=== PATIENT | male | born 1970 | race Caucasian/White ===

== ENCOUNTER 2019-06-11 11:04 | Emergency (ER) | payer OTHER, SELFPAY ==
[2019-06-11 11:17] VITALS: BP 161/96; PULSE 59; RESP 16; TEMP 36.2; O2SAT 97; BMI 41.8
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
[2019-06-11] MEDS: BACITRACIN OINT 0.9 GM PCKT 2 APPLIC TOP (11:50)
--- NOTE | 2019-06-11 12:14 | PC.NURSE ---
area cleaned with gentle soap and water. Bacetracin and gauze applied covered with coban.
== END 2019-06-11 12:15 | disposition home or self-care (01) ==
PROVIDERS: Emergency Provider Nurse Practitioner Family; PCP Student in an Organized Health Care Education/Training Program
DX: T22.011A Burn of unspecified degree of right forearm, initial encounter (principal)
CPT/HCPCS: 99282

== ENCOUNTER 2019-06-14 18:26 | Observation (INO) | payer OTHER, SELFPAY ==
[2019-06-14] VITALS (16 sets, daily range): BP systolic 95–133; BP diastolic 58–77; PULSE 53–75; RESP 14–20; TEMP 36.4–36.5; O2SAT 96–100; BMI 41.8
--- NOTE | 2019-06-14 18:42 | DI.RAD.S_ITS ---
PROCEDURE: XR CHEST 1V INDICATIONS: chest pain TECHNIQUE: One view of the chest was acquired. COMPARISON: None. FINDINGS: Surgical changes and devices: None. Lungs and pleura: Lungs are clear. No pleural effusions or pneumothorax. Mediastinum: Mediastinal contours appear normal. Heart size is normal. Bones and chest wall: No suspicious bony lesions. Overlying soft tissues appear unremarkable. IMPRESSION: No acute cardiopulmonary pathology. Dictated by: Miguel Shaver M.D. on 06/14/2019 at 18:54 Approved by: Miguel Shaver M.D. on 06/14/2019 at 19:01
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
[2019-06-14 18:51] LABS: Add Manual Diff / Slide Review NO; Basophils Absolute Auto 0 /uL (0-100); Basophils Percent Auto 0.5 % (0-2); Eosinophils Absolute Auto 100 /uL (0-450); Eosinophils Percent Auto 1.1 % (2-4); Hematocrit 43.8 % (41-53); Lymphocytes Absolute Auto 1500 /uL (1100-4500); Lymphocytes Percent Auto 20.1 % (25-40); Mean Corpuscular HGB Conc 34.3 % (30-36); Mean Corpuscular Hemoglobin 30.8 PG (26-34); Mean Corpuscular Volume 89.8 fL (80-100); Monocytes Absolute Auto 400 /uL (0-900); Monocytes Percent Auto 4.9 % (3-14); Neutrophils Absolute Auto 5500 /uL (1500-7000); Neutrophils Percent Auto 73.4 % (50-75); Platelet Count 175 X10^3/uL (150-400); Red Blood Cell Count 4.87 X10^6/uL (4.5-5.9); White Blood Cell Count 7.5 X10^3/uL (4.5-11.0)
--- NOTE | 2019-06-14 18:51 | PC.NURSE ---
Patient reports he had a stress test in [place] about 3 years ago and it showed microvessel occlusions in LAD, but because they were microvessels they couldn't do anything about it. patient was given Nitro at that time for angina however I always forget to take it. Patient took 162mg of Aspirin this morning and no nitro today. He reports pain is 5/10 pressure in chest and he reports he has not had chest pain or pressure in months.
[2019-06-14 18:56] LABS: Prothrombin Time 11.6 SECONDS (10.1-12.7)
[2019-06-14 18:58] LABS: PTT Partial Thromboplastin Tim 34 SECONDS (26.4-36.2)
[2019-06-14] MEDS: ASPIRIN 81 MG CHEW TAB 324 MG PO (19:00)
[2019-06-14] MEDS: NITROGLYCERIN 0.4 MG SL TAB SL ×2 (19:02→19:34)
[2019-06-14 19:05] LABS: Alanine Aminotransferase 42 IU/L (<50); Albumin 4.4 g/dL (3.5-5.0); Albumin Globulin Ratio 1.4 (1.0-2.8); Alkaline Phosphatase 78 U/L (38-126); Aspartate Aminotransferase 30 IU/L (17-59); BUN Creatinine Ratio 11.8 (6-22); Bilirubin Total 0.8 mg/dL (0.2-1.3); Blood Urea Nitrogen 13 mg/dL (9-20); Calcium 9.5 mg/dL (8.4-10.2); Carbon Dioxide 26 mmol/L (22-32); Chloride 108 mmol/L (98-107); Creatine Kinase 83 U/L (55-170); Estimated Glomerular Filt Rate > 60.0 mL/min (>60); Globulin 3.1 g/dL (1.7-4.1); Glucose 84 mg/dL (70-100); HEMOLYSIS < 15 (0-50); Lipase 85 U/L (23-300); Potassium 3.8 mmol/L (3.4-5.1); Sodium 142 mmol/L (137-145); Total Protein 7.5 g/dL (6.3-8.2)
[2019-06-14 19:16] LABS: Troponin I < 0.012 ng/mL (0.01-0.034)
[2019-06-14] MEDS: MORPHINE 4 MG/ML INJ IV (20:51)
[2019-06-14] MEDS: MAG HYDROX/ALUMINUM/SIMETH SUS 20 ML, LIDOCAINE VISCOUS 2% 15 ML PO (20:55)
[2019-06-14 21:21] LABS: Creatine Kinase 64 U/L (55-170)
[2019-06-14 21:34] LABS: Troponin I < 0.012 ng/mL (0.01-0.034)
--- NOTE | 2019-06-15 | P.HP_ITS ---
History of Present Illness History of Present Illness Date Patient Seen: 06/14/19 Time Patient Seen: 23:30 Chief complaint: CHEST PAIN Narrative: Johnathan Mendiola is a pleasant and morbidly obese 48 y.o. male with a history of hypertension, hyperlipidemia and a prior negative diagnostic angio cath who presented with a 6-hour history of chest pain that developed while he was at work. He completed his shift and presented to the ED. He states it still hurts described as constant pressure worsening at times on his left chest, shoulder blades and left arm. He endorses having tingling of his left fingers, being diaphoretic, having an episode of heart fluttering, nausea and vomiting and having orthopnea the day before that occurred when he arose from a sitting position. He had a single episode of a headache and shortness of breath which has now resolved. Denies fever or chills, changes in his vision, dysuria, diarrhea or constipation. 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 He has been working out and wishes to loose 100 lbs. Patient has a history of having undergone a diagnostic angiocath approximately 10 years ago in [place]. His mother had 2 MIs the first one occurring when she was 40 and his father underwent quintuple bypass and in his 70s. Patient History Medical History (Updated 06/15/19 @ 00:09 by CHARLIE Lewis) Chest pain (Acute) Coronary artery disease (Acute) Dyslipidemia (Acute) Essential hypertension (Acute) Family history of myocardial infarction at age less than 60 (Acute) Hx of angiography (Acute) Hypertension (Acute) Surgical History (Updated 06/15/19 @ 00:12 by CHARLIE Lewis) H/O left heart catheterization by cutdown (Acute) History of arthroscopy of both knees (Acute) Family & Social History Family History (Updated 06/15/19 @ 00:13 by CHARLIE Lewis) Mother Myocardial infarct Father CAD, multiple vessel Safety & Behavioral: Feels Safe in Current Yes Environment Tobacco & Substance use: Smoking Status Never smoker, exposed to second hand smoke alcohol intake current Substance Use Type rare oral THC use Meds Home Medications and Allergies Home Medications Medication Instructions Recorded Confirmed Type amlodipine 2.5 mg PO DAILY 06/11/19 06/14/19 History dextroamphetamine-amphetamine 20 mg PO BID 06/11/19 06/14/19 History metoprolol succinate 100 mg PO DAILY 06/11/19 06/14/19 History omeprazole 20 mg PO DAILY 06/11/19 06/14/19 History aspirin 81 mg PO DAILY 06/14/19 06/14/19 History Allergies Allergy/AdvReac Type Severity Reaction Status Date / Time ciprofloxacin [From Cipro] Allergy Severe ITCHING Verified 06/11/19 11:21 diphenhydramine Allergy Severe Anxiety Verified 06/11/19 11:21 [From Benadryl] ketorolac [From Toradol] Allergy Severe ITCHING Verified 06/11/19 11:21 Review of Systems Review of Systems ROS Unobtainable: All systems reviewed & are unremarkable except as noted in HPI and below Exam Vital Signs (past 8 hours): - 06/14/19 18:30 06/14/19 19:02 06/14/19 19:06 Temperature 97.6 F Pulse Rate 67 66 75 Respiratory Rate 18 17 Blood Pressure 133/71 115/75 Blood Pressure [Right Arm] 115/75 Pulse Oximetry 96 96 06/14/19 19:15 06/14/19 19:30 06/14/19 19:34 Temperature Pulse Rate 66 66 67 Respiratory Rate 16 16 Blood Pressure 116/75 Blood Pressure [Right Arm] 107/63 110/66 Pulse Oximetry 97 98 06/14/19 19:45 06/14/19 20:08 06/14/19 20:35 Temperature Pulse Rate 65 60 59 L Respiratory Rate 15 16 14 Blood Pressure Blood Pressure [Right Arm] 95/58 L 105/62 108/64 Pulse Oximetry 97 98 99 06/14/19 21:00 06/14/19 21:40 06/14/19 22:06 Temperature Pulse Rate 56 L 55 L 57 L Respiratory Rate 15 16 16 Blood Pressure Blood Pressure [Right Arm] 103/68 109/69 104/67 Pulse Oximetry 96 96 98 06/14/19 22:30 06/14/19 23:11 Temperature Pulse Rate 59 L 57 L Respiratory Rate 16 15 Blood Pressure Blood Pressure [Right Arm] 105/62 112/77 Pulse Oximetry 97 100 Oxygen Delivery Method Room Air Narrative Exam Narrative: Gen: Alert, oriented, morbidly obese 48 y.o. male HEENT: normocephalic, atraumatic, conjunctiva clear, sclera non-icteric, oral mucosa pink and moist Neck: supple, full ROM Resp: Lungs CTA, non-labored breathing CV: Distant, RRR, no murmur or rubs Abd: obese, soft, non-tender, normoactive BTs Skin: multiple acne lesions on torso, dry and intact Neuro: Alert and oriented X 4 w/no focal deficits Extremities: moves all 4 extremities, is ambulatory, negative Ernesto?s sign Psyche: pleasant, normal mood and affect. Objective Labs Result Diagrams: 06/14/19 18:45 06/14/19 18:45 Labs: Laboratory Results - last 24 hr 06/14/19 06/14/19 06/14/19 18:45 18:45 18:45 WBC 7.5 RBC 4.87 Hgb 15.0 Hct 43.8 MCV 89.8 MCH 30.8 MCHC 34.3 RDW 13.0 Plt Count 175 Neut % (Auto) 73.4 Lymph % (Auto) 20.1 L Potter % (Auto) 4.9 Eos % (Auto) 1.1 L Baso % (Auto) 0.5 Neut # (Auto) 5500 Lymph # (Auto) 1500 Potter # (Auto) 400 Eos # (Auto) 100 Baso # (Auto) 0 PT 11.6 INR 1.0 APTT 34 Sodium 142 Potassium 3.8 Chloride 108 H Carbon Dioxide 26 BUN 13 Creatinine 1.10 Estimated GFR > 60.0 BUN/Creatinine Ratio 11.8 Glucose 84 Calcium 9.5 Total Bilirubin 0.8 AST 30 ALT 42 Alkaline Phosphatase 78 Total Creatine Kinase 83 CK-MB (CK-2) TNP CK-MB (CK-2) Rel Index TNP Troponin I < 0.012 Total Protein 7.5 Albumin 4.4 Globulin 3.1 Albumin/Globulin Ratio 1.4 Lipase 85 06/14/19 21:06 WBC RBC Hgb Hct MCV MCH MCHC RDW Plt Count Neut % (Auto) Lymph % (Auto) Potter % (Auto) Eos % (Auto) Baso % (Auto) Neut # (Auto) Lymph # (Auto) Potter # (Auto) Eos # (Auto) Baso # (Auto) PT INR APTT Sodium Potassium Chloride Carbon Dioxide BUN Creatinine Estimated GFR BUN/Creatinine Ratio Glucose Calcium Total Bilirubin AST ALT Alkaline Phosphatase Total Creatine Kinase 64 CK-MB (CK-2) TNP CK-MB (CK-2) Rel Index TNP Troponin I < 0.012 Total Protein Albumin Globulin Albumin/Globulin Ratio Lipase Assessment & Plan Assessment & Plan narrative: Johnathan Mendiola will be placed into observation overnight and is scheduled for a nuclear stress test. 1. Chest pain, acute, POA * Serial troponins q 6 hours, first 2 were negative * Nuclear stress test in the am, if positive, will need to be referred or transferred * IV Morphine and SL nitro for chest pain 2. Essential hypertension, stable, POA * Metoprolol will be held until he undergoes stress testing * Continue amlodipine 2.5 mg po daily 3. Hyperlipidemia, history of * Fasting lipid panel in the am. * Consider fibrate derivative or bile acid if unable to tolerate statins 4. Morbid obesity, stable, POA * Encourage close follow-up w/PCP for exercise and diet recommendations. Patient is admitted to observation as his stay is not anticipated to exceed 2 midnights. FEN: saline lock, heart healthy diet, chemistries in the am. VTE Prophylaxis: bilateral scds Disposition: unknown at this time Code status: Full code Admission time: 65 minutes Meds reconciled: Yes Time Spent With Patient Time with patient: 15-24 minutes
[2019-06-15 03:15] LABS: Add Manual Diff / Slide Review NO; Basophils Absolute Auto 0 /uL (0-100); Basophils Percent Auto 0.5 % (0-2); Eosinophils Absolute Auto 100 /uL (0-450); Eosinophils Percent Auto 1.6 % (2-4); Hematocrit 39.3 % (41-53); Hemoglobin 13.5 g/dL (13.5-17.5); Lymphocytes Absolute Auto 2300 /uL (1100-4500); Lymphocytes Percent Auto 35.8 % (25-40); Mean Corpuscular HGB Conc 34.3 % (30-36); Mean Corpuscular Hemoglobin 30.6 PG (26-34); Mean Corpuscular Volume 89.4 fL (80-100); Monocytes Absolute Auto 600 /uL (0-900); Monocytes Percent Auto 9.1 % (3-14); Neutrophils Absolute Auto 3300 /uL (1500-7000); Platelet Count 148 X10^3/uL (150-400); Red Cell Distribution Width 12.8 % (11.6-14.8); White Blood Cell Count 6.3 X10^3/uL (4.5-11.0)
[2019-06-15 03:19] LABS: Alanine Aminotransferase 36 IU/L (<50); Albumin 3.7 g/dL (3.5-5.0); Albumin Globulin Ratio 1.3 (1.0-2.8); Alkaline Phosphatase 56 U/L (38-126); Aspartate Aminotransferase 25 IU/L (17-59); BUN Creatinine Ratio 12.5 (6-22); Bilirubin Total 0.6 mg/dL (0.2-1.3); Blood Urea Nitrogen 15 mg/dL (9-20); Calcium 8.8 mg/dL (8.4-10.2); Carbon Dioxide 27 mmol/L (22-32); Chloride 107 mmol/L (98-107); Cholesterol 207 mg/dL (140-199); Estimated Glomerular Filt Rate > 60.0 mL/min (>60); Globulin 2.8 g/dL (1.7-4.1); Glucose 86 mg/dL (70-100); HDL Cholesterol 26 mg/dL (40-60); HEMOLYSIS < 15 (0-50); LDL Cholesterol Calculated 155 mg/dL (<100); Potassium 3.9 mmol/L (3.4-5.1); Sodium 139 mmol/L (137-145); Total Protein 6.5 g/dL (6.3-8.2); Triglycerides 132 mg/dL (35-150)
[2019-06-15 03:30] LABS: Troponin I < 0.012 ng/mL (0.01-0.034)
[2019-06-15 03:31] LABS: B Type Natriuretic Peptide < 100 (<100)
[2019-06-15 07:40] VITALS: BP 88/53; PULSE 52; RESP 18; TEMP 36.6; O2SAT 97
[2019-06-15 08:35] VITALS: O2SAT 98
--- NOTE | 2019-06-15 09:00 | DI.NM.S_ITS ---
PROCEDURE: NM KIAH PERF SPECT SINGLE STUDY Exercise myocardial perfusion SPECT with gated imaging and ejection fraction RADIOPHARMACEUTICAL: 24.2 mCi Tc-99m sestamibi IV at peak exercise. INDICATIONS: chest pain TECHNIQUE: Radiopharmaceutical was injected at peak stress test. SPECT images were obtained, with perfusion images in short axis, horizontal long axis, and vertical long axis views. Gated images were reviewed using Lockbox software. COMPARISON: None. CARDIAC STRESS: A standard Aleksander treadmill exercise tolerance test was performed by the patient under the supervision of an attending staff. The patient exercised for 8 minutes and 36 seconds reaching 7.0 METs. Since only 77% of maximum predicted heart rate was achieved, the study was switched to lexiscan. Hemodynamic data: There is normal blood pressure and heart response to exercise. Patient achieved 77% of maximum predicted heart rate. Symptoms: Patient had mild chest pain during the study. EKG: No diagnostic changes of ischemia; no ectopy. FINDINGS: Raw data: There is good labeling of myocardium by radiotracer. No significant motion artifacts. Left ventricular function: Gated images demonstrate normal left ventricle wall thickening. No segmental wall motion abnormalities. Left ventricle end diastolic volume is 108 mL. Left ventricle stress ejection fraction is 71%; normal values are above 45%. Myocardial perfusion: There is a moderately intense defect of the anterior wall and apex on supine stress images that resolve with prone imaging suggesting artifact than true ischemia or infarction. IMPRESSION: Low risk, probably normal stress only nuclear stress test 1) Probably normal perfusion images. There is a moderately intense defect of the anterior wall and apex on supine stress images that resolve with prone imaging suggesting artifact than true ischemia or infarction. 2) Normal left ventricular size, wall motion, and systolic function (EF post stress 71%). 3) No ECG evidence of ischemia. 4) Non-diagnostic chest pain during the study. 5) Reduced exercise tolerance (7 METs). Since only 77% of maximum predicted heart rate was achieved, the study was switched to lexiscan. 6) No prior nuclear stress test available for comparison. Dictated by: Felipa Ng MD on 06/15/2019 at 12:55 Approved by: Felipa Ng MD on 06/15/2019 at 12:59
[2019-06-15 09:38] VITALS: BP 107/77; PULSE 62
[2019-06-15] MEDS: AMLODIPINE 2.5 MG TABLET PO (09:39)
[2019-06-15] MEDS: ASPIRIN EC 81 MG TABLET PO (09:39)
[2019-06-15 09:42] VITALS: O2SAT 98
--- NOTE | 2019-06-15 11:22 | PC.NURSE ---
Patient left room via wheel chair to stress test at 1115. LUCAS Anderson
--- NOTE | 2019-06-15 11:44 | PM.TREADMILL ---
Cardiac Stress Test Report Referral & Results Date Patient Seen: 06/15/19 Time Patient Seen: 11:45 Requesting provider: Marcela Giraldo Indication: Chest discomfort Rest ECG: unremarkable Procedure Note: After both written and verbal informed consent patient was hooked up to the treadmill monitoring system by the diagnostic imaging RN. This was initially performed as a exercise Cardiolite but patient's heart rate failed to increase appropriately and patient was becoming fatigued in clearly was not going to hit anything close to his heart rate target. Therefore this was converted to a Lexiscan Cardiolite test. The treadmill was reduced to 1.2 mph with no elevation and the Lexiscan material was injected (through a previously started IV) by the medical doctor nuclear medicine immediately followed by the Cardiolite material. Patient was continued on treadmill for another 3 minutes Patient did experience mild chest discomfort while he was exercising without evidence of ECG changes Blunted heart rate response to the limited exercise that was performed. Impression: Please see perfusion imaging report for details regarding possible ischemia Please note: Actual ECG tracings can be found in the PACS system.
--- NOTE | 2019-06-15 12:52 | P.DS_ITS ---
History of Present Illness History of Present Illness Date Patient Seen: 06/15/19 Time Patient Seen: 12:55 Chief complaint: CHEST PAIN Narrative: As per CHARLIE Lewis: Johnathan Mendiola is a pleasant and morbidly obese 48 y.o. male with a history of hypertension, hyperlipidemia and a prior negative diagnostic angio cath who presented with a 6-hour history of chest pain that developed while he was at work. He completed his shift and presented to the ED. He states it still hurts described as constant pressure worsening at times on his left chest, shoulder blades and left arm. He endorses having tingling of his left fingers, being d iaphoretic, having an episode of heart fluttering, nausea and vomiting and having orthopnea the day before that occurred when he arose from a sitting position. He had a single episode of a headache and shortness of breath which has now resolved. Denies fever or chills, changes in his vision, dysuria, diarrhea or constipation. 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 He has been working out and wishes to loose 100 lbs. Patient has a history of having undergone a diagnostic angiocath approximately 10 years ago in [place]. His mother had 2 MIs the first one occurring when she was 40 and his father underwent quintuple bypass and in his 70s. Discharge Providers Provider Date of admission: 06/14/19 22:00 Discharge Date: 06/15/19 Primary care physician: Hunter Briggs MD Discharge provider: Asher Serrano DO Summary Hospital Course Hospital Course: Johnathan Menidola is a pleasant and morbidly obese 48 y.o. male with a history of hypertension, hyperlipidemia and a prior negative diagnostic angiocath who presented with a 6-hour history of chest pain that developed while he was at work. He had multiple negative troponins and negative nuclear stress test. Patient was discharged home and will follow up with his primary care provider. 1. Chest pain, acute, POA, improved. Serial troponins negative. Nuclear stress test was unremarkable. Further evaluation as outpatient with primary care provider. 2. Essential hypertension, stable, POA Continue home amlodipine 2.5 mg and metoprolol 3. Hyperlipidemia, history of Fasting lipid panel in the am showed an LDL 155. Consider fibrate derivative or bile acid if unable to tolerate statins, patient can follow up with primary care provider. 4. Morbid obesity, stable, POA Encourage close follow-up w/PCP for exercise and diet recommendations. Exam Vital Signs (past 8 hours): - 06/15/19 07:40 06/15/19 08:35 06/15/19 09:38 Temperature 98 F Pulse Rate 52 L 62 Respiratory Rate 18 Blood Pressure 88/53 L 107/77 Pulse Oximetry 97 98 06/15/19 09:42 Temperature Pulse Rate Respiratory Rate Blood Pressure Pulse Oximetry 98 Oxygen Delivery Method Room Air Oxygen Flow Rate 0 Narrative Exam Narrative: GENERAL APPEARANCE: Obese male in no acute distress. SKIN: Inspection of the skin reveals no rashes, ulcerations or petechiae. HEENT: The sclerae were anicteric and conjunctivae were pink and moist. Extraocular movements were intact and pupils were equal, round with normal accommodation. External inspection of the ears and nose showed no scars, lesions, or masses. Lips, teeth, and gums showed normal mucosa. The oral mucosa, hard and soft palate, tongue and posterior pharynx were unremarkable. NECK: Supple and symmetric. There was no thyroid enlargement, and no tenderness, or masses were felt. CHEST: Normal AP diameter and normal contour without any kyphoscoliosis. LUNGS: Auscultation of the lungs revealed no wheezes, rhonchi, or rales. CARDIOVASCULAR: There was a regular rate and rhythm without any murmurs, gallops, rubs. Peripheral pulses were 2+ and symmetric. ABDOMEN: Soft and nontender with normal bowel sounds. No ascites was noted. MUSCULOSKELETAL: There was no tenderness or effusions noted. Muscle strength and tone were normal. EXTREMITIES: No cyanosis, clubbing or edema. NEUROLOGIC: Alert and oriented x 3. Normal affect. Gait was normal. Strength is +5/5 in the Upper Extremities and Lower Extremities Bilaterally. Sensation to touch was normal. Objective Imaging Stress test: Radiologist's impression: Low risk, probably normal stress only nuclear stress test 1) Probably normal perfusion images. There is a moderately intense defect of the anterior wall and apex on supine stress images that resolve with prone imaging suggesting artifact than true ischemia or infarction. 2) Normal left ventricular size, wall motion, and systolic function (EF post stress 71%). 3) No ECG evidence of ischemia. 4) Non-diagnostic chest pain during the study. 5) Reduced exercise tolerance (7 METs). Since only 77% of maximum predicted heart rate was achieved, the study was switched to lexiscan. 6) No prior nuclear stress test available for comparison. Labs Result Diagrams: 06/15/19 03:00 06/15/19 03:00 Labs: Laboratory Results - last 24 hr 06/14/19 06/14/19 06/14/19 18:45 18:45 18:45 WBC 7.5 RBC 4.87 Hgb 15.0 Hct 43.8 MCV 89.8 MCH 30.8 MCHC 34.3 RDW 13.0 Plt Count 175 Neut % (Auto) 73.4 Lymph % (Auto) 20.1 L Alpine % (Auto) 4.9 Eos % (Auto) 1.1 L Baso % (Auto) 0.5 Neut # (Auto) 5500 Lymph # (Auto) 1500 Alpine # (Auto) 400 Eos # (Auto) 100 Baso # (Auto) 0 PT 11.6 INR 1.0 APTT 34 Sodium 142 Potassium 3.8 Chloride 108 H Carbon Dioxide 26 BUN 13 Creatinine 1.10 Estimated GFR > 60.0 BUN/Creatinine Ratio 11.8 Glucose 84 Calcium 9.5 Total Bilirubin 0.8 AST 30 ALT 42 Alkaline Phosphatase 78 Total Creatine Kinase 83 CK-MB (CK-2) TNP CK-MB (CK-2) Rel Index TNP Troponin I < 0.012 B-Natriuretic Peptide Total Protein 7.5 Albumin 4.4 Globulin 3.1 Albumin/Globulin Ratio 1.4 Triglycerides Cholesterol LDL Cholesterol, Calc HDL Cholesterol Lipase 85 06/14/19 06/15/19 06/15/19 21:06 03:00 03:00 WBC 6.3 RBC 4.40 L Hgb 13.5 Hct 39.3 L MCV 89.4 MCH 30.6 MCHC 34.3 RDW 12.8 Plt Count 148 L Neut % (Auto) 53.0 D Lymph % (Auto) 35.8 Alpine % (Auto) 9.1 Eos % (Auto) 1.6 L Baso % (Auto) 0.5 Neut # (Auto) 3300 Lymph # (Auto) 2300 Alpine # (Auto) 600 Eos # (Auto) 100 Baso # (Auto) 0 PT INR APTT Sodium Potassium Chloride Carbon Dioxide BUN Creatinine Estimated GFR BUN/Creatinine Ratio Glucose Calcium Total Bilirubin AST ALT Alkaline Phosphatase Total Creatine Kinase 64 CK-MB (CK-2) TNP CK-MB (CK-2) Rel Index TNP Troponin I < 0.012 < 0.012 B-Natriuretic Peptide < 100 Total Protein Albumin Globulin Albumin/Globulin Ratio Triglycerides Cholesterol LDL Cholesterol, Calc HDL Cholesterol Lipase 06/15/19 03:00 WBC RBC Hgb Hct MCV MCH MCHC RDW Plt Count Neut % (Auto) Lymph % (Auto) Alpine % (Auto) Eos % (Auto) Baso % (Auto) Neut # (Auto) Lymph # (Auto) Alpine # (Auto) Eos # (Auto) Baso # (Auto) PT INR APTT Sodium 139 Potassium 3.9 Chloride 107 Carbon Dioxide 27 BUN 15 Creatinine 1.20 Estimated GFR > 60.0 BUN/Creatinine Ratio 12.5 Glucose 86 Calcium 8.8 Total Bilirubin 0.6 AST 25 ALT 36 Alkaline Phosphatase 56 Total Creatine Kinase CK-MB (CK-2) CK-MB (CK-2) Rel Index Troponin I B-Natriuretic Peptide Total Protein 6.5 Albumin 3.7 Globulin 2.8 Albumin/Globulin Ratio 1.3 Triglycerides 132 Cholesterol 207 H LDL Cholesterol, Calc 155 H HDL Cholesterol 26 L Lipase Discharge Plan Discharge Plan Patient Disposition: Home Discharge comment: You were admitted to the hospital with pain in your chest. During your stay you had a stress test which did not show any evidence of blockages in your heart. You can continue your home medications and please follow up with your primary care provider within the next 1-2 weeks for further evaluation. Discharge orders & Medications Prescriptions: Continued aspirin 81 mg Tablet,Chewable 81 mg PO DAILY RF: 0 metoprolol succinate 100 mg Tablet Extended Release 24 Hr 100 mg PO DAILY RF: 0 amlodipine 2.5 mg Tablet 2.5 mg PO DAILY RF: 0 dextroamphetamine-amphetamine 20 mg Tablet 20 mg PO BID RF: 0 omeprazole 20 mg Capsule,Delayed Release(Dr/Ec) 20 mg PO DAILY RF: 0 Follow up/Referrals: Hunter Briggs MD [Primary Care Provider] - Dina Mckenna MD [Physician] - (Patient looking to establish primary care in [place] from [place], admitted inpatient for chest pain with negative stress testing.) Diet/Activity/Treatments Diet: Diet as Tolerated Activity: As tolerated Visit Report/Discharge Packet Instructions: DI for Chest Pain Discharge Data Primary Care Provider: Hunter Briggs Attending Provider: Marcela Giraldo Admit Date/Time: 06/14/19 22:00 Discharges patient from system. Discharge Date/Time: 06/15/19 14:33 Quality VTE Deep Vein Thrombosis/Pulmonary Embolism Present on Admission: No
[2019-06-15 13:07] LABS: Troponin I < 0.012 ng/mL (0.01-0.034)
--- NOTE | 2019-06-15 14:27 | CM.DANOTE ---
DCP Assessment: EMR reviewed: Patient is a 48 yr old male who was admitted to [facility] for chest pain and a nuclear stress test. PCP is Dr. Briggs. CM/RN met with patient at the bedside and explained CM/RN role. Patient was alert and oriented x3 during CM visit. Patient is I with all ADL's at baseline and drives himself. patient currently lives in [place] [facility] alone. Patient had Stress test today 06/15/2019 and plans to D/C home. I: 1st: [place] 2nd: Self pay Plan: D/C home when medically stable. No identified D/C planning needs noted at this time. CM department will follow to see if any D/C needs arise prior to d/c. Dina Omer RN Discharge Planning/Care Management Discharge Assessment Start: 06/15/19 14:26 Freq: Status: Active Protocol: Document 06/15/19 14:26 HS (Rec: 06/15/19 14:27 HS [id number]) Discharge Planning Assessment Assigned Computer Applications Developer Dina Omer Rn DPOA/Assigned Designee Name Nhi Michael Contact Information [phone] Advance Directives? No History Provided By Patient Has Patient been admitted in last 30 No days? Prior Living Arrangements House Household Members none Type of transporation used prior to Drives own vehicle admit Independent with ADL's Yes Is patient alert and oriented? Yes Caregiver for Another No Discharge Plan Home Referrals Initiated None needed Whiteboard Updated in Patient Room with Yes name and ext. # of Computer Applications Developer Review Status In Process Next Review Type Continued Stay Review
--- NOTE | 2019-06-15 14:29 | PC.NURSE ---
Pt is dressed and ready for discharge home. He is not any narcotics and plans to drive himself. IV has been removed as well as tele. Went over d/c instructions with Pt-discussed continuing home meds as previous, reviewed stroke education, follow up - establishing care with Dr. Dina Mckenna, and completing the second part of his stress test tomorrow outpatient as scheduled. Pt denies further questions and was taken out via w/c by Student RN to POV with all belongings.
== END 2019-06-15 14:33 | disposition home or self-care (01) ==
LOC: ED 21:59 → AC 22:01
PROVIDERS: Admitting Provider Nurse Practitioner Family; Emergency Provider Emergency Medicine; PCP Student in an Organized Health Care Education/Training Program; Visit Provider Nurse Practitioner Family
DX: I44.0 Atrioventricular block, first degree (principal); R07.9 Chest pain, unspecified; I25.10 Atherosclerotic heart disease of native coronary artery without angina pectoris; E78.5 Hyperlipidemia, unspecified; I10 Essential (primary) hypertension; E66.01 Morbid (severe) obesity due to excess calories
CPT/HCPCS: 36415; 71045; 78451; 80053; 80061; 82550; 83690; 83880; 84484; 85025; 85610; 85730; 93005; 93016; 93017; 93018; 96374; 99284; 99285; G0378; A9502; J2270; J2785

== ENCOUNTER 2019-07-15 19:09 | Emergency (ER) | payer OTHER, MEDICAID, SELFPAY ==
[2019-06-14 23:45] VITALS: BMI 41.8
[2019-07-15 19:12] VITALS: BP 149/104; PULSE 88; RESP 20; TEMP 36.1; O2SAT 96
--- NOTE | 2019-07-15 19:53 | ED_ITS ---
HPI - Dental/Oral General Chief complaint: Dental/Oral Stated complaint: pain in his mouth, dizzy spells, and SOB Time Seen by Provider: 07/15/19 19:43 Source: patient Mode of arrival: Ambulatory Limitations: no limitations History of Present Illness HPI Narrative: 48M nonsmoker with cardiac history and extensive dental history presents with worsening widespread dentition over the past few days. He denies fever or chills nor facial swelling. He's had no injury and denies any significant or memorable event. He is otherwise well and free of complaint MD Complaint: tooth pain Onset (ago): day(s) Duration: constant Severity: moderate Relieving factors: nothing Exacerbating factors: chewing, cold and heat Context: history of dental caries Treatment prior to arrival: oral analgesic Related Data Home Medications Medication Instructions Recorded Confirmed amlodipine 2.5 mg PO DAILY 06/11/19 06/14/19 dextroamphetamine-amphetamine 20 mg PO BID 06/11/19 06/14/19 metoprolol succinate 100 mg PO DAILY 06/11/19 06/14/19 omeprazole 20 mg PO DAILY 06/11/19 06/14/19 aspirin 81 mg PO DAILY 06/14/19 06/14/19 Previous Rx's Medication Instructions Recorded amoxicillin-pot clavulanate 1 tab PO BID #20 tab 07/15/19 [Augmentin] Allergies Allergy/AdvReac Type Severity Reaction Status Date / Time ciprofloxacin [From Cipro] Allergy Severe ITCHING Verified 06/11/19 11:21 diphenhydramine Allergy Severe Anxiety Verified 06/11/19 11:21 [From Benadryl] ketorolac [From Toradol] Allergy Severe ITCHING Verified 06/11/19 11:21 Review of Systems Constitutional Constitutional: Denies chills, Denies fatigue, Denies fever(s), Denies frequent falls, Denies lethargy and Denies weakness Eyes Eyes: Denies change in vision, Denies eye discharge, Denies irritation and Denies loss of vision ENT Ears, Nose, Mouth, and Throat: Denies change in voice, Reports dental pain, Denies dizziness, Denies neck pain, Denies sore throat and Denies throat swelling Cardiovascular Cardiovascular: Denies chest pain, Denies irregular heart rhythm, Denies lightheadedness, Denies palpitations, Denies dyspnea, Denies dyspnea on exertion and Denies orthopnea Respiratory Respiratory: Denies cough, Denies dyspnea, Denies dyspnea on exertion and Denies wheezing Gastrointestinal Gastrointestinal: Denies abdominal pain, Denies change in bowel habits, Denies diarrhea, Denies nausea and Denies vomiting Genitourinary Genitourinary: Denies hematuria, Denies flank pain, Denies urinary incontinence and Denies urinary urgency Musculoskeletal Musculoskeletal: Denies back pain, Denies muscle weakness, Denies neck pain, Denies numbness and Denies tingling Integumentary/Breasts Skin/Breast: Denies pruritus, Denies erythema, Denies rash and Denies wounds Neurologic Neurologic: Denies behavioral changes, Denies confusion, Denies dizziness, Denies frequent falls, Denies loss of vision, Denies numbness, Denies tingling and Denies weakness Psychiatric Psychiatric: Denies anxiety, Denies behavioral changes, Denies confusion, Denies depression, Denies homicidal ideation and Denies suicidal ideation Endocrine Endocrine: Denies fatigue, Denies flushing and Denies palpitations Hematologic/Lymphatic Hematologic/Lymphatic: Denies easy bruising Allergic/Immunologic Allergic/Immunologic: Denies urticaria, Denies throat swelling and Denies wheezing Patient History Medical History Chest pain (Acute) Coronary artery disease (Acute) Dyslipidemia (Acute) Essential hypertension (Acute) Family history of myocardial infarction at age less than 60 (Acute) Hx of angiography (Acute) Hypertension (Acute) Surgical History H/O left heart catheterization by cutdown (Acute) History of arthroscopy of both knees (Acute) Family History Mother Myocardial infarct Father CAD, multiple vessel Social History household members: none Smoking Status: Never smoker alcohol intake: current Smoking Status: Never smoker alcohol intake frequency: a few times a month Substance Use Type: does not use Exam Narrative Exam Narrative: GEN: AOx3 and in mild distress EYES: Pupils are equal, round, and reactive to light and accommodation. Extraoccular muscles are intact bilaterally. There is no subconjunctival hemorrhage or exudate. ORAL: No facial swelling or evidence of dental abscess. No drainage or bleeding. Widespread or dentition with DKA. CHEST: Lungs are clear to auscultation bilaterally and free of wheezes, rales, or rhonchi. Heart rate is regular rhythm, there are no murmurs, clicks, rubs, or gallops. There is no chest wall tenderness. ABD: Abdomen is soft and nontender. There is no guarding or rebound. Bowel sounds are normal in all 4 quadrants. There is no mass or organomegaly. EXT: Full painless ROM of all extremities with no loss of sensation or strength. SKIN: Warm, pink, and dry. No erythema or rash Initial Vital Signs Initial Vital Signs: Vital Signs Temperature 97 F L 07/15/19 19:12 Pulse Rate 88 07/15/19 19:12 Respiratory Rate 20 07/15/19 19:12 Blood Pressure 149/104 H 07/15/19 19:12 Pulse Oximetry 96 07/15/19 19:12 Course Orders Ordered: Discontinued Medications Hydrocodone Bitart/Acetaminophen (Vicodin 5/325 Prepack) 1 bottle MISC SEEINSTR ONE Stop: 07/15/19 20:15 Last Admin: 07/15/19 20:29 Dose: 1 bottle Documented by: BAY Amoxicillin/Clavulanate Potassium (Augmentin 875-125 Mg) 1 tab PO NOW ONE Stop: 07/15/19 20:16 Last Admin: 07/15/19 20:29 Dose: 1 tab Documented by: BAY Vital Signs Vital signs: Vital Signs - 8 hr 07/15/19 19:12 Temperature 97 F L Pulse Rate 88 Respiratory Rate 20 Blood Pressure 149/104 H Pulse Oximetry 96 Discharge Plan Departure Patient Disposition: Home Clinical Impression: Pain, dental Discharge Date/Time: 07/15/19 20:35 Instructions: Tooth Decay, DI for Dental Pain Activity Restrictions/Additional Instructions: *You have been diagnosed with [acute on chronic dental pain with widespread decay] *What to do: *Take medications as directed *Follow up with your primary care provider in 2-3 days, call for an appointment. Let them know you were seen in the Emergency Department and that we ask that you be seen in follow up *Return to ER if you should have any new, worsening or concerning symptoms, such as [fever >101F, facial swelling or other bothersome symptoms ] Prescriptions: New amoxicillin-pot clavulanate [Augmentin] 875-125 mg tablet 1 tab PO BID Qty: 20 RF: 0 No Action aspirin 81 mg Tablet,Chewable 81 mg PO DAILY RF: 0 metoprolol succinate 100 mg Tablet Extended Release 24 Hr 100 mg PO DAILY RF: 0 amlodipine 2.5 mg Tablet 2.5 mg PO DAILY RF: 0 dextroamphetamine-amphetamine 20 mg Tablet 20 mg PO BID RF: 0 omeprazole 20 mg Capsule,Delayed Release(Dr/Ec) 20 mg PO DAILY RF: 0 Referrals: [facility] [Outside] Walter Gannon DMD [Physician] - Hunter Briggs MD [Primary Care Provider] -
[2019-07-15] MEDS: HYDROCODONE/ACET 5/325 PREPACK 1 BOTTLE MISC (20:29)
[2019-07-15] MEDS: AMOXICILLIN/CLAV 875/125 MG 1 TAB PO (20:29)
== END 2019-07-15 20:35 | disposition home or self-care (01) ==
PROVIDERS: Emergency Provider Emergency Medicine; PCP Student in an Organized Health Care Education/Training Program
DX: K02.9 Dental caries, unspecified (principal)
CPT/HCPCS: 99281; 99283

== ENCOUNTER 2019-07-19 15:20 | Emergency (ER) | payer OTHER, MEDICAID, SELFPAY ==
[2019-06-14 23:45] VITALS: BMI 41.8
[2019-07-19 15:25] VITALS: BP 123/80; PULSE 67; RESP 18; TEMP 36.4; O2SAT 100
[2019-07-19 16:43] LABS: Bacteria Urine None Seen; WBC Urine None Seen (0-5/HPF)
[2019-07-19 16:51] LABS: Culture Indicated Urine Cult Not Indicated; RBC Urine 1-5/HPF (0-5/HPF)
[2019-07-19 17:39] LABS: Add Manual Diff / Slide Review NO; Basophils Absolute Auto 0 /uL (0-100); Basophils Percent Auto 0.7 % (0-2); Eosinophils Absolute Auto 100 /uL (0-450); Eosinophils Percent Auto 1.6 % (2-4); Hematocrit 42.3 % (41-53); Hemoglobin 14.7 g/dL (13.5-17.5); Lymphocytes Absolute Auto 1800 /uL (1100-4500); Lymphocytes Percent Auto 24.8 % (25-40); Mean Corpuscular HGB Conc 34.8 % (30-36); Mean Corpuscular Hemoglobin 30.9 PG (26-34); Mean Corpuscular Volume 88.7 fL (80-100); Monocytes Absolute Auto 500 /uL (0-900); Monocytes Percent Auto 6.2 % (3-14); Neutrophils Absolute Auto 4800 /uL (1500-7000); Neutrophils Percent Auto 66.7 % (50-75); Platelet Count 182 X10^3/uL (150-400); Red Blood Cell Count 4.77 X10^6/uL (4.5-5.9); Red Cell Distribution Width 12.9 % (11.6-14.8); White Blood Cell Count 7.2 X10^3/uL (4.5-11.0)
[2019-07-19 17:47] LABS: PTT Partial Thromboplastin Tim 32 SECONDS (26.4-36.2)
[2019-07-19 17:49] LABS: Alanine Aminotransferase 29 IU/L (<50); Albumin 3.9 g/dL (3.5-5.0); Albumin Globulin Ratio 1.3 (1.0-2.8); Alkaline Phosphatase 64 U/L (38-126); Aspartate Aminotransferase 27 IU/L (17-59); BUN Creatinine Ratio 8.2 (6-22); Bilirubin Total 0.5 mg/dL (0.2-1.3); Blood Urea Nitrogen 9 mg/dL (9-20); Calcium 8.6 mg/dL (8.4-10.2); Carbon Dioxide 27 mmol/L (22-32); Chloride 105 mmol/L (98-107); Estimated Glomerular Filt Rate > 60.0 mL/min (>60); Glucose 138 mg/dL (70-100); HEMOLYSIS 43 (0-50); Lipase 84 U/L (23-300); Potassium 4.4 mmol/L (3.4-5.1); Sodium 140 mmol/L (137-145); Total Protein 6.9 g/dL (6.3-8.2)
--- NOTE | 2019-07-19 18:23 | ED.ABDPAIN ---
HPI - Abdominal Pain General Chief Complaint: Abdominal Pain Stated Complaint: states kidney pain Time Seen by Provider: 07/19/19 18:08 Source: patient Mode of arrival: Ambulatory Limitations: no limitations History of Present Illness HPI narrative: 48M nonsmoker with history of kidney stones presents with the chief complaint of LLQ pain which is sharp and stabbing and without provocation or palliation. Additionally he has some R flank pain which may or may not be related. He denies fever chills and is nauseated but denies vomiting. He denies any dysuria, frequency or urgency. He denies any injury nor numbness, tingling or weakness in his lower extremities. He denies any groin numbness. He denies testicular pain Related Data Home Medications Medication Instructions Recorded Confirmed amlodipine 2.5 mg PO DAILY 06/11/19 07/19/19 dextroamphetamine-amphetamine 20 mg PO BID 06/11/19 07/19/19 metoprolol succinate 100 mg PO DAILY 06/11/19 07/19/19 omeprazole 20 mg PO DAILY 06/11/19 07/19/19 aspirin 81 mg PO DAILY 06/14/19 06/14/19 pravastatin 5 mg PO DAILY 07/19/19 07/19/19 Previous Rx's Medication Instructions Recorded amoxicillin-pot clavulanate 1 tab PO BID #20 tab 07/15/19 [Augmentin] hydrocodone-acetaminophen 1 tab PO Q4-6H PRN #10 tab 07/19/19 ketorolac 10 mg PO Q6H PRN #14 tab 07/19/19 ondansetron 4 mg PO TID-QID PRN #10 tab 07/19/19 tamsulosin [Flomax] 0.4 mg PO DAILY #10 cap 07/19/19 Allergies Allergy/AdvReac Type Severity Reaction Status Date / Time ciprofloxacin [From Cipro] Allergy Severe ITCHING Verified 06/11/19 11:21 diphenhydramine Allergy Severe Anxiety Verified 06/11/19 11:21 [From Benadryl] ketorolac [From Toradol] Allergy Severe ITCHING Verified 06/11/19 11:21 Review of Systems Constitutional Constitutional: Denies chills, Denies fatigue, Denies fever(s), Denies frequent falls, Denies lethargy and Denies weakness Eyes Eyes: Denies change in vision, Denies eye discharge, Denies irritation and Denies loss of vision ENT Ears, Nose, Mouth, and Throat: Denies change in voice, Denies dizziness, Denies neck pain, Denies sore throat and Denies throat swelling Cardiovascular Cardiovascular: Denies chest pain, Denies irregular heart rhythm, Denies lightheadedness, Denies palpitations, Denies dyspnea, Denies dyspnea on exertion and Denies orthopnea Respiratory Respiratory: Denies cough, Denies dyspnea, Denies dyspnea on exertion and Denies wheezing Gastrointestinal Gastrointestinal: Reports abdominal pain, Denies change in bowel habits, Denies diarrhea, Reports nausea and Denies vomiting Genitourinary Genitourinary: Denies hematuria, Denies flank pain, Denies urinary incontinence and Denies urinary urgency Musculoskeletal Musculoskeletal: Denies back pain, Denies muscle weakness, Denies neck pain, Denies numbness and Denies tingling Integumentary/Breasts Skin/Breast: Denies pruritus, Denies erythema, Denies rash and Denies wounds Neurologic Neurologic: Denies behavioral changes, Denies confusion, Denies dizziness, Denies frequent falls, Denies loss of vision, Denies numbness, Denies tingling and Denies weakness Psychiatric Psychiatric: Denies anxiety, Denies behavioral changes, Denies confusion, Denies depression, Denies homicidal ideation and Denies suicidal ideation Endocrine Endocrine: Denies fatigue, Denies flushing and Denies palpitations Hematologic/Lymphatic Hematologic/Lymphatic: Denies easy bruising Allergic/Immunologic Allergic/Immunologic: Denies urticaria, Denies throat swelling and Denies wheezing Patient History Medical History Chest pain (Acute) Coronary artery disease (Acute) Dyslipidemia (Acute) Essential hypertension (Acute) Family history of myocardial infarction at age less than 60 (Acute) Hx of angiography (Acute) Hypertension (Acute) Surgical History H/O left heart catheterization by cutdown (Acute) History of arthroscopy of both knees (Acute) Family History Mother Myocardial infarct Father CAD, multiple vessel Social History household members: none Smoking Status: Never smoker alcohol intake: current Smoking Status: Never smoker alcohol intake frequency: a few times a month Substance Use Type: does not use Exam Narrative Exam Narrative: GENERAL: [48] year old patient appears stated age. Well-nourished, well-developed patient, in mild distress. HEAD: Atraumatic. Normocephalic. EYES: Pupils equal round and reactive. Extraocular motions intact. No scleral icterus. No injection or drainage. ENT: Nose without bleeding, purulent drainage. Throat without erythema, tonsillar hypertrophy or exudate. Airway patent. NECK: Trachea midline. Non tender CARDIOVASCULAR: Regular rate and rhythm without murmurs, gallops, or rubs. RESPIRATORY: Clear to auscultation. Breath sounds equal bilaterally. No wheezes, rales, or rhonchi. GASTROINTESTINAL: Abdomen soft, non-tender, nondistended. : Examined while standing. No evidence of inguinal hernia, or testicular torsion EXTREMITIES: No edema or joint tenderness. BACK: Nontender without deformity or crepitance. No flank tenderness. NEURO: AOx3. SKIN: No rash or erythema of visible areas Initial Vital Signs Initial Vital Signs: Vital Signs Temperature 97.5 F L 07/19/19 15:25 Pulse Rate 67 07/19/19 15:25 Respiratory Rate 18 07/19/19 15:25 Blood Pressure 123/80 07/19/19 15:25 Pulse Oximetry 100 07/19/19 15:25 Course Orders Ordered: ED Orders 07/19/19 18:48 CT kidney ureter bladder (KUB) Stat Discontinued Medications Sodium Chloride (Normal Saline 0.9%) 1,000 mls @ 1,000 mls/hr IV BOLUS ONE Stop: 07/19/19 19:47 Last Infusion: 07/19/19 20:08 Dose: 0 mls/hr Documented by: Admin: 07/19/19 18:56 Dose: 1,000 mls/hr Documented by: PETER Ketorolac Tromethamine (Toradol) 15 mg IV NOW ONE Stop: 07/19/19 18:49 Last Admin: 07/19/19 18:55 Dose: 15 mg Documented by: PETER Vital Signs Vital signs: Vital Signs - 8 hr 07/19/19 19:08 Temperature 98.8 F Pulse Rate 64 Respiratory Rate 16 Blood Pressure [Right Arm] 128/88 Pulse Oximetry 100 MDM - Abdominal Pain Lab Data Result diagrams: 07/19/19 17:30 07/19/19 17:30 Labs: Lab Results 07/19/19 07/19/19 07/19/19 Range/Units 16:00 17:30 17:30 WBC 7.2 (4.5-11.0) X10^3/uL RBC 4.77 (4.5-5.9) X10^6/uL Hgb 14.7 (13.5-17.5) g/dL Hct 42.3 (41-53) % MCV 88.7 (80-100) fL MCH 30.9 (26-34) PG MCHC 34.8 (30-36) % RDW 12.9 (11.6-14.8) % Plt Count 182 (150-400) X10^3/uL Neut % (Auto) 66.7 (50-75) % Lymph % (Auto) 24.8 L (25-40) % [place] % (Auto) 6.2 (3-14) % Eos % (Auto) 1.6 L (2-4) % Baso % (Auto) 0.7 (0-2) % Neut # (Auto) 4800 (5078-4139) /uL Lymph # (Auto) 1800 (9741-5748) /uL [place] # (Auto) 500 (0-900) /uL Eos # (Auto) 100 (0-450) /uL Baso # (Auto) 0 (0-100) /uL PT 11.0 (10.1-12.7) SECONDS INR 1.0 (0.9-1.3) APTT 32 D (26.4-36.2) SECONDS Sodium (137-145) mmol/L Potassium (3.4-5.1) mmol/L Chloride (98-107) mmol/L Carbon Dioxide (22-32) mmol/L BUN (9-20) mg/dL Creatinine (0.66-1.25) mg/dL Estimated GFR (>60) mL/min BUN/Creatinine Ratio (6-22) Glucose (70-100) mg/dL Calcium (8.4-10.2) mg/dL Total Bilirubin (0.2-1.3) mg/dL AST (17-59) IU/L ALT (<50) IU/L Alkaline Phosphatase (38-126) U/L Total Protein (6.3-8.2) g/dL Albumin (3.5-5.0) g/dL Globulin (1.7-4.1) g/dL Albumin/Globulin Ratio (1.0-2.8) Lipase (23-300) U/L Urine RBC 1-5/hpf (0-5/HPF) Urine WBC None seen (0-5/HPF) Urine Bacteria None seen (None) Ur Culture Indicated? Cult not indicated 07/19/19 Range/Units 17:30 WBC (4.5-11.0) X10^3/uL RBC (4.5-5.9) X10^6/uL Hgb (13.5-17.5) g/dL Hct (41-53) % MCV (80-100) fL MCH (26-34) PG MCHC (30-36) % RDW (11.6-14.8) % Plt Count (150-400) X10^3/uL Neut % (Auto) (50-75) % Lymph % (Auto) (25-40) % [place] % (Auto) (3-14) % Eos % (Auto) (2-4) % Baso % (Auto) (0-2) % Neut # (Auto) (5676-6248) /uL Lymph # (Auto) (1963-2979) /uL [place] # (Auto) (0-900) /uL Eos # (Auto) (0-450) /uL Baso # (Auto) (0-100) /uL PT (10.1-12.7) SECONDS INR (0.9-1.3) APTT (26.4-36.2) SECONDS Sodium 140 (137-145) mmol/L Potassium 4.4 (3.4-5.1) mmol/L Chloride 105 (98-107) mmol/L Carbon Dioxide 27 (22-32) mmol/L BUN 9 (9-20) mg/dL Creatinine 1.10 (0.66-1.25) mg/dL Estimated GFR > 60.0 (>60) mL/min BUN/Creatinine Ratio 8.2 (6-22) Glucose 138 H (70-100) mg/dL Calcium 8.6 (8.4-10.2) mg/dL Total Bilirubin 0.5 (0.2-1.3) mg/dL AST 27 (17-59) IU/L ALT 29 (<50) IU/L Alkaline Phosphatase 64 (38-126) U/L Total Protein 6.9 (6.3-8.2) g/dL Albumin 3.9 (3.5-5.0) g/dL Globulin 3.0 (1.7-4.1) g/dL Albumin/Globulin Ratio 1.3 (1.0-2.8) Lipase 84 (23-300) U/L Urine RBC (0-5/HPF) Urine WBC (0-5/HPF) Urine Bacteria (None) Ur Culture Indicated? Point of care testing: Urine Dip Bedside Urine Glucose Negative Bedside Urine Bilirubin - Negative Bedside Urine Ketone - Negative Urine Specific Cylinder 1.015 Bedside Urine Occult Blood + Bedside Urine pH 6.5 Bedside Urine Protein - Negative Bedside Urine Urobilinogen 2+ 4mg Bedside Urine Nitrite - Negative Bedside Urine Leukocytes - Negative Esterase Imaging Data CT scan - abdomen/pelvis: Radiologist's Impression: [address] [address] [address] Scan Report Signed Patient: Johnathan Mendiola RMR#: [id number] : 1970Acct:[id number] Age/Sex: 48 / MDate of Service: 07/19/19 Loc: ED Accession Number: [id number] Procedure: CT kidney ureter bladder (KUB) Ordering Provider: Jam Arias D.O. PROCEDURE: CT KIDNEY URETER BLADDER (KUB) INDICATIONS: flank pain, stone? TECHNIQUE: Noncontrast 5 mm thick sections acquired from the diaphragms to the symphysis. 5 mm thick coronal and sagittal reformats were then performed. For radiation dose reduction, the following was used: automated exposure control, adjustment of mA and/or kV according to patient size. COMPARISON: None. FINDINGS: Image quality: Excellent. Lung bases: Lung bases are clear. Heart size is normal. Urinary system: Both kidneys are normal in size. Punctate nonobstructing kidney stone in the mid left kidney, (2/38). No hydronephrosis or perinephric fat stranding. Both ureters appear non-dilated throughout their expected courses. Bladder wall thickness is normal; no calcified bladder stones. Other solid organs: Liver is normal in size. Hepatic steatosis. Gallbladder is nondistended. Cholelithiasis. Pancreas is normal in contours. Spleen is normal in size. No adrenal nodules. Peritoneum and bowel: Unenhanced bowel loops demonstrate normal wall thickness and caliber. No free fluid or air. Appendix is normal. Nodes and vessels: No retroperitoneal or mesenteric adenopathy by size criteria. Aorta and inferior vena cava are normal in caliber. Abdominal wall: No ventral hernias. Pelvis: No free pelvic fluid. No inguinal hernias or adenopathy. Bones: No suspicious bony lesions. No vertebral body compression fractures. IMPRESSION: 1. No obstructed kidney stone demonstrated. No hydronephrosis. 2. Punctate nonobstructing kidney stone in the mid left kidney. 3. Normal appendix. 4. Hepatic steatosis. 5. Cholelithiasis. Dictated by: Herb Jerez M.D. on 07/19/2019 at 19:08 Approved by: Herb Jerez M.D. on 07/19/2019 at 19:12 [facility] Narrative Medical decision making narrative: Multiple etiologies for patient's symptoms considered including: [kidney stone vs. pyelonephritis vs. diverticulitis vs. other] Patient's symptoms improved or duration of stay with above-stated therapies. Findings and discharge diagnosis discussed with patient/family followed by verbalization of understanding Return precautions discussed with patient/family whom verbalize understanding. Discharge Plan Departure Patient Disposition: Home Clinical Impression: Left groin pain Discharge Date/Time: 07/19/19 20:14 Instructions: DI for Kidney Stones Activity Restrictions/Additional Instructions: *You have been diagnosed with [groin pain, possibly from a missed or passed kidney stone] *What to do: *Take medications as directed: Prescriptions have been electronically transmitted to [facility] [employer] at your request *Follow up with your primary care provider in 2-3 days, call for an appointment. Let them know you were seen in the Emergency Department and that we ask that you be seen in follow up *Return to ER if you should have any new, worsening or concerning symptoms Prescriptions: New hydrocodone-acetaminophen 5-325 mg tablet 1 tab PO Q4-6H PRN (Reason: pain) Qty: 10 RF: 0 ketorolac 10 mg tablet 10 mg PO Q6H PRN (Reason: pain) Qty: 14 RF: 0 tamsulosin [Flomax] 0.4 mg capsule 0.4 mg PO DAILY Qty: 10 RF: 0 ondansetron 4 mg tablet,disintegrating 4 mg PO TID-QID PRN (Reason: nausea and vomiting) Qty: 10 RF: 0 No Action aspirin 81 mg Tablet,Chewable 81 mg PO DAILY RF: 0 amoxicillin-pot clavulanate [Augmentin] 875-125 mg tablet 1 tab PO BID Qty: 20 RF: 0 metoprolol succinate 100 mg Tablet Extended Release 24 Hr 100 mg PO DAILY RF: 0 amlodipine 2.5 mg Tablet 2.5 mg PO DAILY RF: 0 dextroamphetamine-amphetamine 20 mg Tablet 20 mg PO BID RF: 0 omeprazole 20 mg Capsule,Delayed Release(Dr/Ec) 20 mg PO DAILY RF: 0 pravastatin 10 mg Tablet 5 mg PO DAILY RF: 0 Referrals: Hunter Briggs MD [Primary Care Provider] -
--- NOTE | 2019-07-19 18:48 | DI.CT.S_ITS ---
PROCEDURE: CT KIDNEY URETER BLADDER (KUB) INDICATIONS: flank pain, stone? TECHNIQUE: Noncontrast 5 mm thick sections acquired from the diaphragms to the symphysis. 5 mm thick coronal and sagittal reformats were then performed. For radiation dose reduction, the following was used: automated exposure control, adjustment of mA and/or kV according to patient size. COMPARISON: None. FINDINGS: Image quality: Excellent. Lung bases: Lung bases are clear. Heart size is normal. Urinary system: Both kidneys are normal in size. Punctate nonobstructing kidney stone in the mid left kidney, (2/38). No hydronephrosis or perinephric fat stranding. Both ureters appear non-dilated throughout their expected courses. Bladder wall thickness is normal; no calcified bladder stones. Other solid organs: Liver is normal in size. Hepatic steatosis. Gallbladder is nondistended. Cholelithiasis. Pancreas is normal in contours. Spleen is normal in size. No adrenal nodules. Peritoneum and bowel: Unenhanced bowel loops demonstrate normal wall thickness and caliber. No free fluid or air. Appendix is normal. Nodes and vessels: No retroperitoneal or mesenteric adenopathy by size criteria. Aorta and inferior vena cava are normal in caliber. Abdominal wall: No ventral hernias. Pelvis: No free pelvic fluid. No inguinal hernias or adenopathy. Bones: No suspicious bony lesions. No vertebral body compression fractures. IMPRESSION: 1. No obstructed kidney stone demonstrated. No hydronephrosis. 2. Punctate nonobstructing kidney stone in the mid left kidney. 3. Normal appendix. 4. Hepatic steatosis. 5. Cholelithiasis. Dictated by: Herb Jerez M.D. on 07/19/2019 at 19:08 Approved by: Herb Jerez M.D. on 07/19/2019 at 19:12
[2019-07-19] MEDS: KETOROLAC 60 MG/2 ML VIAL 15 MG IV (18:55)
[2019-07-19] MEDS: SODIUM CHLORIDE 0.9% 1,000 ML 1000 ML IV (18:56)
[2019-07-19 19:08] VITALS: BP 128/88; PULSE 64; RESP 16; TEMP 37.1; O2SAT 100
== END 2019-07-19 20:14 | disposition home or self-care (01) ==
PROVIDERS: Emergency Medicine; Emergency Provider Emergency Medicine; PCP Student in an Organized Health Care Education/Training Program
DX: R10.32 Left lower quadrant pain (principal); R11.0 Nausea
CPT/HCPCS: 36415; 74176; 80053; 81003; 81015; 83690; 85025; 85610; 85730; 93005; 96361; 96374; 99284; J1885

== ENCOUNTER 2019-07-24 17:27 | Emergency (ER) | payer MEDICARE, MEDICAID, SELFPAY ==
[2019-06-14 23:45] VITALS: BMI 41.8
[2019-07-24 17:30] VITALS: BP 112/78; PULSE 68; RESP 12; TEMP 36.6; O2SAT 100; BMI 40.6
--- NOTE | 2019-07-24 17:52 | ED.PSYCH ---
HPI - Psych <Jam Arias DO - Last Filed: 07/25/19 07:11> General Chief Complaint: Psychiatric Symptoms Stated Complaint: wants to hurt him self, wants help Time Seen by Provider: 07/24/19 17:52 Source: patient Mode of arrival: Ambulatory Limitations: no limitations History of Present Illness HPI Narrative: 48-year-old male nonsmoker with a history depression, hypertension and hyperlipidemia presents a chief complaint of suicidal ideation and severe depression. He had the plan earlier to drive his car off of the [place]. He denies any prior attempts. He denies any access to a firearm. Contributing factors to his depression include financial stress, lack of a support structure, he recently moved here, his family is in [place]. He was at the [employer] today and lost a significant amount of money which triggered today's episode. He has no access to mental health care. He is voluntary and wishes to pursue inpatient care MD complaint: suicidal ideation Onset (ago): hour(s) Duration: constant History of same: No Context: significant life stressor Associated psychiatric symptoms: depression and suicidal ideation Associated symptoms: denies other symptoms Treatments prior to arrival: none If self harm: admits thoughts of self harm and has plan Details of plan: driving [place] [address] Related Data Home Medications Medication Instructions Recorded Confirmed amlodipine 2.5 mg PO DAILY 06/11/19 07/24/19 dextroamphetamine-amphetamine 20 mg PO BID 06/11/19 07/24/19 metoprolol succinate 100 mg PO DAILY 06/11/19 07/24/19 omeprazole 20 mg PO DAILY 06/11/19 07/24/19 aspirin 81 mg PO DAILY 06/14/19 07/24/19 Previous Rx's Medication Instructions Recorded hydrocodone-acetaminophen 1 tab PO Q4-6H PRN #10 tab 07/19/19 ketorolac 10 mg PO Q6H PRN #14 tab 07/19/19 Allergies Allergy/AdvReac Type Severity Reaction Status Date / Time ciprofloxacin [From Cipro] Allergy Severe ITCHING Verified 07/24/19 17:37 diphenhydramine Allergy Severe Anxiety Verified 07/24/19 17:37 [From Benadryl] ketorolac [From Toradol] Allergy Severe ITCHING Verified 07/24/19 17:37 Review of Systems <Jam Arias DO - Last Filed: 07/25/19 07:11> Constitutional Constitutional: Denies chills, Denies fatigue, Denies fever(s), Denies frequent falls, Denies lethargy and Denies weakness Eyes Eyes: Denies change in vision, Denies eye discharge, Denies irritation and Denies loss of vision ENT Ears, Nose, Mouth, and Throat: Denies change in voice, Denies dizziness, Denies neck pain, Denies sore throat and Denies throat swelling Cardiovascular Cardiovascular: Denies chest pain, Denies irregular heart rhythm, Denies lightheadedness, Denies palpitations, Denies dyspnea, Denies dyspnea on exertion and Denies orthopnea Respiratory Respiratory: Denies cough, Denies dyspnea, Denies dyspnea on exertion and Denies wheezing Gastrointestinal Gastrointestinal: Denies abdominal pain, Denies change in bowel habits, Denies diarrhea, Denies nausea and Denies vomiting Genitourinary Genitourinary: Denies hematuria, Denies flank pain, Denies urinary incontinence and Denies urinary urgency Musculoskeletal Musculoskeletal: Denies back pain, Denies muscle weakness, Denies neck pain, Denies numbness and Denies tingling Integumentary/Breasts Skin/Breast: Denies pruritus, Denies erythema, Denies rash and Denies wounds Neurologic Neurologic: Denies behavioral changes, Denies confusion, Denies dizziness, Denies frequent falls, Denies loss of vision, Denies numbness, Denies tingling and Denies weakness Psychiatric Psychiatric: Denies anxiety, Denies behavioral changes, Denies confusion, Reports depression, Denies homicidal ideation and Reports suicidal ideation Endocrine Endocrine: Denies fatigue, Denies flushing and Denies palpitations Hematologic/Lymphatic Hematologic/Lymphatic: Denies easy bruising Allergic/Immunologic Allergic/Immunologic: Denies urticaria, Denies throat swelling and Denies wheezing Patient History <Jam Arias DO - Last Filed: 07/25/19 07:11> Medical History Chest pain (Acute) Coronary artery disease (Acute) Dyslipidemia (Acute) Essential hypertension (Acute) Family history of myocardial infarction at age less than 60 (Acute) Hx of angiography (Acute) Hypertension (Acute) Surgical History H/O left heart catheterization by cutdown (Acute) History of arthroscopy of both knees (Acute) Family History Mother Myocardial infarct Father CAD, multiple vessel Social History household members: none Smoking Status: Never smoker alcohol intake: current Smoking Status: Never smoker alcohol intake frequency: a few times a month Substance Use Type: does not use Exam <Jam Arias DO - Last Filed: 07/25/19 07:11> Narrative Exam Narrative: GENERAL: [40] year old patient appears stated age. Well-nourished, well-developed patient, in mild distress. Tearful, obviously depressed, flat affect and poor eye contact HEAD: Atraumatic. Normocephalic. EYES: Pupils equal round and reactive. Extraocular motions intact. No scleral icterus. No injection or drainage. ENT: Nose without bleeding, purulent drainage. Throat without erythema, tonsillar hypertrophy or exudate. Airway patent. NECK: Trachea midline. Non tender CARDIOVASCULAR: Regular rate and rhythm without murmurs, gallops, or rubs. RESPIRATORY: Clear to auscultation. Breath sounds equal bilaterally. No wheezes, rales, or rhonchi. GASTROINTESTINAL: Abdomen soft, non-tender, nondistended. EXTREMITIES: No edema or joint tenderness. BACK: Nontender without deformity or crepitance. No flank tenderness. NEURO: AOx3. SKIN: No rash or erythema of visible areas Initial Vital Signs Initial Vital Signs: Vital Signs Temperature 97.9 F 07/24/19 17:30 Pulse Rate 68 07/24/19 17:30 Respiratory Rate 12 07/24/19 17:30 Blood Pressure 112/78 07/24/19 17:30 Pulse Oximetry 100 07/24/19 17:30 <Liseth Chatman DO - Last Filed: 07/25/19 18:25> Initial Vital Signs Initial Vital Signs: Vital Signs Temperature 97.9 F 07/24/19 17:30 Pulse Rate 68 07/24/19 17:30 Respiratory Rate 12 07/24/19 17:30 Blood Pressure 112/78 07/24/19 17:30 Pulse Oximetry 100 07/24/19 17:30 Procedures <Jam Arias DO - Last Filed: 07/25/19 07:11> Nerve Block Nerve Block 1: Time out performed: Yes Local Anesthetic: bupivacaine 0.5% and with epi Amount of anesthesia used (mL): 3 Side: right Intraoral Nerve Block: superior alveolar Procedure Successful: Yes Patient Tolerated Procedure: Well Complications: none Course <Jam Arias DO - Last Filed: 07/25/19 07:11> Course Course Narrative: Patient complaining of some dental pain and on exam has poor dentition of the right upper teeth in the absence of any abscess. Dental block performed with significant improvement symptoms Patient has been resting throughout the night. He still feels suicidal and is very cooperative and voluntary. Plan is to have social work help place patient. Sign out to Dr. Chatman to complete care Orders Ordered: Amoxicillin (Trimox) 500 mg PO BID MARY Discontinued Medications Acetaminophen (Tylenol) 975 mg PO NOW ONE Stop: 07/25/19 08:55 Last Admin: 07/25/19 09:14 Dose: 975 mg Documented by: GRACIELA Amoxicillin (Trimox) 500 mg PO NOW ONE Stop: 07/25/19 08:55 Last Admin: 07/25/19 09:14 Dose: 500 mg Documented by: GRACIELA Bupivacaine HCl/Epinephrine Bitart (Sensorcaine 0.5% W/ Epi (Pf)) 5 ml SUBCUT NOW ONE Stop: 07/25/19 04:31 Last Admin: 07/25/19 05:14 Dose: 5 ml Documented by: PEPITO Ibuprofen (Advil) 800 mg PO NOW ONE Stop: 07/25/19 08:55 Last Admin: 07/25/19 09:15 Dose: 800 mg Documented by: GRACIELA Vital Signs Vital signs: Vital Signs - 8 hr 07/25/19 14:01 07/25/19 17:48 Temperature 98.1 F 97.7 F Pulse Rate 73 77 Respiratory Rate 16 19 Blood Pressure [Right Arm] 118/61 127/81 Pulse Oximetry 95 98 <Liseth Chatman DO - Last Filed: 07/25/19 18:25> Orders Ordered: Amoxicillin (Trimox) 500 mg PO BID MARY Discontinued Medications Acetaminophen (Tylenol) 975 mg PO NOW ONE Stop: 07/25/19 08:55 Last Admin: 07/25/19 09:14 Dose: 975 mg Documented by: GRACIELA Amoxicillin (Trimox) 500 mg PO NOW ONE Stop: 07/25/19 08:55 Last Admin: 07/25/19 09:14 Dose: 500 mg Documented by: GRACIELA Bupivacaine HCl/Epinephrine Bitart (Sensorcaine 0.5% W/ Epi (Pf)) 5 ml SUBCUT NOW ONE Stop: 07/25/19 04:31 Last Admin: 07/25/19 05:14 Dose: 5 ml Documented by: PEPITO Ibuprofen (Advil) 800 mg PO NOW ONE Stop: 07/25/19 08:55 Last Admin: 07/25/19 09:15 Dose: 800 mg Documented by: GRACIELA Vital Signs Vital signs: Vital Signs - 8 hr 07/25/19 14:01 07/25/19 17:48 Temperature 98.1 F 97.7 F Pulse Rate 73 77 Respiratory Rate 16 19 Blood Pressure [Right Arm] 118/61 127/81 Pulse Oximetry 95 98 MDM - Psych <Jam Arias DO - Last Filed: 07/25/19 07:11> Lab Data Result diagrams: 07/24/19 17:55 07/24/19 17:55 Labs: Lab Results 07/24/19 07/24/19 07/24/19 Range/Units 17:55 17:55 17:55 WBC 7.0 (4.5-11.0) X10^3/uL RBC 4.88 (4.5-5.9) X10^6/uL Hgb 14.9 (13.5-17.5) g/dL Hct 43.3 (41-53) % MCV 88.7 (80-100) fL MCH 30.6 (26-34) PG MCHC 34.5 (30-36) % RDW 13.1 (11.6-14.8) % Plt Count 188 (150-400) X10^3/uL Neut % (Auto) 69.3 (50-75) % Lymph % (Auto) 21.4 L (25-40) % [place] % (Auto) 7.1 (3-14) % Eos % (Auto) 1.6 L (2-4) % Baso % (Auto) 0.6 (0-2) % Neut # (Auto) 4900 (5026-1604) /uL Lymph # (Auto) 1500 (0434-4092) /uL [place] # (Auto) 500 (0-900) /uL Eos # (Auto) 100 (0-450) /uL Baso # (Auto) 0 (0-100) /uL Sodium 141 (137-145) mmol/L Potassium 4.0 (3.4-5.1) mmol/L Chloride 105 (98-107) mmol/L Carbon Dioxide 27 (22-32) mmol/L BUN 15 (9-20) mg/dL Creatinine 1.00 (0.66-1.25) mg/dL Estimated GFR > 60.0 (>60) mL/min BUN/Creatinine Ratio 15.0 (6-22) Glucose 94 (70-100) mg/dL Calcium 9.0 (8.4-10.2) mg/dL Total Bilirubin 0.7 (0.2-1.3) mg/dL AST 34 (17-59) IU/L ALT 39 (<50) IU/L Alkaline Phosphatase 69 (38-126) U/L Total Protein 7.2 (6.3-8.2) g/dL Albumin 4.3 (3.5-5.0) g/dL Globulin 2.9 (1.7-4.1) g/dL Albumin/Globulin Ratio 1.5 (1.0-2.8) TSH 1.95 (0.47-4.68) uIU/mL Free T4 1.00 (0.78-2.19) ng/dL Urine RBC (0-5/HPF) Urine WBC (0-5/HPF) Urine Bacteria (None) Urine Mucus (Negative) Ur Culture Indicated? Salicylates < 1.0 (<20) mg/dL U Opiates 300ng/mL cut (Negative) Ur Oxycodone Screen (Negative) Urine Methadone Screen (Negative) Acetaminophen < 10 L (10-30) ug/mL Ur Barbiturates Screen (Negative) U Tricyclic Antidepress (Negative) Ur Phencyclidine Scrn (Negative) Ur Amphetamines Screen (Negative) U Methamphetamines Scrn (Negative) Ur MDMA Scrn (Ecstasy) (Negative) U Benzodiazepines Scrn (Negative) Urine Cocaine Screen (Negative) U Marijuana (THC) Screen (Negative) Ethyl Alcohol < 10 ( - 10) mg/dL 07/24/19 07/24/19 Range/Units 17:59 17:59 WBC (4.5-11.0) X10^3/uL RBC (4.5-5.9) X10^6/uL Hgb (13.5-17.5) g/dL Hct (41-53) % MCV (80-100) fL MCH (26-34) PG MCHC (30-36) % RDW (11.6-14.8) % Plt Count (150-400) X10^3/uL Neut % (Auto) (50-75) % Lymph % (Auto) (25-40) % [place] % (Auto) (3-14) % Eos % (Auto) (2-4) % Baso % (Auto) (0-2) % Neut # (Auto) (9010-7824) /uL Lymph # (Auto) (9476-1054) /uL [place] # (Auto) (0-900) /uL Eos # (Auto) (0-450) /uL Baso # (Auto) (0-100) /uL Sodium (137-145) mmol/L Potassium (3.4-5.1) mmol/L Chloride (98-107) mmol/L Carbon Dioxide (22-32) mmol/L BUN (9-20) mg/dL Creatinine (0.66-1.25) mg/dL Estimated GFR (>60) mL/min BUN/Creatinine Ratio (6-22) Glucose (70-100) mg/dL Calcium (8.4-10.2) mg/dL Total Bilirubin (0.2-1.3) mg/dL AST (17-59) IU/L ALT (<50) IU/L Alkaline Phosphatase (38-126) U/L Total Protein (6.3-8.2) g/dL Albumin (3.5-5.0) g/dL Globulin (1.7-4.1) g/dL Albumin/Globulin Ratio (1.0-2.8) TSH (0.47-4.68) uIU/mL Free T4 (0.78-2.19) ng/dL Urine RBC None seen (0-5/HPF) Urine WBC None seen (0-5/HPF) Urine Bacteria None seen (None) Urine Mucus 1+ H (Negative) Ur Culture Indicated? Cult not indicated Salicylates (<20) mg/dL U Opiates 300ng/mL cut Negative (Negative) Ur Oxycodone Screen Negative (Negative) Urine Methadone Screen Negative (Negative) Acetaminophen (10-30) ug/mL Ur Barbiturates Screen Negative (Negative) U Tricyclic Antidepress Negative (Negative) Ur Phencyclidine Scrn Negative (Negative) Ur Amphetamines Screen Positive H (Negative) U Methamphetamines Scrn Negative (Negative) Ur MDMA Scrn (Ecstasy) Negative (Negative) U Benzodiazepines Scrn Negative (Negative) Urine Cocaine Screen Negative (Negative) U Marijuana (THC) Screen Negative (Negative) Ethyl Alcohol ( - 10) mg/dL Urine Dip Bedside Urine Glucose Negative Bedside Urine Bilirubin + 1 Bedside Urine Ketone +/- 5 Urine Specific [place] 1.025 Bedside Urine Occult Blood - Negative Bedside Urine pH 5.5 Bedside Urine Protein +/- 15 Bedside Urine Urobilinogen +/- 1mg Bedside Urine Nitrite - Negative Bedside Urine Leukocytes - Negative Esterase <Liseth Chatman, DO - Last Filed: 07/25/19 18:25> Lab Data Labs: Lab Results 07/24/19 07/24/19 07/24/19 Range/Units 17:55 17:55 17:55 WBC 7.0 (4.5-11.0) X10^3/uL RBC 4.88 (4.5-5.9) X10^6/uL Hgb 14.9 (13.5-17.5) g/dL Hct 43.3 (41-53) % MCV 88.7 (80-100) fL MCH 30.6 (26-34) PG MCHC 34.5 (30-36) % RDW 13.1 (11.6-14.8) % Plt Count 188 (150-400) X10^3/uL Neut % (Auto) 69.3 (50-75) % Lymph % (Auto) 21.4 L (25-40) % [place] % (Auto) 7.1 (3-14) % Eos % (Auto) 1.6 L (2-4) % Baso % (Auto) 0.6 (0-2) % Neut # (Auto) 4900 (8847-4672) /uL Lymph # (Auto) 1500 (4775-2450) /uL [place] # (Auto) 500 (0-900) /uL Eos # (Auto) 100 (0-450) /uL Baso # (Auto) 0 (0-100) /uL Sodium 141 (137-145) mmol/L Potassium 4.0 (3.4-5.1) mmol/L Chloride 105 (98-107) mmol/L Carbon Dioxide 27 (22-32) mmol/L BUN 15 (9-20) mg/dL Creatinine 1.00 (0.66-1.25) mg/dL Estimated GFR > 60.0 (>60) mL/min BUN/Creatinine Ratio 15.0 (6-22) Glucose 94 (70-100) mg/dL Calcium 9.0 (8.4-10.2) mg/dL Total Bilirubin 0.7 (0.2-1.3) mg/dL AST 34 (17-59) IU/L ALT 39 (<50) IU/L Alkaline Phosphatase 69 (38-126) U/L Total Protein 7.2 (6.3-8.2) g/dL Albumin 4.3 (3.5-5.0) g/dL Globulin 2.9 (1.7-4.1) g/dL Albumin/Globulin Ratio 1.5 (1.0-2.8) TSH 1.95 (0.47-4.68) uIU/mL Free T4 1.00 (0.78-2.19) ng/dL Urine RBC (0-5/HPF) Urine WBC (0-5/HPF) Urine Bacteria (None) Urine Mucus (Negative) Ur Culture Indicated? Salicylates < 1.0 (<20) mg/dL U Opiates 300ng/mL cut (Negative) Ur Oxycodone Screen (Negative) Urine Methadone Screen (Negative) Acetaminophen < 10 L (10-30) ug/mL Ur Barbiturates Screen (Negative) U Tricyclic Antidepress (Negative) Ur Phencyclidine Scrn (Negative) Ur Amphetamines Screen (Negative) U Methamphetamines Scrn (Negative) Ur MDMA Scrn (Ecstasy) (Negative) U Benzodiazepines Scrn (Negative) Urine Cocaine Screen (Negative) U Marijuana (THC) Screen (Negative) Ethyl Alcohol < 10 ( - 10) mg/dL 07/24/19 07/24/19 Range/Units 17:59 17:59 WBC (4.5-11.0) X10^3/uL RBC (4.5-5.9) X10^6/uL Hgb (13.5-17.5) g/dL Hct (41-53) % MCV (80-100) fL MCH (26-34) PG MCHC (30-36) % RDW (11.6-14.8) % Plt Count (150-400) X10^3/uL Neut % (Auto) (50-75) % Lymph % (Auto) (25-40) % [place] % (Auto) (3-14) % Eos % (Auto) (2-4) % Baso % (Auto) (0-2) % Neut # (Auto) (6729-0825) /uL Lymph # (Auto) (1070-1479) /uL [place] # (Auto) (0-900) /uL Eos # (Auto) (0-450) /uL Baso # (Auto) (0-100) /uL Sodium (137-145) mmol/L Potassium (3.4-5.1) mmol/L Chloride (98-107) mmol/L Carbon Dioxide (22-32) mmol/L BUN (9-20) mg/dL Creatinine (0.66-1.25) mg/dL Estimated GFR (>60) mL/min BUN/Creatinine Ratio (6-22) Glucose (70-100) mg/dL Calcium (8.4-10.2) mg/dL Total Bilirubin (0.2-1.3) mg/dL AST (17-59) IU/L ALT (<50) IU/L Alkaline Phosphatase (38-126) U/L Total Protein (6.3-8.2) g/dL Albumin (3.5-5.0) g/dL Globulin (1.7-4.1) g/dL Albumin/Globulin Ratio (1.0-2.8) TSH (0.47-4.68) uIU/mL Free T4 (0.78-2.19) ng/dL Urine RBC None seen (0-5/HPF) Urine WBC None seen (0-5/HPF) Urine Bacteria None seen (None) Urine Mucus 1+ H (Negative) Ur Culture Indicated? Cult not indicated Salicylates (<20) mg/dL U Opiates 300ng/mL cut Negative (Negative) Ur Oxycodone Screen Negative (Negative) Urine Methadone Screen Negative (Negative) Acetaminophen (10-30) ug/mL Ur Barbiturates Screen Negative (Negative) U Tricyclic Antidepress Negative (Negative) Ur Phencyclidine Scrn Negative (Negative) Ur Amphetamines Screen Positive H (Negative) U Methamphetamines Scrn Negative (Negative) Ur MDMA Scrn (Ecstasy) Negative (Negative) U Benzodiazepines Scrn Negative (Negative) Urine Cocaine Screen Negative (Negative) U Marijuana (THC) Screen Negative (Negative) Ethyl Alcohol ( - 10) mg/dL Urine Dip Bedside Urine Glucose Negative Bedside Urine Bilirubin + 1 Bedside Urine Ketone +/- 5 Urine Specific [place] 1.025 Bedside Urine Occult Blood - Negative Bedside Urine pH 5.5 Bedside Urine Protein +/- 15 Bedside Urine Urobilinogen +/- 1mg Bedside Urine Nitrite - Negative Bedside Urine Leukocytes - Negative Esterase MDM Narrative Medical decision making narrative: Patient signed out to me by Dr. Arias, seen evaluated by myself. Patient continues to complain of a right upper dental pain. He received 2 dental blocks last night. He was given antibiotics on 07/15/2019 which he did not get filled. He says that he has been taking Tylenol ibuprofen it hasn't worked. At this time I will offer him Tylenol and ibuprofen along with amoxicillin. Social Work has been working a patient's case all day. Unfortunately he is a registered sex offender and has been denied from all facilities. Patient signed out to Dr. Arias, possible eval by psych tomorrow. Discharge Plan Departure Patient Disposition: Home Clinical Impression: Depression with suicidal ideation, Pain, dental Instructions: DI for Dental Pain, DI for Suicidal Ideation-Adult Activity Restrictions/Additional Instructions: *You have been diagnosed with depression with suicidal ideation and dental pain *What to do: If you are feeling suicidal or having suicidal thoughts: Call: Suicide Hotline: Visit: www.[employer].org Text: 594582 *Continue to take medications as directed Amoxicillin 500 mg twice a day for 7 days *Follow up with your primary care provider in 2-3 days *Return to ER if you should have thoughts of suicide, worsening facial swelling dental pain or any new, worsening or concerning symptoms Prescriptions: No Action aspirin 81 mg Tablet,Chewable 81 mg PO DAILY RF: 0 metoprolol succinate 100 mg Tablet Extended Release 24 Hr 100 mg PO DAILY RF: 0 amlodipine 2.5 mg Tablet 2.5 mg PO DAILY RF: 0 dextroamphetamine-amphetamine 20 mg Tablet 20 mg PO BID RF: 0 omeprazole 20 mg Capsule,Delayed Release(Dr/Ec) 20 mg PO DAILY RF: 0 hydrocodone-acetaminophen 5-325 mg tablet 1 tab PO Q4-6H PRN (Reason: pain) Qty: 10 RF: 0 ketorolac 10 mg tablet 10 mg PO Q6H PRN (Reason: pain) Qty: 14 RF: 0 Referrals: Hunter Briggs MD [Primary Care Provider] -
[2019-07-24 18:06] LABS: Bacteria Urine None Seen; RBC Urine None Seen (0-5/HPF); WBC Urine None Seen (0-5/HPF)
[2019-07-24 18:12] LABS: Add Manual Diff / Slide Review NO; Basophils Absolute Auto 0 /uL (0-100); Basophils Percent Auto 0.6 % (0-2); Eosinophils Absolute Auto 100 /uL (0-450); Eosinophils Percent Auto 1.6 % (2-4); Hematocrit 43.3 % (41-53); Hemoglobin 14.9 g/dL (13.5-17.5); Lymphocytes Absolute Auto 1500 /uL (1100-4500); Lymphocytes Percent Auto 21.4 % (25-40); Mean Corpuscular HGB Conc 34.5 % (30-36); Mean Corpuscular Hemoglobin 30.6 PG (26-34); Mean Corpuscular Volume 88.7 fL (80-100); Monocytes Absolute Auto 500 /uL (0-900); Monocytes Percent Auto 7.1 % (3-14); Neutrophils Absolute Auto 4900 /uL (1500-7000); Neutrophils Percent Auto 69.3 % (50-75); Platelet Count 188 X10^3/uL (150-400); Red Blood Cell Count 4.88 X10^6/uL (4.5-5.9); Red Cell Distribution Width 13.1 % (11.6-14.8)
[2019-07-24 18:18] LABS: Ur Creatinine 100 (Normal); Urine pH 5 (Normal)
[2019-07-24 18:19] LABS: UR Morphine/Opiate cutoff 300 Negative (Negative); Urine Amphetamines Positive (Negative); Urine Barbiturates Negative (Negative); Urine Benzodiazepines Negative (Negative); Urine Cocaine Negative (Negative); Urine MDMA Negative (Negative); Urine Methadone Negative (Negative); Urine Methamphetamines Negative (Negative); Urine Oxycodone Negative (Negative); Urine Phencyclidine Negative (Negative); Urine Tetrahydrocannabinol Negative (Negative); Urine Tricyclic Antidepressant Negative (Negative)
[2019-07-24 18:21] LABS: Culture Indicated Urine Cult Not Indicated; Mucus Urine 1+ (Negative)
[2019-07-24 18:26] LABS: Acetaminophen < 10 ug/mL (10-30); Alanine Aminotransferase 39 IU/L (<50); Albumin 4.3 g/dL (3.5-5.0); Albumin Globulin Ratio 1.5 (1.0-2.8); Alkaline Phosphatase 69 U/L (38-126); Aspartate Aminotransferase 34 IU/L (17-59); Bilirubin Total 0.7 mg/dL (0.2-1.3); Blood Urea Nitrogen 15 mg/dL (9-20); Carbon Dioxide 27 mmol/L (22-32); Chloride 105 mmol/L (98-107); Estimated Glomerular Filt Rate > 60.0 mL/min (>60); Ethanol (ETOH) < 10 mg/dL; Globulin 2.9 g/dL (1.7-4.1); Glucose 94 mg/dL (70-100); HEMOLYSIS 22 (0-50); Salicylate < 1.0 mg/dL (<20); Sodium 141 mmol/L (137-145); Total Protein 7.2 g/dL (6.3-8.2)
--- NOTE | 2019-07-24 18:26 | PC.NURSE ---
RN in room with patient.
[2019-07-24 19:02] LABS: Thyroid Stimulating Hormone 1.95 uIU/mL (0.47-4.68)
[2019-07-25 00:34] VITALS: BP 112/75; PULSE 74; RESP 18; TEMP 36.3; O2SAT 95
--- NOTE | 2019-07-25 04:00 | PC.NURSE ---
patient complaining of a toothache and that his pain is an 8/10. provider notified.
[2019-07-25] MEDS: BUPIVACAINE 0.5% W/ EPI (PF) 30 ML VIAL 5 ML SUBCUT (05:14)
[2019-07-25 07:18] VITALS: BP 123/67; PULSE 76; RESP 12; O2SAT 96
[2019-07-25] MEDS: ACETAMINOPHEN 325 MG TABLET 975 MG PO (09:14)
[2019-07-25] MEDS: AMOXICILLIN 250 MG CAPSULE 500 MG PO ×2 (09:14→23:40)
[2019-07-25] MEDS: IBUPROFEN 400 MG TABLET 800 MG PO (09:15)
--- NOTE | 2019-07-25 09:16 | PC.NURSE ---
Woke patient to medicate for tooth pain and antibiotic. Took Pills well. Provided additional water.
--- NOTE | 2019-07-25 10:12 | PC.NURSE ---
Screen Printer at bedside
--- NOTE | 2019-07-25 11:03 | CM.SWNOTE ---
Addendum entered by Dina Omer R.N. 07/25/19 16:22: [facility] called back and they are not able to accept patient due to his dental issues and cardiac hx. CM called [facility] and they are still reviewing. they are looking patient up on the department of justice website to determine if they can accept patient in their facility safely. CM/Rn contacted [facility] crisis line at [phone] to get next day appointment set up for patient. as of 1632 still waiting on [facility] to call back so called crisis line and gave the ED phone number for them to call and set up next day appointment for the patient. Contacted Dr. Chatman in the ED and updated her on placement issues and Dr. Chatman will set up safety plan with patient and get next day appointment with [facility]. CM also gave patient the Crisis prevention and intervention teams information to have in case he needs help tonight before his appointment tomorrow or in the future. Dina Omer RN Addendum entered by Dina Omer R.N. 07/25/19 15:21: SARAH/RN contacted [facility], clinicals sent and they are reviewing. [facility] contacted they do not take voluntary out [facility] patients due to travel liability. [facility] in [place] called back and wanted medication reconciliation for patient so they can see what medications he is currently taking, they needed an F-code placed in the system for patient to receive mental health treatment, a medical note about patients dental pain while in ED, some more information about Sex offender status and also wanted to know when patients had left sided heart catheterization by cutdown. CM/RN spoke with Dr. Chatman in the ED who updated patients note to reflect F-code, as well placed note about dental pain. CM/Rn spoke with patient about history of heart catheterization which patient stated was done in 2007. CM/RN sent updated clinicals and med reconciliation to [facility] to review for possible admission. As well as called their intake and spoke with them about patients sex offenders status. according to patient he is not currently on parole, sex offender convictions was 12 years ago in [place], CM/Rn does not know level of sex offense. Patient is a registered sex offender. CM/RN explained to patient that we were having a hard time finding inpatient treatment due to sex offender status and that a least restrictive plan might need to be discussed if no placement can be found. Maybe a next day appointment with [facility] and crise line number with a safety plan in place. CM/RN will follow up with [facility] at 1620 to see about placement. Dina Omer RN. Addendum entered by Dina Omer R.N. 07/25/19 13:55: [facility], [facility] both declined due to the fact the patient is a registered sex offender. [facility] called and declined patient as well stating they take more acute psychiatric need patients. CM/Rn contacted [facility] [place] [phone]. Clinicals faxed and they are reviewing. Dina Omer RN. Addendum entered by Dina Omer R.N. 07/25/19 11:40: [facility] in [place] has no beds available. [facility] is reviewing patient, clinicals faxed. [phone]. CM/Rn will call in about an hour [phone] to see if either [facility] or [facility] will accept patient. Cm/Rn contactes [facility] is reviewing for placement. clinicals faxed. Dina Omer RN Addendum entered by Dina Omer R.N. 07/25/19 11:33: [facility] contacted, Reviewed and declined to accept patient. [facility] reviewing for possible placement. an so is [facility]. Dina Omer RN. Original Note: SARHA/client services coordinator note: EMR Reviewed: patient is a 48 yr old male who presented to the ED with S.I and a plan to [place]. Cm/Rn Met with patient at the bedside and explained role. Patient was alert and oriented x3 at time of CM/RN visit. patient is currently homeless and works at [employer] in [place]. Patient stated he started to think of hurting himself last night when he was at the [employer]. patient stated I gambled away my whole paycheck again trying to get money to get a place. Patient Affect was Sad, and slowed. When asked if he was currently feeling Suicidal patient stated if I leave the hospital now I am going to crash my car or drive [place] since their is no point in living. Patient is requesting voluntary inpatient psychiatric treatment for S.I. I: medicare and medicaid. Plan: Attempt to find voluntary inpatient psychiatric treatment for S.I... CM will contact [facility] and [facility] to see if they have any beds available. Dina Omer RN RN - Sales Secretary crm architect- Sales Secretary Assessment Start: 07/25/19 10:48 Freq: Status: Active Protocol: Document 07/25/19 10:48 HS (Rec: 07/25/19 11:03 HS [id number]) PRODUCT MGMT DEV MANAGER/Sales Secretary Assessment Time Spent with Patient Start date 07/25/19 Visit Start Time 10:10 End date 07/25/19 Visit End Time 10:45 Total time Care Management spent on 120 minutes patient visit-in minutes Mental Health Screening Include Onset, Duration, Intensity Presenting Problem Patient arrived at the ED complaining of S.I. with a plan of [place]. Precipitating Event(s) Patient stated the thoughts of suicide started last night after being at the [employer] and gambling away my whole paycheck again. Marissa states he is homeless and works at [employer] in [place] but doesn't make enough money to get an appartment so he goes to the [employer] hoping to win money to get a place. Current Behavioral Health Provider(s) Patient PCP is Dr. Briggs Include Facility, Provider, Ph. # in [facility] but is working on getting PCP in [place]. Marissa does not have a counselor or psychiatrist. Psych. Hx Mental Health and Chemical Patient has a Hx of Bipolar 2 Dependency disorder Dx 4 years ago in [place]. patient does not have a hx of chemical dependency. Psychiatric Hospitalizations (date(s)/ patient states he has had no location) Psychiatric hospitalizations previously Support System(s) marissa has one friend in [place] but states he is having marital problems and has been unavailable School/Work Marisas works at [employer] in [facility] Legal Concerns Legal Matters - Outstanding Issues Patient has Hx of sex offense in [place] 12 years ago. Mental Status Orientation (Person/Place/Time) Marissa alert and oriented x3 at time of CM/Rn visit Affect patient was lying down during CM/RN visit latasha affect is flat and sad. His mood is depressed. Thought Content - Specify/Describe patient having thoughts of Obsessions, Delusions, Hallucinations Suicide by [place]. Patient stated the world would be better without him in it. Speech (Igxnbq-Adfh-Labxgsn-Rapid-Soft- patients speech was slowed and Loud-Pressured) soft. Motor (Mskztz-Pkppsadxd-Klgx-Other) Slow Insight (Present-Partially Present- Intact- present Impaired) Judgement (Intact-Impaired) intact- was able to seek treatment for S.I Impulse Control (Adequate-Impaired) Adequate Memory (Wcoxlebac-Idbswv-Vddylp, Intact Impaired-Intact) Concentration (Intact-Impaired) intact Attention (Intact-Impaired) intact Behavior (Appropriate-Inappropriate) Appropriate- patient has been laying down, sad, and calm during his stay in the ED at [facility] Risk Assessment Suicidal Ideation (Plan) Yes: Drive [place] Homicidal Ideation (Plan) No Intervention Intervention Looking for Voluntary inpatient treatment for S.I.
--- NOTE | 2019-07-25 13:14 | PC.NURSE ---
Pt sleeping, remains calm and cooperative
[2019-07-25 14:01] VITALS: BP 118/61; PULSE 73; RESP 16; TEMP 36.7; O2SAT 95
[2019-07-25 17:48] VITALS: BP 127/81; PULSE 77; RESP 19; TEMP 36.5; O2SAT 98
[2019-07-25 23:44] VITALS: BP 122/74; PULSE 78; RESP 14; TEMP 36.7; O2SAT 96
[2019-07-26 07:00] VITALS: BP 125/86; PULSE 71; TEMP 36.6; O2SAT 94
--- NOTE | 2019-07-26 07:39 | PC.NURSE ---
Addendum entered by Shanna Khan R.N. 07/26/19 11:38: EMT transport given report, patient is cooperative and receptive to transport. Denies further needs at this time. Addendum entered by Shanna Khan R.N. 07/26/19 10:44: Correction to previous note: social media project manager in to see patient. Addendum entered by Shanna Khan R.N. 07/26/19 10:41: Case management in to see patient. Patient is resting in bed, alert and oriented. Breathing is unlabored, patient exhibits a flat behavior, confirms feelings of helplessness. Will continue to monitor. Addendum entered by Shanna Khan R.N. 07/26/19 08:44: 0844, patient is resting on his left side, breathing unlabored, eyes closed. Bedside rails up x2, will continue to monitor. Original Note: Patient is resting in bed, denies needs at this time. Vital signs obtained, patient stands at bedside to use the urinal independently. Breakfast tray ordered, patient is still experiencing suicidal ideation, with flat affect, he states I think I'll park on some railroad tracks. Will continue to monitor closely.
[2019-07-26] MEDS: AMOXICILLIN 250 MG CAPSULE 500 MG PO (08:21)
--- NOTE | 2019-07-26 09:48 | CM.SWNOTE ---
Addendum entered by JOSE Baird 07/26/19 11:17: ADD: Return call from [facility] Triage and their only available bed was given priority to another pt in their county that was received prior to the faxed referral for the pt. BF Addendum entered by Siobhan PiñamanJOSE 07/26/19 11:00: ADD: GEAR KEEPER received a call back from [facility] senior business intelligence analyst with questions regarding pt's medications and medical information and SW connected [facility] with pt's RN Karyna. Per TERESE Troncoso, pt has been accepted at [facility] and she will get pt ready for d/c and help set up BLS transport to their facility. GEAR KEEPER met bedside with pt and explained role and pt confirms that he feels more stable than yesterday but confirms he still has depression and remote suicidal ideation today. Pt appears to have flat affect but displays signs of stress and being overwhelmed by his current homeless status, confirms he has only lived in [place] for 8 months and was on [facility] for a majority of that and has lived in [place] for a couple months and does not have supportive family nearby. Pt states his only family is his sister in [place] and states she has enough of her own problems, I don't want to stress her out. SW inquired if we could get sister on the phone for him to talk to and he declines. Pt states his current friends live in housing that have strict rules about letting others stay and therefore he has not been able to couch surf with them any longer. Pt denies any knowledge of what his sex offender level is for [facility]. SW inquired about the community resources he is aware of and pt states he has really only been to [facility] and that none of the Shelters will accept me. SW inquired if he was aware of [employer] [facility] for housing/food/etc. resources and pt not aware. Pt agreeable to SW making a referral to [facility] to determine if he meets criteria for a catalytic case operator to meet with him to coordinate all his services. SW called and made referral and they will follow up with pt if he meets criteria. SW discussed Triage Crisis Center and pt appears to be [facility] but confirms that he is agreeable to [facility] for further stabilization. SW updated RN and MD. Plan: Patient to d/c to [facility] for ongoing mental health stabilization prior to return back to the community with resources for mental health counseling and housing. JOSE Baird Original Note: Ongoing MH stabilization Planning: Per previous DCP/RN note from yesterday 07/25/19, extensive work done on trying to get pt into Inpt [facility] tx Voluntary due to suicidal ideation with plan and due to pt's remote medical cardiac cath in 2007 and sex offender status from 12 years ago in [place] pt has been declined at multiple Inpt MH facilities, see below: [facility]: no, not out of county [facility]: no [facility]: no [facility]: no [facility]: no [facility]: no [facility] no [facility]: no [facility]: full GEAR KEEPER spoke to TERESE Troncoso this morning 07/26/19 who states pt remains calm and cooperative and voluntarily requesting MH stabilization before returning to the community and pt seems somewhat unsafe to d/c to the community without further stabilization. GEAR KEEPER called [facility] ([phone]) and spoke to Kristofer who states they have an opening for male MH beds for Crisis Stabilization and GEAR KEEPER completed phone screen and discussed pt's sex offender hx and faxed requested clinicals to fax#[phone]) to review. GEAR KEEPER called [facility] ([phone]) and spoke to Glory who states she anticipates a male bed for MH stabilization today and GEAR KEEPER completed phone screen and discussed pt's sex offender hx and she inquired level of sex offender status and GEAR KEEPER unclear but they do not accept Level 3. GEAR KEEPER faxed requested clinicals to fax#[phone]) to review. GEAR KEEPER and [facility]riage will attempt to look up pt's Sex Offender level online to determine if his status can be confirmed. Plan: GEAR KEEPER updated RN and will wait for review from both Triage Centers. JOSE Baird
--- NOTE | 2019-07-26 10:57 | PC.NURSE ---
Spoke with [facility] Prisca GUDINO discussed medications and worked out plan for transfer
[2019-07-26 11:00] VITALS: BP 127/92; PULSE 92; RESP 16; TEMP 37.1; O2SAT 96
[2019-07-26] MEDS: IBUPROFEN 400 MG TABLET 800 MG PO (11:25)
[2019-07-26] MEDS: ACETAMINOPHEN 325 MG TABLET 975 MG PO (11:25)
[2019-07-26 11:40] VITALS: BP 127/92; PULSE 92; RESP 16; TEMP 37.1; O2SAT 96
== END 2019-07-26 11:15 | disposition short-term general hospital (02) ==
PROVIDERS: Emergency Medicine; Emergency Provider Emergency Medicine; PCP Student in an Organized Health Care Education/Training Program
DX: F32.9 Major depressive disorder, single episode, unspecified (principal); R45.851 Suicidal ideations; K08.89 Other specified disorders of teeth and supporting structures
CPT/HCPCS: 36415; 64450; 80053; 80305; 80320; 80329; 81003; 81015; 84439; 84443; 85025; 99284; G0480

== ENCOUNTER 2019-08-17 09:01 | Emergency (ER) | payer MEDICARE, MEDICAID, SELFPAY ==
[2019-06-14 23:45] VITALS: BMI 41.8
[2019-08-17 09:05] VITALS: BP 133/89; PULSE 80; RESP 15; TEMP 36.7; O2SAT 99; BMI 40.6
--- NOTE | 2019-08-17 09:07 | DI.RAD.S_ITS ---
PROCEDURE: XR CHEST 1V INDICATIONS: chest pain TECHNIQUE: One view of the chest was acquired. COMPARISON: [facility], CR, XR CHEST 1V, 06/14/2019, 18:45. FINDINGS: Surgical changes and devices: None. Lungs and pleura: Lungs are clear. No pleural effusions or pneumothorax. Mediastinum: Mediastinal contours appear normal. Heart size is normal. Bones and chest wall: No suspicious bony lesions. Overlying soft tissues appear unremarkable. IMPRESSION: No acute disease Dictated by: Arash Giraldo M.D. on 08/17/2019 at 9:34 Approved by: Arash Giraldo M.D. on 08/17/2019 at 9:35
[2019-08-17 09:59] LABS: Add Manual Diff / Slide Review NO; Basophils Absolute Auto 100 /uL (0-100); Basophils Percent Auto 0.9 % (0-2); Eosinophils Absolute Auto 100 /uL (0-450); Eosinophils Percent Auto 1.9 % (2-4); Hematocrit 45.5 % (41-53); Hemoglobin 15.7 g/dL (13.5-17.5); Lymphocytes Absolute Auto 1200 /uL (1100-4500); Lymphocytes Percent Auto 19.9 % (25-40); Mean Corpuscular HGB Conc 34.6 % (30-36); Mean Corpuscular Volume 89.5 fL (80-100); Monocytes Absolute Auto 300 /uL (0-900); Monocytes Percent Auto 5.6 % (3-14); Neutrophils Absolute Auto 4300 /uL (1500-7000); Neutrophils Percent Auto 71.7 % (50-75); Platelet Count 166 X10^3/uL (150-400); Red Blood Cell Count 5.09 X10^6/uL (4.5-5.9); Red Cell Distribution Width 13.3 % (11.6-14.8)
--- NOTE | 2019-08-17 09:59 | ED.CHESTPAIN ---
HPI - Chest Pain General Chief Complaint: Chest Pain Stated Complaint: sent by doctor funmilayo for cardiac reasons Time Seen by Provider: 08/17/19 09:45 Source: patient Mode of arrival: Ambulatory Limitations: no limitations History of Present Illness HPI narrative: CC: Chest Pain HPI: The patient is a 48-year-old male who was sent to the emergency department by his psychiatrist, Dr. Putnam. In his office the patient's blood pressure is 153/101. The patient states that he mentioned that over the weekend he had a migraine and developed chest pain that lasted longer than 15 minutes and radiated into his neck jaw or shoulder in arm. The patient states that normally when he takes his blood pressure medicine is blood pressure is 117/77. However the patient states that he has not taken his medications for at least the last 3 days. On Friday he had chest pain associated with nausea that radiated into his left arm in his left shoulder. He had mild shortness of breath associated with sweats. He did not have any palpitations. He was not dizzy or lightheaded did not pass out. He states that he had a stress test 1 month ago and was told that it was normal. Today he states that he had no chest pain he had mild shortness of breath walking from the doctor's office to the emergency department. He denied any neck or jaw pain today. But did have some on Friday. At this time he has no complaints. He admits to a history of asthma in the past he denies a history of myocardial infarction or stenting he has had no congestive heart failure stroke diabetes mellitus or pancreatitis. He admits to history of hypertension. He works at [employer]. He does not smoke cigarettes vapor chew tobacco occasionally drinks alcohol but does not use any drugs. He denies any nausea vomiting diarrhea abdominal pain. He has had no urinary symptoms. He denies any backache or neck pain. Related Data Home Medications Medication Instructions Recorded Confirmed amlodipine 2.5 mg PO DAILY 06/11/19 08/17/19 dextroamphetamine-amphetamine 20 mg PO BID 06/11/19 08/17/19 metoprolol succinate 100 mg PO DAILY 06/11/19 08/17/19 omeprazole 20 mg PO DAILY 06/11/19 08/17/19 aspirin 81 mg PO DAILY 08/17/19 08/17/19 Allergies Allergy/AdvReac Type Severity Reaction Status Date / Time ciprofloxacin [From Cipro] Allergy Severe ITCHING Verified 08/17/19 09:04 ketorolac [From Toradol] Allergy Severe ITCHING Verified 08/17/19 09:04 diphenhydramine AdvReac Severe Anxiety Verified 08/17/19 09:04 [From Benadryl] Review of Systems Review of Systems ROS Unobtainable: All systems reviewed & are unremarkable except as noted in HPI and below Patient History Medical History Chest pain (Acute) Coronary artery disease (Acute) Dyslipidemia (Acute) Essential hypertension (Acute) Family history of myocardial infarction at age less than 60 (Acute) Hx of angiography (Acute) Hypertension (Acute) Surgical History H/O left heart catheterization by cutdown (Acute) History of arthroscopy of both knees (Acute) Family History Mother Myocardial infarct Father CAD, multiple vessel Social History household members: none Smoking Status: Never smoker alcohol intake: current Smoking Status: Never smoker alcohol intake frequency: holidays/special occasions only Substance Use Type: does not use Exam Narrative Exam Narrative: PHYSICAL EXAM: CONSTITUTIONAL: Awake, Alert, Oriented, Coherent, Cooperative in NAD. Does not appear toxic or ill. No pain at the present time. Became short of breath walking from Psychiatry to the emergency department. HEAD: AT/NC EENT: PERRL, FROM of eyes, no discharge, no nystagmus No epistaxis or nasal drainage Oral mucosa is moist and pink, posterior pharynx is without erythema or exudate. NECK: Supple, no obvious JVD, Trachea is midline without stridor, no palpable LN or masses. SPINE: No gross deformity, no palpable tenderness of the cervical, thoracic, lumbar or sacral spine. No CVA tenderness. THORAX: No deformity, retractions, chest wall tenderness, subcutaneous air or crepitice. LUNGS: The patient has decreased to symmetrical breath sounds that are clear without wheezes or rhonchi. No acute respiratory distress. HEART: Normal heart tones, regular rhythm and rate without murmur. ABDOMEN: Soft, non-tender, normal bowel sounds without guarding, rebound, rigidity or palpable mass . EXTREMITIES: No edema, cyanosis, deformity or tenderness. SKIN: No rash, bruising, petechiae or purpura. NEURO: Awake, alert, oriented, conversive, cranial nerves II-XII are symmetrical and normal, moves all 4 extremities and is ambulatory Initial Vital Signs Initial Vital Signs: Vital Signs Temperature 98.1 F 08/17/19 09:05 Pulse Rate 80 08/17/19 09:05 Respiratory Rate 15 08/17/19 09:05 Blood Pressure 133/89 08/17/19 09:05 Pulse Oximetry 99 08/17/19 09:05 Course Course Course Narrative: 1120 the patient's chest x-ray is negative for any acute pathology.. His EKG does not show any acute diagnostic ST segment changes or signs of ischemia. His chemistries are within normal limits with a normal troponin. The patient was informed of these results. The patient is not having any chest pain today but had chest pain over the weekend on Friday. Patient has had no significant pain or discomfort today and no shortness of breath other than walking from psych. He understands the instructions. He states that he does not need any medications he will take his aspirin per day and he has nitroglycerin at home. He was advised that if he has pain that lasts longer than 20 minutes and is unrelieved by 3 nitro he needs to proceed to the nearest emergency department to be evaluated. Orders Ordered: ED Orders 08/17/19 09:07 XR chest 1V Stat EKG-12 Lead Stat 08/17/19 09:55 Complete Blood Count AUTO DIFF Stat Comprehensive Metabolic Panel Stat Lipase Stat Partial Thromboplastin Time Stat Prothrombin Time INR Stat Troponin & CK Cardiac Panel Stat Vital Signs Vital signs: Vital Signs - 8 hr 08/17/19 09:05 08/17/19 10:00 08/17/19 11:00 Temperature 98.1 F Pulse Rate 80 74 71 Respiratory Rate 15 18 18 Blood Pressure 133/89 Blood Pressure [Left Arm] 119/78 122/80 Pulse Oximetry 99 100 100 MDM - Chest Pain Lab Data Result diagrams: 08/17/19 09:55 08/17/19 09:55 Labs: Lab Results 08/17/19 08/17/19 08/17/19 Range/Units 09:55 09:55 09:55 WBC 6.0 (4.5-11.0) X10^3/uL RBC 5.09 (4.5-5.9) X10^6/uL Hgb 15.7 (13.5-17.5) g/dL Hct 45.5 (41-53) % MCV 89.5 (80-100) fL MCH 31.0 (26-34) PG MCHC 34.6 (30-36) % RDW 13.3 (11.6-14.8) % Plt Count 166 (150-400) X10^3/uL Neut % (Auto) 71.7 (50-75) % Lymph % (Auto) 19.9 L (25-40) % [place] % (Auto) 5.6 (3-14) % Eos % (Auto) 1.9 L (2-4) % Baso % (Auto) 0.9 (0-2) % Neut # (Auto) 4300 (5759-6043) /uL Lymph # (Auto) 1200 (9145-3531) /uL [place] # (Auto) 300 (0-900) /uL Eos # (Auto) 100 (0-450) /uL Baso # (Auto) 100 (0-100) /uL PT 10.7 (10.1-12.7) SECONDS INR 0.9 (0.9-1.3) APTT 32 (26.4-36.2) SECONDS Sodium 138 (137-145) mmol/L Potassium 4.3 (3.4-5.1) mmol/L Chloride 103 (98-107) mmol/L Carbon Dioxide 25 (22-32) mmol/L BUN 14 (9-20) mg/dL Creatinine 0.90 (0.66-1.25) mg/dL Estimated GFR > 60.0 (>60) mL/min BUN/Creatinine Ratio 15.6 (6-22) Glucose 135 H (70-100) mg/dL Calcium 8.9 (8.4-10.2) mg/dL Total Bilirubin 0.7 (0.2-1.3) mg/dL AST 26 (17-59) IU/L ALT 35 (<50) IU/L Alkaline Phosphatase 69 (38-126) U/L Total Creatine Kinase 55 (55-170) U/L CK-MB (CK-2) TNP CK-MB (CK-2) Rel Index TNP Troponin I < 0.012 (0.01-0.034) ng/mL Total Protein 7.6 (6.3-8.2) g/dL Albumin 4.3 (3.5-5.0) g/dL Globulin 3.3 (1.7-4.1) g/dL Albumin/Globulin Ratio 1.3 (1.0-2.8) Lipase 74 (23-300) U/L ECG Data Attestation: I personally reviewed and interpreted this ECG as follows: Interpretation: The patient's EKG obtained on August 17 at 9:12 a.m.: 22 revealed a normal sinus rhythm with a ventricular rate of 68. The patient has a borderline 1st degree AV block with a p.r. interval of 203 milliseconds. QRS duration is normal but 90 milliseconds in duration. QTC is 386 milliseconds. Left axis deviation. The patient has a small nubbin R wave in lead III. There is a QS wave in lead V1. T-wave is inverted in lead V1. There are nonspecific ST segment changes throughout the rest of his EKGs with no diagnostic ST segment changes. Comparison to afford a copy of an old EKG reveals no significant change. Discharge Plan Departure Patient Disposition: Home Clinical Impression: Atypical chest pain Coronary artery disease Qualifiers: Coronary Disease-Associated Artery/Lesion type: unspecified vessel or lesion type [place] vs. transplanted heart: [place] heart Associated angina: with stable angina Qualified Code(s): I25.118 - Atherosclerotic heart disease of [place] coronary artery with other forms of angina pectoris Discharge Date/Time: 08/17/19 11:53 Instructions: DI for Acute Coronary Syndrome, DI for Angina, DI for Atypical Chest Pain Activity Restrictions/Additional Instructions: If you developed chest pain that is continuous and last longer than 15-20 minutes unrelieved by nitroglycerin or antacids you need to proceed to the nearest emergency department for evaluation. You need to continue taking your current medications including aspirin and nitroglycerin as directed. You need to follow-up with your family physician and/or baseball player to be re-evaualted and arrange a follow up visist. Prescriptions: No Action aspirin 81 mg Tablet,Delayed Release (Dr/Ec) 81 mg PO DAILY RF: 0 metoprolol succinate 100 mg Tablet Extended Release 24 Hr 100 mg PO DAILY RF: 0 amlodipine 2.5 mg Tablet 2.5 mg PO DAILY RF: 0 dextroamphetamine-amphetamine 20 mg Tablet 20 mg PO BID RF: 0 omeprazole 20 mg Capsule,Delayed Release(Dr/Ec) 20 mg PO DAILY RF: 0
[2019-08-17 10:00] VITALS: BP 119/78; PULSE 74; RESP 18; O2SAT 100
[2019-08-17 10:07] LABS: INR 0.9 (0.9-1.3); Prothrombin Time 10.7 SECONDS (10.1-12.7)
[2019-08-17 10:10] LABS: PTT Partial Thromboplastin Tim 32 SECONDS (26.4-36.2)
[2019-08-17 10:12] LABS: Alanine Aminotransferase 35 IU/L (<50); Albumin 4.3 g/dL (3.5-5.0); Albumin Globulin Ratio 1.3 (1.0-2.8); Alkaline Phosphatase 69 U/L (38-126); Aspartate Aminotransferase 26 IU/L (17-59); BUN Creatinine Ratio 15.6 (6-22); Bilirubin Total 0.7 mg/dL (0.2-1.3); Blood Urea Nitrogen 14 mg/dL (9-20); Calcium 8.9 mg/dL (8.4-10.2); Carbon Dioxide 25 mmol/L (22-32); Chloride 103 mmol/L (98-107); Creatine Kinase 55 U/L (55-170); Estimated Glomerular Filt Rate > 60.0 mL/min (>60); Globulin 3.3 g/dL (1.7-4.1); Glucose 135 mg/dL (70-100); HEMOLYSIS 33 (0-50); Lipase 74 U/L (23-300); Potassium 4.3 mmol/L (3.4-5.1); Sodium 138 mmol/L (137-145); Total Protein 7.6 g/dL (6.3-8.2)
[2019-08-17 10:23] LABS: Troponin I < 0.012 ng/mL (0.01-0.034)
[2019-08-17 11:00] VITALS: BP 122/80; PULSE 71; RESP 18; O2SAT 100
== END 2019-08-17 11:53 | disposition home or self-care (01) ==
PROVIDERS: Emergency Provider Emergency Medicine
DX: R07.89 Other chest pain (principal); I25.118 Atherosclerotic heart disease of native coronary artery with other forms of angina pectoris; I10 Essential (primary) hypertension
CPT/HCPCS: 36415; 71045; 80053; 82550; 83690; 84484; 85025; 85610; 85730; 93005; 99213; 99284; 99285

== ENCOUNTER → 2019-08-23 11:38 | Outpatient (CLI) | payer MEDICARE, MEDICAID, SELFPAY ==
[2019-08-17 09:24] VITALS: BMI 41.8
[2019-08-23 12:11] LABS: Hemoglobin A1C% w Est Avg Glu 5.3 % (4.0-6.0)
== END ==
PROVIDERS: PCP Family Medicine; Referring Provider Family Medicine; Visit Provider Family Medicine
DX: R73.9 Hyperglycemia, unspecified (principal); Z83.3 Family history of diabetes mellitus
CPT/HCPCS: 36415; 83036

== ENCOUNTER 2019-10-10 16:49 | Emergency (ER) | payer MEDICARE, MEDICAID, SELFPAY ==
[2019-08-23 11:53] VITALS: BMI 41.8
--- NOTE | 2019-10-10 16:54 | ED_ITS ---
HPI - SOB/Dyspnea General Chief Complaint: Upper Respiratory Symptoms Stated Complaint: SOB/Cough/Fatigued Time Seen by Provider: 10/10/19 16:53 Source: patient Mode of arrival: Ambulatory Limitations: no limitations History of Present Illness HPI Narrative: 49M nonsmoker with history of HTN and GERD is homeless. He presents with a chief complaint of many days of cough, shortness of breath and now is developing some anterior chest pain. He has had subjective fever and headache but denies any sore throat or runny nose. 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 He denies any recent travel or exposure to persons known to be under suspicion for COVID-19. His chest pain is sharp and stabbing and worse with deep breath and palpation. He denies radiation. He denies any history of blood clot. MD Complaint: shortness of breath, cough, pain with inspiration and chest pain Onset (ago): day(s) Severity: moderate Consistency/Duration: intermittent Relieving factors: nothing Exacerbating factors: coughing and inspiration Treatment prior to arrival: none Related Data Home oxygen amount: none Home Medications Medication Instructions Recorded Confirmed omeprazole 20 mg PO DAILY 06/11/19 09/14/19 aspirin 81 mg PO DAILY 08/17/19 09/14/19 Previous Rx's Medication Instructions Recorded amlodipine 5 mg tablet 5 mg PO DAILY #30 tab 08/23/19 metoprolol succinate 100 mg 100 mg PO DAILY #90 tab 09/06/19 tablet,extended release 24 hr divalproex 250 mg tablet,extended 250 mg PO DAILY #30 tab 09/14/19 release 24 hr dextroamphetamine-amphetamine 20 20 mg PO BID #60 tab 10/07/19 mg tablet doxycycline hyclate 100 mg PO BID #20 tab 10/10/19 Allergies Allergy/AdvReac Type Severity Reaction Status Date / Time ciprofloxacin [From Cipro] Allergy Severe ITCHING Verified 10/10/19 17:09 diphenhydramine AdvReac Severe Anxiety Verified 10/10/19 17:09 [From Benadryl] Review of Systems Constitutional Constitutional: Reports chills, Denies fatigue, Reports fever(s), Denies frequent falls, Denies lethargy and Denies weakness Eyes Eyes: Denies change in vision, Denies eye discharge, Denies irritation and Arnol es loss of vision ENT Ears, Nose, Mouth, and Throat: Denies change in voice, Denies dizziness, Denies neck pain, Denies sore throat and Denies throat swelling Cardiovascular Cardiovascular: Reports chest pain, Denies irregular heart rhythm, Denies lightheadedness, Denies palpitations, Reports dyspnea, Denies dyspnea on exert ion and Denies orthopnea Respiratory Respiratory: Reports cough, Reports dyspnea, Denies dyspnea on exertion and Denies wheezing Gastrointestinal Gastrointestinal: Denies abdominal pain, Denies change in bowel habits, Denies diarrhea, Denies nausea and Denies vomiting Genitourinary Genitourinary: Denies hematuria, Denies flank pain, Denies urinary incontinence and Denies urinary urgency Musculoskeletal Musculoskeletal: Denies back pain, Denies muscle weakness, Denies neck pain, D enies numbness and Denies tingling Integumentary/Breasts Skin/Breast: Denies pruritus, Denies erythema, Denies rash and Denies wounds Neurologic Neurologic: Denies behavioral changes, Denies confusion, Denies dizziness, Denies frequent falls, Denies loss of vision, Denies numbness, Denies tingling and Denies weakness Psychiatric Psychiatric: Denies anxiety, Denies behavioral changes, Denies confusion, Denies depression, Denies homicidal ideation and Denies suicidal ideation Endocrine Endocrine: Denies fatigue, Denies flushing and Denies palpitations Hematologic/Lymphatic Hematologic/Lymphatic: Denies easy bruising Allergic/Immunologic Allergic/Immunologic: Denies urticaria, Denies throat swelling and Denies wheezing Patient History Medical History Acne (Chronic) ADHD (Chronic ~1999) Alcohol use disorder, moderate, in sustained remission (Acute) Allergies (Chronic ~1978) Anxiety (Chronic ~1999) Bipolar II disorder (Acute) Body posture problem (Acute) Carpal tunnel syndrome (Chronic ~2014) Cervical somatic dysfunction (Acute) Chest pain (Acute) Chicken pox (Resolved ~1975) Chronic thoracic back pain (Chronic ~1999) Coronary artery disease (Acute ~2002) Depression (Chronic ~1999) Dyslipidemia (Acute) Elevated blood sugar level (Acute) Essential hypertension (Acute) Exertional shortness of breath (Acute) Family history of myocardial infarction at age less than 60 (Acute) GERD (gastroesophageal reflux disease) (Chronic ~1999) Headache (Chronic ~2004) History of bipolar disorder (Chronic ~2014) Hx of angiography (Acute) Hypertension (Acute ~2002) Kidney stones (Inactive ~2016) Migraines (Chronic ~2009) Psoriasis (Chronic) Restless leg syndrome (Chronic ~2016) Segmental and somatic dysfunction of thoracic region (Acute) Tinnitus (Chronic ~2015) Upper extremity somatic dysfunction (Acute) Wears glasses (Chronic) Surgical History Anesthesia (Resolved) H/O left heart catheterization by cutdown (Acute) History of arthroscopy of both knees (Acute ~1988) Lump in the testicle (Resolved ~2004) Family History Mother Myocardial infarct History of heart disease Hypertension Mental health problem Father CAD, multiple vessel Diabetes mellitus History of heart disease Hypertension Hyperlipidemia Grandmother Diabetes mellitus History of heart disease Hypertension Stroke Grandmother Alzheimer's disease Social History household members: none Smoking Status: Never smoker alcohol intake: current Smoking Status: Never smoker alcohol intake frequency: holidays/special occasions only Substance Use Type: does not use Exam Narrative Exam Narrative: GENERAL: [49] year old patient appears stated age. Well- nourished, well-developed patient, in mild distress. HEAD: Atraumatic. Normocephalic. EYES: Pupils equal round and reactive. Extraocular motions intact. No scleral icterus. No injection or drainage. ENT: Nose without bleeding, purulent drainage. Throat without erythema, tonsillar hypertrophy or exudate. Airway patent. NECK: Trachea midline. Non tender CARDIOVASCULAR: Regular rate and rhythm without murmurs, gallops, or rubs. RESPIRATORY: Clear to auscultation. Breath sounds equal bilaterally. No wheezes, rales, or rhonchi. GASTROINTESTINAL: Abdomen soft, non-tender, nondistended. EXTREMITIES: No edema or joint tenderness. BACK: Nontender without deformity or crepitance. No flank tenderness. NEURO: AOx3. SKIN: No rash or erythema of visible areas Initial Vital Signs Initial Vital Signs: Vital Signs Temperature 97.9 F 10/10/19 16:55 Pulse Rate 85 10/10/19 16:55 Respiratory Rate 16 10/10/19 16:55 Blood Pressure 141/85 H 10/10/19 16:55 Pulse Oximetry 100 10/10/19 16:55 Course Orders Ordered: ED Orders 10/10/19 17:00 XR chest 2V Stat 10/10/19 17:01 Influenza A & B (PCR) Stat 10/10/19 17:10 EKG-12 Lead Routine 10/10/19 17:35 Basic Metabolic Panel Stat C-Reactive Protein Quant Stat Complete Blood Count AUTO DIFF Stat Ferritin Stat Troponin & CK Cardiac Panel Stat 10/10/19 18:08 CT chest wo con Stat Vital Signs Vital signs: Vital Signs - 8 hr 10/10/19 16:55 10/10/19 17:43 Temperature 97.9 F Pulse Rate 85 80 Respiratory Rate 16 18 Blood Pressure 141/85 H Blood Pressure [Right Arm] 143/86 H Pulse Oximetry 100 99 MDM - SOB/Dyspnea Lab Data Result diagrams: 10/10/19 17:35 10/10/19 17:35 Labs: Lab Results 10/10/19 10/10/19 10/10/19 Range/Units 17:01 17:35 17:35 WBC 7.9 (4.5-11.0) X10^3/uL RBC 4.68 (4.5-5.9) X10^6/uL Hgb 14.5 (13.5-17.5) g/dL Hct 41.6 (41-53) % MCV 88.9 (80-100) fL MCH 31.0 (26-34) PG MCHC 34.8 (30-36) % RDW 13.2 (11.6-14.8) % Plt Count 183 (150-400) X10^3/uL Neut % (Auto) 76.3 H (50-75) % Lymph % (Auto) 16.3 L (25-40) % [place] % (Auto) 5.9 (3-14) % Eos % (Auto) 1.1 L (2-4) % Baso % (Auto) 0.4 (0-2) % Neut # (Auto) 6000 (4835-6500) /uL Lymph # (Auto) 1300 (8534-1573) /uL [place] # (Auto) 500 (0-900) /uL Eos # (Auto) 100 (0-450) /uL Baso # (Auto) 0 (0-100) /uL Sodium 142 (137-145) mmol/L Potassium 4.1 (3.4-5.1) mmol/L Chloride 108 H (98-107) mmol/L Carbon Dioxide 26 (22-32) mmol/L BUN 11 (9-20) mg/dL Creatinine 1.15 (0.66-1.25) mg/dL Estimated GFR > 60.0 (>60) mL/min BUN/Creatinine Ratio 9.6 (6-22) Glucose 104 H (70-100) mg/dL Calcium 9.6 (8.4-10.2) mg/dL Ferritin (18-464) ng/mL Total Creatine Kinase 112 (55-170) U/L CK-MB (CK-2) 0.90 (<2.37) ng/mL CK-MB (CK-2) Rel Index 0.8 L (1.5-5.0) % Troponin I < 0.012 (0.01-0.034) ng/mL C-Reactive Protein 1.6 H (<1.0) mg/dL Influenza A (RT-PCR) Flu a negative (NEGATIVE) Influenza B (RT-PCR) Flu b negative (NEGATIVE) 10/10/19 Range/Units 17:35 WBC (4.5-11.0) X10^3/uL RBC (4.5-5.9) X10^6/uL Hgb (13.5-17.5) g/dL Hct (41-53) % MCV (80-100) fL MCH (26-34) PG MCHC (30-36) % RDW (11.6-14.8) % Plt Count (150-400) X10^3/uL Neut % (Auto) (50-75) % Lymph % (Auto) (25-40) % [place] % (Auto) (3-14) % Eos % (Auto) (2-4) % Baso % (Auto) (0-2) % Neut # (Auto) (5085-3325) /uL Lymph # (Auto) (0633-6244) /uL [place] # (Auto) (0-900) /uL Eos # (Auto) (0-450) /uL Baso # (Auto) (0-100) /uL Sodium (137-145) mmol/L Potassium (3.4-5.1) mmol/L Chloride (98-107) mmol/L Carbon Dioxide (22-32) mmol/L BUN (9-20) mg/dL Creatinine (0.66-1.25) mg/dL Estimated GFR (>60) mL/min BUN/Creatinine Ratio (6-22) Glucose (70-100) mg/dL Calcium (8.4-10.2) mg/dL Ferritin 65 (18-464) ng/mL Total Creatine Kinase (55-170) U/L CK-MB (CK-2) (<2.37) ng/mL CK-MB (CK-2) Rel Index (1.5-5.0) % Troponin I (0.01-0.034) ng/mL C-Reactive Protein (<1.0) mg/dL Influenza A (RT-PCR) (NEGATIVE) Influenza B (RT-PCR) (NEGATIVE) Discharge Plan Departure Patient Disposition: Home Clinical Impression: Atypical chest pain, Atypical pneumonia Discharge Date/Time: 10/10/19 19:14 Instructions: Atypical Pneumonia, DI for Atypical Chest Pain Activity Restrictions/Additional Instructions: *You have been diagnosed with [atypical chest pain, atypical pneumonia] *What to do: *Take medications as directed: [facility] *Follow up with your primary care provider in 2-3 days, call for an appointment. Let them know you were seen in the Emergency Department and that we ask that you be seen in follow up *Return to ER if you should have any new, worsening or concerning symptoms Prescriptions: New doxycycline hyclate 100 mg tablet 100 mg PO BID Qty: 20 RF: 0 No Action divalproex [Depakote ER] 250 mg tablet extended release 24 hr 250 mg PO DAILY Qty: 30 RF: 3 dextroamphetamine-amphetamine 20 mg tablet 20 mg PO BID Qty: 60 RF: 0 amlodipine 5 mg tablet 5 mg PO DAILY Qty: 30 RF: 5 metoprolol succinate 100 mg tablet extended release 24 hr 100 mg PO DAILY Qty: 90 RF: 1 aspirin 81 mg Tablet,Delayed Release (Dr/Ec) 81 mg PO DAILY RF: 0 omeprazole 20 mg Capsule,Delayed Release(Dr/Ec) 20 mg PO DAILY RF: 0 Referrals: Clement Mccray DO [Primary Care Provider] -
[2019-10-10 16:55] VITALS: BP 141/85; PULSE 85; RESP 16; TEMP 36.6; O2SAT 100; BMI 39.0
--- NOTE | 2019-10-10 17:00 | DI.RAD.S_ITS ---
PROCEDURE: XR CHEST 2V INDICATIONS: chest pain, SOB, cough, fever TECHNIQUE: 2 views of the chest were acquired. COMPARISON: [facility], CR, XR CHEST 1V, 08/17/2019, 9:20. FINDINGS: Surgical changes and devices: None. Lungs and pleura: Lungs are clear. No pleural effusions or pneumothorax. Mediastinum: Mediastinal contours are normal. Heart size is normal. Bones and chest wall: No suspicious bony abnormalities. Soft tissues appear unremarkable. IMPRESSION: No acute cardiopulmonary process is evident. Dictated by: Adalberto Love M.D. on 10/10/2019 at 16:21 Approved by: Adalberto Love M.D. on 10/10/2019 at 16:23
[2019-10-10 17:42] LABS: Influenza A - CEPHEID Flu A NEGATIVE (NEGATIVE); Influenza B - CEPHEID Flu B NEGATIVE (NEGATIVE)
[2019-10-10 17:43] VITALS: BP 143/86; PULSE 80; RESP 18; O2SAT 99
[2019-10-10 17:49] LABS: Add Manual Diff / Slide Review NO; Basophils Absolute Auto 0 /uL (0-100); Basophils Percent Auto 0.4 % (0-2); Eosinophils Absolute Auto 100 /uL (0-450); Eosinophils Percent Auto 1.1 % (2-4); Hematocrit 41.6 % (41-53); Hemoglobin 14.5 g/dL (13.5-17.5); Lymphocytes Absolute Auto 1300 /uL (1100-4500); Lymphocytes Percent Auto 16.3 % (25-40); Mean Corpuscular HGB Conc 34.8 % (30-36); Mean Corpuscular Volume 88.9 fL (80-100); Monocytes Absolute Auto 500 /uL (0-900); Monocytes Percent Auto 5.9 % (3-14); Neutrophils Absolute Auto 6000 /uL (1500-7000); Neutrophils Percent Auto 76.3 % (50-75); Platelet Count 183 X10^3/uL (150-400); Red Blood Cell Count 4.68 X10^6/uL (4.5-5.9); Red Cell Distribution Width 13.2 % (11.6-14.8); White Blood Cell Count 7.9 X10^3/uL (4.5-11.0)
[2019-10-10 18:01] LABS: BUN Creatinine Ratio 9.6 (6-22); Blood Urea Nitrogen 11 mg/dL (9-20); C-Reactive Protein Quant 1.6 mg/dL (<1.0); Calcium 9.6 mg/dL (8.4-10.2); Carbon Dioxide 26 mmol/L (22-32); Chloride 108 mmol/L (98-107); Creatine Kinase 112 U/L (55-170); Estimated Glomerular Filt Rate > 60.0 mL/min (>60); Glucose 104 mg/dL (70-100); HEMOLYSIS < 15 (0-50); Potassium 4.1 mmol/L (3.4-5.1); Sodium 142 mmol/L (137-145)
--- NOTE | 2019-10-10 18:08 | DI.CT.S_ITS ---
PROCEDURE: CT CHEST WO CON INDICATIONS: cough, fever, chills, homeless, increased exposure TECHNIQUE: Noncontrast 5 mm thick sections acquired from the pulmonary apices to the posterior costophrenic angles. 1 mm lung window, 5 mm thick coronal and sagittal and 7 mm axial MIP reformats were then acquired. For radiation dose reduction, the following was used: automated exposure control, adjustment of mA and/or kV according to patient size. COMPARISON: [facility], CR, XR CHEST 2V, 10/10/2019, 17:09. FINDINGS: Image quality: Excellent. Lungs and pleura: No acute air space opacities. No pleural effusions or pneumothorax. Central and peripheral airways are patent and normal in caliber. Mediastinum: Heart size is normal. No pericardial effusion. Scattered atherosclerotic calcifications of the coronary arteries are noted. No mediastinal adenopathy by size criteria. Thoracic aorta and central pulmonary arteries are normal in size. Esophagus is normal in caliber. No hiatal hernia. Bones and chest wall: No suspicious bony lesions. No vertebral body compression fractures. No axillary or supraclavicular adenopathy by size criteria. Thyroid gland is unremarkable. Abdomen: Multiple hypodensities noted in the dependent portions of the gallbladder likely representing multiple layering small gallstones. Remainder of the visualized upper abdominal solid organs and bowel loops appear unremarkable. IMPRESSION: 1. CT chest without acute cardiopulmonary abnormalities or focal airspace disease. 2. Cholelithiasis without CT evidence of acute cholecystitis. Dictated by: Jayson Altamirano M.D. on 10/10/2019 at 18:40 Approved by: Jayson Altamiraon M.D. on 10/10/2019 at 18:43
[2019-10-10 18:10] LABS: Troponin I < 0.012 ng/mL (0.01-0.034)
[2019-10-10 18:13] LABS: CKMB % Relative Index 0.8 % (1.5-5.0)
[2019-10-10 18:34] LABS: Ferritin 65 ng/mL (18-464)
[2019-10-10 19:08] VITALS: BP 137/78; PULSE 84; RESP 18; O2SAT 98
== END 2019-10-10 19:14 | disposition home or self-care (01) ==
PROVIDERS: Emergency Provider Emergency Medicine; PCP Family Medicine
DX: R07.89 Other chest pain (principal); J18.9 Pneumonia, unspecified organism
CPT/HCPCS: 36415; 71046; 71250; 80048; 82550; 82553; 82728; 84484; 85025; 86140; 87502; 93005; 99284

== ENCOUNTER 2019-10-17 08:14 | Emergency (ER) | payer MEDICARE, MEDICAID, SELFPAY ==
[2019-08-23 11:53] VITALS: BMI 41.8
[2019-10-17 08:20] VITALS: BP 143/73; PULSE 73; RESP 19; TEMP 36.9; O2SAT 100
[2019-10-17 08:58] LABS: Add Manual Diff / Slide Review NO; Basophils Absolute Auto 0 /uL (0-100); Basophils Percent Auto 0.3 % (0-2); Eosinophils Absolute Auto 100 /uL (0-450); Eosinophils Percent Auto 1.6 % (2-4); Hematocrit 45.6 % (41-53); Hemoglobin 15.7 g/dL (13.5-17.5); Lymphocytes Absolute Auto 1200 /uL (1100-4500); Lymphocytes Percent Auto 14.6 % (25-40); Mean Corpuscular HGB Conc 34.3 % (30-36); Mean Corpuscular Hemoglobin 30.9 PG (26-34); Monocytes Absolute Auto 400 /uL (0-900); Monocytes Percent Auto 5.1 % (3-14); Neutrophils Absolute Auto 6300 /uL (1500-7000); Neutrophils Percent Auto 78.4 % (50-75); Platelet Count 187 X10^3/uL (150-400); Red Blood Cell Count 5.06 X10^6/uL (4.5-5.9); Red Cell Distribution Width 13.2 % (11.6-14.8); White Blood Cell Count 8.1 X10^3/uL (4.5-11.0)
[2019-10-17 09:00] VITALS: BP 122/80; PULSE 79; RESP 16; O2SAT 98
[2019-10-17 09:04] LABS: INR 1.1 (0.9-1.3); Prothrombin Time 12.4 SECONDS (10.1-12.7)
[2019-10-17 09:07] LABS: PTT Partial Thromboplastin Tim 31 SECONDS (26.4-36.2)
[2019-10-17 09:08] LABS: Alanine Aminotransferase 32 IU/L (<50); Albumin 4.5 g/dL (3.5-5.0); Albumin Globulin Ratio 1.3 (1.0-2.8); Alkaline Phosphatase 88 U/L (38-126); Aspartate Aminotransferase 26 IU/L (17-59); BUN Creatinine Ratio 9.9 (6-22); Bilirubin Total 0.7 mg/dL (0.2-1.3); Blood Urea Nitrogen 10 mg/dL (9-20); Calcium 9.9 mg/dL (8.4-10.2); Carbon Dioxide 24 mmol/L (22-32); Chloride 105 mmol/L (98-107); Estimated Glomerular Filt Rate > 60.0 mL/min (>60); Globulin 3.6 g/dL (1.7-4.1); Glucose 140 mg/dL (70-100); HEMOLYSIS < 15 (0-50); Lipase 53 U/L (23-300); Potassium 4.7 mmol/L (3.4-5.1); Sodium 139 mmol/L (137-145); Total Protein 8.1 g/dL (6.3-8.2)
[2019-10-17] MEDS: ONDANSETRON 4 MG/2 ML INJ IV (09:13)
[2019-10-17] MEDS: SODIUM CHLORIDE 0.9% 1,000 ML 1000 ML IV (09:13)
--- NOTE | 2019-10-17 09:15 | DI.CT.S_ITS ---
PROCEDURE: CT ABDOMEN PELVIS W CON INDICATIONS: tender LLQ, Flank and CVA with Nausea vomiting diarrhea TECHNIQUE: After the administration of intravenous contrast, 5 mm thick sections acquired from the diaphragm to the symphysis. 5 mm coronal and sagittal reformats were acquired. For radiation dose reduction, the following was used: automated exposure control, adjustment of mA and/or kV according to patient size. COMPARISON: [facility], CT, CT KIDNEY URETER BLADDER (KUB), 07/19/2019, 18:49. [facility], CT, CT CHEST WO CON, 10/10/2019, 18:06. FINDINGS: Image quality: Excellent. ABDOMEN: Lung bases: Lung bases are clear. Heart size is normal. A small hiatal hernia is incidentally noted. Coronary artery calcifications are seen. Solid organs: Liver is normal in size and enhancement. Diffuse fatty liver infiltration is noted. Gallbladder demonstrates extensive gallstones within its lumen. Biliary system is non dilated. Pancreas enhances normally. Spleen is normal in size and enhancement. No adrenal nodules. Kidneys demonstrate normal size and enhancement, without hydronephrosis. Peritoneum and bowel: In this patient with this given history, scrutiny is given to sigmoid colon. Mild wall thickening and hyper enhancement can be seen within the sigmoid colon. No diverticulosis or diverticulitis can be seen. Bowel loops demonstrate normal wall thickness and caliber. No free fluid or air. Incidental note is made of a normal-appearing appendix. Nodes and vessels: No retroperitoneal or mesenteric adenopathy by size criteria. Aorta and inferior vena cava are normal in size. Miscellaneous: A mild periumbilical hernia is seen, containing fat. PELVIS: Genitourinary: Bladder wall thickness is normal. Miscellaneous: No inguinal hernias or adenopathy. Bones: No suspicious bony lesions. No vertebral body compression fractures. Dextroconvex scoliotic curvature is seen. Age-appropriate bony degenerative changes are seen. IMPRESSION: Focal wall thickening and hyperenhancement can be seen involving sigmoid colon. No significant surrounding inflammatory changes are seen. Differential diagnosis includes nondistention as well as mild focal colitis. No significant diverticula formation can be seen. Negative for diverticulitis. Incidental note is made of: Coronary calcification Small hiatal hernia Fatty liver infiltration Gallstones Fat-containing periumbilical hernia Normal appendix Dictated by: David Mcgrath M.D. on 10/17/2019 at 8:42 Approved by: David Mcgrath M.D. on 10/17/2019 at 8:47
--- NOTE | 2019-10-17 09:18 | ED_ITS ---
HPI - Nausea/Vomiting/Diarrhea General Chief complaint: Nausea/Vomiting/Diarrhea Stated complaint: diarrhea/vomiting/left lower back flank pain Time Seen by Provider: 10/17/19 09:01 Source: patient Mode of arrival: Ambulatory History of Present Illness HPI Narrative: HPI: The patient is a 49-year-old male who came into the emergency department stating that yesterday at 5:00 p.m. developed nonstop nausea vomiting and diarrhea. He was up all night with nausea and vomiting. Approximately 1-1/2 hours ago his symptoms started to slow down after taking Pepto-Bismol Gatorade water and and a banana. The patient states that he was at work and did not make it to the bathroom and had an accident and his boss informed him that he could not come back to work until he was evaluated by a physician and given a work excuse. The patient has had too many liquid bowel movements to count. He has had at least 10. There has been no pasty consistency or solid. Stool has been brown without blood or melena. He denies a history of Crohn's disease ulcerative colitis diverticulitis or irritable bowel syndrome. His abdominal pain is arm crampy in located primarily in the left lower quadrant. He also has a history of kidney stones and has had some left posterior costovertebral angle tenderness and pain that has been spastically sharp. At worse his pain is been 7/10 in intensity and at the present time it is primarily crampy and 4/10 in intensity. He admits to history of hypertension asthma but denies diabetes mellitus. He drinks alcohol does not smoke marijuana or cigarettes. He denies any fever chills but has had 2 episodes of profuse sweating. He denies any headache sinus congestion sore throat cough chest pain shortness of breath. He has had intermittent racing of his heart and 1 episode of feeling faint and dizzy. He denies any other urinary symptoms. Related Data Home Medications Medication Instructions Recorded Confirmed omeprazole 20 mg PO DAILY 06/11/19 09/14/19 aspirin 81 mg PO DAILY 08/17/19 09/14/19 Previous Rx's Medication Instructions Recorded amlodipine 5 mg tablet 5 mg PO DAILY #30 tab 08/23/19 metoprolol succinate 100 mg 100 mg PO DAILY #90 tab 09/06/19 tablet,extended release 24 hr divalproex 250 mg tablet,extended 250 mg PO DAILY #30 tab 09/14/19 release 24 hr dextroamphetamine-amphetamine 20 20 mg PO BID #60 tab 10/07/19 mg tablet doxycycline hyclate 100 mg PO BID #20 tab 10/10/19 dicyclomine 20 mg PO TID PRN #15 tab 10/17/19 loperamide 2 mg PO Q2-4H PRN #14 tab 10/17/19 metronidazole [Flagyl] 500 mg PO BID #14 tab 10/17/19 ondansetron HCl [Zofran] 4 mg PO Q6H PRN #12 tab 10/17/19 sulfamethoxazole-trimethoprim 1 tab PO BID #14 tab 10/17/19 [Bactrim DS] Allergies Allergy/AdvReac Type Severity Reaction Status Date / Time ciprofloxacin [From Cipro] Allergy Severe ITCHING Verified 10/10/19 17:09 diphenhydramine AdvReac Severe Anxiety Verified 10/10/19 17:09 [From Benadryl] Review of Systems Review of Systems Narrative: His review systems were all negative except for those mentioned in the history of present illness. Patient History Medical History Acne (Chronic) ADHD (Chronic ~1999) Alcohol use disorder, moderate, in sustained remission (Acute) Allergies (Chronic ~1978) Anxiety (Chronic ~1999) Bipolar II disorder (Acute) Body posture problem (Acute) Carpal tunnel syndrome (Chronic ~2014) Cervical somatic dysfunction (Acute) Chest pain (Acute) Chicken pox (Resolved ~1975) Chronic thoracic back pain (Chronic ~1999) Coronary artery disease (Acute ~2002) Depression (Chronic ~1999) Dyslipidemia (Acute) Elevated blood sugar level (Acute) Essential hypertension (Acute) Exertional shortness of breath (Acute) Family history of myocardial infarction at age less than 60 (Acute) GERD (gastroesophageal reflux disease) (Chronic ~1999) Headache (Chronic ~2004) History of bipolar disorder (Chronic ~2014) Hx of angiography (Acute) Hypertension (Acute ~2002) Kidney stones (Inactive ~2016) Migraines (Chronic ~2009) Psoriasis (Chronic) Restless leg syndrome (Chronic ~2016) Segmental and somatic dysfunction of thoracic region (Acute) Tinnitus (Chronic ~2015) Upper extremity somatic dysfunction (Acute) Wears glasses (Chronic) Surgical History Anesthesia (Resolved) H/O left heart catheterization by cutdown (Acute) History of arthroscopy of both knees (Acute ~1988) Lump in the testicle (Resolved ~2004) Family History Mother Myocardial infarct History of heart disease Hypertension Mental health problem Father CAD, multiple vessel Diabetes mellitus History of heart disease Hypertension Hyperlipidemia Grandmother Diabetes mellitus History of heart disease Hypertension Stroke Grandmother Alzheimer's disease Social History household members: none Smoking Status: Never smoker alcohol intake: current Smoking Status: Never smoker tobacco type: cigars alcohol intake frequency: holidays/special occasions only Alcohol type: beer and hard liquor Substance Use Type: does not use Exam Narrative Exam Narrative: PHYSICAL EXAM: CONSTITUTIONAL: Awake, Alert, Oriented, Coherent, Cooperative in NAD. Does not appear toxic or ill. HEAD: AT/NC EENT: PERRL, FROM of eyes, no discharge, No epistaxis or nasal drainage Oral mucosa is moist and pink, posterior pharynx is without erythema or exudate. Brown tongue. NECK: Supple, no obvious JVD, Trachea is midline without stridor, no palpable LN or masses. SPINE: No gross deformity, no palpable tenderness of the cervical, thoracic, lumbar or sacral spine. No CVA tenderness. THORAX: No deformity, retractions, chest wall tenderness, subcutaneous air or crepitice. LUNGS: Clear with symmetrical breath sounds without respiratory distress HEART: Normal heart tones, regular rhythm and rate without murmur. ABDOMEN: The patient's abdomen is tender in the left lower quadrant and left flank without guarding rebound or rigidity. His left costovertebral angle is not EXTREMITIES: No edema, cyanosis, deformity or tenderness. SKIN: No rash, bruising, petechiae or purpura. NEURO: Awake, alert, oriented, conversive, cranial nerves II-XII are symmetrical , moves all 4 extremities and is ambulatory Initial Vital Signs Initial Vital Signs: Vital Signs Temperature 98.4 F 10/17/19 08:20 Pulse Rate 73 10/17/19 08:20 Respiratory Rate 19 10/17/19 08:20 Blood Pressure 143/73 H 10/17/19 08:20 Pulse Oximetry 100 10/17/19 08:20 Course Course Course Narrative: 1103: Patient's white blood count is not elevated. His liver function tests and electrolytes are normal. His urinalysis is negative for any significant abnormality. His CT scan of the abdomen reveals focal wall thickening and hyperenhancement can be seen involving sigmoid colon. There is no significant surrounding inflammatory changes visualized. Differential diagnosis includes non distension as well as mild focal colitis. The patient will be treated symptomatic Viviane and discharged home. He will be placed on Cipro and Flagyl for 7 days. He will be given Zofran for nausea and vomiting and Bentyl for abdominal cramps and loperamide for diarrhea. He will be given a work excuse for 48 hours. Orders Ordered: Discontinued Medications Sodium Chloride (Normal Saline 0.9%) 1,000 mls @ 1,000 mls/hr IV BOLUS ONE Stop: 10/17/19 09:59 Last Infusion: 10/17/19 11:16 Dose: 0 mls/hr Documented by: Admin: 10/17/19 09:13 Dose: 1,000 mls/hr Documented by: CLINT Ketorolac Tromethamine (Toradol) 30 mg IV NOW ONE Stop: 10/17/19 09:16 Last Admin: 10/17/19 10:30 Dose: 30 mg Documented by: CLINT Ondansetron HCl (Zofran) 4 mg IV NOW ONE Stop: 10/17/19 09:00 Last Admin: 10/17/19 09:13 Dose: 4 mg Documented by: CLINT Vital Signs Vital signs: Vital Signs - 8 hr 10/17/19 11:31 Respiratory Rate 16 MDM - Nausea/Vomiting/Diarrhea Lab Data Result diagrams: 10/17/19 08:51 10/17/19 08:51 Labs: Lab Results 10/17/19 10/17/19 10/17/19 Range/Units 08:51 08:51 08:51 WBC 8.1 (4.5-11.0) X10^3/uL RBC 5.06 (4.5-5.9) X10^6/uL Hgb 15.7 (13.5-17.5) g/dL Hct 45.6 (41-53) % MCV 90.0 (80-100) fL MCH 30.9 (26-34) PG MCHC 34.3 (30-36) % RDW 13.2 (11.6-14.8) % Plt Count 187 (150-400) X10^3/uL Neut % (Auto) 78.4 H (50-75) % Lymph % (Auto) 14.6 L (25-40) % [place] % (Auto) 5.1 (3-14) % Eos % (Auto) 1.6 L (2-4) % Baso % (Auto) 0.3 (0-2) % Neut # (Auto) 6300 (7135-9614) /uL Lymph # (Auto) 1200 (7879-4709) /uL [place] # (Auto) 400 (0-900) /uL Eos # (Auto) 100 (0-450) /uL Baso # (Auto) 0 (0-100) /uL PT 12.4 (10.1-12.7) SECONDS INR 1.1 (0.9-1.3) APTT 31 (26.4-36.2) SECONDS Sodium 139 (137-145) mmol/L Potassium 4.7 (3.4-5.1) mmol/L Chloride 105 (98-107) mmol/L Carbon Dioxide 24 (22-32) mmol/L BUN 10 (9-20) mg/dL Creatinine 1.01 (0.66-1.25) mg/dL Estimated GFR > 60.0 (>60) mL/min BUN/Creatinine Ratio 9.9 (6-22) Glucose 140 H (70-100) mg/dL Calcium 9.9 (8.4-10.2) mg/dL Total Bilirubin 0.7 (0.2-1.3) mg/dL AST 26 (17-59) IU/L ALT 32 (<50) IU/L Alkaline Phosphatase 88 (38-126) U/L Total Protein 8.1 (6.3-8.2) g/dL Albumin 4.5 (3.5-5.0) g/dL Globulin 3.6 (1.7-4.1) g/dL Albumin/Globulin Ratio 1.3 (1.0-2.8) Lipase 53 (23-300) U/L Urine Color Urine Appearance Urine pH (4.5-8.0) Ur Specific [place] (1.000-1.035) Urine Protein (Negative) Urine Glucose (UA) (Negative) g/dL Urine Ketones (NEGATIVE) Urine Occult Blood (Negative) Urine Nitrate (Negative) Urine Bilirubin (NEGATIVE) Urine Urobilinogen (0.2) E.U./dL Ur Leukocyte Esterase (NEGATIVE) Urine RBC (0-5/HPF) Urine WBC (0-5/HPF) Urine Bacteria (None) Urine Mucus (Negative) Ur Culture Indicated? 10/17/19 Range/Units 10:10 WBC (4.5-11.0) X10^3/uL RBC (4.5-5.9) X10^6/uL Hgb (13.5-17.5) g/dL Hct (41-53) % MCV (80-100) fL MCH (26-34) PG MCHC (30-36) % RDW (11.6-14.8) % Plt Count (150-400) X10^3/uL Neut % (Auto) (50-75) % Lymph % (Auto) (25-40) % [place] % (Auto) (3-14) % Eos % (Auto) (2-4) % Baso % (Auto) (0-2) % Neut # (Auto) (3129-4065) /uL Lymph # (Auto) (9097-2825) /uL [place] # (Auto) (0-900) /uL Eos # (Auto) (0-450) /uL Baso # (Auto) (0-100) /uL PT (10.1-12.7) SECONDS INR (0.9-1.3) APTT (26.4-36.2) SECONDS Sodium (137-145) mmol/L Potassium (3.4-5.1) mmol/L Chloride (98-107) mmol/L Carbon Dioxide (22-32) mmol/L BUN (9-20) mg/dL Creatinine (0.66-1.25) mg/dL Estimated GFR (>60) mL/min BUN/Creatinine Ratio (6-22) Glucose (70-100) mg/dL Calcium (8.4-10.2) mg/dL Total Bilirubin (0.2-1.3) mg/dL AST (17-59) IU/L ALT (<50) IU/L Alkaline Phosphatase (38-126) U/L Total Protein (6.3-8.2) g/dL Albumin (3.5-5.0) g/dL Globulin (1.7-4.1) g/dL Albumin/Globulin Ratio (1.0-2.8) Lipase (23-300) U/L Urine Color Yellow Urine Appearance Clear Urine pH 5.5 (4.5-8.0) Ur Specific [place] 1.020 (1.000-1.035) Urine Protein Trace H (Negative) Urine Glucose (UA) Negative (Negative) g/dL Urine Ketones Negative (NEGATIVE) Urine Occult Blood Negative (Negative) Urine Nitrate Negative (Negative) Urine Bilirubin Negative (NEGATIVE) Urine Urobilinogen 0.2 (0.2) E.U./dL Ur Leukocyte Esterase Negative (NEGATIVE) Urine RBC None seen (0-5/HPF) Urine WBC None seen (0-5/HPF) Urine Bacteria None seen (None) Urine Mucus 2+ H (Negative) Ur Culture Indicated? Cult not indicated Urine Dip Bedside Urine Glucose Negative Bedside Urine Bilirubin + 1 Bedside Urine Ketone +/- 5 Urine Specific [place] 1.020 Bedside Urine Occult Blood - Negative Bedside Urine pH 5.5 Bedside Urine Protein +/- 15 Bedside Urine Urobilinogen - Negative Bedside Urine Nitrite - Negative Bedside Urine Leukocytes - Negative Esterase Discharge Plan Departure Patient Disposition: Home Clinical Impression: Abdominal pain, LLQ, Colitis Nausea and vomiting Qualifiers: Vomiting type: unspecified Vomiting Intractability: non-intractable Qualified Code(s): R11.2 - Nausea with vomiting, unspecified Diarrhea Qualifiers: Diarrhea type: unspecified type Qualified Code(s): R19.7 - Diarrhea, unspecified Discharge Date/Time: 10/17/19 11:32 Instructions: DI for Dehydration -- Adult, DI for Nausea -- Adult, DI for Vomiting -- Adult, DI for Colitis Activity Restrictions/Additional Instructions: 1. You will be given night 48 hour work excuse. Return to work in 48 hours. 2. You need to call and make a follow-up appointment with your primary care physician to be re-evaluated in 48-72 hours if not improved. 3. Continue to drink fluids Gatorade, Powerade, juices, water, 2-3 L per day to rehydrate herself. 4. Return to the emergency department if you develop high fever progressively worsening severe abdominal pain, persistent vomiting unable to keep anything down despite medications passing out 5. Take the loperamide as prescribed for your diarrhea. 6. For your abdominal pain and cramps take the dicyclomine 10 mg 3 times a day. 7. For nausea and vomiting take the Zofran 4 mg every 6 hours. 8. For the colitis and diarrhea take Cipro 500 mg twice a day and Flagyl 500 mg twice a day. While on the antibiotic she cannot drink any type of alcohol. Prescriptions: New metronidazole [Flagyl] 500 mg tablet 500 mg PO BID Qty: 14 RF: 0 sulfamethoxazole-trimethoprim [Bactrim DS] 800-160 mg tablet 1 tab PO BID Qty: 14 RF: 0 ondansetron HCl [Zofran] 4 mg tablet 4 mg PO Q6H PRN (Reason: nausea and vomiting) Qty: 12 RF: 0 loperamide 2 mg tablet 2 mg PO Q2-4H PRN (Reason: loose stool) Qty: 14 RF: 0 dicyclomine 20 mg tablet 20 mg PO TID PRN (Reason: abdominal cramps and pain) Qty: 15 RF: 0 No Action divalproex [Depakote ER] 250 mg tablet extended release 24 hr 250 mg PO DAILY Qty: 30 RF: 3 dextroamphetamine-amphetamine 20 mg tablet 20 mg PO BID Qty: 60 RF: 0 amlodipine 5 mg tablet 5 mg PO DAILY Qty: 30 RF: 5 metoprolol succinate 100 mg tablet extended release 24 hr 100 mg PO DAILY Qty: 90 RF: 1 aspirin 81 mg Tablet,Delayed Release (Dr/Ec) 81 mg PO DAILY RF: 0 omeprazole 20 mg Capsule,Delayed Release(Dr/Ec) 20 mg PO DAILY RF: 0 doxycycline hyclate 100 mg tablet 100 mg PO BID Qty: 20 RF: 0 Referrals: Clement Mccray DO [Primary Care Provider] - Stand Alone Forms: Work Release Note
[2019-10-17 10:27] LABS: Bacteria Urine None Seen; RBC Urine None Seen (0-5/HPF); WBC Urine None Seen (0-5/HPF)
[2019-10-17 10:29] LABS: Appearance Urine UA CLEAR; Bilirubin Urine UA NEGATIVE (NEGATIVE); Color Urine UA YELLOW; Glucose Urine UA NEGATIVE (Negative); Ketones Urine UA NEGATIVE (NEGATIVE); Leukocyte Esterase Urine UA NEGATIVE (NEGATIVE); Nitrite Urine UA NEGATIVE (Negative); Occult Blood Urine UA NEGATIVE (Negative); Protein Urine UA TRACE (Negative); Urobilinogen Urine UA 0.2 E.U./dL (0.2); pH Urine UA 5.5 (4.5-8.0)
[2019-10-17] MEDS: KETOROLAC 60 MG/2 ML VIAL 30 MG IV (10:30)
[2019-10-17 10:31] LABS: Culture Indicated Urine Cult Not Indicated; Mucus Urine 2+ (Negative)
[2019-10-17 11:00] VITALS: BP 120/73; PULSE 69; O2SAT 99
[2019-10-17 11:31] VITALS: RESP 16
== END 2019-10-17 11:32 | disposition home or self-care (01) ==
PROVIDERS: Emergency Provider Emergency Medicine; PCP Family Medicine
DX: R10.32 Left lower quadrant pain (principal); K52.9 Noninfective gastroenteritis and colitis, unspecified; R11.2 Nausea with vomiting, unspecified; I10 Essential (primary) hypertension; J45.909 Unspecified asthma, uncomplicated
CPT/HCPCS: 36415; 74177; 80053; 81001; 81003; 83690; 85025; 85610; 85730; 96361; 96374; 96375; 99284; J1885; J2405; Q9967

== ENCOUNTER 2020-03-10 06:04 | Emergency (ER) | payer MEDICARE, MEDICAID, SELFPAY ==
[2019-08-23 11:53] VITALS: BMI 41.8
[2020-03-10] VITALS (11 sets, daily range): BP systolic 85–120; BP diastolic 52–76; PULSE 65–75; RESP 10–22; TEMP 36.9; O2SAT 94–100; BMI 40.8
--- NOTE | 2020-03-10 06:07 | DI.RAD.S_ITS ---
PROCEDURE: XR CHEST 1V INDICATIONS: chest pains and shortness of breath TECHNIQUE: One view of the chest was acquired. COMPARISON: [facility], CR, XR CHEST 2V, 10/10/2019, 17:09. [facility], CR, XR CHEST 1V, 08/17/2019, 9:20. FINDINGS: Surgical changes and devices: None. Lungs and pleura: Lungs are clear. No pleural effusions or pneumothorax. Mediastinum: Mediastinal contours appear normal. Heart size is normal. Bones and chest wall: No suspicious bony lesions. Overlying soft tissues appear unremarkable. IMPRESSION: Normal for age, source of current chest pain and shortness of breath symptoms is not seen. Dictated by: Nas Dickerson M.D. on 03/10/2020 at 8:55 Approved by: Nas Dickerson M.D. on 03/10/2020 at 8:57
--- NOTE | 2020-03-10 06:19 | ED_ITS ---
HPI - General Adult <Marco Kauffman DO - Last Filed: 03/16/20 18:03> General Chief complaint: Chest Pain Stated complaint: SHORTNESS OF BREATH, CHEST PAIN Time Seen by Provider: 03/10/20 06:05 Source: patient Mode of arrival: Ambulatory Limitations: no limitations History of Present Illness HPI narrative: Patient is a 49-year-old male with known coronary artery disease. Patient states that he also has a diagnosis of angina. He has nitroglycerin at home. Patient states he has seen a philosophy and religion instructor in the past however was in another state and that was more than 1 year ago prior to him moving to the local area. He states that he has had a cardiac catheterization in the past. He was told by Cardiology that he does have some coronary artery disease however does not have any stents placed. Has had issues with angina in the past which is why he has been prescribed nitroglycerin. 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 Approximately 24 hours ago while he was at work he started to notice that he was having some dyspnea on exertion and chest disco mfort when he was walking around that seemed to improve when he stopped. He thought that it was his normal angina. He went home. Slept all day. When he returned to work at the start of his last shift he stated that the symptoms seem to be getting worse. He states that he is walking shorter distances without getting short of breath. Is also getting somewhat lightheaded and also having some chest discomfort. Again these symptoms resolve when he sits. He took a nitroglycerin last evening which he states helped his symptoms somewhat. No fevers. Related Data Home Medications Medication Instructions Recorded Confirmed aspirin 81 mg PO DAILY 08/17/19 03/16/20 clopidogrel 75 mg tablet 75 mg PO DAILY 03/16/20 03/16/20 divalproex 250 mg tablet,extended 500 mg PO DAILY tab 03/16/20 release 24 hr isosorbide mononitrate 30 mg 15 mg PO DAILY tab 03/16/20 03/16/20 tablet,extended release 24 hr pantoprazole 20 mg tablet,delayed 20 mg PO DAILY 03/16/20 03/16/20 release Previous Rx's Medication Instructions Recorded doxycycline hyclate 100 mg PO BID #20 tab 10/10/19 dicyclomine 20 mg PO TID PRN #15 tab 10/17/19 ondansetron HCl [Zofran] 4 mg PO Q6H PRN #12 tab 10/17/19 dextroamphetamine-amphetamine 20 20 mg PO BID #60 tab 02/15/20 mg tablet metoprolol succinate 100 mg 100 mg PO DAILY #90 tab 03/16/20 tablet,extended release 24 hr Allergies Allergy/AdvReac Type Severity Reaction Status Date / Time ciprofloxacin [From Cipro] Allergy Severe ITCHING Verified 03/16/20 09:34 diphenhydramine AdvReac Severe Anxiety Verified 03/16/20 09:34 [From Benadryl] Review of Systems <Marco Kauffman DO - Last Filed: 03/16/20 18:03> Constitutional Constitutional: Reports fatigue, Denies fever(s) and Denies headache(s) ENT Ears, Nose, Mouth, and Throat: Denies headache(s) Cardiovascular Cardiovascular: Reports chest pain, Reports lightheadedness, Denies radiating jaw, neck or arm pain and Reports dyspnea on exertion Respiratory Respiratory: Reports cough and Reports dyspnea on exertion Gastrointestinal Gastrointestinal: Denies abdominal pain, Denies nausea and Denies vomiting Genitourinary Genitourinary: Denies dysuria Genitourinary: Denies dysuria Musculoskeletal Musculoskeletal: Denies arthralgias and Denies myalgias Integumentary/Breasts Skin/Breast: Denies rash Neurologic Neurologic: Denies behavioral changes and Denies headache(s) Psychiatric Psychiatric: Denies behavioral changes Endocrine Endocrine: Reports fatigue Hematologic/Lymphatic Hematologic/Lymphatic: Denies easy bleeding and Denies easy bruising Allergic/Immunologic Allergic/Immunologic: Denies urticaria Patient History <Marco Kauffman DO - Last Filed: 03/16/20 18:03> Medical History (Updated 03/16/20 @ 10:01 by Clement Mccray DO) Acne (Chronic) ADHD (Chronic ~1999) Alcohol use disorder, moderate, in sustained remission (Acute) Allergies (Chronic ~1978) Angina at rest (Acute) Anxiety (Chronic ~1999) Bipolar II disorder (Acute) Body posture problem (Acute) Carpal tunnel syndrome (Chronic ~2014) Cervical somatic dysfunction (Acute) Chest pain (Acute) Chicken pox (Resolved ~1975) Chronic thoracic back pain (Chronic ~1999) Coronary artery disease (Acute ~2002) Depression (Chronic ~1999) Dyslipidemia (Acute) Elevated blood sugar level (Acute) Essential hypertension (Acute) Exertional shortness of breath (Acute) Family history of myocardial infarction at age less than 60 (Acute) GERD (gastroesophageal reflux disease) (Chronic ~1999) Headache (Chronic ~2004) History of bipolar disorder (Chronic ~2014) Hx of angiography (Acute) Hypertension (Acute ~2002) Kidney stones (Inactive ~2016) Migraines (Chronic ~2009) Psoriasis (Chronic) Restless leg syndrome (Chronic ~2016) Segmental and somatic dysfunction of thoracic region (Acute) Tinnitus (Chronic ~2015) Upper extremity somatic dysfunction (Acute) Wears glasses (Chronic) Surgical History Anesthesia (Resolved) H/O left heart catheterization by cutdown (Acute) History of arthroscopy of both knees (Acute ~1988) Lump in the testicle (Resolved ~2004) Family History Mother Myocardial infarct History of heart disease Hypertension Mental health problem Father CAD, multiple vessel Diabetes mellitus History of heart disease Hypertension Hyperlipidemia Grandmother Diabetes mellitus History of heart disease Hypertension Stroke Grandmother Alzheimer's disease Social History household members: none Smoking Status: Never smoker alcohol intake: current Smoking Status: Never smoker tobacco type: cigars alcohol intake frequency: holidays/special occasions only Alcohol type: beer and hard liquor Substance Use Type: does not use Exam <Marco Kauffman DO - Last Filed: 03/16/20 18:03> Initial Vital Signs Initial Vital Signs: Vital Signs Temperature 98.5 F 03/10/20 06:17 Pulse Rate 65 03/10/20 06:17 Respiratory Rate 20 03/10/20 06:17 Blood Pressure 85/52 L 03/10/20 06:17 Pulse Oximetry 100 03/10/20 06:17 Const General: cooperative and comfortable Limitations: mental status not altered HENMS Head: normal to inspection and normocephalic Resp Effort & Inspection: normal respiratory effort Auscultation: clear to auscultation bilaterally Cardio Rate: regular rate Rhythm: regular rhythm GI Inspection: non-distended Palpation: soft Skin Lesions: no lesions Rashes: no rashes Neuro General: patient alert, patient awake and patient oriented x3 Cognition: normal cognition Speech: speech normal Motor: muscle tone normal throughout Sensory Exam: no sensory deficits noted Extrem General: normal to inspection and capillary refill normal Psych Appearance: grossly normal and well kempt <Liseth Chatman DO - Last Filed: 03/10/20 13:29> Initial Vital Signs Initial Vital Signs: Vital Signs Temperature 98.5 F 03/10/20 06:17 Pulse Rate 65 03/10/20 06:17 Respiratory Rate 20 03/10/20 06:17 Blood Pressure 85/52 L 03/10/20 06:17 Pulse Oximetry 100 03/10/20 06:17 Scores <Marco Kauffman DO - Last Filed: 03/16/20 18:03> GCS [place] coma scale eye opening: Spontaneous [place] coma scale verbal response: Orientated [place] coma scale motor response: Obey commands [place] coma scale total score: 15 Course <Marco Kauffman DO - Last Filed: 03/16/20 18:03> Orders Ordered: Discontinued Medications Aspirin (Aspirin Chew) 324 mg PO NOW ONE Stop: 03/10/20 06:27 Last Admin: 03/10/20 06:30 Dose: 324 mg Documented by: VIKTORIYA Heparin Sodium (Porcine) (Heparin) 5,000 unit IV NOW ONE Stop: 03/10/20 07:58 Last Admin: 03/10/20 08:34 Dose: 5,000 unit Documented by: SORIN Heparin Sodium/Dextrose (Heparin Drip) 25,000 unit in 500 mls @ 20 mls/hr IV CONT MARY; Protocol Last Admin: 03/10/20 08:36 Dose: 1,000 units/hr, 20 mls/hr Documented by: SORIN Morphine Sulfate (Morphine) 2 mg IV NOW ONE Stop: 03/10/20 07:58 Last Admin: 03/10/20 08:35 Dose: 2 mg Documented by: SORIN Nitroglycerin (Nitro-Bid) 1 inch TOP NOW ONE Stop: 03/10/20 06:27 Last Admin: 03/10/20 06:30 Dose: 1 inch Documented by: VIKTORIYA Nitroglycerin (Nitrostat) 0.4 mg SL NOW ONE Stop: 03/10/20 07:42 Last Admin: 03/10/20 07:46 Dose: 0.4 mg Documented by: SUMMER Ondansetron HCl (Zofran) 4 mg IV NOW ONE Stop: 03/10/20 07:58 Last Admin: 03/10/20 08:29 Dose: 4 mg Documented by: SORIN Vital Signs Vital signs: Vital Signs - 8 hr 03/10/20 06:17 03/10/20 07:05 03/10/20 07:30 Temperature 98.5 F Pulse Rate 65 75 68 Respiratory Rate 20 21 11 L Blood Pressure 85/52 L 120/76 Pulse Oximetry 100 96 94 03/10/20 07:46 03/10/20 08:00 03/10/20 08:30 Temperature Pulse Rate 72 69 72 Respiratory Rate 22 19 Blood Pressure 120/76 106/56 L 103/68 Pulse Oximetry 96 98 03/10/20 09:00 03/10/20 09:30 03/10/20 10:00 Temperature Pulse Rate 68 67 65 Respiratory Rate 16 14 17 Blood Pressure 103/65 105/72 98/54 L Pulse Oximetry 97 98 96 03/10/20 10:30 03/10/20 11:00 Temperature Pulse Rate 65 67 Respiratory Rate 18 10 L Blood Pressure 99/61 98/58 L Pulse Oximetry 97 <Liseth Chatman DO - Last Filed: 03/10/20 13:29> Orders Ordered: Discontinued Medications Aspirin (Aspirin Chew) 324 mg PO NOW ONE Stop: 03/10/20 06:27 Last Admin: 03/10/20 06:30 Dose: 324 mg Documented by: VIKTORIYA Heparin Sodium (Porcine) (Heparin) 5,000 unit IV NOW ONE Stop: 03/10/20 07:58 Last Admin: 03/10/20 08:34 Dose: 5,000 unit Documented by: SORIN Heparin Sodium/Dextrose (Heparin Drip) 25,000 unit in 500 mls @ 20 mls/hr IV CONT MARY; Protocol Last Admin: 03/10/20 08:36 Dose: 1,000 units/hr, 20 mls/hr Documented by: SORIN Morphine Sulfate (Morphine) 2 mg IV NOW ONE Stop: 03/10/20 07:58 Last Admin: 03/10/20 08:35 Dose: 2 mg Documented by: SORIN Nitroglycerin (Nitro-Bid) 1 inch TOP NOW ONE Stop: 03/10/20 06:27 Last Admin: 03/10/20 06:30 Dose: 1 inch Documented by: RMARTIN Nitroglycerin (Nitrostat) 0.4 mg SL NOW ONE Stop: 03/10/20 07:42 Last Admin: 03/10/20 07:46 Dose: 0.4 mg Documented by: SUMMER Ondansetron HCl (Zofran) 4 mg IV NOW ONE Stop: 03/10/20 07:58 Last Admin: 03/10/20 08:29 Dose: 4 mg Documented by: SORIN Consultations Consultation #1: at [facility] updated patient's symptoms test results agrees and accepts for transfer Time: 08:29 Vital Signs Vital signs: Vital Signs - 8 hr 03/10/20 06:17 03/10/20 07:05 03/10/20 07:30 Temperature 98.5 F Pulse Rate 65 75 68 Respiratory Rate 20 21 11 L Blood Pressure 85/52 L 120/76 Pulse Oximetry 100 96 94 03/10/20 07:46 03/10/20 08:00 03/10/20 08:30 Temperature Pulse Rate 72 69 72 Respiratory Rate 22 19 Blood Pressure 120/76 106/56 L 103/68 Pulse Oximetry 96 98 03/10/20 09:00 03/10/20 09:30 03/10/20 10:00 Temperature Pulse Rate 68 67 65 Respiratory Rate 16 14 17 Blood Pressure 103/65 105/72 98/54 L Pulse Oximetry 97 98 96 03/10/20 10:30 03/10/20 11:00 Temperature Pulse Rate 65 67 Respiratory Rate 18 10 L Blood Pressure 99/61 98/58 L Pulse Oximetry 97 Medical Decision Making <Marco Kauffman DO - Last Filed: 03/16/20 18:03> Lab Data Lab results reviewed: Yes I reviewed the patient's lab results. Result diagrams: 03/10/20 06:20 03/10/20 06:20 Labs: Lab Results 03/10/20 03/10/20 03/10/20 Range/Units 06:20 06:20 08:30 WBC 7.5 (4.5-11.0) X10^3/uL RBC 5.01 (4.5-5.9) X10^6/uL Hgb 15.4 (13.5-17.5) g/dL Hct 44.9 (41-53) % MCV 89.7 (80-100) fL MCH 30.8 (26-34) PG MCHC 34.4 (30-36) % RDW 13.5 (11.6-14.8) % Plt Count 185 (150-400) X10^3/uL Neut % (Auto) 56.0 (50-75) % Lymph % (Auto) 33.2 (25-40) % [place] % (Auto) 7.3 (3-14) % Eos % (Auto) 2.8 (2-4) % Baso % (Auto) 0.7 (0-2) % Neut # (Auto) 4200 (7671-8915) /uL Lymph # (Auto) 2500 (6568-9882) /uL [place] # (Auto) 500 (0-900) /uL Eos # (Auto) 200 (0-450) /uL Baso # (Auto) 100 (0-100) /uL APTT 32 (26.4-36.2) SECONDS Sodium 137 (137-145) mmol/L Potassium 4.1 (3.4-5.1) mmol/L Chloride 103 (98-107) mmol/L Carbon Dioxide 26 (22-32) mmol/L BUN 11 (9-20) mg/dL Creatinine 1.05 (0.66-1.25) mg/dL Estimated GFR > 60.0 (>60) mL/min BUN/Creatinine Ratio 10.5 (6-22) Glucose 101 H (70-100) mg/dL Calcium 9.9 (8.4-10.2) mg/dL Total Bilirubin 0.6 (0.2-1.3) mg/dL AST 27 (17-59) IU/L ALT 33 (<50) IU/L Alkaline Phosphatase 68 (38-126) U/L Total Creatine Kinase 108 (55-170) U/L CK-MB (CK-2) 0.82 (<2.37) ng/mL CK-MB (CK-2) Rel Index 0.8 L (1.5-5.0) % Troponin I < 0.012 (0.01-0.034) ng/mL Total Protein 8.0 (6.3-8.2) g/dL Albumin 4.4 (3.5-5.0) g/dL Globulin 3.6 (1.7-4.1) g/dL Albumin/Globulin Ratio 1.2 (1.0-2.8) COVID-19 PCR (Negative) 03/10/20 03/10/20 Range/Units 09:30 09:32 WBC (4.5-11.0) X10^3/uL RBC (4.5-5.9) X10^6/uL Hgb (13.5-17.5) g/dL Hct (41-53) % MCV (80-100) fL MCH (26-34) PG MCHC (30-36) % RDW (11.6-14.8) % Plt Count (150-400) X10^3/uL Neut % (Auto) (50-75) % Lymph % (Auto) (25-40) % [place] % (Auto) (3-14) % Eos % (Auto) (2-4) % Baso % (Auto) (0-2) % Neut # (Auto) (0938-2795) /uL Lymph # (Auto) (7537-7329) /uL [place] # (Auto) (0-900) /uL Eos # (Auto) (0-450) /uL Baso # (Auto) (0-100) /uL APTT (26.4-36.2) SECONDS Sodium (137-145) mmol/L Potassium (3.4-5.1) mmol/L Chloride (98-107) mmol/L Carbon Dioxide (22-32) mmol/L BUN (9-20) mg/dL Creatinine (0.66-1.25) mg/dL Estimated GFR (>60) mL/min BUN/Creatinine Ratio (6-22) Glucose (70-100) mg/dL Calcium (8.4-10.2) mg/dL Total Bilirubin (0.2-1.3) mg/dL AST (17-59) IU/L ALT (<50) IU/L Alkaline Phosphatase (38-126) U/L Total Creatine Kinase (55-170) U/L CK-MB (CK-2) (<2.37) ng/mL CK-MB (CK-2) Rel Index (1.5-5.0) % Troponin I < 0.012 (0.01-0.034) ng/mL Total Protein (6.3-8.2) g/dL Albumin (3.5-5.0) g/dL Globulin (1.7-4.1) g/dL Albumin/Globulin Ratio (1.0-2.8) COVID-19 PCR Negative (Negative) Imaging Data Chest x-ray: Attestation: I personally reviewed and interpreted this imaging study as follows: My Impression: No pneumothorax, normal size heart, no pneumonia ECG Data Attestation: I personally reviewed and interpreted this ECG as follows: Prior ECG tracings: not available for review Interpretation: Sinus rhythm Ventricular rate is 70 Normal axis Normal QRS Normal QTC No ST T wave changes MDM Narrative Medical decision making narrative: Reported history of coronary artery disease. EKG is unremarkable. Chest x-ray is unremarkable. First troponin unremarkable. Care turned over to Dr. Chatman and changes shift to disposition. <Liseth Chatman, DO - Last Filed: 03/10/20 13:29> Lab Data Lab results reviewed: Yes I reviewed the patient's lab results. Labs: Lab Results 03/10/20 03/10/20 03/10/20 Range/Units 06:20 06:20 08:30 WBC 7.5 (4.5-11.0) X10^3/uL RBC 5.01 (4.5-5.9) X10^6/uL Hgb 15.4 (13.5-17.5) g/dL Hct 44.9 (41-53) % MCV 89.7 (80-100) fL MCH 30.8 (26-34) PG MCHC 34.4 (30-36) % RDW 13.5 (11.6-14.8) % Plt Count 185 (150-400) X10^3/uL Neut % (Auto) 56.0 (50-75) % Lymph % (Auto) 33.2 (25-40) % [place] % (Auto) 7.3 (3-14) % Eos % (Auto) 2.8 (2-4) % Baso % (Auto) 0.7 (0-2) % Neut # (Auto) 4200 (3978-6464) /uL Lymph # (Auto) 2500 (8374-8013) /uL [place] # (Auto) 500 (0-900) /uL Eos # (Auto) 200 (0-450) /uL Baso # (Auto) 100 (0-100) /uL APTT 32 (26.4-36.2) SECONDS Sodium 137 (137-145) mmol/L Potassium 4.1 (3.4-5.1) mmol/L Chloride 103 (98-107) mmol/L Carbon Dioxide 26 (22-32) mmol/L BUN 11 (9-20) mg/dL Creatinine 1.05 (0.66-1.25) mg/dL Estimated GFR > 60.0 (>60) mL/min BUN/Creatinine Ratio 10.5 (6-22) Glucose 101 H (70-100) mg/dL Calcium 9.9 (8.4-10.2) mg/dL Total Bilirubin 0.6 (0.2-1.3) mg/dL AST 27 (17-59) IU/L ALT 33 (<50) IU/L Alkaline Phosphatase 68 (38-126) U/L Total Creatine Kinase 108 (55-170) U/L CK-MB (CK-2) 0.82 (<2.37) ng/mL CK-MB (CK-2) Rel Index 0.8 L (1.5-5.0) % Troponin I < 0.012 (0.01-0.034) ng/mL Total Protein 8.0 (6.3-8.2) g/dL Albumin 4.4 (3.5-5.0) g/dL Globulin 3.6 (1.7-4.1) g/dL Albumin/Globulin Ratio 1.2 (1.0-2.8) COVID-19 PCR (Negative) 03/10/20 03/10/20 Range/Units 09:30 09:32 WBC (4.5-11.0) X10^3/uL RBC (4.5-5.9) X10^6/uL Hgb (13.5-17.5) g/dL Hct (41-53) % MCV (80-100) fL MCH (26-34) PG MCHC (30-36) % RDW (11.6-14.8) % Plt Count (150-400) X10^3/uL Neut % (Auto) (50-75) % Lymph % (Auto) (25-40) % [place] % (Auto) (3-14) % Eos % (Auto) (2-4) % Baso % (Auto) (0-2) % Neut # (Auto) (3575-1170) /uL Lymph # (Auto) (3181-0770) /uL [place] # (Auto) (0-900) /uL Eos # (Auto) (0-450) /uL Baso # (Auto) (0-100) /uL APTT (26.4-36.2) SECONDS Sodium (137-145) mmol/L Potassium (3.4-5.1) mmol/L Chloride (98-107) mmol/L Carbon Dioxide (22-32) mmol/L BUN (9-20) mg/dL Creatinine (0.66-1.25) mg/dL Estimated GFR (>60) mL/min BUN/Creatinine Ratio (6-22) Glucose (70-100) mg/dL Calcium (8.4-10.2) mg/dL Total Bilirubin (0.2-1.3) mg/dL AST (17-59) IU/L ALT (<50) IU/L Alkaline Phosphatase (38-126) U/L Total Creatine Kinase (55-170) U/L CK-MB (CK-2) (<2.37) ng/mL CK-MB (CK-2) Rel Index (1.5-5.0) % Troponin I < 0.012 (0.01-0.034) ng/mL Total Protein (6.3-8.2) g/dL Albumin (3.5-5.0) g/dL Globulin (1.7-4.1) g/dL Albumin/Globulin Ratio (1.0-2.8) COVID-19 PCR Negative (Negative) ECG Data Attestation: I personally reviewed and interpreted this ECG as follows: Prior ECG tracings: available for review Interpretation: Normal sinus rhythm rate 70 p.r. interval 209 QRS [address] changes, Q-wave noted in lead 3 EKG 2. Normal sinus rhythm rate 68 p.r. interval 214 QRS 80 QTC 414 MDM Narrative Medical decision making narrative: Patient signed out to me by Dr. Kauffman seen evaluated patient myself. He appears to be resting comfortably with nitropaste on his chest was still complaining of chest pain 2. Troponin and EKG are nega tive. He actually had a stress test May 2019 which was negative. I discussed case with hospitalist Dr. Becerra who stated that he had a recent negative stress test and likely needs to be evaluated by Cardiology and summer with higher level of care. Currently all surrounding hospitals are closed including [facility], and [place] they should have beds available later this afternoon. Will start heparin drip for ongoing chest pain, he is given another nitro sublingual which he says does bring his chest pain from a 3 to a 2 but it makes him nauseous he is given Zofran morphine and repeat EKG. Will continue to monitor and treat. Patient reassessed he is currently chest pain-free. I spoke with Dr. Mckenna who happily accept patient for transfer Discharge Plan Departure Patient Disposition: [facility] Clinical Impression: ACS (acute coronary syndrome) Discharge Date/Time: 03/10/20 11:24 Prescriptions: No Action dextroamphetamine-amphetamine 20 mg tablet 20 mg PO BID Qty: 60 RF: 0 metoprolol succinate 100 mg tablet extended release 24 hr 100 mg PO DAILY Qty: 90 RF: 1 divalproex [Depakote ER] 250 mg tablet extended release 24 hr 500 mg PO DAILY RF: 0 pantoprazole 20 mg tablet,delayed release (DR/EC) 20 mg PO DAILY RF: 0 clopidogrel 75 mg tablet 75 mg PO DAILY RF: 0 isosorbide mononitrate 30 mg tablet extended release 24 hr 15 mg PO DAILY RF: 0 aspirin 81 mg Tablet,Delayed Release (Dr/Ec) 81 mg PO DAILY RF: 0 doxycycline hyclate 100 mg tablet 100 mg PO BID Qty: 20 RF: 0 ondansetron HCl [Zofran] 4 mg tablet 4 mg PO Q6H PRN (Reason: nausea and vomiting) Qty: 12 RF: 0 dicyclomine 20 mg tablet 20 mg PO TID PRN (Reason: abdominal cramps and pain) Qty: 15 RF: 0 Referrals: Clement Mccray DO [Primary Care Provider] -
[2020-03-10] MEDS: ASPIRIN 81 MG CHEW TAB 324 MG PO (06:30)
[2020-03-10] MEDS: NITROGLYCERIN OINT 1 INCH/GM OINT...G. TOP (06:30)
[2020-03-10 06:31] LABS: Add Manual Diff / Slide Review NO; Basophils Absolute Auto 100 /uL (0-100); Basophils Percent Auto 0.7 % (0-2); Eosinophils Absolute Auto 200 /uL (0-450); Eosinophils Percent Auto 2.8 % (2-4); Hematocrit 44.9 % (41-53); Hemoglobin 15.4 g/dL (13.5-17.5); Lymphocytes Absolute Auto 2500 /uL (1100-4500); Lymphocytes Percent Auto 33.2 % (25-40); Mean Corpuscular HGB Conc 34.4 % (30-36); Mean Corpuscular Hemoglobin 30.8 PG (26-34); Mean Corpuscular Volume 89.7 fL (80-100); Monocytes Absolute Auto 500 /uL (0-900); Monocytes Percent Auto 7.3 % (3-14); Neutrophils Absolute Auto 4200 /uL (1500-7000); Platelet Count 185 X10^3/uL (150-400); Red Blood Cell Count 5.01 X10^6/uL (4.5-5.9); Red Cell Distribution Width 13.5 % (11.6-14.8); White Blood Cell Count 7.5 X10^3/uL (4.5-11.0)
[2020-03-10 06:45] LABS: Alanine Aminotransferase 33 IU/L (<50); Albumin 4.4 g/dL (3.5-5.0); Albumin Globulin Ratio 1.2 (1.0-2.8); Alkaline Phosphatase 68 U/L (38-126); Aspartate Aminotransferase 27 IU/L (17-59); BUN Creatinine Ratio 10.5 (6-22); Bilirubin Total 0.6 mg/dL (0.2-1.3); Blood Urea Nitrogen 11 mg/dL (9-20); Calcium 9.9 mg/dL (8.4-10.2); Carbon Dioxide 26 mmol/L (22-32); Chloride 103 mmol/L (98-107); Creatine Kinase 108 U/L (55-170); Estimated Glomerular Filt Rate > 60.0 mL/min (>60); Globulin 3.6 g/dL (1.7-4.1); Glucose 101 mg/dL (70-100); HEMOLYSIS 18 (0-50); Potassium 4.1 mmol/L (3.4-5.1); Sodium 137 mmol/L (137-145)
[2020-03-10 06:57] LABS: Troponin I < 0.012 ng/mL (0.01-0.034)
[2020-03-10 07:00] LABS: CKMB % Relative Index 0.8 % (1.5-5.0); Creatine Kinase MB 0.82 ng/mL (<2.37)
[2020-03-10] MEDS: NITROGLYCERIN 0.4 MG SL TAB SL (07:46)
[2020-03-10] MEDS: ONDANSETRON 4 MG/2 ML INJ IV (08:29)
[2020-03-10] MEDS: HEPARIN 5,000 UNIT/ML VIAL 5000 UNIT IV (08:34)
[2020-03-10] MEDS: MORPHINE 2 MG/ML INJ IV (08:35)
[2020-03-10] MEDS: HEPARIN DRIP 25,000 UNIT/500 ML IV.SOLN 20 UNIT IV (08:36)
[2020-03-10 09:18] LABS: PTT Partial Thromboplastin Tim 32 SECONDS (26.4-36.2)
[2020-03-10 10:00] LABS: Troponin I < 0.012 ng/mL (0.01-0.034)
[2020-03-10 10:35] LABS: COVID19 -Nasal RAPID Negative (Negative)
--- NOTE | 2020-03-23 17:59 | PC.NURSE ---
late entry. Heparin gtt stop time was 1124 when patient departed the facility. Heparin gtt continued to infuse with NWA crew
== END 2020-03-10 11:24 | disposition short-term general hospital (02) ==
PROVIDERS: Emergency Medicine; Emergency Provider Emergency Medicine; PCP Family Medicine
DX: I24.9 Acute ischemic heart disease, unspecified (principal); R06.02 Shortness of breath; I25.10 Atherosclerotic heart disease of native coronary artery without angina pectoris; Z79.82 Long term (current) use of aspirin; R06.00 Dyspnea, unspecified
CPT/HCPCS: 36415; 71045; 80053; 82550; 82553; 84484; 85025; 85730; 87635; 93005; 93010; 96365; 96366; 96375; 99285; J1644; J2270; J2405

== ENCOUNTER 2020-03-20 05:46 | Emergency (ER) | payer MEDICARE, MEDICAID, SELFPAY ==
[2019-08-23 11:53] VITALS: BMI 41.8
[2020-03-20] VITALS (69 sets, daily range): BP systolic 96–161; BP diastolic 56–102; PULSE 55–143; RESP 4–32; TEMP 36.6; O2SAT 92–100; BMI 41.5
--- NOTE | 2020-03-20 05:47 | DI.RAD.S_ITS ---
PROCEDURE: XR CHEST 1V INDICATIONS: chest pain TECHNIQUE: One view of the chest was acquired. COMPARISON: [facility], CR, XR CHEST 1V, 03/10/2020, 6:08. FINDINGS: Surgical changes and devices: None. Lungs and pleura: Lungs are clear. No pleural effusions or pneumothorax. Mediastinum: Mediastinal contours appear normal. Heart size is normal. Bones and chest wall: No suspicious bony lesions. Overlying soft tissues appear unremarkable. IMPRESSION: Stable radiographic evaluation of the chest without acute cardiopulmonary abnormalities or focal airspace disease. Dictated by: Jayson Altamirano M.D. on 03/20/2020 at 7:21 Approved by: Jayson Altamirano M.D. on 03/20/2020 at 7:21
--- NOTE | 2020-03-20 06:00 | ED_ITS ---
HPI - General Adult <Marco Kauffman DO - Last Filed: 03/20/20 18:04> General Chief complaint: Chest Pain Stated complaint: CHEST PAIN Time Seen by Provider: 03/20/20 05:47 Source: patient Mode of arrival: Ambulatory Limitations: no limitations History of Present Illness HPI narrative: Patient is a 49-year-old male with known coronary artery disease. I evaluated this patient approximately 7-10 days ago for chest discomfort. He was subsequently transferred to another facility with cardiology services. Patient states that he had a catheterization performed was told that he did have a blockage in a vessel but he was unable to be stented secondary to an anatomic issue. He had his blood pressure medications adjusted. Was given nitroglycerin. He states that since that time he has been feeling very well. Has not had any chest pain issues. 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 He states that he did the rounds and a backward direction which included going up a hill. He states that as he was going up the hill he started to have chest discomfort and shortness of breath. He states that it was not as bad as what it was last week. He states that it did not radiate down his left arm or up into his jaw and he was not diaphoretic liquidy was last week. States he did not have his nitro with him. This occurred approximately 1 hour prior to arrival. He reports that his symptoms have improved somewhat since the onset. Related Data Home Medications Medication Instructions Recorded Confirmed aspirin 81 mg PO DAILY 08/17/19 03/20/20 clopidogrel 75 mg tablet 75 mg PO QPM 03/16/20 03/20/20 isosorbide mononitrate 30 mg 15 mg PO QPM tab 03/16/20 03/20/20 tablet,extended release 24 hr pantoprazole 20 mg tablet,delayed 20 mg PO QPM 03/16/20 03/20/20 release metoprolol succinate 100 mg PO QPM 03/20/20 03/20/20 rosuvastatin 20 mg PO QPM 03/20/20 03/20/20 Previous Rx's Medication Instructions Recorded dextroamphetamine-amphetamine 20 20 mg PO BID #60 tab 02/15/20 mg tablet Allergies Allergy/AdvReac Type Severity Reaction Status Date / Time ciprofloxacin [From Cipro] Allergy Severe ITCHING Verified 03/16/20 09:34 diphenhydramine AdvReac Severe Anxiety Verified 03/16/20 09:34 [From Benadryl] Review of Systems <Marco Kauffman DO - Last Filed: 03/20/20 18:04> Constitutional Constitutional: Denies fever(s) and Denies headache(s) ENT Ears, Nose, Mouth, and Throat: Denies headache(s) Cardiovascular Cardiovascular: Reports chest pain, Denies leg edema, Reports dyspnea and Reports dyspnea on exertion Respiratory Respiratory: Reports dyspnea and Reports dyspnea on exertion Gastrointestinal Gastrointestinal: Denies abdominal pain, Denies nausea and Denies vomiting Genitourinary Genitourinary: Denies dysuria Genitourinary: Denies dysuria Musculoskeletal Musculoskeletal: Denies arthralgias and Denies myalgias Integumentary/Breasts Skin/Breast: Denies lesions and Denies rash Neurologic Neurologic: Denies behavioral changes and Denies headache(s) Psychiatric Psychiatric: Denies behavioral changes Hematologic/Lymphatic Hematologic/Lymphatic: Denies easy bleeding and Denies easy bruising Patient History <Marco Kauffman DO - Last Filed: 03/20/20 18:04> Medical History Acne (Chronic) ADHD (Chronic ~1999) Alcohol use disorder, moderate, in sustained remission (Acute) Allergies (Chronic ~1978) Angina at rest (Acute) Anxiety (Chronic ~1999) Bipolar II disorder (Acute) Body posture problem (Acute) Carpal tunnel syndrome (Chronic ~2014) Cervical somatic dysfunction (Acute) Chest pain (Acute) Chicken pox (Resolved ~1975) Chronic thoracic back pain (Chronic ~1999) Coronary artery disease (Acute ~2002) Depression (Chronic ~1999) Dyslipidemia (Acute) Elevated blood sugar level (Acute) Essential hypertension (Acute) Exertional shortness of breath (Acute) Family history of myocardial infarction at age less than 60 (Acute) GERD (gastroesophageal reflux disease) (Chronic ~1999) Headache (Chronic ~2004) History of bipolar disorder (Chronic ~2014) Hx of angiography (Acute) Hypertension (Acute ~2002) Kidney stones (Inactive ~2016) Migraines (Chronic ~2009) Psoriasis (Chronic) Restless leg syndrome (Chronic ~2016) Segmental and somatic dysfunction of thoracic region (Acute) Tinnitus (Chronic ~2015) Upper extremity somatic dysfunction (Acute) Wears glasses (Chronic) Surgical History Anesthesia (Resolved) H/O left heart catheterization by cutdown (Acute) History of arthroscopy of both knees (Acute ~1988) Lump in the testicle (Resolved ~2004) Family History Mother Myocardial infarct History of heart disease Hypertension Mental health problem Father CAD, multiple vessel Diabetes mellitus History of heart disease Hypertension Hyperlipidemia Grandmother Diabetes mellitus History of heart disease Hypertension Stroke Grandmother Alzheimer's disease Social History household members: none Smoking Status: Never smoker alcohol intake: current Smoking Status: Never smoker tobacco type: cigars alcohol intake frequency: holidays/special occasions only Alcohol type: beer and hard liquor Substance Use Type: does not use Exam <Marco Kauffman DO - Last Filed: 03/20/20 18:04> Initial Vital Signs Initial Vital Signs: Vital Signs Temperature 97.9 F 03/20/20 05:48 Pulse Rate 68 03/20/20 05:48 Respiratory Rate 03/20/20 05:48 Blood Pressure 138/83 03/20/20 05:48 Pulse Oximetry 99 03/20/20 05:48 Const General: cooperative and comfortable Limitations: mental status not altered HENMT Head: normal to inspection and normocephalic Resp Effort & Inspection: normal respiratory effort Auscultation: clear to auscultation bilaterally Cardio Rate: regular rate Rhythm: regular rhythm GI Inspection: non-distended Skin Lesions: no lesions Rashes: no rashes Neuro General: patient alert, patient awake and patient oriented x3 Cognition: normal cognition Speech: speech normal Extrem General: normal to inspection and capillary refill normal Psych Appearance: grossly normal and well kempt <Jackie Magallon MD - Last Filed: 03/20/20 18:11> Initial Vital Signs Initial Vital Signs: Vital Signs Temperature 97.9 F 03/20/20 05:48 Pulse Rate 68 03/20/20 05:48 Respiratory Rate 20 03/20/20 05:48 Blood Pressure 138/83 03/20/20 05:48 Pulse Oximetry 99 03/20/20 05:48 Course <Marco Kauffman DO - Last Filed: 03/20/20 18:04> Orders Ordered: Discontinued Medications Acetaminophen (Tylenol) 325 mg PO NOW ONE Stop: 03/20/20 08:32 Last Admin: 03/20/20 08:43 Dose: 325 mg Documented by: TIA Heparin Sodium (Porcine) (Heparin) 7,500 unit IV NOW ONE Stop: 03/20/20 09:10 Last Admin: 03/20/20 09:18 Dose: 7,500 unit Documented by: HOA Heparin Sodium/Dextrose (Heparin Drip) 25,000 unit in 500 mls @ 20 mls/hr IV CONT MARY; Protocol Last Admin: 03/20/20 09:19 Dose: 1,000 units/hr, 20 mls/hr Documented by: HOA Nitroglycerin (Nitroglycerin) 50 mg in 250 mls @ 1.5 mls/hr IV TITRATE MARY; Protocol Last Admin: 03/20/20 10:16 Dose: 5 mcg/min, 1.5 mls/hr Documented by: HOA Ibuprofen (Advil) 400 mg PO NOW ONE Stop: 03/20/20 08:32 Last Admin: 03/20/20 08:43 Dose: 400 mg Documented by: TIA Morphine Sulfate (Morphine Sulfate) 5 mg IV NOW ONE Stop: 03/20/20 09:10 Last Admin: 03/20/20 09:27 Dose: Not Given Documented by: HOA Morphine Sulfate (Morphine Sulfate) 5 mg IV Q15MIN PRN PRN Reason: Pain, Severe (7-10) Morphine Sulfate (Morphine) 5 mg IV Q15MIN PRN PRN Reason: Pain, Severe (7-10) Last Admin: 03/20/20 09:27 Dose: 5 mg Documented by: HOA Nitroglycerin (Nitrostat) 0.4 mg SL [id number] PRN PRN Reason: Chest Pain Last Admin: 03/20/20 06:12 Dose: 0.4 mg Documented by: Admin: 03/20/20 06:06 Dose: 0.4 mg Documented by: KAMRON Nitroglycerin (Nitrostat) 0.4 mg SL NOW ONE Stop: 03/20/20 08:32 Last Admin: 03/20/20 08:37 Dose: 0.4 mg Documented by: TIA Nitroglycerin (Nitro-Bid) 0.5 inch TOP NOW ONE Stop: 03/20/20 09:10 Last Admin: 03/20/20 09:18 Dose: 0.5 inch Documented by: HOA Oxycodone/Acetaminophen (Percocet 5/325) 1 tab PO NOW ONE Stop: 03/20/20 08:46 Last Admin: 03/20/20 08:48 Dose: 1 tab Documented by: TIA Vital Signs Vital signs: Vital Signs - 8 hr 03/20/20 10:16 03/20/20 10:20 03/20/20 10:30 Pulse Rate 60 60 61 Respiratory Rate 18 17 Blood Pressure 141/88 H 144/91 H 145/96 H Pulse Oximetry 100 99 03/20/20 10:40 03/20/20 10:50 03/20/20 11:00 Pulse Rate 57 L 63 60 Respiratory Rate 17 13 14 Blood Pressure 124/74 124/77 133/83 Pulse Oximetry 99 98 98 03/20/20 11:10 03/20/20 11:20 03/20/20 11:30 Pulse Rate 61 64 61 Respiratory Rate 18 14 Blood Pressure 118/72 120/81 118/72 Pulse Oximetry 97 98 96 03/20/20 11:40 03/20/20 11:50 03/20/20 11:51 Pulse Rate 59 L 143 H 70 Respiratory Rate 17 Blood Pressure 108/70 126/76 Pulse Oximetry 94 96 97 03/20/20 12:00 03/20/20 12:10 03/20/20 12:20 Pulse Rate 69 59 L 58 L Respiratory Rate 22 Blood Pressure 116/70 110/67 111/70 Pulse Oximetry 97 96 96 03/20/20 12:30 03/20/20 12:40 03/20/20 12:50 Pulse Rate 56 L 56 L 59 L Respiratory Rate 15 Blood Pressure 108/69 108/67 104/67 Pulse Oximetry 95 95 96 03/20/20 13:00 03/20/20 13:10 03/20/20 13:20 Pulse Rate 58 L 55 L 56 L Respiratory Rate 17 10 L 14 Blood Pressure 98/63 97/63 96/63 Pulse Oximetry 94 97 94 03/20/20 13:30 Pulse Rate 58 L Respiratory Rate 14 Blood Pressure 102/56 L Pulse Oximetry 95 <Jackie Magallon MD - Last Filed: 03/20/20 18:11> Orders Ordered: Discontinued Medications Acetaminophen (Tylenol) 325 mg PO NOW ONE Stop: 03/20/20 08:32 Last Admin: 03/20/20 08:43 Dose: 325 mg Documented by: TIA Heparin Sodium (Porcine) (Heparin) 7,500 unit IV NOW ONE Stop: 03/20/20 09:10 Last Admin: 03/20/20 09:18 Dose: 7,500 unit Documented by: HOA Heparin Sodium/Dextrose (Heparin Drip) 25,000 unit in 500 mls @ 20 mls/hr IV CONT MARY; Protocol Last Admin: 03/20/20 09:19 Dose: 1,000 units/hr, 20 mls/hr Documented by: HOA Nitroglycerin (Nitroglycerin) 50 mg in 250 mls @ 1.5 mls/hr IV TITRATE MARY; Protocol Last Admin: 03/20/20 10:16 Dose: 5 mcg/min, 1.5 mls/hr Documented by: HOA Ibuprofen (Advil) 400 mg PO NOW ONE Stop: 03/20/20 08:32 Last Admin: 03/20/20 08:43 Dose: 400 mg Documented by: TIA Morphine Sulfate (Morphine Sulfate) 5 mg IV NOW ONE Stop: 03/20/20 09:10 Last Admin: 03/20/20 09:27 Dose: Not Given Documented by: HOA Morphine Sulfate (Morphine Sulfate) 5 mg IV Q15MIN PRN PRN Reason: Pain, Severe (7-10) Morphine Sulfate (Morphine) 5 mg IV Q15MIN PRN PRN Reason: Pain, Severe (7-10) Last Admin: 03/20/20 09:27 Dose: 5 mg Documented by: HOA Nitroglycerin (Nitrostat) 0.4 mg SL [id number] PRN PRN Reason: Chest Pain Last Admin: 03/20/20 06:12 Dose: 0.4 mg Documented by: Admin: 03/20/20 06:06 Dose: 0.4 mg Documented by: KAMRON Nitroglycerin (Nitrostat) 0.4 mg SL NOW ONE Stop: 03/20/20 08:32 Last Admin: 03/20/20 08:37 Dose: 0.4 mg Documented by: TIA Nitroglycerin (Nitro-Bid) 0.5 inch TOP NOW ONE Stop: 03/20/20 09:10 Last Admin: 03/20/20 09:18 Dose: 0.5 inch Documented by: HOA Oxycodone/Acetaminophen (Percocet 5/325) 1 tab PO NOW ONE Stop: 03/20/20 08:46 Last Admin: 03/20/20 08:48 Dose: 1 tab Documented by: TIA Vital Signs Vital signs: Vital Signs - 8 hr 03/20/20 10:16 03/20/20 10:20 03/20/20 10:30 Pulse Rate 60 60 61 Respiratory Rate 18 17 Blood Pressure 141/88 H 144/91 H 145/96 H Pulse Oximetry 100 99 03/20/20 10:40 03/20/20 10:50 03/20/20 11:00 Pulse Rate 57 L 63 60 Respiratory Rate 17 13 14 Blood Pressure 124/74 124/77 133/83 Pulse Oximetry 99 98 98 03/20/20 11:10 03/20/20 11:20 03/20/20 11:30 Pulse Rate 61 64 61 Respiratory Rate 18 14 Blood Pressure 118/72 120/81 118/72 Pulse Oximetry 97 98 96 03/20/20 11:40 03/20/20 11:50 03/20/20 11:51 Pulse Rate 59 L 143 H 70 Respiratory Rate 17 Blood Pressure 108/70 126/76 Pulse Oximetry 94 96 97 03/20/20 12:00 03/20/20 12:10 03/20/20 12:20 Pulse Rate 69 59 L 58 L Respiratory Rate 22 Blood Pressure 116/70 110/67 111/70 Pulse Oximetry 97 96 96 03/20/20 12:30 03/20/20 12:40 03/20/20 12:50 Pulse Rate 56 L 56 L 59 L Respiratory Rate 15 Blood Pressure 108/69 108/67 104/67 Pulse Oximetry 95 95 96 03/20/20 13:00 03/20/20 13:10 03/20/20 13:20 Pulse Rate 58 L 55 L 56 L Respiratory Rate 17 10 L 14 Blood Pressure 98/63 97/63 96/63 Pulse Oximetry 94 97 94 03/20/20 13:30 Pulse Rate 58 L Respiratory Rate 14 Blood Pressure 102/56 L Pulse Oximetry 95 Medical Decision Making <Marco Kauffman DO - Last Filed: 03/20/20 18:04> Medical Records Medical records reviewed: Yes I reviewed the patient's medical records. Lab Data Lab results reviewed: Yes I reviewed the patient's lab results. Result diagrams: 03/20/20 05:57 03/20/20 05:57 Labs: Lab Results 03/20/20 03/20/20 03/20/20 Range/Units 05:57 05:57 05:57 WBC 7.8 (4.5-11.0) X10^3/uL RBC 4.69 (4.5-5.9) X10^6/uL Hgb 14.4 (13.5-17.5) g/dL Hct 41.6 (41-53) % MCV 88.8 (80-100) fL MCH 30.6 (26-34) PG MCHC 34.5 (30-36) % RDW 13.4 (11.6-14.8) % Plt Count 175 (150-400) X10^3/uL Neut % (Auto) Not Reportable Lymph % (Auto) Not Reportable Winkler % (Auto) Not Reportable Eos % (Auto) Not Reportable Baso % (Auto) Not Reportable Lymph # (Auto) Not Reportable Winkler # (Auto) Not Reportable Baso # (Auto) Not Reportable Total Counted 100 Seg Neutrophils % 63.0 (38-70) % Lymphocytes % (Manual) 23.0 L (25-45) % Atypical Lymphs % 5.0 H ( - 0) % Monocytes % (Manual) 6.0 (2-11) % Eosinophils % (Manual) 3.0 (2-4) % Neutrophils # (Manual) 4914 (1952-1937) /uL Smudge Cells 1+ H RBC Morphology Normal morphology PT 10.9 (10.1-12.7) SECONDS INR 0.9 (0.9-1.3) APTT 31 (26.4-36.2) SECONDS Sodium (137-145) mmol/L Potassium (3.4-5.1) mmol/L Chloride (98-107) mmol/L Carbon Dioxide (22-32) mmol/L BUN (9-20) mg/dL Creatinine (0.66-1.25) mg/dL Estimated GFR (>60) mL/min BUN/Creatinine Ratio (6-22) Glucose (70-100) mg/dL Calcium (8.4-10.2) mg/dL Total Bilirubin (0.2-1.3) mg/dL AST (17-59) IU/L ALT (<50) IU/L Alkaline Phosphatase (38-126) U/L Troponin I < 0.012 (0.01-0.034) ng/mL Total Protein (6.3-8.2) g/dL Albumin (3.5-5.0) g/dL Globulin (1.7-4.1) g/dL Albumin/Globulin Ratio (1.0-2.8) Lipase (23-300) U/L COVID-19 PCR (Negative) 03/20/20 03/20/20 03/20/20 Range/Units 05:57 08:07 09:20 WBC (4.5-11.0) X10^3/uL RBC (4.5-5.9) X10^6/uL Hgb (13.5-17.5) g/dL Hct (41-53) % MCV (80-100) fL MCH (26-34) PG MCHC (30-36) % RDW (11.6-14.8) % Plt Count (150-400) X10^3/uL Neut % (Auto) Lymph % (Auto) Winkler % (Auto) Eos % (Auto) Baso % (Auto) Lymph # (Auto) Winkler # (Auto) Baso # (Auto) Total Counted Seg Neutrophils % (38-70) % Lymphocytes % (Manual) (25-45) % Atypical Lymphs % ( - 0) % Monocytes % (Manual) (2-11) % Eosinophils % (Manual) (2-4) % Neutrophils # (Manual) (3801-2381) /uL Smudge Cells RBC Morphology PT (10.1-12.7) SECONDS INR (0.9-1.3) APTT (26.4-36.2) SECONDS Sodium 138 (137-145) mmol/L Potassium 3.5 (3.4-5.1) mmol/L Chloride 105 (98-107) mmol/L Carbon Dioxide 26 (22-32) mmol/L BUN 10 (9-20) mg/dL Creatinine 0.99 (0.66-1.25) mg/dL Estimated GFR > 60.0 (>60) mL/min BUN/Creatinine Ratio 10.1 (6-22) Glucose 67 L (70-100) mg/dL Calcium 8.9 (8.4-10.2) mg/dL Total Bilirubin 0.6 (0.2-1.3) mg/dL AST 22 (17-59) IU/L ALT 28 (<50) IU/L Alkaline Phosphatase 71 (38-126) U/L Troponin I < 0.012 (0.01-0.034) ng/mL Total Protein 7.7 (6.3-8.2) g/dL Albumin 4.3 (3.5-5.0) g/dL Globulin 3.4 (1.7-4.1) g/dL Albumin/Globulin Ratio 1.3 (1.0-2.8) Lipase 74 (23-300) U/L COVID-19 PCR Negative (Negative) Imaging Data Chest x-ray: Attestation: I personally reviewed and interpreted this imaging study as follows: My Impression: No pneumonia, no pneumothorax come no acute pathology ECG Data Attestation: I personally reviewed and interpreted this ECG as follows: Interpretation: Sinus rhythm Ventricular 65 First degree AV block p.r. interval 210 milliseconds Normal QRS Normal QTC MDM Narrative Medical decision making narrative: Symptom-free after 2 nitros. Troponin negative. EKG is unremarkable. Attempting to obtain records from previous visit. Suspect this could be stable angina however the feel keeping him for 2nd troponin and the notes is warranted. Care turned over to Dr. Magallon at change of shift to follow up. <Jackie Magallon MD - Last Filed: 03/20/20 18:11> Medical Records Medical records reviewed: Yes I reviewed the patient's medical records. Medical records narrative: VM Admit 03/12 TTE: Normal LVEF, 55-60% Heart catheterization: Diffuse three-vessel ectatic and distal diffuse disease Per notes: Dr Palomo recommendations -a focal culprit stenosis is not obvious, although the opt to some marginal could be amenable to intervention, even though it is on the band. Maximization of medical therapy and then stress testing on medical therapy might be useful to help determine location of ischemia. If symptoms persist or there was ischemia in the lateral distribution, catheter intervention therapy to the obtuse marginal would be considered Lab Data Lab results reviewed: Yes I reviewed the patient's lab results. Labs: Lab Results 03/20/20 03/20/20 03/20/20 Range/Units 05:57 05:57 05:57 WBC 7.8 (4.5-11.0) X10^3/uL RBC 4.69 (4.5-5.9) X10^6/uL Hgb 14.4 (13.5-17.5) g/dL Hct 41.6 (41-53) % MCV 88.8 (80-100) fL MCH 30.6 (26-34) PG MCHC 34.5 (30-36) % RDW 13.4 (11.6-14.8) % Plt Count 175 (150-400) X10^3/uL Neut % (Auto) Not Reportable Lymph % (Auto) Not Reportable Winkler % (Auto) Not Reportable Eos % (Auto) Not Reportable Baso % (Auto) Not Reportable Lymph # (Auto) Not Reportable Winkler # (Auto) Not Reportable Baso # (Auto) Not Reportable Total Counted 100 Seg Neutrophils % 63.0 (38-70) % Lymphocytes % (Manual) 23.0 L (25-45) % Atypical Lymphs % 5.0 H ( - 0) % Monocytes % (Manual) 6.0 (2-11) % Eosinophils % (Manual) 3.0 (2-4) % Neutrophils # (Manual) 4914 (9224-0662) /uL Smudge Cells 1+ H RBC Morphology Normal morphology PT 10.9 (10.1-12.7) SECONDS INR 0.9 (0.9-1.3) APTT 31 (26.4-36.2) SECONDS Sodium (137-145) mmol/L Potassium (3.4-5.1) mmol/L Chloride (98-107) mmol/L Carbon Dioxide (22-32) mmol/L BUN (9-20) mg/dL Creatinine (0.66-1.25) mg/dL Estimated GFR (>60) mL/min BUN/Creatinine Ratio (6-22) Glucose (70-100) mg/dL Calcium (8.4-10.2) mg/dL Total Bilirubin (0.2-1.3) mg/dL AST (17-59) IU/L ALT (<50) IU/L Alkaline Phosphatase (38-126) U/L Troponin I < 0.012 (0.01-0.034) ng/mL Total Protein (6.3-8.2) g/dL Albumin (3.5-5.0) g/dL Globulin (1.7-4.1) g/dL Albumin/Globulin Ratio (1.0-2.8) Lipase (23-300) U/L COVID-19 PCR (Negative) 03/20/20 03/20/20 03/20/20 Range/Units 05:57 08:07 09:20 WBC (4.5-11.0) X10^3/uL RBC (4.5-5.9) X10^6/uL Hgb (13.5-17.5) g/dL Hct (41-53) % MCV (80-100) fL MCH (26-34) PG MCHC (30-36) % RDW (11.6-14.8) % Plt Count (150-400) X10^3/uL Neut % (Auto) Lymph % (Auto) Winkler % (Auto) Eos % (Auto) Baso % (Auto) Lymph # (Auto) Winkler # (Auto) Baso # (Auto) Total Counted Seg Neutrophils % (38-70) % Lymphocytes % (Manual) (25-45) % Atypical Lymphs % ( - 0) % Monocytes % (Manual) (2-11) % Eosinophils % (Manual) (2-4) % Neutrophils # (Manual) (4367-2732) /uL Smudge Cells RBC Morphology PT (10.1-12.7) SECONDS INR (0.9-1.3) APTT (26.4-36.2) SECONDS Sodium 138 (137-145) mmol/L Potassium 3.5 (3.4-5.1) mmol/L Chloride 105 (98-107) mmol/L Carbon Dioxide 26 (22-32) mmol/L BUN 10 (9-20) mg/dL Creatinine 0.99 (0.66-1.25) mg/dL Estimated GFR > 60.0 (>60) mL/min BUN/Creatinine Ratio 10.1 (6-22) Glucose 67 L (70-100) mg/dL Calcium 8.9 (8.4-10.2) mg/dL Total Bilirubin 0.6 (0.2-1.3) mg/dL AST 22 (17-59) IU/L ALT 28 (<50) IU/L Alkaline Phosphatase 71 (38-126) U/L Troponin I < 0.012 (0.01-0.034) ng/mL Total Protein 7.7 (6.3-8.2) g/dL Albumin 4.3 (3.5-5.0) g/dL Globulin 3.4 (1.7-4.1) g/dL Albumin/Globulin Ratio 1.3 (1.0-2.8) Lipase 74 (23-300) U/L COVID-19 PCR Negative (Negative) ECG Data Interpretation: #1 5:52 Sinus rhythm at 65 First-degree block, normal axis No acute ischemic changes or ST changes #2 7:14 Sinus rhythm at 60 1st degree block, normal axis No acute STT wave changes #3 9:04 Sinus rhythm at [address] T wave changes, concern for lateral ischemia Concurrent with increasing pain involving his upper teeth MDM Narrative Medical decision making narrative: Care is assumed from Dr. Kauffman At 7:30 a.m. Johnathan noticed increasing upper dental pain. He also notices he has significant dental pain regularly however this was a change. An EKG was obtained with no acute changes from comparison. The 2nd troponin was drawn at 8:00. Labs are again requested with recent heart issues. 910 increasing jaw pain. Nitro was given which actually increased his pain. Ibuprofen and Tylenol given pain continuing, Percocet added and repeat EKG with concerns for his dental pain being an anginal equivalent. EKG does suggest subtle evolving changes with concern for lateral ischemia. Heparin bolus, heparin drip, nitro paste, morphine for pain control records are just now coming in from [facility]. Will look into transfer. EKG repeat in 20 minutes 9:25 S patient experienced symptoms while walking up a slight incline and is now having subtle EKG changes suggesting possible lateral ischemia in light of recent heart catheterization will see if we can facilitate transfer back to [facility] for consideration of heart catheterization with intervention therapy to the obtuse marginal. repeat 8am trop is negative 10:10 spoke with Dallas Rothman, cardiology PA. Reviewed symptoms. Agreed that transfer was appropriate. Spoke with Dr. Mari Velasquez, hospitalist. Agreed with transfer. Concurrently, patient's pain is increasing now including the right jaw. Will be switched from topical nitrates to a nitro drip. Morphine use for pain control. Awaiting bed number to call for transport. Covered screening will be done by [facility]. Discharge Plan Departure Patient Disposition: [facility] Clinical Impression: Acute coronary syndrome Discharge Date/Time: 03/20/20 14:02 Prescriptions: No Action dextroamphetamine-amphetamine 20 mg tablet 20 mg PO BID Qty: 60 RF: 0 pantoprazole 20 mg tablet,delayed release (DR/EC) 20 mg PO QPM RF: 0 clopidogrel 75 mg tablet 75 mg PO QPM RF: 0 isosorbide mononitrate 30 mg tablet extended release 24 hr 15 mg PO QPM RF: 0 aspirin 81 mg Tablet,Delayed Release (Dr/Ec) 81 mg PO DAILY RF: 0 rosuvastatin 20 mg tablet 20 mg PO QPM RF: 0 metoprolol succinate 100 mg tablet extended release 24 hr 100 mg PO QPM RF: 0 Referrals: Clement Mccray DO [Primary Care Provider] - <Jackie Magallon MD - Last Filed: 03/20/20 18:11> Cosign ED Attending Cosignature Attestation: I was immediately available in the department for consultation throughout this patient's visit. I agree with documentation as above. Jackie Magallon MD
[2020-03-20] MEDS: NITROGLYCERIN 0.4 MG SL TAB SL ×3 (06:06→08:37)
[2020-03-20 06:11] LABS: Hematocrit 41.6 % (41-53); Hemoglobin 14.4 g/dL (13.5-17.5); Mean Corpuscular HGB Conc 34.5 % (30-36); Mean Corpuscular Hemoglobin 30.6 PG (26-34); Mean Corpuscular Volume 88.8 fL (80-100); Platelet Count 175 X10^3/uL (150-400); Red Blood Cell Count 4.69 X10^6/uL (4.5-5.9); Red Cell Distribution Width 13.4 % (11.6-14.8); White Blood Cell Count 7.8 X10^3/uL (4.5-11.0)
[2020-03-20 06:12] LABS: Add Manual Diff / Slide Review YES
[2020-03-20 06:13] LABS: INR 0.9 (0.9-1.3); Prothrombin Time 10.9 SECONDS (10.1-12.7)
[2020-03-20 06:16] LABS: Alanine Aminotransferase 28 IU/L (<50); Albumin 4.3 g/dL (3.5-5.0); Albumin Globulin Ratio 1.3 (1.0-2.8); Alkaline Phosphatase 71 U/L (38-126); Aspartate Aminotransferase 22 IU/L (17-59); BUN Creatinine Ratio 10.1 (6-22); Bilirubin Total 0.6 mg/dL (0.2-1.3); Blood Urea Nitrogen 10 mg/dL (9-20); Calcium 8.9 mg/dL (8.4-10.2); Carbon Dioxide 26 mmol/L (22-32); Chloride 105 mmol/L (98-107); Estimated Glomerular Filt Rate > 60.0 mL/min (>60); Globulin 3.4 g/dL (1.7-4.1); Glucose 67 mg/dL (70-100); HEMOLYSIS < 15 (0-50); Lipase 74 U/L (23-300); Potassium 3.5 mmol/L (3.4-5.1); Sodium 138 mmol/L (137-145); Total Protein 7.7 g/dL (6.3-8.2)
--- NOTE | 2020-03-20 06:16 | PC.NURSE ---
Pt reports pain is now 0/10 after 2 SL NTG
[2020-03-20 06:38] LABS: PTT Partial Thromboplastin Tim 31 SECONDS (26.4-36.2)
[2020-03-20 06:40] LABS: Troponin I < 0.012 ng/mL (0.01-0.034)
--- NOTE | 2020-03-20 07:09 | PC.NURSE ---
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 Rates pain as 9/10 and sharp. Provider notified. Repeat EKG ordered.
--- NOTE | 2020-03-20 07:28 | PC.NURSE ---
patient reports upper front teeth pain that woke him up from an almost sleep. EKG repeated and handed to Dr Magallon. Patient reports previous symptoms have resolved. His only complaint is teeth pain at this time. He states he always has teeth pain due to bad teeth. States this is worse than normal.
--- NOTE | 2020-03-20 07:35 | PC.NURSE ---
reports 8/10 tooth pain in tooth #8,9. teeth # 6,7,10,11 are fractured.
[2020-03-20 07:42] LABS: Neutrophils Absolute Manual 4914 /uL (3000-5900); RBC Morphology Normal Morphology; Smudge Cells 1+; Total Cells Counted 100
[2020-03-20 08:37] LABS: Troponin I < 0.012 ng/mL (0.01-0.034)
[2020-03-20] MEDS: IBUPROFEN 400 MG TABLET PO (08:43)
[2020-03-20] MEDS: ACETAMINOPHEN 325 MG TABLET PO (08:43)
[2020-03-20] MEDS: OXYCODONE/ACETAMINOPHEN 5/325 TABLET 1 TAB PO (08:48)
[2020-03-20] MEDS: HEPARIN 5,000 UNIT/ML VIAL 7500 UNIT IV (09:18)
[2020-03-20] MEDS: NITROGLYCERIN OINT 1 INCH/GM OINT...G. 0.5 INCH TOP (09:18)
[2020-03-20] MEDS: HEPARIN DRIP 25,000 UNIT/500 ML IV.SOLN 20 UNIT IV (09:19)
[2020-03-20] MEDS: MORPHINE 10 MG/ML INJ 5 MG IV (09:27)
--- NOTE | 2020-03-20 09:40 | PC.NURSE ---
0700: rec'd report on pt from TERESE Carrasco. Pt resting in bed in NAD. remains on cardiac monitoring. Denies CP at this time. 0843: Pt stating he is having severe upper teeth pain. MD made aware. repeat EKG obtained. Pt given nitro, tylenol and ibu per SEP. 914: Repeat EKG obtained. Per MD showing evolving cardiac episode. Heparin bolus and gtt ordered. nitro paste applied and morphine given per SEP. additional repeat EKG obtained at 09. Pt states morphine minimally improved pain in teeth.
[2020-03-20 10:16] LABS: COVID19 -Nasal RAPID Negative (Negative)
[2020-03-20] MEDS: NITROGLYCERIN 50 MG/250 ML INFUS..BTL IV (10:16)
--- NOTE | 2020-03-20 10:27 | PC.NURSE ---
1015: pt reports the pain in his teeth has been progressing to his R jaw. MD made aware. nitro gtt ordered and infusing at 5mcg/min at this time. Pt resting in bed. NAD. HR 60, will monitor for bradycardia.
--- NOTE | 2020-03-20 11:12 | PC.NURSE ---
handoff report given to TERESE Sherwood
--- NOTE | 2020-03-20 11:23 | PC.NURSE ---
Patient complains of dental pain. His upper left maxilla has some swelling and tenderness. His gums are red and inflamed around his left canine. He has multiple broken teeth at the gum line and complains of gum and tooth pain periodically at baseline. His cardiac episode today was associated with a sudden onset of teeth pain that was uncontrolled until he was given a nitroglycerin drip. The pain in his teeth was described today as being different than previous dental pain.
--- NOTE | 2020-03-30 08:34 | PC.NURSE ---
Late Entry: Pt transferred out of department with NWA with Heparin gtt and nitro gtt infusing with a stop time of 1402.
== END 2020-03-20 14:02 | disposition short-term general hospital (02) ==
PROVIDERS: Emergency Medicine; Emergency Provider Emergency Medicine; PCP Family Medicine
DX: I24.9 Acute ischemic heart disease, unspecified (principal); R06.00 Dyspnea, unspecified; I25.10 Atherosclerotic heart disease of native coronary artery without angina pectoris
CPT/HCPCS: 36415; 71045; 80053; 83690; 84484; 85025; 85610; 85730; 87635; 93005; 96365; 96366; 96368; 96375; 99284; J1644; J2270

== ENCOUNTER 2020-04-01 02:20 | Emergency (ER) | payer MEDICARE, MEDICAID, SELFPAY ==
[2019-08-23 11:53] VITALS: BMI 41.8
[2020-04-01] VITALS (11 sets, daily range): BP systolic 108–125; BP diastolic 60–78; PULSE 61–77; RESP 18–23; TEMP 37.1; O2SAT 96–100; BMI 41.5
--- NOTE | 2020-04-01 02:42 | DI.RAD.S_ITS ---
PROCEDURE: XR CHEST 1V INDICATIONS: chest pain TECHNIQUE: One view of the chest was acquired. COMPARISON: [facility], CR, XR CHEST 1V, 03/20/2020, 5:51. FINDINGS: Surgical changes and devices: None. Lungs and pleura: Lungs are clear. No pleural effusions or pneumothorax. Mediastinum: Mediastinal contours appear normal. Heart size is normal. Bones and chest wall: No suspicious bony lesions. Overlying soft tissues appear unremarkable. IMPRESSION: No evidence acute pulmonary process. Dictated by: Jimbo Stephen M.D. on 04/01/2020 at 8:17 Approved by: Jimbo Stephen M.D. on 04/01/2020 at 8:17
[2020-04-01] MEDS: ASPIRIN 81 MG CHEW TAB 324 MG PO (02:47)
[2020-04-01 02:54] LABS: Add Manual Diff / Slide Review NO; Basophils Absolute Auto 0 /uL (0-100); Basophils Percent Auto 0.7 % (0-2); Eosinophils Absolute Auto 100 /uL (0-450); Eosinophils Percent Auto 2.3 % (2-4); Hematocrit 40.8 % (41-53); Hemoglobin 13.7 g/dL (13.5-17.5); Lymphocytes Absolute Auto 1700 /uL (1100-4500); Lymphocytes Percent Auto 27.3 % (25-40); Mean Corpuscular HGB Conc 33.7 % (30-36); Mean Corpuscular Hemoglobin 30.2 PG (26-34); Mean Corpuscular Volume 89.7 fL (80-100); Monocytes Absolute Auto 500 /uL (0-900); Monocytes Percent Auto 7.7 % (3-14); Neutrophils Absolute Auto 3900 /uL (1500-7000); Platelet Count 160 X10^3/uL (150-400); Red Blood Cell Count 4.55 X10^6/uL (4.5-5.9); Red Cell Distribution Width 13.5 % (11.6-14.8); White Blood Cell Count 6.3 X10^3/uL (4.5-11.0)
[2020-04-01 03:02] LABS: Alanine Aminotransferase 31 IU/L (<50); Albumin 3.8 g/dL (3.5-5.0); Albumin Globulin Ratio 1.2 (1.0-2.8); Alkaline Phosphatase 71 U/L (38-126); Aspartate Aminotransferase 27 IU/L (17-59); BUN Creatinine Ratio 9.2 (6-22); Bilirubin Total 0.7 mg/dL (0.2-1.3); Blood Urea Nitrogen 10 mg/dL (9-20); Carbon Dioxide 31 mmol/L (22-32); Chloride 104 mmol/L (98-107); Creatine Kinase 81 U/L (55-170); Estimated Glomerular Filt Rate > 60.0 mL/min (>60); Globulin 3.1 g/dL (1.7-4.1); Glucose 115 mg/dL (70-100); HEMOLYSIS < 15 (0-50); Lipase 75 U/L (23-300); Potassium 4.2 mmol/L (3.4-5.1); Sodium 138 mmol/L (137-145); Total Protein 6.9 g/dL (6.3-8.2)
[2020-04-01 03:14] LABS: NT-proBNP (BNP-Adult 18+) 151 pg/mL (<125); Troponin I < 0.012 ng/mL (0.01-0.034)
--- NOTE | 2020-04-01 03:15 | ED.CHESTPAIN ---
HPI - Chest Pain General Chief Complaint: Chest Pain Stated Complaint: dizzy, light headed, chest discomfort Time Seen by Provider: 04/01/20 02:32 Source: patient Mode of arrival: Ambulatory History of Present Illness HPI narrative: 49-year-old gentleman with multiple recent ER views with chest pain, pressure, exertional dyspnea, and 2 heart catheterizations with a single stent placed to the obtuse marginal within the last 3 weeks presents with recurrent symptoms. He noticed today that he was having exertional dyspnea with less effort taking longer to resolve when resting and having new symptoms of acute vertigo so much so that he felt like he would fall down lasting seconds at a time and all symptoms associated with a central chest pain and pressure more to the right side of the sternum been any of his previous pain and at its worst pain was radiating down the left arm and he was significantly diaphoretic. Initial presentation was March 10 and at that time he was sent to [facility] and heart catheterization showed diffuse disease and no acute interventions were done with plan to optimize medical management and a note that obtuse marginal might be amenable to percutaneous stenting. On October 18 he presented with worsening symptoms and did in fact have the obtuse marginal stented. In the intervening 10 days since hospital discharge he has had exertional dyspnea, is unable to walk up any type of incline without severe dyspnea and exertional angina. He has not used any of his nitroglycerin but has been using all prescribed medications including aspirin Plavix him door metoprolol and rosuvastatin. Initial EKGs with prior presentations have been minimally changed. With evolving chest pain on March 20 there were some subtle lateral ST depressions. EKG today is entirely unremarkable. At rest he is symptom-free Related Data Home Medications Medication Instructions Recorded Confirmed aspirin 81 mg PO DAILY 08/17/19 03/23/20 clopidogrel 75 mg tablet 75 mg PO QPM 03/16/20 03/23/20 isosorbide mononitrate 30 mg 15 mg PO QPM tab 03/16/20 03/23/20 tablet,extended release 24 hr pantoprazole 20 mg tablet,delayed 20 mg PO QPM 03/16/20 03/23/20 release metoprolol succinate 100 mg PO QPM 03/20/20 03/23/20 rosuvastatin 20 mg PO QPM 03/20/20 03/23/20 Previous Rx's Medication Instructions Recorded dextroamphetamine-amphetamine 20 20 mg PO BID #60 tab 20 mg tablet Allergies Allergy/AdvReac Type Severity Reaction Status Date / Time ciprofloxacin [From Cipro] Allergy Severe ITCHING Verified 03/23/20 10:41 diphenhydramine AdvReac Severe Anxiety Verified 03/23/20 10:41 [From Benadryl] Review of Systems Review of Systems Narrative: With recent increases in smoke and particular matter in the air he has noticed a slight cough, dry throat and itchy eyes Pertinent positive and negative findings as per HPI Remainder of review of systems is otherwise unremarkable for Constitutional: Fevers, chills, ENT: neck pain, ear pain GI: Nausea, vomiting, diarrhea, change in bowel habits, black or bloody stools : Dysuria, hematuria, flank pain MS: Muscle weakness, numbness, joint swelling or warmth Skin: Rashes, nonhealing lesions Patient History Medical History Acne (Chronic) ADHD (Chronic ~1999) Alcohol use disorder, moderate, in sustained remission (Acute) Allergies (Chronic ~1978) Angina at rest (Acute) Anxiety (Chronic ~1999) Bipolar II disorder (Acute) Body posture problem (Acute) Carpal tunnel syndrome (Chronic ~2014) Cervical somatic dysfunction (Acute) Chest pain (Acute) Chicken pox (Resolved ~1975) Chronic thoracic back pain (Chronic ~1999) Coronary artery disease (Acute ~2002) Depression (Chronic ~1999) Dyslipidemia (Acute) Elevated blood sugar level (Acute) Essential hypertension (Acute) Exertional shortness of breath (Acute) Family history of myocardial infarction at age less than 60 (Acute) GERD (gastroesophageal reflux disease) (Chronic ~1999) Headache (Chronic ~2004) History of bipolar disorder (Chronic ~2014) Hx of angiography (Acute) Hypertension (Acute ~2002) Kidney stones (Inactive ~2016) Migraines (Chronic ~2009) Psoriasis (Chronic) Restless leg syndrome (Chronic ~2016) Segmental and somatic dysfunction of thoracic region (Acute) Tinnitus (Chronic ~2015) Upper extremity somatic dysfunction (Acute) Wears glasses (Chronic) Surgical History Anesthesia (Resolved) H/O left heart catheterization by cutdown (Acute) History of arthroscopy of both knees (Acute ~1988) Lump in the testicle (Resolved ~2004) Stented coronary artery (Acute) Family History Mother Myocardial infarct History of heart disease Hypertension Mental health problem Father CAD, multiple vessel Diabetes mellitus History of heart disease Hypertension Hyperlipidemia Grandmother Diabetes mellitus History of heart disease Hypertension Stroke Grandmother Alzheimer's disease Social History household members: none Smoking Status: Never smoker alcohol intake: current Smoking Status: Never smoker tobacco type: cigars alcohol intake frequency: holidays/special occasions only Alcohol type: beer and hard liquor Substance Use Type: marijuana Exam Narrative Exam Narrative: General: Healthy appearing, in no acute distress. Able to give a complete and coherent history. Well-nourished well-developed HEENT: Moist mucous membranes, normal sclera with reactive pupils, Neck: No JVD, supple Respiratory: Lungs are clear to auscultation, no wheezing no rales no rhonchi. Full and symmetrical air movement Cardiac: Regular rate and rhythm no murmurs no bruits Abdomen: Soft nontender good bowel tones, no flank pain Skin: Warm and dry, no rashes Neurologic: Grossly neurologically intact with no obvious asymmetries or abnormalities Extremities: No trauma, well perfused Psych: Cooperative, appropriate insight and affect Initial Vital Signs Initial Vital Signs: Vital Signs Temperature 98.7 F 04/01/20 02:20 Pulse Rate 77 04/01/20 02:20 Respiratory Rate 18 04/01/20 02:20 Blood Pressure 124/68 04/01/20 02:20 Pulse Oximetry 100 04/01/20 02:20 Course Orders Ordered: ED Orders 04/01/20 02:30 Complete Blood Count AUTO DIFF Stat Comprehensive Metabolic Panel Stat Lipase Stat NT-proBNP (BNP-Adult 18+) Stat Troponin & CK Cardiac Panel Stat 04/01/20 02:42 XR chest 1V Stat 04/01/20 05:09 EKG-12 Lead Stat 04/01/20 05:10 COVID19 -ED/INPAT/OR/L&D Stat 04/01/20 05:20 Troponin I Stat Discontinued Medications Aspirin (Aspirin Chew) 324 mg PO NOW ONE Stop: 04/01/20 02:43 Last Admin: 04/01/20 02:47 Dose: 324 mg Documented by: [facility] Vital Signs Vital signs: Vital Signs - 8 hr 04/01/20 02:20 04/01/20 03:29 04/01/20 03:30 Temperature 98.7 F Pulse Rate 77 70 69 Respiratory Rate 18 21 21 Blood Pressure 124/68 Pulse Oximetry 100 98 97 04/01/20 03:31 04/01/20 04:00 04/01/20 04:01 Temperature Pulse Rate 69 67 69 Respiratory Rate 21 22 20 Blood Pressure 125/74 117/69 Pulse Oximetry 97 97 97 04/01/20 04:30 04/01/20 04:31 04/01/20 05:00 Temperature Pulse Rate 69 68 62 Respiratory Rate 23 19 20 Blood Pressure 119/78 120/73 Pulse Oximetry 99 99 98 04/01/20 05:30 04/01/20 06:00 Temperature Pulse Rate 61 63 Respiratory Rate 23 22 Blood Pressure 109/67 108/60 Pulse Oximetry 96 98 MDM - Chest Pain Medical Records Data Attestation: I reviewed the patient's medical records. Lab Data Attestation: I reviewed the patient's lab results. Result diagrams: 04/01/20 02:30 04/01/20 02:30 Labs: Lab Results 04/01/20 04/01/20 04/01/20 Range/Units 02:30 02:30 05:10 WBC 6.3 (4.5-11.0) X10^3/uL RBC 4.55 (4.5-5.9) X10^6/uL Hgb 13.7 (13.5-17.5) g/dL Hct 40.8 L (41-53) % MCV 89.7 (80-100) fL MCH 30.2 (26-34) PG MCHC 33.7 (30-36) % RDW 13.5 (11.6-14.8) % Plt Count 160 (150-400) X10^3/uL Neut % (Auto) 62.0 (50-75) % Lymph % (Auto) 27.3 (25-40) % Karnes % (Auto) 7.7 (3-14) % Eos % (Auto) 2.3 (2-4) % Baso % (Auto) 0.7 (0-2) % Neut # (Auto) 3900 (7603-7096) /uL Lymph # (Auto) 1700 (4407-6316) /uL Karnes # (Auto) 500 (0-900) /uL Eos # (Auto) 100 (0-450) /uL Baso # (Auto) 0 (0-100) /uL Sodium 138 (137-145) mmol/L Potassium 4.2 (3.4-5.1) mmol/L Chloride 104 (98-107) mmol/L Carbon Dioxide 31 (22-32) mmol/L BUN 10 (9-20) mg/dL Creatinine 1.09 (0.66-1.25) mg/dL Estimated GFR > 60.0 (>60) mL/min BUN/Creatinine Ratio 9.2 (6-22) Glucose 115 H (70-100) mg/dL Calcium 9.0 (8.4-10.2) mg/dL Total Bilirubin 0.7 (0.2-1.3) mg/dL AST 27 (17-59) IU/L ALT 31 (<50) IU/L Alkaline Phosphatase 71 (38-126) U/L Total Creatine Kinase 81 (55-170) U/L CK-MB (CK-2) TNP CK-MB (CK-2) Rel Index TNP Troponin I < 0.012 (0.01-0.034) ng/mL NT-Pro-B Natriuret Pep 151 H (<125) pg/mL Total Protein 6.9 (6.3-8.2) g/dL Albumin 3.8 (3.5-5.0) g/dL Globulin 3.1 (1.7-4.1) g/dL Albumin/Globulin Ratio 1.2 (1.0-2.8) Lipase 75 (23-300) U/L COVID-19 PCR Negative (Negative) 04/01/20 Range/Units 05:20 WBC (4.5-11.0) X10^3/uL RBC (4.5-5.9) X10^6/uL Hgb (13.5-17.5) g/dL Hct (41-53) % MCV (80-100) fL MCH (26-34) PG MCHC (30-36) % RDW (11.6-14.8) % Plt Count (150-400) X10^3/uL Neut % (Auto) (50-75) % Lymph % (Auto) (25-40) % Karnes % (Auto) (3-14) % Eos % (Auto) (2-4) % Baso % (Auto) (0-2) % Neut # (Auto) (2979-9741) /uL Lymph # (Auto) (7616-3987) /uL Karnes # (Auto) (0-900) /uL Eos # (Auto) (0-450) /uL Baso # (Auto) (0-100) /uL Sodium (137-145) mmol/L Potassium (3.4-5.1) mmol/L Chloride (98-107) mmol/L Carbon Dioxide (22-32) mmol/L BUN (9-20) mg/dL Creatinine (0.66-1.25) mg/dL Estimated GFR (>60) mL/min BUN/Creatinine Ratio (6-22) Glucose (70-100) mg/dL Calcium (8.4-10.2) mg/dL Total Bilirubin (0.2-1.3) mg/dL AST (17-59) IU/L ALT (<50) IU/L Alkaline Phosphatase (38-126) U/L Total Creatine Kinase (55-170) U/L CK-MB (CK-2) CK-MB (CK-2) Rel Index Troponin I < 0.012 (0.01-0.034) ng/mL NT-Pro-B Natriuret Pep (<125) pg/mL Total Protein (6.3-8.2) g/dL Albumin (3.5-5.0) g/dL Globulin (1.7-4.1) g/dL Albumin/Globulin Ratio (1.0-2.8) Lipase (23-300) U/L COVID-19 PCR (Negative) ECG Data Attestation: I personally reviewed and interpreted this ECG as follows: Interpretation: Sinus rhythm at a rate of 79 First-degree block otherwise normal intervals and normal axis No ST T wave changes, no acute ischemia #2 5:23 am Sinus rhythm with first-degree block rate of [address] T wave changes Unchanged MDM Narrative Medical decision making narrative: 49-year-old gentleman with recurrent chest pain. Diffuse T disease on heart catheterization with recent stenting to the obtuse marginal and subsequent continued intermittent pain with exertional dyspnea in the week since hospital discharge despite attempts to maximize medical management. Today had worsening symptoms while walking with episode of profuse diaphoresis, acute dizziness to the point he felt like he was going to fall and central chest pain radiating down the left arm and slightly radiating to the right side of the sternum. By the time he arrived in the emergency room all symptoms are resolved and his initial troponin 8 and EKG are unremarkable. Care is reviewed with Dr. Gama, pressurization mechanic on-call at [facility]. His recommendation was cardiac rule out admit to hospitalist service with telemetry and consideration of additional options for maximizing medical management. He did not think that there would be much benefit to additional heart catheterization and if he has diffuse disease then bypassed may not offer any additional benefit either. Will wait to talk to , admitting hospitalist for [facility]. In the meantime, Dr. gama did not suggest beginning heparin as he is currently pain-free with negative labs and EKG. 510 Dr Mendes is admitting hospitalist. Agrees to transfer. Will do rapid covid for screening (asymptomatic currently). Will repeat trop and EKG at this time. Remains free of pain, dypnea, diaphoresis. 6:10 Ambulance here. second trop is negative. pt remains pain/dyspnea free. Covid screen is negative today Discharge Plan Departure Patient Disposition: [facility] Clinical Impression: Chest pain Qualifiers: Chest pain type: chest pain due to myocardial ischemia Ischemic chest pain type: unspecified angina pectoris type Qualified Code(s): I25.9 - Chronic ischemic heart disease, unspecified Prescriptions: No Action dextroamphetamine-amphetamine 20 mg tablet 20 mg PO BID Qty: 60 RF: 0 pantoprazole 20 mg tablet,delayed release (DR/EC) 20 mg PO QPM RF: 0 clopidogrel 75 mg tablet 75 mg PO QPM RF: 0 isosorbide mononitrate 30 mg tablet extended release 24 hr 15 mg PO QPM RF: 0 aspirin 81 mg Tablet,Delayed Release (Dr/Ec) 81 mg PO DAILY RF: 0 rosuvastatin 20 mg tablet 20 mg PO QPM RF: 0 metoprolol succinate 100 mg tablet extended release 24 hr 100 mg PO QPM RF: 0 Referrals: Clement Mccray DO [Primary Care Provider] -
[2020-04-01 05:54] LABS: COVID19 -Nasal RAPID Negative (Negative)
[2020-04-01 05:55] LABS: Troponin I < 0.012 ng/mL (0.01-0.034)
== END 2020-04-01 06:31 | disposition short-term general hospital (02) ==
PROVIDERS: Emergency Provider Emergency Medicine; PCP Family Medicine
DX: I25.9 Chronic ischemic heart disease, unspecified (principal); R06.00 Dyspnea, unspecified; Z95.5 Presence of coronary angioplasty implant and graft
CPT/HCPCS: 36415; 71045; 80053; 82550; 83690; 83880; 84484; 85025; 87635; 93005; 99284

== ENCOUNTER 2020-05-23 11:54 | Emergency (ER) | payer MEDICARE, MEDICAID, SELFPAY ==
[2019-08-23 11:53] VITALS: BMI 41.8
[2020-05-23] VITALS (11 sets, daily range): BP systolic 116–150; BP diastolic 76–88; PULSE 81–98; RESP 14–23; TEMP 37; O2SAT 97–100; BMI 39.6
--- NOTE | 2020-05-23 12:03 | DI.RAD.S_ITS ---
PROCEDURE: XR CHEST 1V INDICATIONS: chest pain TECHNIQUE: One view of the chest was acquired. COMPARISON: [facility], CR, XR CHEST 1V, 04/01/2020, 2:55. FINDINGS: Surgical changes and devices: None. Lungs and pleura: Lungs are clear. No pleural effusions or pneumothorax. Mediastinum: Mediastinal contours appear normal. Heart size is normal. Bones and chest wall: No suspicious bony lesions. Overlying soft tissues appear unremarkable. IMPRESSION: No acute pulmonary process. Dictated by: Anita Rose M.D. on 05/23/2020 at 12:30 Approved by: Anita Rose M.D. on 05/23/2020 at 12:31
[2020-05-23 12:13] LABS: Add Manual Diff / Slide Review NO; Basophils Absolute Auto 0 /uL (0-100); Basophils Percent Auto 0.5 % (0-2); Eosinophils Absolute Auto 100 /uL (0-450); Eosinophils Percent Auto 1.9 % (2-4); Hematocrit 41.5 % (41-53); Hemoglobin 14.4 g/dL (13.5-17.5); Lymphocytes Absolute Auto 1900 /uL (1100-4500); Lymphocytes Percent Auto 26.9 % (25-40); Mean Corpuscular HGB Conc 34.7 % (30-36); Mean Corpuscular Hemoglobin 31.2 PG (26-34); Monocytes Absolute Auto 500 /uL (0-900); Monocytes Percent Auto 7.2 % (3-14); Neutrophils Absolute Auto 4400 /uL (1500-7000); Neutrophils Percent Auto 63.5 % (50-75); Platelet Count 158 X10^3/uL (150-400); Red Blood Cell Count 4.61 X10^6/uL (4.5-5.9); Red Cell Distribution Width 13.4 % (11.6-14.8)
[2020-05-23 12:16] LABS: Prothrombin Time 11.4 SECONDS (10.1-12.7)
[2020-05-23 12:18] LABS: PTT Partial Thromboplastin Tim 30 SECONDS (26.4-36.2)
[2020-05-23 12:21] LABS: Alanine Aminotransferase 28 IU/L (<50); Albumin 4.2 g/dL (3.5-5.0); Albumin Globulin Ratio 1.4 (1.0-2.8); Alkaline Phosphatase 65 U/L (38-126); Aspartate Aminotransferase 23 IU/L (17-59); BUN Creatinine Ratio 8.9 (6-22); Bilirubin Total 0.5 mg/dL (0.2-1.3); Blood Urea Nitrogen 9 mg/dL (9-20); Calcium 8.8 mg/dL (8.4-10.2); Carbon Dioxide 28 mmol/L (22-32); Chloride 105 mmol/L (98-107); Creatine Kinase 61 U/L (55-170); Estimated Glomerular Filt Rate > 60.0 mL/min (>60); Globulin 3.1 g/dL (1.7-4.1); Glucose 113 mg/dL (70-100); HEMOLYSIS 17 (0-50); Lipase 77 U/L (23-300); Potassium 3.8 mmol/L (3.4-5.1); Sodium 139 mmol/L (137-145); Total Protein 7.3 g/dL (6.3-8.2)
[2020-05-23 12:35] LABS: Troponin I < 0.012 ng/mL (0.01-0.034)
--- NOTE | 2020-05-23 12:54 | ED.CHESTPAIN ---
HPI - Chest Pain General Chief Complaint: Chest Pain Stated Complaint: CHEST PAIN Time Seen by Provider: 05/23/20 12:21 Source: patient Mode of arrival: Ambulatory Limitations: no limitations History of Present Illness HPI narrative: 49-year-old gentleman with a history of chronic angina and small multi-vessel disease that is not amenable to any additional intervention or bypass grafting. He has been seen multiple times for recurrent chest pain. 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 He has had 2 heart caths and with the 2nd a stent was placed in the left circumflex with some relief of his recurrent anginal pain. He has been on aspirin Plavix metoprolol isosorbide and most recently ranolazine for anginal control. He notes that he has not been able to fill his Plavix or his rosuvastatin recently because of cost concerns. He states that he did not take his morning medications but the majority of his antianginal medications are at night. Typically his anginal symptoms have been worse with exertion and today he experienced left-sided chest pain while driving that was not not associated with diaphoresis, dyspnea nor any jaw or tooth pain(which had been a component of prior anginal pain). Related Data Home Medications Medication Instructions Recorded Confirmed aspirin 81 mg PO DAILY 08/17/19 05/23/20 clopidogrel 75 mg tablet 75 mg PO QPM 03/16/20 05/23/20 isosorbide mononitrate 30 mg 15 mg PO QPM tab 03/16/20 05/23/20 tablet,extended release 24 hr pantoprazole 20 mg tablet,delayed 20 mg PO QPM 03/16/20 05/23/20 release metoprolol succinate 100 mg PO QPM 03/20/20 05/23/20 rosuvastatin 20 mg PO QPM 03/20/20 05/23/20 ranolazine 500 mg tablet,extended 500 mg PO BID 05/23/20 05/23/20 release,12 hr Previous Rx's Medication Instructions Recorded dextroamphetamine-amphetamine 20 20 mg PO BID #60 tab 05/22/20 mg tablet divalproex 250 mg tablet,extended 500 mg PO DAILY #180 tab 05/22/20 release 24 hr Allergies Allergy/AdvReac Type Severity Reaction Status Date / Time ciprofloxacin [From Cipro] Allergy Severe ITCHING Verified 05/23/20 12:00 diphenhydramine AdvReac Severe Anxiety Verified 05/23/20 12:00 [From Benadryl] Review of Systems Review of Systems Narrative: Pertinent positive and negative findings as per HPI Remainder of review of systems is otherwise unremarkable for Constitutional: Fevers, chills, weakness ENT: No sore throat, neck pain, ear pain CV: Chest pain, palpitations, dyspnea on exertion Respiratory: Cough, wheeze, dyspnea GI: Nausea, vomiting, diarrhea, : Dysuria, hematuria, flank pain MS: Muscle weakness, numbness, joint swelling or warmth Skin: Rashes, nonhealing lesions Neuro: Syncope, dizziness, tingling Patient History Medical History Acne (Chronic) ADHD (Chronic ~1999) Alcohol use disorder, moderate, in sustained remission (Acute) Allergies (Chronic ~1978) Angina at rest (Acute) Anxiety (Chronic ~1999) Bipolar II disorder (Acute) Body posture problem (Acute) Carpal tunnel syndrome (Chronic ~2014) Cervical somatic dysfunction (Acute) Chest pain (Acute) Chicken pox (Resolved ~1975) Chronic thoracic back pain (Chronic ~1999) Coronary artery disease (Acute ~2002) Cramping of feet (Acute) Depression (Chronic ~1999) Dyslipidemia (Acute) Elevated blood sugar level (Acute) Essential hypertension (Acute) Exertional shortness of breath (Acute) Family history of myocardial infarction at age less than 60 (Acute) GERD (gastroesophageal reflux disease) (Chronic ~1999) Headache (Chronic ~2004) History of bipolar disorder (Chronic ~2014) Hx of angiography (Acute) Hypertension (Acute ~2002) Kidney stones (Inactive ~2016) Migraines (Chronic ~2009) Neck pain (Acute) Psoriasis (Chronic) Restless leg syndrome (Chronic ~2016) Segmental and somatic dysfunction of thoracic region (Acute) Tinnitus (Chronic ~2015) Upper extremity somatic dysfunction (Acute) Wears glasses (Chronic) Surgical History Anesthesia (Resolved) H/O left heart catheterization by cutdown (Acute) History of arthroscopy of both knees (Acute ~1988) Lump in the testicle (Resolved ~2004) Stented coronary artery (Acute) Family History Mother Myocardial infarct History of heart disease Hypertension Mental health problem Father CAD, multiple vessel Diabetes mellitus History of heart disease Hypertension Hyperlipidemia Grandmother Diabetes mellitus History of heart disease Hypertension Stroke Grandmother Alzheimer's disease Social History household members: none Smoking Status: Never smoker alcohol intake: current Smoking Status: Never smoker tobacco type: cigars alcohol intake frequency: holidays/special occasions only Alcohol type: beer and hard liquor Substance Use Type: marijuana Exam Narrative Exam Narrative: General: Healthy appearing, in no acute distress. Able to give a complete and coherent history. Well-nourished well-developed HEENT: Moist mucous membranes, normal sclera with reactive pupils, Neck: No JVD, supple Respiratory: Lungs are clear to auscultation, no wheezing no rales no rhonchi. Full and symmetrical air movement Cardiac: Regular rate and rhythm no murmurs no bruits Abdomen: Soft nontender good bowel tones, no flank pain Skin: Warm and dry, no rashes Neurologic: Grossly neurologically intact with no obvious asymmetries or abnormalities Extremities: No trauma, well perfused Psych: Cooperative, appropriate insight and affect Initial Vital Signs Initial Vital Signs: Vital Signs Temperature 98.6 F 05/23/20 11:55 Pulse Rate 94 H 05/23/20 11:55 Blood Pressure 147/81 H 05/23/20 11:55 Pulse Oximetry 99 05/23/20 11:55 Course Orders Ordered: ED Orders 05/23/20 12:00 Complete Blood Count AUTO DIFF Stat Comprehensive Metabolic Panel Stat Lipase Stat Partial Thromboplastin Time Stat Prothrombin Time INR Stat Troponin & CK Cardiac Panel Stat 05/23/20 12:03 XR chest 1V Stat EKG-12 Lead Stat Discontinued Medications Ketorolac Tromethamine (Toradol) 15 mg IV NOW ONE Stop: 05/23/20 13:56 Last Admin: 05/23/20 14:14 Dose: 15 mg Documented by: HOA Metoprolol Tartrate (Lopressor) 50 mg PO NOW ONE Stop: 05/23/20 12:56 Last Admin: 05/23/20 13:22 Dose: 50 mg Documented by: ARNOLDO Ranolazine (Ranexa) 500 mg PO NOW ONE Stop: 05/23/20 12:57 Last Admin: 05/23/20 13:22 Dose: 500 mg Documented by: BTONER Vital Signs Vital signs: Vital Signs - 8 hr 05/23/20 11:55 05/23/20 12:02 05/23/20 12:30 Temperature 98.6 F Pulse Rate 94 H 91 H 96 H Respiratory Rate 23 Blood Pressure 147/81 H Pulse Oximetry 99 100 99 05/23/20 12:37 05/23/20 13:00 05/23/20 13:01 Temperature Pulse Rate 98 H 89 92 H Respiratory Rate 14 18 22 Blood Pressure 116/83 146/80 H Pulse Oximetry 100 99 98 05/23/20 13:30 05/23/20 14:00 05/23/20 14:01 Temperature Pulse Rate 90 85 86 Respiratory Rate 22 Blood Pressure 146/88 H 150/77 H Pulse Oximetry 99 97 99 MDM - Chest Pain Medical Records Data Attestation: I reviewed the patient's medical records. Lab Data Attestation: I reviewed the patient's lab results. Result diagrams: 05/23/20 12:00 05/23/20 12:00 Labs: Lab Results 05/23/20 05/23/20 05/23/20 Range/Units 12:00 12:00 12:00 WBC 7.0 (4.5-11.0) X10^3/uL RBC 4.61 (4.5-5.9) X10^6/uL Hgb 14.4 (13.5-17.5) g/dL Hct 41.5 (41-53) % MCV 90.0 (80-100) fL MCH 31.2 (26-34) PG MCHC 34.7 (30-36) % RDW 13.4 (11.6-14.8) % Plt Count 158 (150-400) X10^3/uL Neut % (Auto) 63.5 (50-75) % Lymph % (Auto) 26.9 (25-40) % [place] % (Auto) 7.2 (3-14) % Eos % (Auto) 1.9 L (2-4) % Baso % (Auto) 0.5 (0-2) % Neut # (Auto) 4400 (9782-4981) /uL Lymph # (Auto) 1900 (1806-4783) /uL [place] # (Auto) 500 (0-900) /uL Eos # (Auto) 100 (0-450) /uL Baso # (Auto) 0 (0-100) /uL PT 11.4 (10.1-12.7) SECONDS INR 1.0 (0.9-1.3) APTT 30 (26.4-36.2) SECONDS Sodium 139 (137-145) mmol/L Potassium 3.8 (3.4-5.1) mmol/L Chloride 105 (98-107) mmol/L Carbon Dioxide 28 (22-32) mmol/L BUN 9 (9-20) mg/dL Creatinine 1.01 (0.66-1.25) mg/dL Estimated GFR > 60.0 (>60) mL/min BUN/Creatinine Ratio 8.9 (6-22) Glucose 113 H (70-100) mg/dL Calcium 8.8 (8.4-10.2) mg/dL Total Bilirubin 0.5 (0.2-1.3) mg/dL AST 23 (17-59) IU/L ALT 28 (<50) IU/L Alkaline Phosphatase 65 (38-126) U/L Total Creatine Kinase 61 (55-170) U/L CK-MB (CK-2) TNP CK-MB (CK-2) Rel Index TNP Troponin I < 0.012 (0.01-0.034) ng/mL Total Protein 7.3 (6.3-8.2) g/dL Albumin 4.2 (3.5-5.0) g/dL Globulin 3.1 (1.7-4.1) g/dL Albumin/Globulin Ratio 1.4 (1.0-2.8) Lipase 77 (23-300) U/L Imaging Data Chest x-ray: Radiologist's Impression: FINDINGS: Surgical changes and devices: None. Lungs and pleura: Lungs are clear. No pleural effusions or pneumothorax. Mediastinum: Mediastinal contours appear normal. Heart size is normal. Bones and chest wall: No suspicious bony lesions. Overlying soft tissues appear unremarkable. IMPRESSION: No acute pulmonary process. Dictated by: Anita Rose M.D. on 05/23/2020 at 12:30 ECG Data Attestation: I personally reviewed and interpreted this ECG as follows: Interpretation: Sinus rhythm at a rate of 92 Normal axis, normal interval No acute ischemic changes MDM Narrative Medical decision making narrative: 49-year-old gentleman presents with chest pain in the setting of known diffuse small-vessel cardiac vascular disease. This time his pain was at rest and has recurred at rest without EKG changes or troponin abnormalities. I suspect that anxiety the musculoskeletal issues are the major components of pain today. This does not appear to be an acute cardiac issue. Will encourage him to continue with all of his usual antianginal medications. There is no evidence of life-threatening diagnosis appreciated on exam today and he is safe for home discharge. Discharge Plan Departure Patient Disposition: Home Clinical Impression: Chest pain, non-cardiac Coronary artery disease Qualifiers: Coronary Disease-Associated Artery/Lesion type: [place] artery [place] vs. transplanted heart: [place] heart Associated angina: with stable angina Qualified Code(s): I25.118 - Atherosclerotic heart disease of [place] coronary artery with other forms of angina pectoris Instructions: DI for Atypical Chest Pain Activity Restrictions/Additional Instructions: Thank you for coming in today With your evaluation and your exam today, I do not think that this is your heart causing your symptoms. I am encouraged that this pain occurred at rest and did not radiate up to your jaw or your teeth like it has in the past. Your lab work, x-ray, EKG are all very reassuring. I believe it is safe for you to go home. Please continue all of your usual medications. I would recommend taking a full aspirin(or 4 baby aspirin) on the days when you are unable to take your Plavix/clopidogrel. 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 I hope your day improves. Prescriptions: No Action dextroamphetamine-amphetamine 20 mg tablet 20 mg PO BID Qty: 60 RF: 0 divalproex 250 mg tablet extended release 24 hr 500 mg PO DAILY Qty: 180 RF: 0 pantoprazole 20 mg tablet,delayed release (DR/EC) 20 mg PO QPM RF: 0 clopidogrel 75 mg tablet 75 mg PO QPM RF: 0 isosorbide mononitrate 30 mg tablet extended release 24 hr 15 mg PO QPM RF: 0 ranolazine 500 mg tablet extended release 12 hr 500 mg PO BID RF: 0 aspirin 81 mg Tablet,Delayed Release (Dr/Ec) 81 mg PO DAILY RF: 0 rosuvastatin 20 mg tablet 20 mg PO QPM RF: 0 metoprolol succinate 100 mg tablet extended release 24 hr 100 mg PO QPM RF: 0 Referrals: Clement Mccray DO [Primary Care Provider] -
[2020-05-23] MEDS: METOPROLOL IR 25 MG TABLET 50 MG PO (13:22)
[2020-05-23] MEDS: RANOLAZINE 500 MG TAB.ER.12H PO (13:22)
--- NOTE | 2020-05-23 13:33 | PC.NURSE ---
pt states he was at his pcp this am and noticed his heart rate was in the 90's. pt states he was driving when he had chest pain start and left arm pain. pt also mentioned he hasn't taken his plavix and statin for 2 days, because he was out.
[2020-05-23] MEDS: KETOROLAC 60 MG/2 ML VIAL 15 MG IV (14:14)
== END 2020-05-23 14:35 | disposition home or self-care (01) ==
PROVIDERS: Emergency Provider Emergency Medicine; PCP Family Medicine
DX: R07.89 Other chest pain (principal); I25.118 Atherosclerotic heart disease of native coronary artery with other forms of angina pectoris; Z95.5 Presence of coronary angioplasty implant and graft
CPT/HCPCS: 36415; 71045; 80053; 82550; 83690; 84484; 85025; 85610; 85730; 93005; 96374; 99284; J1885

== ENCOUNTER 2020-05-30 21:46 | Emergency (ER) | payer MEDICARE, MEDICAID, SELFPAY ==
[2019-08-23 11:53] VITALS: BMI 41.8
[2020-05-30 21:53] VITALS: BP 134/73; PULSE 98; RESP 20; TEMP 37.2; O2SAT 98; BMI 40.7
--- NOTE | 2020-05-30 21:56 | DI.RAD.S_ITS ---
PROCEDURE: XR CHEST 1V INDICATIONS: chest pain TECHNIQUE: One view of the chest was acquired. COMPARISON: [facility], CR, XR CHEST 1V, 05/23/2020, 12:01. FINDINGS: Surgical changes and devices: None. Lungs and pleura: Lungs are clear. No pleural effusions or pneumothorax. Mediastinum: Mediastinal contours appear normal. Heart size is normal. Bones and chest wall: No suspicious bony lesions. Overlying soft tissues appear unremarkable. IMPRESSION: No acute cardiopulmonary disease process. Dictated by: Kathy Sevilla MD, PhD on 05/31/2020 at 8:50 Approved by: Kathy Sevilla MD, PhD on 05/31/2020 at 8:51
--- NOTE | 2020-05-30 22:00 | ED.CHESTPAIN ---
HPI - Chest Pain General Chief Complaint: Chest Pain Stated Complaint: sore throat, cough, diarrhea Time Seen by Provider: 05/30/20 22:00 History of Present Illness HPI narrative: With a history of chronic angina post stenting and medical management of his small vessel disease presents today with complaints of nausea, diarrhea, sore throat, dry cough chest discomfort all starting approximately 5:00 p.m. this evening. He complains of worsening fatigue he does not note any change to taste or smell notes he felt well this morning. He also notes that he did have a flu shot earlier this morning. He has had COVID exposures at work approximately 2 days ago and again this morning. He denies any palpitations, fevers, abdominal pain, lower extremity edema, wheezing or orthopnea. Related Data Home Medications Medication Instructions Recorded Confirmed aspirin 81 mg PO DAILY 08/17/19 05/23/20 clopidogrel 75 mg tablet 75 mg PO QPM 03/16/20 05/23/20 isosorbide mononitrate 30 mg 15 mg PO QPM tab 03/16/20 05/23/20 tablet,extended release 24 hr pantoprazole 20 mg tablet,delayed 20 mg PO QPM 03/16/20 05/23/20 release metoprolol succinate 100 mg PO QPM 03/20/20 05/23/20 rosuvastatin 20 mg PO QPM 03/20/20 05/23/20 ranolazine 500 mg tablet,extended 500 mg PO BID 05/23/20 05/23/20 release,12 hr Previous Rx's Medication Instructions Recorded dextroamphetamine-amphetamine 20 20 mg PO BID #60 tab 05/22/20 mg tablet divalproex 250 mg tablet,extended 500 mg PO DAILY #180 tab 05/22/20 release 24 hr Allergies Allergy/AdvReac Type Severity Reaction Status Date / Time ciprofloxacin [From Cipro] Allergy Severe ITCHING Verified 05/23/20 12:00 diphenhydramine AdvReac Severe Anxiety Verified 05/23/20 12:00 [From Benadryl] Review of Systems Review of Systems Narrative: Remainder of review of systems including constitutional, ENT, cardiovascular, respiratory, GI, , musculoskeletal, skin, neurologic and psychiatric systems reviewed and are unremarkable except as noted in HPI. Patient History Medical History Acne (Chronic) ADHD (Chronic ~1999) Alcohol use disorder, moderate, in sustained remission (Acute) Allergies (Chronic ~1978) Angina at rest (Acute) Anxiety (Chronic ~1999) Bipolar II disorder (Acute) Body posture problem (Acute) Carpal tunnel syndrome (Chronic ~2014) Cervical somatic dysfunction (Acute) Chest pain (Acute) Chicken pox (Resolved ~1975) Chronic thoracic back pain (Chronic ~1999) Coronary artery disease (Acute ~2002) Cramping of feet (Acute) Depression (Chronic ~1999) Dyslipidemia (Acute) Elevated blood sugar level (Acute) Essential hypertension (Acute) Exertional shortness of breath (Acute) Family history of myocardial infarction at age less than 60 (Acute) GERD (gastroesophageal reflux disease) (Chronic ~1999) Headache (Chronic ~2004) History of bipolar disorder (Chronic ~2014) Hx of angiography (Acute) Hypertension (Acute ~2002) Kidney stones (Inactive ~2016) Migraines (Chronic ~2009) Neck pain (Acute) Psoriasis (Chronic) Restless leg syndrome (Chronic ~2016) Segmental and somatic dysfunction of thoracic region (Acute) Tinnitus (Chronic ~2015) Upper extremity somatic dysfunction (Acute) Wears glasses (Chronic) Surgical History Anesthesia (Resolved) H/O left heart catheterization by cutdown (Acute) History of arthroscopy of both knees (Acute ~1988) Lump in the testicle (Resolved ~2004) Stented coronary artery (Acute) Family History Mother Myocardial infarct History of heart disease Hypertension Mental health problem Father CAD, multiple vessel Diabetes mellitus History of heart disease Hypertension Hyperlipidemia Grandmother Diabetes mellitus History of heart disease Hypertension Stroke Grandmother Alzheimer's disease Social History household members: none Smoking Status: Never smoker alcohol intake: current Smoking Status: Never smoker tobacco type: cigars alcohol intake frequency: holidays/special occasions only Alcohol type: beer and hard liquor Substance Use Type: marijuana Exam Narrative Exam Narrative: General: Healthy appearing, in no acute distress. Able to give a complete and coherent history. Well-nourished well-developed HEENT: Moist mucous membranes, normal sclera with reactive pupils, Neck: No JVD, supple Respiratory: Lungs are clear to auscultation, no wheezing no rales no rhonchi. Full and symmetrical air movement Cardiac: Regular rate and rhythm no murmurs no bruits Abdomen: Soft nontender good bowel tones, no flank pain Skin: Warm and dry, no rashes Neurologic: Grossly neurologically intact with no obvious asymmetries or abnormalities Extremities: No trauma, well perfused Psych: Cooperative, appropriate insight and affect Initial Vital Signs Initial Vital Signs: Vital Signs Temperature 98.9 F 05/30/20 21:53 Pulse Rate 98 H 05/30/20 21:53 Respiratory Rate 20 05/30/20 21:53 Blood Pressure 134/73 05/30/20 21:53 Pulse Oximetry 98 05/30/20 21:53 Course Orders Ordered: ED Orders 05/30/20 21:56 XR chest 1V Stat EKG-12 Lead Stat 05/30/20 22:12 COVID19 Stat Complete Blood Count AUTO DIFF Stat Comprehensive Metabolic Panel Stat Lipase Stat Partial Thromboplastin Time Stat Prothrombin Time INR Stat Troponin & CK Cardiac Panel Stat Vital Signs Vital signs: Vital Signs - 8 hr 05/30/20 21:53 05/30/20 22:22 05/30/20 22:30 Temperature 98.9 F Pulse Rate 98 H 92 H 87 Respiratory Rate 20 22 18 Blood Pressure 134/73 Pulse Oximetry 98 98 98 05/30/20 22:31 Temperature Pulse Rate 86 Respiratory Rate 18 Blood Pressure 143/83 H Pulse Oximetry 99 MDM - Chest Pain Lab Data Attestation: I reviewed the patient's lab results. Result diagrams: 05/30/20 22:12 05/30/20 22:12 Labs: Lab Results 05/30/20 05/30/20 05/30/20 Range/Units 22:12 22:12 22:12 WBC 5.9 (4.5-11.0) X10^3/uL RBC 4.60 (4.5-5.9) X10^6/uL Hgb 14.4 (13.5-17.5) g/dL Hct 41.3 (41-53) % MCV 89.9 (80-100) fL MCH 31.4 (26-34) PG MCHC 34.9 (30-36) % RDW 13.4 (11.6-14.8) % Plt Count 160 (150-400) X10^3/uL Neut % (Auto) 71.3 (50-75) % Lymph % (Auto) 18.4 L (25-40) % [place] % (Auto) 8.4 (3-14) % Eos % (Auto) 1.3 L (2-4) % Baso % (Auto) 0.6 (0-2) % Neut # (Auto) 4200 (7128-5110) /uL Lymph # (Auto) 1100 (4428-8830) /uL [place] # (Auto) 500 (0-900) /uL Eos # (Auto) 100 (0-450) /uL Baso # (Auto) 0 (0-100) /uL PT 12.0 (10.1-12.7) SECONDS INR 1.0 (0.9-1.3) APTT 32 D (26.4-36.2) SECONDS Sodium 138 (137-145) mmol/L Potassium 3.7 (3.4-5.1) mmol/L Chloride 105 (98-107) mmol/L Carbon Dioxide 27 (22-32) mmol/L BUN 7 L (9-20) mg/dL Creatinine 1.01 (0.66-1.25) mg/dL Estimated GFR > 60.0 (>60) mL/min BUN/Creatinine Ratio 6.9 (6-22) Glucose 109 H (70-100) mg/dL Calcium 8.8 (8.4-10.2) mg/dL Total Bilirubin 0.7 (0.2-1.3) mg/dL AST 26 (17-59) IU/L ALT 31 (<50) IU/L Alkaline Phosphatase 66 (38-126) U/L Total Creatine Kinase 67 (55-170) U/L CK-MB (CK-2) TNP CK-MB (CK-2) Rel Index TNP Troponin I < 0.012 (0.01-0.034) ng/mL Total Protein 7.2 (6.3-8.2) g/dL Albumin 4.0 (3.5-5.0) g/dL Globulin 3.2 (1.7-4.1) g/dL Albumin/Globulin Ratio 1.3 (1.0-2.8) Lipase 82 (23-300) U/L COVID-19 PCR (Negative) 05/30/20 Range/Units 22:12 WBC (4.5-11.0) X10^3/uL RBC (4.5-5.9) X10^6/uL Hgb (13.5-17.5) g/dL Hct (41-53) % MCV (80-100) fL MCH (26-34) PG MCHC (30-36) % RDW (11.6-14.8) % Plt Count (150-400) X10^3/uL Neut % (Auto) (50-75) % Lymph % (Auto) (25-40) % [place] % (Auto) (3-14) % Eos % (Auto) (2-4) % Baso % (Auto) (0-2) % Neut # (Auto) (2391-1979) /uL Lymph # (Auto) (4289-2506) /uL [place] # (Auto) (0-900) /uL Eos # (Auto) (0-450) /uL Baso # (Auto) (0-100) /uL PT (10.1-12.7) SECONDS INR (0.9-1.3) APTT (26.4-36.2) SECONDS Sodium (137-145) mmol/L Potassium (3.4-5.1) mmol/L Chloride (98-107) mmol/L Carbon Dioxide (22-32) mmol/L BUN (9-20) mg/dL Creatinine (0.66-1.25) mg/dL Estimated GFR (>60) mL/min BUN/Creatinine Ratio (6-22) Glucose (70-100) mg/dL Calcium (8.4-10.2) mg/dL Total Bilirubin (0.2-1.3) mg/dL AST (17-59) IU/L ALT (<50) IU/L Alkaline Phosphatase (38-126) U/L Total Creatine Kinase (55-170) U/L CK-MB (CK-2) CK-MB (CK-2) Rel Index Troponin I (0.01-0.034) ng/mL Total Protein (6.3-8.2) g/dL Albumin (3.5-5.0) g/dL Globulin (1.7-4.1) g/dL Albumin/Globulin Ratio (1.0-2.8) Lipase (23-300) U/L COVID-19 PCR Negative (Negative) Imaging Data Chest x-ray: Attestation: I personally reviewed and interpreted this imaging study as follows: My Impression: Normal chest x-ray. No infiltrates, no pneumothorax, normal cardiac silhouette ECG Data Attestation: I personally reviewed and interpreted this ECG as follows: Interpretation: Sinus rhythm at a rate of 93 Normal intervals, normal axis No acute ST T wave changes, no ischemia MDM Narrative Medical decision making narrative: 49-year-old gentleman with acute onset of viral symptoms at 5:00 p.m.. COVID test is negative today. He did have a flu shot today this may be a reaction to the flu shot and he may be developing a mild viral syndrome. At this point there is no evidence of acute coronary syndrome, pneumonia, pneumothorax or other life-threatening etiology that would require further evaluation or hospital admission. He is safe for home discharge. Discharge Plan Departure Patient Disposition: Home Clinical Impression: Acute viral syndrome Instructions: DI for Viral Syndrome Activity Restrictions/Additional Instructions: Thank you for coming in today Your lab, x-ray and EKG all look normal today. We repeated a COVID test and it was negative. I am not sure if your developing an independent viral syndrome or your having a reaction to your flu shot from earlier today. Either way, the treatment is the same. Time, rest, ibuprofen or Tylenol to help with the myalgias in the sore throat. If you find that your symptoms are worsening or changing significantly please return to the ER for further evaluation. I hope you feel better with some sleep. Prescriptions: No Action dextroamphetamine-amphetamine 20 mg tablet 20 mg PO BID Qty: 60 RF: 0 divalproex 250 mg tablet extended release 24 hr 500 mg PO DAILY Qty: 180 RF: 0 pantoprazole 20 mg tablet,delayed release (DR/EC) 20 mg PO QPM RF: 0 clopidogrel 75 mg tablet 75 mg PO QPM RF: 0 isosorbide mononitrate 30 mg tablet extended release 24 hr 15 mg PO QPM RF: 0 ranolazine 500 mg tablet extended release 12 hr 500 mg PO BID RF: 0 aspirin 81 mg Tablet,Delayed Release (Dr/Ec) 81 mg PO DAILY RF: 0 rosuvastatin 20 mg tablet 20 mg PO QPM RF: 0 metoprolol succinate 100 mg tablet extended release 24 hr 100 mg PO QPM RF: 0 Referrals: Clement Mccray DO [Primary Care Provider] -
[2020-05-30 22:22] VITALS: PULSE 92; RESP 22; O2SAT 98
[2020-05-30 22:25] LABS: Add Manual Diff / Slide Review NO; Basophils Absolute Auto 0 /uL (0-100); Basophils Percent Auto 0.6 % (0-2); Eosinophils Absolute Auto 100 /uL (0-450); Eosinophils Percent Auto 1.3 % (2-4); Hematocrit 41.3 % (41-53); Hemoglobin 14.4 g/dL (13.5-17.5); Lymphocytes Absolute Auto 1100 /uL (1100-4500); Lymphocytes Percent Auto 18.4 % (25-40); Mean Corpuscular HGB Conc 34.9 % (30-36); Mean Corpuscular Hemoglobin 31.4 PG (26-34); Mean Corpuscular Volume 89.9 fL (80-100); Monocytes Absolute Auto 500 /uL (0-900); Monocytes Percent Auto 8.4 % (3-14); Neutrophils Absolute Auto 4200 /uL (1500-7000); Neutrophils Percent Auto 71.3 % (50-75); Platelet Count 160 X10^3/uL (150-400); Red Cell Distribution Width 13.4 % (11.6-14.8); White Blood Cell Count 5.9 X10^3/uL (4.5-11.0)
[2020-05-30 22:30] VITALS: PULSE 87; RESP 18; O2SAT 98
[2020-05-30 22:31] VITALS: BP 143/83; PULSE 86; RESP 18; O2SAT 99
[2020-05-30 22:36] LABS: PTT Partial Thromboplastin Tim 32 SECONDS (26.4-36.2)
[2020-05-30 22:39] LABS: Alanine Aminotransferase 31 IU/L (<50); Albumin Globulin Ratio 1.3 (1.0-2.8); Alkaline Phosphatase 66 U/L (38-126); Aspartate Aminotransferase 26 IU/L (17-59); BUN Creatinine Ratio 6.9 (6-22); Bilirubin Total 0.7 mg/dL (0.2-1.3); Blood Urea Nitrogen 7 mg/dL (9-20); Calcium 8.8 mg/dL (8.4-10.2); Carbon Dioxide 27 mmol/L (22-32); Chloride 105 mmol/L (98-107); Creatine Kinase 67 U/L (55-170); Estimated Glomerular Filt Rate > 60.0 mL/min (>60); Globulin 3.2 g/dL (1.7-4.1); Glucose 109 mg/dL (70-100); HEMOLYSIS < 15 (0-50); Lipase 82 U/L (23-300); Potassium 3.7 mmol/L (3.4-5.1); Sodium 138 mmol/L (137-145); Total Protein 7.2 g/dL (6.3-8.2)
[2020-05-30 22:40] LABS: COVID19 -Nasal RAPID Negative (Negative)
[2020-05-30 22:51] LABS: Troponin I < 0.012 ng/mL (0.01-0.034)
[2020-05-30 23:04] VITALS: BP 113/57; PULSE 81; RESP 16; O2SAT 96
== END 2020-05-30 23:04 | disposition home or self-care (01) ==
PROVIDERS: Emergency Provider Emergency Medicine; PCP Family Medicine
DX: B34.9 Viral infection, unspecified (principal); R07.9 Chest pain, unspecified; J02.9 Acute pharyngitis, unspecified; R11.2 Nausea with vomiting, unspecified; R19.7 Diarrhea, unspecified
CPT/HCPCS: 36415; 71045; 80053; 82550; 83690; 84484; 85025; 85610; 85730; 87635; 93005; 99283; 99284

== ENCOUNTER → 2020-05-30 | Outpatient (CLI) | payer MEDICARE, MEDICAID, SELFPAY ==
[2019-08-23 11:53] VITALS: BMI 41.8
== END ==
PROVIDERS: PCP Family Medicine; Referring Provider Internal Medicine; Visit Provider Internal Medicine
DX: Z23 Encounter for immunization (principal)
CPT/HCPCS: 90471; 90686

== ENCOUNTER → 2021-01-04 10:45 | Outpatient (CLI) | payer MEDICARE, MEDICAID, SELFPAY ==
[2019-08-23 11:53] VITALS: BMI 41.8
[2021-01-04 11:59] LABS: Add Manual Diff / Slide Review NO; Basophils Absolute Auto 0 /uL (0-100); Basophils Percent Auto 0.4 % (0-2); Eosinophils Absolute Auto 100 /uL (0-450); Eosinophils Percent Auto 2.1 % (2-4); Hematocrit 45.4 % (41-53); Hemoglobin 15.4 g/dL (13.5-17.5); Lymphocytes Absolute Auto 1600 /uL (1100-4500); Lymphocytes Percent Auto 23.7 % (25-40); Mean Corpuscular HGB Conc 33.9 % (30-36); Mean Corpuscular Hemoglobin 30.8 PG (26-34); Monocytes Absolute Auto 700 /uL (0-900); Neutrophils Absolute Auto 4300 /uL (1500-7000); Neutrophils Percent Auto 63.8 % (50-75); Platelet Count 187 X10^3/uL (150-400); Red Blood Cell Count 4.98 X10^6/uL (4.5-5.9); Red Cell Distribution Width 13.8 % (11.6-14.8); White Blood Cell Count 6.8 X10^3/uL (4.5-11.0)
[2021-01-04 12:19] LABS: Alanine Aminotransferase 31 IU/L (<50); Albumin 4.2 g/dL (3.5-5.0); Albumin Globulin Ratio 1.2 (1.0-2.8); Alkaline Phosphatase 68 U/L (38-126); Aspartate Aminotransferase 27 IU/L (17-59); BUN Creatinine Ratio 9.1 (6-22); Bilirubin Total 0.5 mg/dL (0.2-1.3); Blood Urea Nitrogen 10 mg/dL (9-20); Calcium 9.4 mg/dL (8.4-10.2); Carbon Dioxide 27 mmol/L (22-32); Chloride 105 mmol/L (98-107); Cholesterol 245 mg/dL (140-199); Estimated Glomerular Filt Rate > 60.0 mL/min (>60); Globulin 3.5 g/dL (1.7-4.1); Glucose 100 mg/dL (70-100); HDL Cholesterol 33 mg/dL (40-60); HEMOLYSIS < 15 (0-50); LDL Cholesterol Calculated 186 mg/dL (<100); Potassium 4.5 mmol/L (3.4-5.1); Sodium 140 mmol/L (137-145); Total Protein 7.7 g/dL (6.3-8.2); Triglycerides 132 mg/dL (35-150)
[2021-01-04 12:42] LABS: Prostate Specific Antigen Scrn 0.444 ng/mL (0.1-4.0)
[2021-01-05 07:48] LABS: Valproic Acid (Depakene) Total 47 ug/mL (50-100)
== END ==
PROVIDERS: PCP Family Medicine; Referring Provider Psychiatry & Neurology Psychiatry; Visit Provider Psychiatry & Neurology Psychiatry
DX: F31.81 Bipolar II disorder (principal); I10 Essential (primary) hypertension; Z12.5 Encounter for screening for malignant neoplasm of prostate; E78.5 Hyperlipidemia, unspecified; I25.118 Atherosclerotic heart disease of native coronary artery with other forms of angina pectoris
CPT/HCPCS: 36415; 80053; 80061; 80164; 85025; G0103

== ENCOUNTER → 2021-06-20 06:46 | Outpatient (CLI) | payer MEDICARE, MEDICAID, SELFPAY ==
[2021-05-28 11:05] VITALS: BMI 41.8
[2021-06-21 01:03] LABS: Valproic Acid (Depakene) Total 40 ug/mL (50-100)
== END ==
PROVIDERS: PCP Family Medicine; Referring Provider Psychiatry & Neurology Psychiatry; Visit Provider Psychiatry & Neurology Psychiatry
DX: F31.81 Bipolar II disorder (principal)
CPT/HCPCS: 36415; 80164

== ENCOUNTER 2021-10-20 17:43 | Observation (INO) | payer MEDICARE, SELFPAY ==
[2021-05-28 11:05] VITALS: BMI 41.8
[2021-10-20] VITALS (25 sets, daily range): BP systolic 103–149; BP diastolic 60–94; PULSE 61–75; RESP 16–31; TEMP 36.4; O2SAT 96–100; BMI 44.6
--- NOTE | 2021-10-20 17:51 | DI.RAD.S_ITS ---
PROCEDURE: XR CHEST 1V INDICATIONS: chest pain TECHNIQUE: One view of the chest was acquired. COMPARISON: [facility], CR, XR CHEST 1V, 05/30/2020, 21:58. FINDINGS: Surgical changes and devices: None. Lungs and pleura: Lungs are clear. No pleural effusions or pneumothorax. Mediastinum: Mediastinal contours appear normal. Heart size is normal. Bones and chest wall: No suspicious bony lesions. Overlying soft tissues appear unremarkable. IMPRESSION: No acute cardiopulmonary abnormality. Dictated by: Jeremias Buckley M.D. on 10/20/2021 at 18:22 Approved by: Jeremias Buckley M.D. on 10/20/2021 at 18:22
--- NOTE | 2021-10-20 17:57 | ED_ITS ---
HPI - Chest Pain General Chief Complaint: Chest Pain Stated Complaint: Chest Pain Time Seen by Provider: 10/20/21 17:49 Source: patient Mode of arrival: Ambulatory History of Present Illness HPI narrative: Patient is a 51-year-old male with history of coronary artery disease, hypertension hyperlipidemia who presents today with ongoing chest discomfort. He says he ran out of his Plavix 1 month ago and has not refilled. He does not have a local capacity management specialist previously when he had his PR he was shipped to [facility] due to bed availability. He thinks his last stress test was 1 year ago. Over last couple of days he has noted some chest discomfort which happens both at rest and with exertion. Not lasting longer than 10 minutes until today. [place] not under any stress or moving when he had left-sided chest discomfort radiating up into his. Has lasted for about 1 hour. He has just received nitroglycerin in the emergency department. He has had some diaphoresis but he says not like when he had his previous him eye. He has no shortness of breath with exertion. It is not worse with movement. Related Data Home Medications Medication Instructions Recorded Confirmed aspirin 81 mg tablet,delayed 81 mg PO DAILY 08/17/19 07/17/21 release Previous Rx's Medication Instructions Recorded amlodipine 5 mg tablet 5 mg PO DAILY #90 tab 11/01/20 clopidogrel 75 mg tablet 75 mg PO QPM #90 tab 11/01/20 ranolazine 500 mg tablet,extended 500 mg PO BID #180 tab 11/01/20 release,12 hr divalproex 500 mg tablet,extended 1,000 mg PO DAILY #60 tab 05/28/21 release 24 hr divalproex 250 mg tablet,extended 250 mg PO DAILY #30 tab MDD 1250 mg 06/21/21 release 24 hr pantoprazole 20 mg tablet,delayed See Rx Instructions .ROUTE 07/17/21 release .COMPLEX #90 tab metoprolol succinate 100 mg See Rx Instructions .ROUTE 08/02/21 tablet,extended release 24 hr .COMPLEX #90 tab bupropion HCl 300 mg 24 hr tablet, 300 mg PO QAM #90 tab 08/07/21 extended release Allergies Allergy/AdvReac Type Severity Reaction Status Date / Time ciprofloxacin [From Cipro] Allergy Severe ITCHING Verified 10/20/21 17:50 Review of Systems Review of Systems Narrative: GENERAL: Denies chills, fatigue, malaise, fever, sweats, travel HEENT: Denies sinus pain, ear pain, sore throat, difficulty swallowing, neck pain RESPIRATORY: Denies dyspnea, cough, wheezing, hemoptysis, sputum. CARDIOVASCULAR: See HPI GASTROINTESTINAL: Denies nausea, vomiting, abdominal pain, diarrhea, constipation, melena. : Denies dysuria, frequency, incontinence, hematuria, urinary retention, flank pain. MUSCULOSKELETAL: Denies weakness, joint pain, or bony pain SKIN: No rash, no erythema, no pruritus NEUROLOGIC: Denies weakness, dizziness, headache, numbness, change in speech, confusion PSYCHIATRIC: No concerning psychosocial issues. 12 point review of systems is negative except for those stated above and HPI Patient History Medical History Acne ADHD (~1999) Alcohol use disorder, moderate, in sustained remission Allergies (~1978) Angina at rest Anxiety (~1999) Bipolar II disorder Body mass index (BMI) of 40.1-44.9 in adult Body posture problem Carpal tunnel syndrome (~2014) Cervical somatic dysfunction Chest pain Chicken pox (~1975) Chronic thoracic back pain (~1999) Coronary artery disease (~2002) Cramping of feet Depression (~1999) Dyslipidemia Elevated blood sugar level Essential hypertension Exertional shortness of breath Family history of myocardial infarction at age less than 60 GERD (gastroesophageal reflux disease) (~1999) Headache (~2004) History of bipolar disorder (~2014) Hx of angiography Kidney stones (~2016) Left anterior knee pain Migraines (~2009) Neck pain Psoriasis Restless leg syndrome (~2016) Screening for prostate cancer Screening for prostate cancer Segmental and somatic dysfunction of thoracic region Tinnitus (~2015) Upper extremity somatic dysfunction Wears glasses Surgical History Anesthesia H/O left heart catheterization by cutdown History of arthroscopy of both knees (~1988) Lump in the testicle (~2004) Stented coronary artery Family History Mother Myocardial infarct History of heart disease Hypertension Mental health problem Father CAD, multiple vessel Diabetes mellitus History of heart disease Hypertension Hyperlipidemia Grandmother Diabetes mellitus History of heart disease Hypertension Stroke Grandmother Alzheimer's disease Social History household members: none Smoking Status: Never smoker alcohol intake: current Smoking Status: Never smoker tobacco type: cigars alcohol intake frequency: holidays/special occasions only Alcohol type: beer and hard liquor Substance Use Type: does not use Exam Initial Vital Signs Initial Vital Signs: Vital Signs Pulse Rate 71 10/20/21 17:49 Pulse Oximetry 100 10/20/21 17:49 GENERAL: Alert well-appearing 51-year-old male and in no acute distress. HEENT: Head atraumatic,EOMI, pupils reactive, face symmetric, moist mucous membranes CARDIOVASCULAR: Regular rate and rhythm without murmurs, rubs or gallops. RESPIRATORY: Breath sounds equal bilaterally, no wheezes rales or rhonchi. ABDOMEN: Soft, nontender. Normoactive bowel sounds all 4 quadrants. No guarding or rebound. EXTREMITIES: Normal range of motion, no clubbing or edema. Neurovascularly intact NEUROLOGICAL: Alert and oriented x4.Normal gait and speech. SKIN: Warm, dry, no laceration, no petechiae, no rashes or lesions. Course Orders Ordered: ED Orders 10/20/21 17:00 Trop I [Troponin I] Stat 10/20/21 17:51 XR chest 1V Stat EKG-12 Lead Stat 10/20/21 17:52 EKG-12 Lead Stat 10/20/21 17:55 Complete Blood Count AUTO DIFF Stat Comprehensive Metabolic Panel Stat Lipase Stat Magnesium Stat NT-proBNP (BNP-Adult 18+) Stat Partial Thromboplastin Time Stat Prothrombin Time INR Stat Troponin & CK Cardiac Panel Stat 10/20/21 20:55 COVID19 -Nasal swab/Pre-Proc Stat Nitroglycerin (Nitroglycerin 0.4 Mg Sl Tab) 0.4 mg SL [id number] PRN PRN Reason: chest pain Last Admin: 10/20/21 18:00 Dose: 0.4 mg Documented by: ANTONIA Discontinued Medications Aspirin (Aspirin 81 Mg Chew Tab) 324 mg PO NOW ONE Stop: 10/20/21 17:53 Last Admin: 10/20/21 18:00 Dose: 324 mg Documented by: ANTONIA Sodium Chloride (Normal Saline 0.9%) 500 mls @ 1,000 mls/hr IV BOLUS ONE Stop: 10/20/21 18:50 Last Infusion: 10/20/21 19:00 Dose: 0 mls/hr Documented by: Admin: 10/20/21 18:23 Dose: 1,000 mls/hr Documented by: ANTONIA Ondansetron HCl (Ondansetron 4 Mg/2 Ml Inj) 4 mg IV NOW ONE Stop: 10/20/21 18:21 Last Admin: 10/20/21 18:23 Dose: 4 mg Documented by: ANTONIA Vital Signs Vital signs: Vital Signs - 8 hr 10/20/21 17:49 10/20/21 17:50 10/20/21 18:00 Temperature 97.6 F Pulse Rate 71 68 70 Respiratory Rate 16 Blood Pressure 138/88 149/94 H Pulse Oximetry 100 100 100 10/20/21 18:14 10/20/21 18:17 10/20/21 18:30 Temperature Pulse Rate 75 73 66 Respiratory Rate 21 21 21 Blood Pressure 126/77 120/68 111/63 Pulse Oximetry 97 96 98 10/20/21 18:40 10/20/21 18:50 10/20/21 19:00 Temperature Pulse Rate 66 68 64 Respiratory Rate 21 21 21 Blood Pressure 117/68 113/66 107/62 Pulse Oximetry 98 98 98 10/20/21 19:10 10/20/21 19:20 10/20/21 19:30 Temperature Pulse Rate 65 65 62 Respiratory Rate 23 19 24 Blood Pressure 103/66 118/82 109/73 Pulse Oximetry 98 99 98 10/20/21 19:40 10/20/21 19:50 10/20/21 20:00 Temperature Pulse Rate 61 69 62 Respiratory Rate 20 25 H 21 Blood Pressure 112/74 112/80 106/73 Pulse Oximetry 98 98 98 10/20/21 20:10 10/20/21 20:20 10/20/21 20:30 Temperature Pulse Rate 69 62 63 Respiratory Rate 16 19 19 Blood Pressure 108/73 118/60 110/70 Pulse Oximetry 99 99 98 10/20/21 20:40 10/20/21 20:50 Temperature Pulse Rate 63 62 Respiratory Rate 24 23 Blood Pressure 110/70 109/70 Pulse Oximetry 99 99 MDM - Chest Pain Lab Data Result diagrams: 10/20/21 17:55 10/20/21 17:55 Labs: Lab Results 10/20/21 10/20/21 10/20/21 Range/Units 17:00 17:55 17:55 WBC 6.7 (4.5-11.0) X10^3/uL RBC 4.58 (4.5-5.9) X10^6/uL Hgb 14.1 (13.5-17.5) g/dL Hct 41.1 (41-53) % MCV 89.8 (80-100) fL MCH 30.7 (26-34) PG MCHC 34.2 (30-36) % RDW 13.2 (11.6-14.8) % Plt Count 154 (150-400) X10^3/uL Neut % (Auto) 66.9 (50-75) % Lymph % (Auto) 22.6 L (25-40) % [place] % (Auto) 7.8 (3-14) % Eos % (Auto) 2.0 (2-4) % Baso % (Auto) 0.7 (0-2) % Neut # (Auto) 4500 (2216-5009) /uL Lymph # (Auto) 1500 (4223-2533) /uL [place] # (Auto) 500 (0-900) /uL Eos # (Auto) 100 (0-450) /uL Baso # (Auto) 0 (0-100) /uL PT (10.1-12.7) SECONDS INR (0.9-1.3) APTT (26.4-36.2) SECONDS Sodium 140 (137-145) mmol/L Potassium 4.1 (3.4-5.1) mmol/L Chloride 106 (98-107) mmol/L Carbon Dioxide 27 (22-32) mmol/L BUN 7 L (9-20) mg/dL Creatinine 1.08 (0.66-1.25) mg/dL Estimated GFR > 60.0 (>60) mL/min BUN/Creatinine Ratio 6.5 (6-22) Glucose 196 H (70-100) mg/dL Calcium 8.4 (8.4-10.2) mg/dL Magnesium 1.9 (1.6-2.3) mg/dL Total Bilirubin 0.5 (0.2-1.3) mg/dL AST 24 (17-59) IU/L ALT 34 (<50) IU/L Alkaline Phosphatase 69 (38-126) U/L Total Creatine Kinase 53 L (55-170) U/L CK-MB (CK-2) TNP CK-MB (CK-2) Rel Index TNP Troponin I < 0.012 < 0.012 (0.01-0.034) ng/mL NT-Pro-B Natriuret Pep (<125) pg/mL Total Protein 7.0 (6.3-8.2) g/dL Albumin 3.7 (3.5-5.0) g/dL Globulin 3.3 (1.7-4.1) g/dL Albumin/Globulin Ratio 1.1 (1.0-2.8) Lipase 68 (23-300) U/L SARS-CoV-2 (PCR) (Negative) 10/20/21 10/20/21 10/20/21 Range/Units 17:55 17:55 20:55 WBC (4.5-11.0) X10^3/uL RBC (4.5-5.9) X10^6/uL Hgb (13.5-17.5) g/dL Hct (41-53) % MCV (80-100) fL MCH (26-34) PG MCHC (30-36) % RDW (11.6-14.8) % Plt Count (150-400) X10^3/uL Neut % (Auto) (50-75) % Lymph % (Auto) (25-40) % [place] % (Auto) (3-14) % Eos % (Auto) (2-4) % Baso % (Auto) (0-2) % Neut # (Auto) (5116-5774) /uL Lymph # (Auto) (6917-3169) /uL [place] # (Auto) (0-900) /uL Eos # (Auto) (0-450) /uL Baso # (Auto) (0-100) /uL PT 11.1 (10.1-12.7) SECONDS INR 1.0 (0.9-1.3) APTT 31 (26.4-36.2) SECONDS Sodium (137-145) mmol/L Potassium (3.4-5.1) mmol/L Chloride (98-107) mmol/L Carbon Dioxide (22-32) mmol/L BUN (9-20) mg/dL Creatinine (0.66-1.25) mg/dL Estimated GFR (>60) mL/min BUN/Creatinine Ratio (6-22) Glucose (70-100) mg/dL Calcium (8.4-10.2) mg/dL Magnesium (1.6-2.3) mg/dL Total Bilirubin (0.2-1.3) mg/dL AST (17-59) IU/L ALT (<50) IU/L Alkaline Phosphatase (38-126) U/L Total Creatine Kinase (55-170) U/L CK-MB (CK-2) CK-MB (CK-2) Rel Index Troponin I (0.01-0.034) ng/mL NT-Pro-B Natriuret Pep 109 (<125) pg/mL Total Protein (6.3-8.2) g/dL Albumin (3.5-5.0) g/dL Globulin (1.7-4.1) g/dL Albumin/Globulin Ratio (1.0-2.8) Lipase (23-300) U/L SARS-CoV-2 (PCR) Negative (Negative) Imaging Data Chest x-ray: Radiologist's Impression: PROCEDURE:? XR CHEST 1V ? INDICATIONS:? chest pain ? TECHNIQUE:? One view of the chest was acquired.? ? COMPARISON:? [facility], , XR CHEST 1V, 05/30/2020, 21:58. ? FINDINGS:? ? Surgical changes and devices:? None.? ? Lungs and pleura:? Lungs are clear.? No pleural effusions or pneumothorax.? ? Mediastinum:? Mediastinal contours appear normal.? Heart size is normal.? ? Bones and chest wall:? No suspicious bony lesions.? Overlying soft tissues appear unremarkable.? ? IMPRESSION:? No acute cardiopulmonary abnormality. ? ? ? Dictated by: Jeremias Buckley M.D. on 10/20/2021 at 18:22 ? ECG Data Interpretation: EKG 1 normal sinus rhythm rate 68 NH interval 198 QRS [address] changes no T-wave inversions Q-waves noted in lead 3 similar to previous EKG EKG 2. Normal sinus rhythm rate 67 similar to prior no ST changes EKG 3. Normal sinus rhythm rate [address] changes similar to previous EKG MDM Narrative Medical decision making narrative: Patient has known coronary artery disease not on Plavix for the last month increasing chest discomfort ongoing for the last few days. His 2 troponins are -3 EKGs do not show any changes. He has been given nitroglycerin however after the 1st nitro dropped his blood pressure any got a little lightheaded and dizzy. Chest pain improved to about a 1 or a 2 overall feeling a bit better. 2044 Dr. Garcia, agrees that patient needs to come in for a stress test. Not able to get full stress test at [facility] over the weekend recommends observing here, at this time no need for urgent transfer Elena degroot, updated patient's symptoms test results accepts to observation Discharge Plan Departure Patient Disposition: Admitted as Observation Clinical Impression: Chest pain Admit Date/Time: 10/20/21 20:55 Admit Provider: Marcela Degroot
[2021-10-20] MEDS: ASPIRIN 81 MG CHEW TAB 324 MG PO (18:00)
[2021-10-20] MEDS: NITROGLYCERIN 0.4 MG SL TAB SL (18:00)
[2021-10-20 18:12] LABS: Add Manual Diff / Slide Review NO; Basophils Absolute Auto 0 /uL (0-100); Basophils Percent Auto 0.7 % (0-2); Eosinophils Absolute Auto 100 /uL (0-450); Hematocrit 41.1 % (41-53); Hemoglobin 14.1 g/dL (13.5-17.5); Lymphocytes Absolute Auto 1500 /uL (1100-4500); Lymphocytes Percent Auto 22.6 % (25-40); Mean Corpuscular HGB Conc 34.2 % (30-36); Mean Corpuscular Hemoglobin 30.7 PG (26-34); Mean Corpuscular Volume 89.8 fL (80-100); Monocytes Absolute Auto 500 /uL (0-900); Monocytes Percent Auto 7.8 % (3-14); Neutrophils Absolute Auto 4500 /uL (1500-7000); Neutrophils Percent Auto 66.9 % (50-75); Platelet Count 154 X10^3/uL (150-400); Red Blood Cell Count 4.58 X10^6/uL (4.5-5.9); Red Cell Distribution Width 13.2 % (11.6-14.8); White Blood Cell Count 6.7 X10^3/uL (4.5-11.0)
[2021-10-20 18:15] LABS: Prothrombin Time 11.1 SECONDS (10.1-12.7)
[2021-10-20 18:18] LABS: PTT Partial Thromboplastin Tim 31 SECONDS (26.4-36.2)
[2021-10-20 18:20] LABS: Alanine Aminotransferase 34 IU/L (<50); Albumin 3.7 g/dL (3.5-5.0); Albumin Globulin Ratio 1.1 (1.0-2.8); Alkaline Phosphatase 69 U/L (38-126); Aspartate Aminotransferase 24 IU/L (17-59); BUN Creatinine Ratio 6.5 (6-22); Bilirubin Total 0.5 mg/dL (0.2-1.3); Blood Urea Nitrogen 7 mg/dL (9-20); Calcium 8.4 mg/dL (8.4-10.2); Carbon Dioxide 27 mmol/L (22-32); Chloride 106 mmol/L (98-107); Creatine Kinase 53 U/L (55-170); Estimated Glomerular Filt Rate > 60.0 mL/min (>60); Globulin 3.3 g/dL (1.7-4.1); Glucose 196 mg/dL (70-100); HEMOLYSIS < 15 (0-50); Lipase 68 U/L (23-300); Magnesium 1.9 mg/dL (1.6-2.3); Potassium 4.1 mmol/L (3.4-5.1); Sodium 140 mmol/L (137-145)
--- NOTE | 2021-10-20 18:21 | PC.NURSE ---
Pt felt light headed after 1st nitro. Bp dropped to 120/66. Dr. Chatman informed. 500ml NS bolus ordered along with IV zofran. Will reassess for additional nitro after BP comes back up
[2021-10-20] MEDS: SODIUM CHLORIDE 0.9% 500 ML 1000 ML IV (18:23)
[2021-10-20] MEDS: ONDANSETRON 4 MG/2 ML INJ IV (18:23)
[2021-10-20 18:28] LABS: NT-proBNP (BNP-Adult 18+) 109 pg/mL (<125)
[2021-10-20 18:31] LABS: Troponin I < 0.012 ng/mL (0.01-0.034)
--- NOTE | 2021-10-20 18:41 | PC.NURSE ---
Pt states that he is no longer nauseous or light headed. Current BP 111/60. aware.
--- NOTE | 2021-10-20 19:50 | PC.NURSE ---
Pt CP 09/27. Repeat trop sent to lab. Dr. Chatman given a pt update
[2021-10-20 20:31] LABS: Troponin I < 0.012 ng/mL (0.01-0.034)
[2021-10-20 21:17] LABS: COVID19 -Nasal RAPID Negative (Negative)
[2021-10-21] VITALS (8 sets, daily range): BP systolic 108–127; BP diastolic 62–83; PULSE 62–67; RESP 16–21; TEMP 36.4–37.1; O2SAT 95–97
[2021-10-21 00:30] LABS: Troponin I < 0.012 ng/mL (0.01-0.034)
--- NOTE | 2021-10-21 01:30 | P.HP_ITS ---
History of Present Illness History of Present Illness Date Patient Seen: 10/20/21 Time Patient Seen: 22:00 Chief complaint: Chest Pain Narrative: Johnathan Mendiola is a 51-year-old male with a history of coronary artery disease, PCTA and stenting done in 2019, hypertension, hyperlipidemia, and morbid obesity who presented to the emergency department with chest pain. He did state that it occurs with both rest and exertion which started about 2 days ago intermitten tly. He decided to come in today to the emergency department because it became more constant and more intense lasting for over an hour. Patient has a history of having an WA in 2019 and stated that this did not feel the same way but he was uncomfortable ignoring it. He states that he did have some sweating but no chills, denies shortness of breath, nausea or vomiting, abdominal pain, dysuria, diarrhea or constipation. 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 He was transferred to [facility] where they did a angioplasty and placed a stent in his OM. He did not see a communication studies professor after that but was prescribed metoprolol, aspirin, Plavix, Imdur, and ranolazine of which the latter 3 he has not taken as he ran out of his refills. Chest x-ray ordered in the emergency department did not reveal any acute cardiopulmonary abnormalities. Today's EKG was not available in the chart. Temperature was 97.5?, blood pressure 118/72, heart rate 66, respiratory rate 20, oxygen saturation of 100%, he weighs 145 kg with a BMI of 44.6. CBC is unremarkable as platelet count is 154, coags are within normal limits, chemistry is unremarkable, glucose is elevated at 196, cardiac enzymes within normal limits, proBNP is 109, lipase within normal limits, and COVID-19 PCR is negative. Patient History Medical History Acne ADHD (~1999) Alcohol use disorder, moderate, in sustained remission Allergies (~1978) Angina at rest Anxiety (~1999) Bipolar II disorder Body mass index (BMI) of 40.1-44.9 in adult Body posture problem Carpal tunnel syndrome (~2014) Cervical somatic dysfunction Chest pain Chicken pox (~1975) Chronic thoracic back pain (~1999) Coronary artery disease (~2002) Cramping of feet Depression (~1999) Dyslipidemia Elevated blood sugar level Essential hypertension Exertional shortness of breath Family history of myocardial infarction at age less than 60 GERD (gastroesophageal reflux disease) (~1999) Headache (~2004) History of bipolar disorder (~2014) Hx of angiography Kidney stones (~2016) Left anterior knee pain Migraines (~2009) Neck pain Psoriasis Restless leg syndrome (~2016) Screening for prostate cancer Screening for prostate cancer Segmental and somatic dysfunction of thoracic region Tinnitus (~2015) Upper extremity somatic dysfunction Wears glasses Surgical History Anesthesia H/O left heart catheterization by cutdown History of arthroscopy of both knees (~1988) Lump in the testicle (~2004) Stented coronary artery Family & Social History Family History Mother Myocardial infarct History of heart disease Hypertension Mental health problem Father CAD, multiple vessel Diabetes mellitus History of heart disease Hypertension Hyperlipidemia Grandmother Diabetes mellitus History of heart disease Hypertension Stroke Grandmother Alzheimer's disease Social History: household members none Prior Living Arrangements ambulance that has been converted into a RV Safety & Behavioral: Feels Safe in Current Yes Environment Been Physically Hurt or No Threatened By a Person Suicidal Ideation Description None Suicide Plan Description No Plan Tobacco & Substance use: Smoking Status Never smoker alcohol intake current alcohol intake frequency holiday/special occasion Substance Use Type does not use Meds Home Medications and Allergies Home Medications Medication Instructions Recorded Confirmed Type aspirin 81 mg tablet,delayed 81 mg PO DAILY 08/17/19 10/20/21 History release amlodipine 5 mg tablet 5 mg PO DAILY #90 tab 11/01/20 10/20/21 Rx clopidogrel 75 mg tablet 75 mg PO QPM #90 tab 11/01/20 10/20/21 Rx ranolazine 500 mg tablet,extended 500 mg PO BID #180 tab 11/01/20 10/20/21 Rx release,12 hr divalproex 500 mg tablet,extended 1,000 mg PO DAILY #60 tab 05/28/21 10/20/21 Rx release 24 hr divalproex 250 mg tablet,extended 250 mg PO DAILY #30 tab MDD 1250 mg 06/21/21 10/20/21 Rx release 24 hr bupropion HCl 300 mg 24 hr tablet, 300 mg PO QAM #90 tab 08/07/21 10/20/21 Rx extended release metoprolol succinate 100 mg 100 mg PO QAM 10/20/21 10/20/21 History tablet,extended release 24 hr pantoprazole 20 mg tablet,delayed 20 mg PO QPM 10/20/21 10/20/21 History release Allergies Allergy/AdvReac Type Severity Reaction Status Date / Time ciprofloxacin [From Cipro] Allergy Severe ITCHING Verified 10/20/21 17:50 Review of Systems Review of Systems ROS: Yes All systems reviewed with the patient and are negative except as otherwise documented Exam Vital Signs (past 8 hours): - 10/20/21 17:49 10/20/21 17:50 10/20/21 18:00 Temperature 97.6 F Pulse Rate 71 68 70 Respiratory Rate 16 Blood Pressure 138/88 149/94 H Pulse Oximetry 100 100 100 10/20/21 18:14 10/20/21 18:17 10/20/21 18:30 Temperature Pulse Rate 75 73 66 Respiratory Rate 21 21 21 Blood Pressure 126/77 120/68 111/63 Pulse Oximetry 97 96 98 10/20/21 18:40 10/20/21 18:50 10/20/21 19:00 Temperature Pulse Rate 66 68 64 Respiratory Rate 21 21 21 Blood Pressure 117/68 113/66 107/62 Pulse Oximetry 98 98 98 10/20/21 19:10 10/20/21 19:20 10/20/21 19:30 Temperature Pulse Rate 65 65 62 Respiratory Rate 23 19 24 Blood Pressure 103/66 118/82 109/73 Pulse Oximetry 98 99 98 10/20/21 19:40 10/20/21 19:50 10/20/21 20:00 Temperature Pulse Rate 61 69 62 Respiratory Rate 20 25 H 21 Blood Pressure 112/74 112/80 106/73 Pulse Oximetry 98 98 98 10/20/21 20:10 10/20/21 20:20 10/20/21 20:30 Temperature Pulse Rate 69 62 63 Respiratory Rate 16 19 19 Blood Pressure 108/73 118/60 110/70 Pulse Oximetry 99 99 98 10/20/21 20:40 10/20/21 20:50 10/20/21 21:00 Temperature Pulse Rate 63 62 63 Respiratory Rate 24 23 23 Blood Pressure 110/70 109/70 111/73 Pulse Oximetry 99 99 98 10/20/21 21:10 10/20/21 21:20 10/20/21 21:30 Temperature Pulse Rate 66 61 69 Respiratory Rate 31 H 22 23 Blood Pressure 116/70 116/67 116/70 Pulse Oximetry 99 98 98 10/20/21 21:35 Temperature 97.5 F L Pulse Rate 66 Respiratory Rate 20 Blood Pressure 118/72 Pulse Oximetry 100 Oxygen Delivery Method Room Air Oxygen Flow Rate 0 Narrative Exam Narrative: Gen: Alert, oriented, morbidly obese 51y.o. male, NAD HEENT: normocephalic, atraumatic, conjunctiva clear, sclera non-icteric, oral m ucosa pink and moist Neck: supple, full ROM, no JVD, trachea is midline Resp: Lungs CTA, non-labored breathing CV: RRR, no murmur or rubs Abd: soft, non-tender, normoactive BTs Skin: no lesions or rashes, dry and intact Neuro: Alert and oriented X 4 w/no focal deficits. Speech clear and coherent. Extremities: moves all 4 extremities, is ambulatory, negative Ernesto?s sign Psyche: normal mood and affect. Objective Labs Result Diagrams: 10/20/21 17:55 10/20/21 17:55 Labs: Laboratory Results - last 24 hr 10/20/21 10/20/21 10/20/21 17:00 17:00 17:55 WBC 6.7 RBC 4.58 Hgb 14.1 Hct 41.1 MCV 89.8 MCH 30.7 MCHC 34.2 RDW 13.2 Plt Count 154 Neut % (Auto) 66.9 Lymph % (Auto) 22.6 L [place] % (Auto) 7.8 Eos % (Auto) 2.0 Baso % (Auto) 0.7 Neut # (Auto) 4500 Lymph # (Auto) 1500 [place] # (Auto) 500 Eos # (Auto) 100 Baso # (Auto) 0 PT INR APTT Sodium Potassium Chloride Carbon Dioxide BUN Creatinine Estimated GFR BUN/Creatinine Ratio Glucose Calcium Magnesium 2.0 Total Bilirubin AST ALT Alkaline Phosphatase Total Creatine Kinase CK-MB (CK-2) CK-MB (CK-2) Rel Index Troponin I < 0.012 NT-Pro-B Natriuret Pep Total Protein Albumin Globulin Albumin/Globulin Ratio Lipase SARS-CoV-2 (PCR) 10/20/21 10/20/21 10/20/21 17:55 17:55 17:55 WBC RBC Hgb Hct MCV MCH MCHC RDW Plt Count Neut % (Auto) Lymph % (Auto) [place] % (Auto) Eos % (Auto) Baso % (Auto) Neut # (Auto) Lymph # (Auto) [place] # (Auto) Eos # (Auto) Baso # (Auto) PT 11.1 INR 1.0 APTT 31 Sodium 140 Potassium 4.1 Chloride 106 Carbon Dioxide 27 BUN 7 L Creatinine 1.08 Estimated GFR > 60.0 BUN/Creatinine Ratio 6.5 Glucose 196 H Calcium 8.4 Magnesium 1.9 Total Bilirubin 0.5 AST 24 ALT 34 Alkaline Phosphatase 69 Total Creatine Kinase 53 L CK-MB (CK-2) TNP CK-MB (CK-2) Rel Index TNP Troponin I < 0.012 NT-Pro-B Natriuret Pep 109 Total Protein 7.0 Albumin 3.7 Globulin 3.3 Albumin/Globulin Ratio 1.1 Lipase 68 SARS-CoV-2 (PCR) 10/20/21 10/20/21 20:55 23:59 WBC RBC Hgb Hct MCV MCH MCHC RDW Plt Count Neut % (Auto) Lymph % (Auto) [place] % (Auto) Eos % (Auto) Baso % (Auto) Neut # (Auto) Lymph # (Auto) [place] # (Auto) Eos # (Auto) Baso # (Auto) PT INR APTT Sodium Potassium Chloride Carbon Dioxide BUN Creatinine Estimated GFR BUN/Creatinine Ratio Glucose Calcium Magnesium Total Bilirubin AST ALT Alkaline Phosphatase Total Creatine Kinase CK-MB (CK-2) CK-MB (CK-2) Rel Index Troponin I < 0.012 NT-Pro-B Natriuret Pep Total Protein Albumin Globulin Albumin/Globulin Ratio Lipase SARS-CoV-2 (PCR) Negative Assessment & Plan Assessment & Plan narrative: Johnathan Mendiola is placed into observation further evaluation and workup of chest pain. 1. Chest pain r/o ACS, acute, present on admission ? Echo in am ? Pharmacological stress test ? Start ASA 81 mg ? Received 1 nitro in the ED which apparently dropped his blood pressure and patient did get a little bit lightheaded and dizzy ? EKG shows noischemic changes ? Trend troponin X 2. 2. Hypertension ? Start/continue amlodipine, and metoprolol succinate 100 mg once daily after the patient has undergone stress testing 3. Coronary artery disease, chronic, present on admission * Continue home doses of aspirin, ranolazine and clopidogrel 4. HLD ? Lipid panel, pending ? Start/continue atorvastatin 40 mg po at bedtime 5. Morbid obesity, chronic * Patient has a BMI of 44.6 which places him at high risk for increased morbidi ty, treatment failure and treatment complications 6.Risk stratification ? Fasting lipid panel scheduled for 0500 labs ? A1c pending VTE Prophylaxis: Wells risk score 0 ]Enoxaparin 40 mg subQ once daily Bilateral SCDs Patient is placed into observation as his stay is not expected to exceed 2 midn ights. FEN: IV fluids: saline lock, diet: heart healthy, labs: CBC, C/BMP, liver enzymes, Mag, PT/INR Consultants None Dispo: He probable discharge to home tomorrow Code status: Full cpde [X] I have utilized all available immediate resources to obtain, update, or review of the patient's current medications COVID-19 COVID-19 status: Negative Result date/Date tested (Pos, Neg/Pending): 10/20/21 Scores Wells' Criteria for PE Clinical signs and symptoms of DVT: No PE is #1 Dx or equally likely: No Heart rate > 100: No Immobilization at least 3 days or surg in previous 4 weeks: No History of PE or DVT: No Hemoptysis: No Malignancy w/Treatment within 6 months or palliative: No Wells' PE Score total: 0 Quality VTE Deep Vein Thrombosis/Pulmonary Embolism Present on Admission: No MIPS - Admit I confirm the patient?s Advance Care Plan is present, Code status is documented, Surrogate decision maker is in patient?s record [If Yes, STOP here]: Yes MIPS - DC The patient has current or prior documentation of left ventricular ejection fraction (LVEF) less than 40%, or moderate or severely depressed left ventricular systolic function.: No
[2021-10-21] MEDS: ACETAMINOPHEN 325 MG TABLET 650 MG PO (03:57)
--- NOTE | 2021-10-21 04:45 | PC.NURSE ---
Shift Note: Patient arrived from ED by wheelchair, accompanied by PSYCHOLOGY LECTURER, patient was alert and orientedx4, ambulatory. Denies any pain at this time, stated that chest pain has relieved since he got medication in the ED. No signs of distress. Afebrile, vital signs within acceptable limits. IV access at left AC on saline lock. Lungs are bilaterally clear. Has active bowel tones. Patient was able to get up to use the toilet and often called out help whenever he needed. Will continue to monitor.
[2021-10-21] MEDS: MORPHINE 2 MG/ML INJ IV (05:15)
[2021-10-21 06:28] LABS: Add Manual Diff / Slide Review NO; Basophils Absolute Auto 0 /uL (0-100); Basophils Percent Auto 0.6 % (0-2); Eosinophils Absolute Auto 100 /uL (0-450); Eosinophils Percent Auto 1.8 % (2-4); Hematocrit 37.7 % (41-53); Hemoglobin 13.1 g/dL (13.5-17.5); Lymphocytes Absolute Auto 2200 /uL (1100-4500); Lymphocytes Percent Auto 36.8 % (25-40); Mean Corpuscular HGB Conc 34.7 % (30-36); Mean Corpuscular Volume 89.3 fL (80-100); Monocytes Absolute Auto 500 /uL (0-900); Monocytes Percent Auto 8.1 % (3-14); Neutrophils Absolute Auto 3100 /uL (1500-7000); Neutrophils Percent Auto 52.7 % (50-75); Platelet Count 140 X10^3/uL (150-400); Red Blood Cell Count 4.21 X10^6/uL (4.5-5.9); Red Cell Distribution Width 13.2 % (11.6-14.8); White Blood Cell Count 5.9 X10^3/uL (4.5-11.0)
[2021-10-21 06:37] LABS: BUN Creatinine Ratio 7.9 (6-22); Blood Urea Nitrogen 9 mg/dL (9-20); Calcium 8.3 mg/dL (8.4-10.2); Carbon Dioxide 27 mmol/L (22-32); Chloride 107 mmol/L (98-107); Cholesterol 210 mg/dL (140-199); Estimated Glomerular Filt Rate > 60.0 mL/min (>60); Glucose 152 mg/dL (70-100); HDL Cholesterol 30 mg/dL (40-60); HEMOLYSIS < 15 (0-50); LDL Cholesterol Calculated 157 mg/dL (<100); Sodium 138 mmol/L (137-145); Triglycerides 114 mg/dL (35-150)
[2021-10-21 06:49] LABS: Troponin I < 0.012 ng/mL (0.01-0.034)
[2021-10-21 06:50] LABS: Hemoglobin A1C% w Est Avg Glu 6.6 % (4.0-6.0)
--- NOTE | 2021-10-21 08:00 | DI.ECHO.S_ITS ---
[facility]---------+ [facility] +---------+ : : [address] [place] : : : : [id number] : : : : Phone: [phone] Echocardiogram Report + + :Name: NATALEE MCCULLOUGH Study Date: 10/21/2021 Height: 71 in : :[facility] ReadingLocation: Weight: 320 lb : : Gender: Male BSA: 2.6 m2 : :: 1970 Age: 51 yrs BP: 108/68 mmHg: :Reason For Study: CHEST PAIN IN A STENTED PATIENT : :Ordering Physician: Kenneth LEWISformed By: Tracy Simpson : :Referring: NHAN LEWIS : + + Interpretation Summary The ejection fraction is estimated to be 60-65%. Diastolic parameters suggest probable normal left ventricular diastolic function and normal filling pressures. The right ventricle is normal in size and function. No significant valvular abnormalities. Pulmonary artery pressures cannot be estimated because of the lack of a measurable TR jet velocity. Compared to the prior study dated 06/16/2020, no significant change. Procedure: A two-dimensional transthoracic echocardiogram with color flow and Doppler was performed. The study quality was technically difficult. Comparison is made with the echocardiogram of 06/16/2020. A contrast injection of Definity was performed to improve assessment of LV function. The patient was in sinus rhythm with heart rates between 65-71 bpm during the exam. Left Ventricle: The left ventricle is normal in size and wall thickness. The ejection fraction is estimated to be 60-65%. There are no focal wall motion abnormalities. Diastolic parameters suggest probable normal left ventricular diastolic function and normal filling pressures. Right Ventricle: The right ventricle is normal in size and function. Atria: The left atrium is borderline dilated. Right atrial size is normal. There is no Doppler evidence for an interatrial shunt. Mitral Valve: The mitral valve is normal in structure and function. There is trace mitral regurgitation. Aortic Valve: The aortic valve is not well visualized. The aortic valve opens well. There is no aortic valve stenosis. No aortic regurgitation is present. Tricuspid Valve: The tricuspid valve is not well visualized, but is grossly normal. No tricuspid regurgitation. Pulmonary artery pressures cannot be estimated because of the lack of a measurable TR jet velocity. Pulmonic Valve: The pulmonic valve is not well visualized. There is no pulmonic valvular regurgitation. Great Vessels: The aortic root is normal size. The dimensions of the ascending aorta are normal. The inferior vena cava was not well visualized. Pericardium/ Pleura There is no pericardial effusion. There is no pleural effusion. MMode/2D Measurements & Calculations LVIDd: 4.8 cm LVOT diam: 2.2 cm LVIDs: 3.1 cm Ao root diam: 3.8 cm FS: 34.1 % asc Aorta Diam: 3.8 cm IVSd: 1.0 cm Ao Arch Diam (Prox Trans): 3.7 cm LVPWd: 1.0 cm LV dubois. diameter/BSA (cm/m^2): 1.8 LV sys. diameter/BSA (cm/m^2): 1.2 LA A2 area: 29.8 cm2 RA long axis: 5.3 cm LA A4 area: 21.6 cm2 RA area: 15.1 cm2 LA length (vol): 6.2 cm RA vol: 36.2 ml LA vol: 87.3 ml RA : 14.0 ml/m2 LA vol index: 33.9 ml/m2 RVD1 (basal): 3.6 cm TAPSE: 2.0 cm Doppler Measurements & Calculations Ao V2 max: 149.6 cm/sec LVOT Max Salazar: 133.5 cm/sec Ao V2 mean: 103.2 cm/sec LV V1 max P.1 mmHg Ao max P.0 mmHg LV V1 VTI: 29.4 cm Ao mean P.7 mmHg SHARI(I,D): 3.3 cm2 Ao V2 VTI: 33.8 cm SHARI(V,D): 3.4 cm2 sev ratio: 0.87 SHARI indexed to BSA (cm^2/m^2): 1.3 MV E max salazar: 88.5 cm/sec PA V2 max: 95.3 cm/sec MV A max salazar: 85.6 cm/sec PA V2 mean: 68.7 cm/sec MV E/A: 1.0 PA mean P.1 mmHg Med Peak E' Salazar: 9.6 cm/sec PA pr(Accel): 25.9 mmHg E/E' med: 9.2 Lat Peak E' Salazar: 11.6 cm/sec E/E' lat: 7.7 E/e' average: 8.4 MV dec time: 0.19 sec SV(LVOT): 111.7 ml Reading Physician:02:18 PM
[2021-10-21] MEDS: DIVALPROEX ER 250 MG TAB 1250 MG PO (08:22)
[2021-10-21] MEDS: buPROPion XL 150 MG TAB 300 MG PO (08:23)
[2021-10-21] MEDS: METOPROLOL ER 50 MG TABLET 100 MG PO (08:23)
[2021-10-21] MEDS: ASPIRIN EC 81 MG TABLET PO (08:23)
[2021-10-21] MEDS: AMLODIPINE 5 MG TABLET PO (08:23)
[2021-10-21] MEDS: RANOLAZINE 500 MG TAB.ER.12H PO ×2 (08:23→20:21)
--- NOTE | 2021-10-21 09:00 | DI.NM.S_ITS ---
PROCEDURE: NM KIAH PERF SPECT SINGLE STUDY Exercise myocardial perfusion SPECT with gated imaging and ejection fraction RADIOPHARMACEUTICAL: 26.5 mCi Tc-99m sestamibi IV with lexiscan. INDICATIONS: chest pain TECHNIQUE: Radiopharmaceutical was injected at peak stress test. SPECT images were obtained, with perfusion images in short axis, horizontal long axis, and vertical long axis views. Gated images were reviewed using [employer] software. COMPARISON: None. CARDIAC STRESS: A lexiscan 0.4mg IV X1 was injected as stress agent. There is normal blood pressure and heart response to exercise. Symptoms: Patient denied anginal chest pain during exercise. EKG: No diagnostic changes of ischemia; no ectopy. FINDINGS: Raw data: There is good labeling of myocardium by radiotracer. No significant motion artifacts. Left ventricular function: Gated images demonstrate normal left ventricle wall thickening. No segmental wall motion abnormalities. Left ventricle end diastolic volume is 141 mL. Left ventricle stress ejection fraction is 62%; normal values are above 45%. Myocardial perfusion: There is a mildly intense apical defect with stress supine images that resolves with stress prone imaging. IMPRESSION: Low risk, probably normal pharmaceutical stress only study (no rest images). 1) No perfusion evidence of ischemia or infarction. 2) Normal left ventricular size, wall motion, and systolic function (EF post stress 62%). 3) No angina during the study. 4) No ECG changes to suggest ischemia with lexiscan. 5) Compared to the nuclear stress test done 06/15/2019, no significant change. Dictated by: Felipa Ng MD on 10/22/2021 at 16:31 Approved by: Felipa Ng MD on 10/22/2021 at 16:34
[2021-10-21] MEDS: HYDROCODONE/ACET 5/325 TABLET 1 TAB PO ×2 (09:14→17:55)
--- NOTE | 2021-10-21 13:00 | P.PN_ITS ---
Subjective Subjective Date Patient Seen: 10/21/21 Interval history: 51-year-old male with a history of coronary artery disease, PCTA and stenting done in 2019, hypertension, hyperlipidemia, and morbid obesity who presented to the emergency department with chest pain. Patient had slight chest pain overnight relieved with morphine. He also has chronic back pain for which she takes Aleve at home. Troponins have been negative. Exam Vital Signs (past 8 hours): - 10/21/21 07:00 10/21/21 08:23 10/21/21 09:28 Temperature 98.3 F Pulse Rate 67 67 Respiratory Rate 20 Blood Pressure 123/73 127/83 Pulse Oximetry 97 97 10/21/21 11:04 Temperature 97.6 F Pulse Rate 65 Respiratory Rate 21 Blood Pressure 108/62 Pulse Oximetry 97 Oxygen Delivery Method Room Air Oxygen Flow Rate 0 Narrative Exam Narrative: General: Alert, NAD Breathing nonlabored Extremities nonedematous Objective Labs Result Diagrams: 10/21/21 06:06 10/21/21 06:06 Labs: Laboratory Results - last 24 hr 10/20/21 10/20/21 10/20/21 17:00 17:00 17:55 WBC 6.7 RBC 4.58 Hgb 14.1 Hct 41.1 MCV 89.8 MCH 30.7 MCHC 34.2 RDW 13.2 Plt Count 154 Neut % (Auto) 66.9 Lymph % (Auto) 22.6 L [place] % (Auto) 7.8 Eos % (Auto) 2.0 Baso % (Auto) 0.7 Neut # (Auto) 4500 Lymph # (Auto) 1500 [place] # (Auto) 500 Eos # (Auto) 100 Baso # (Auto) 0 PT INR APTT Sodium Potassium Chloride Carbon Dioxide BUN Creatinine Estimated GFR BUN/Creatinine Ratio Glucose Hemoglobin A1c Calcium Magnesium 2.0 Total Bilirubin AST ALT Alkaline Phosphatase Total Creatine Kinase CK-MB (CK-2) CK-MB (CK-2) Rel Index Troponin I < 0.012 NT-Pro-B Natriuret Pep Total Protein Albumin Globulin Albumin/Globulin Ratio Triglycerides Cholesterol LDL Cholesterol, Calc HDL Cholesterol Lipase SARS-CoV-2 (PCR) 10/20/21 10/20/21 10/20/21 17:55 17:55 17:55 WBC RBC Hgb Hct MCV MCH MCHC RDW Plt Count Neut % (Auto) Lymph % (Auto) [place] % (Auto) Eos % (Auto) Baso % (Auto) Neut # (Auto) Lymph # (Auto) [place] # (Auto) Eos # (Auto) Baso # (Auto) PT 11.1 INR 1.0 APTT 31 Sodium 140 Potassium 4.1 Chloride 106 Carbon Dioxide 27 BUN 7 L Creatinine 1.08 Estimated GFR > 60.0 BUN/Creatinine Ratio 6.5 Glucose 196 H Hemoglobin A1c Calcium 8.4 Magnesium 1.9 Total Bilirubin 0.5 AST 24 ALT 34 Alkaline Phosphatase 69 Total Creatine Kinase 53 L CK-MB (CK-2) TNP CK-MB (CK-2) Rel Index TNP Troponin I < 0.012 NT-Pro-B Natriuret Pep 109 Total Protein 7.0 Albumin 3.7 Globulin 3.3 Albumin/Globulin Ratio 1.1 Triglycerides Cholesterol LDL Cholesterol, Calc HDL Cholesterol Lipase 68 SARS-CoV-2 (PCR) 10/20/21 10/20/21 10/21/21 20:55 23:59 06:06 WBC 5.9 RBC 4.21 L Hgb 13.1 L Hct 37.7 L MCV 89.3 MCH 31.0 MCHC 34.7 RDW 13.2 Plt Count 140 L Neut % (Auto) 52.7 Lymph % (Auto) 36.8 [place] % (Auto) 8.1 Eos % (Auto) 1.8 L Baso % (Auto) 0.6 Neut # (Auto) 3100 Lymph # (Auto) 2200 [place] # (Auto) 500 Eos # (Auto) 100 Baso # (Auto) 0 PT INR APTT Sodium Potassium Chloride Carbon Dioxide BUN Creatinine Estimated GFR BUN/Creatinine Ratio Glucose Hemoglobin A1c Calcium Magnesium Total Bilirubin AST ALT Alkaline Phosphatase Total Creatine Kinase CK-MB (CK-2) CK-MB (CK-2) Rel Index Troponin I < 0.012 NT-Pro-B Natriuret Pep Total Protein Albumin Globulin Albumin/Globulin Ratio Triglycerides Cholesterol LDL Cholesterol, Calc HDL Cholesterol Lipase SARS-CoV-2 (PCR) Negative 10/21/21 10/21/21 10/21/21 06:06 06:06 06:06 WBC RBC Hgb Hct MCV MCH MCHC RDW Plt Count Neut % (Auto) Lymph % (Auto) [place] % (Auto) Eos % (Auto) Baso % (Auto) Neut # (Auto) Lymph # (Auto) [place] # (Auto) Eos # (Auto) Baso # (Auto) PT INR APTT Sodium 138 Potassium 4.0 Chloride 107 Carbon Dioxide 27 BUN 9 Creatinine 1.14 Estimated GFR > 60.0 BUN/Creatinine Ratio 7.9 Glucose 152 H Hemoglobin A1c 6.6 H Calcium 8.3 L Magnesium Total Bilirubin AST ALT Alkaline Phosphatase Total Creatine Kinase CK-MB (CK-2) CK-MB (CK-2) Rel Index Troponin I < 0.012 NT-Pro-B Natriuret Pep Total Protein Albumin Globulin Albumin/Globulin Ratio Triglycerides 114 Cholesterol 210 H LDL Cholesterol, Calc 157 H HDL Cholesterol 30 L Lipase SARS-CoV-2 (PCR) [facility] Medical History Acne ADHD (~1999) Alcohol use disorder, moderate, in sustained remission Allergies (~1978) Angina at rest Anxiety (~1999) Bipolar II disorder Body mass index (BMI) of 40.1-44.9 in adult Body posture problem Carpal tunnel syndrome (~2014) Cervical somatic dysfunction Chest pain Chicken pox (~1975) Chronic thoracic back pain (~1999) Coronary artery disease (~2002) Cramping of feet Depression (~1999) Dyslipidemia Elevated blood sugar level Essential hypertension Exertional shortness of breath Family history of myocardial infarction at age less than 60 GERD (gastroesophageal reflux disease) (~1999) Headache (~2004) History of bipolar disorder (~2014) Hx of angiography Kidney stones (~2016) Left anterior knee pain Migraines (~2009) Neck pain Psoriasis Restless leg syndrome (~2016) Screening for prostate cancer Screening for prostate cancer Segmental and somatic dysfunction of thoracic region Tinnitus (~2015) Upper extremity somatic dysfunction Wears glasses Surgical History Anesthesia H/O left heart catheterization by cutdown History of arthroscopy of both knees (~1988) Lump in the testicle (~2004) Stented coronary artery Family History Mother Myocardial infarct History of heart disease Hypertension Mental health problem Father CAD, multiple vessel Diabetes mellitus History of heart disease Hypertension Hyperlipidemia Grandmother Diabetes mellitus History of heart disease Hypertension Stroke Grandmother Alzheimer's disease Social History household members: none Smoking Status: Never smoker alcohol intake: current Assessment & Plan Assessment & Plan narrative: 1. Chest pain rule out ACS -history of coronary stenting in early 2019 -negative troponins, EKG without ischemic changes -echo -pharmacological stress test -continue aspirin 81 mg q.d., atorvastatin 40 mg q.p.m., metoprolol succinate 100 mg q.a.m. -Received 1 nitro in the ED which apparently dropped his blood pressure and patient did get a little bit lightheaded and dizzy -IV morphine as needed -patient had stopped his statin due to muscle cramps but willing to resume -patient had run out of his Plavix a month ago, not clear if he still needs to be on it 2 years post stenting -patient also on ranolazine presumably for chronic angina although has not had chest pain since his stent and may be does not need to be on this medication -patient has not followed up with cardiology since his stent -obtain cardiac catheterization records from [facility] 2. Hypertension -continue amlodipine, metoprolol succinate 3. Type 2 diabetes, new diagnosis -A1c 6.6% -obesity, BMI 44 -nutrition counseling -start metformin on discharge 4. Chronic back pain -takes Aleve at home -hydrocodone prn in hospital only 4. Continue other routine meds bupropion, divalproex, pantoprazole Time Spent With Patient Critical Care time: I spent a total of [] minutes of critical care time on this patient's care today; this time is exclusive of procedural time. Quality VTE Deep Vein Thrombosis/Pulmonary Embolism Present on Admission: No
--- NOTE | 2021-10-21 15:00 | CM.DANOTE ---
DCP/Assessment: Reviewed chart. Patient is a 51yr old male admitted to [facility] with chest pain. PCP is Dr. Mccray. Primary payor is 1)[facility] 2)Medicaid. Met with patient explained CM/SW role. Patient reports that he plans to d/c home when medically stable. Patient pending stress test. Patient reports that he works for [employer] and is I with all ADL's. Patient resides in old ambulance that he has transformed into living quarters. [place]. Patient's transport is in our [facility] parking lot. P: Anticipate home when stable. At this time there are no identified d/c needs. KJS Discharge Planning/Care Management CM Discharge Assessment Start: 10/21/21 14:58 Freq: Status: Active Protocol: Document 10/21/21 14:58 KJS (Rec: 10/21/21 14:59 KJS [id number]) Discharge Planning Assessment Assigned Dance Therapist JOSE Muñoz Contact Information Nhi Mendiola Advance Directives? No History Provided By Patient,Medical Record Prior Living Arrangements RV Household Members none Type of transporation used prior to Drives own vehicle admit Independent with ADL's Yes Is patient alert and oriented? Yes Caregiver for Another No Barriers to Discharge No Discharge Plan Home Additional Comment Patient currently reports no d /c planning needs. Whiteboard Updated in Patient Room with Yes name and ext. # of Dance Therapist Review Status In Process Next Review Type Continued Stay Review
[2021-10-21] MEDS: PANTOPRAZOLE DR 20 MG TABLET PO (16:21)
[2021-10-21] MEDS: CLOPIDOGREL 75 MG TABLET PO (16:21)
[2021-10-21] MEDS: ATORVASTATIN 20 MG TABLET 40 MG PO (20:21)
[2021-10-21] MEDS: ENOXAPARIN 40 MG/0.4 ML SYRINGE SUBCUT (20:21)
[2021-10-22 05:50] VITALS: BP 127/84; PULSE 63; RESP 16; TEMP 36.5; O2SAT 97
[2021-10-22 07:00] VITALS: BP 104/57; PULSE 65; RESP 20; TEMP 36.3; O2SAT 98
--- NOTE | 2021-10-22 07:53 | PC.NURSE ---
Addendum entered by Arleth Morales R.N. 10/22/21 18:45: Patient discharged earlier, iv taken out and paperwork sent with patient. Addendum entered by Arleth Morales R.N. 10/22/21 13:24: Patient down to stress test around 1230. Tele off and icu is aware. Addendum entered by Arleth Morales R.N. 10/22/21 10:39: Patient had a light breakfast at 0920 and some water. He is now npo due to stress test at 1230. Original Note: Assess- Patient is alert and oriented x4. He denies pain, lung sounds are diminished, he denies chest pain. VSS this morning. Patient is lying on his r.side and waiting for breakfast.
[2021-10-22] MEDS: DIVALPROEX ER 250 MG TAB 1250 MG PO (09:13)
[2021-10-22] MEDS: buPROPion XL 150 MG TAB 300 MG PO (09:13)
[2021-10-22] MEDS: AMLODIPINE 5 MG TABLET PO (09:13)
[2021-10-22] MEDS: ASPIRIN EC 81 MG TABLET PO (09:13)
[2021-10-22] MEDS: ENOXAPARIN 40 MG/0.4 ML SYRINGE SUBCUT (09:14)
[2021-10-22] MEDS: RANOLAZINE 500 MG TAB.ER.12H PO (09:14)
[2021-10-22 11:00] VITALS: BP 141/82; PULSE 68; RESP 21; TEMP 37.2; O2SAT 98
[2021-10-22 15:00] VITALS: BP 139/87; PULSE 65; RESP 20; TEMP 36.3; O2SAT 97
[2021-10-22 15:36] VITALS: BP 143/98; PULSE 67
[2021-10-22] MEDS: NITROGLYCERIN 0.4 MG SL TAB SL (15:36)
[2021-10-22] MEDS: METOPROLOL ER 50 MG TABLET 100 MG PO (15:48)
[2021-10-22] MEDS: CLOPIDOGREL 75 MG TABLET PO (17:12)
[2021-10-22] MEDS: PANTOPRAZOLE DR 20 MG TABLET PO (17:12)
--- NOTE | 2021-10-22 17:24 | PM.DS.1 ---
History of Present Illness History of Present Illness Chief complaint: Chest Pain Narrative: Pete Giraldo: Johnathan Mendiola is a 51-year-old male with a history of coronary artery disease, PCTA and stenting done in 2019, hypertension, hyperlipidemia, and morbid obesity who presented to the emergency department with chest pain.? He did state that it occurs with both rest and exertion which started about 2 days ago intermittently.? He decided to come in today to the emergency department because it became more constant and more intense lasting for over an hour.? Patient has a history of having an AK in 2019 and stated that this did not feel the same way but he was uncomfortable ignoring it.? He states that he did have some sweating but no chills, denies shortness of breath, nausea or vomiting, abdominal pain, dysuria, diarrhea or constipation.? 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 He was transferred to [facility] where they did a angioplasty and placed a stent in his OM.? He did not see a armament mechanic after that but was prescribed metoprolol, aspirin, Plavix, Imdur, and ranolazine of which the latter 3 he has not taken as he ran out of his refills. Chest x-ray ordered in the emergency department did not reveal any acute cardiopulmonary abnormalities.? Today's EKG was not available in the chart.? Temperature was 97.5?, blood pressure 118/72, heart rate 66, respiratory rate 20, oxygen saturation of 100%, he weighs 145 kg with a BMI of 44.6.? CBC is unremarkable as platelet count is 154, coags are within normal limits, chemistry is unremarkable, glucose is elevated at 196, cardiac enzymes within normal limits, proBNP is 109, lipase within normal limits, and COVID-19 PCR is negative. Discharge Providers Provider Date of admission: 10/20/21 20:55 Discharge Date: 10/22/21 Primary care physician: Clement Mccray DO Consults: 10/20/21 21:46 Consult to Cardiology Routine Comment: Consulting Provider: Jeannie Garcia Reason for consultation: chest pain Has provider been notified: Yes 10/21/21 13:11 Consult to Dietitian, Adult Routine Comment: Reason For Exam: new dx diabetes, hx CAD, obesity Discharge provider: Daquan Jean Baptiste MD Summary Hospital Course Discharge Diagnosis: 1. Chest pain 2. Hypertension 3. Type 2 Diabetes 4. Chronic back pain 5. History of CAD s/p stent Hospital Course: Mr. Tran was admitted with chest pain. He was noted to have negative troponins. His EKG showed no acute process. ECHO showed no change and no acute process. Stress test was low risk study. He had run out of plavix and ranolazine which may be the reason he was having chest discomfort. he did have a cardiac cath in [facility] 02/2020 which showed multivessel disease and repeat cath of 03/2020 where he had OM stenosis s/p stenting. His stress test post this showed severe hypokinesis and reversible ischemia. His current stress test is much improved since then. He has also stopped taking his statin and was encouraged to start this. He should see his PCP to consider starting medication for diabetes as his A1c is 6.6. Exam Vital Signs (past 8 hours): - 10/22/21 11:00 10/22/21 15:00 10/22/21 15:36 Temperature 99.0 F 97.4 F L Pulse Rate 68 65 67 Respiratory Rate 21 20 Blood Pressure 141/82 H 139/87 143/98 H Pulse Oximetry 98 97 Oxygen Delivery Method Room Air Oxygen Flow Rate 0 Narrative Exam Narrative: General:? no acute distress PULM: clear bilaterally CV: regular rate and rhythm, no murmurs Objective Labs Result Diagrams: 10/21/21 06:06 10/21/21 06:06 [facility] Medical History Acne ADHD (~1999) Alcohol use disorder, moderate, in sustained remission Allergies (~1978) Angina at rest Anxiety (~1999) Bipolar II disorder Body mass index (BMI) of 40.1-44.9 in adult Body posture problem Carpal tunnel syndrome (~2014) Cervical somatic dysfunction Chest pain Chicken pox (~1975) Chronic thoracic back pain (~1999) Coronary artery disease (~2002) Cramping of feet Depression (~1999) Dyslipidemia Elevated blood sugar level Essential hypertension Exertional shortness of breath Family history of myocardial infarction at age less than 60 GERD (gastroesophageal reflux disease) (~1999) Headache (~2005) History of bipolar disorder (~2014) Hx of angiography Kidney stones (~2016) Left anterior knee pain Migraines (~2009) Neck pain Psoriasis Restless leg syndrome (~2016) Screening for prostate cancer Screening for prostate cancer Segmental and somatic dysfunction of thoracic region Tinnitus (~2015) Upper extremity somatic dysfunction Wears glasses Surgical History Anesthesia H/O left heart catheterization by cutdown History of arthroscopy of both knees (~1988) Lump in the testicle (~2004) Stented coronary artery Family History Mother Myocardial infarct History of heart disease Hypertension Mental health problem Father CAD, multiple vessel Diabetes mellitus History of heart disease Hypertension Hyperlipidemia Grandmother Diabetes mellitus History of heart disease Hypertension Stroke Grandmother Alzheimer's disease Social History household members: none Smoking Status: Never smoker alcohol intake: current Discharge Plan Discharge Plan Patient Disposition: Home Provider Discharge Comment: Mr. Mendiola came in with chest discomfort. He had workup done with a reassuring ECHO and stress test. He was given a prescription for plavix and should follow up closely with cardiology and PCP. Discharge orders & Medications Prescriptions: New ranolazine [Ranexa] 500 mg Tablet Extended Release 12 Hr 500 mg PO BID Qty: 60 0RF Continued divalproex 500 mg tablet extended release 24 hr 1,000 mg PO DAILY Qty: 60 5RF bupropion HCl 300 mg tablet extended release 24 hr 300 mg PO QAM Qty: 90 3RF amlodipine 5 mg tablet 5 mg PO DAILY Qty: 90 3RF Hold Instructions: not taking for the last month, BP okay divalproex 250 mg tablet extended release 24 hr 250 mg PO DAILY MDD 1250 mg Qty: 30 5RF Rx Instructions: To be taken with 500 mg tabs for total daily dose of 1250 mg per day aspirin 81 mg Tablet,Delayed Release (Dr/Ec) 81 mg PO DAILY 0RF Label Comments: didn't start after leaving metoprolol succinate 100 mg tablet extended release 24 hr 100 mg PO QAM 0RF Rx Instructions: TAKE 1 TABLET BY MOUTH DAILY pantoprazole 20 mg tablet,delayed release (DR/EC) 20 mg PO QPM 0RF Rx Instructions: TAKE 1 TABLET BY MOUTH EVERY EVENING clopidogrel 75 mg tablet 75 mg PO QPM Qty: 30 0RF ranolazine 500 mg tablet extended release 12 hr 500 mg PO BID Qty: 60 0RF Follow up/Referrals: Felipa Ng MD [Physician] - (CAD with chronic angina) Clement Mccray DO [Primary Care Provider] - Diet/Activity/Treatments Diet: Regular Discharge Data Primary Care Provider: Clement Mccray Attending Provider: Marcela Giraldo VTE Deep Vein Thrombosis/Pulmonary Embolism Present on Admission: No
== END 2021-10-22 18:00 | disposition home or self-care (01) ==
LOC: ED 20:51 → AC 20:56
PROVIDERS: Admitting Provider Nurse Practitioner Family; Emergency Provider Emergency Medicine; PCP Family Medicine; Referring Provider Emergency Medicine; Visit Provider Nurse Practitioner Family
DX: R07.9 Chest pain, unspecified (principal); E11.9 Type 2 diabetes mellitus without complications; I25.10 Atherosclerotic heart disease of native coronary artery without angina pectoris; I10 Essential (primary) hypertension; E78.5 Hyperlipidemia, unspecified; E66.01 Morbid (severe) obesity due to excess calories; Z68.41 Body mass index [BMI] 40.0-44.9, adult; I25.2 Old myocardial infarction; Z95.818 Presence of other cardiac implants and grafts; G89.29 Other chronic pain; M54.9 Dorsalgia, unspecified; Z20.822 Contact with and (suspected) exposure to COVID-19
CPT/HCPCS: 36415; 71045; 78451; 80048; 80053; 80061; 82550; 83036; 83690; 83735; 83880; 84484; 85025; 85610; 85730; 87635; 93005; 93010; 93017; 93306; 94760; 96372; 96374; 96375; 99284; C9803; G0378; A9502; J1650; J2270; J2405; J2785; Q9957

== ENCOUNTER 2022-01-07 02:03 | Emergency (ER) | payer MEDICARE, SELFPAY ==
[2021-10-20 21:53] VITALS: BMI 44.6
[2022-01-07] VITALS (28 sets, daily range): BP systolic 85–119; BP diastolic 50–78; PULSE 54–73; RESP 9–22; TEMP 36.8; O2SAT 96–100; BMI 43.0
--- NOTE | 2022-01-07 02:10 | DI.RAD.S_ITS ---
PROCEDURE: XR CHEST 1V INDICATIONS: chest pain TECHNIQUE: One view of the chest was acquired. COMPARISON: None. FINDINGS: Surgical changes and devices: None. Lungs and pleura: Lungs are clear. No pleural effusions or pneumothorax. Mediastinum: Mediastinal contours appear normal. Heart size is normal. Bones and chest wall: No suspicious bony lesions. Overlying soft tissues appear unremarkable. IMPRESSION: No acute cardiopulmonary disease process. Dictated by: Kathy Sevilla MD, PhD on 01/07/2022 at 7:32 Approved by: Kathy Sevilla MD, PhD on 01/07/2022 at 7:32
[2022-01-07] MEDS: ASPIRIN 81 MG CHEW TAB 324 MG PO (02:27)
[2022-01-07] MEDS: NITROGLYCERIN 0.4 MG SL TAB SL (02:28)
--- NOTE | 2022-01-07 02:35 | ED.CHESTPAIN ---
HPI - Chest Pain General Chief Complaint: Chest Pain Stated Complaint: chest pain Time Seen by Provider: 01/07/22 02:09 Source: patient Mode of arrival: Ambulatory Limitations: no limitations History of Present Illness HPI narrative: The patient is a 51-year-old male with known coronary artery disease, angina, bipolar, ADHD and stent presents today with chest discomfort. 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 He did get some left arm tingling and numbness as well. It lasted briefly 1-2 minutes. And then returned. He is still having some discomfort but does not describe as heaviness. He was seen and evaluated here at this hospital 10/20/2021. He was admitted for chest pain observation. He had an echo at that time which did not show any change any had a recent stress test which was a low risk study. He previously had run out of his Plavix and ranolazine Related Data Home Medications Medication Instructions Recorded Confirmed aspirin 81 mg tablet,delayed 81 mg PO DAILY 08/17/19 10/20/21 release Previous Rx's Medication Instructions Recorded bupropion HCl 300 mg 24 hr tablet, 300 mg PO QAM #90 tabs 08/07/21 extended release amlodipine 5 mg tablet 5 mg PO DAILY #90 tabs 11/28/21 clopidogrel 75 mg tablet 75 mg PO QPM #90 tabs 11/28/21 divalproex 250 mg tablet,extended 250 mg PO DAILY #90 tabs 11/28/21 release 24 hr divalproex 500 mg tablet,extended 1,000 mg PO DAILY #180 tabs 11/28/21 release 24 hr metoprolol succinate 100 mg 100 mg PO QAM #90 tabs 11/28/21 tablet,extended release 24 hr pantoprazole 20 mg tablet,delayed 20 mg PO QPM #90 tabs 11/28/21 release ranolazine 500 mg tablet,extended 500 mg PO BID #90 tabs 11/28/21 release,12 hr (Ranexa) clopidogrel 75 mg tablet (Plavix) 75 mg PO DAILY #30 tabs 01/07/22 Allergies Allergy/AdvReac Type Severity Reaction Status Date / Time ciprofloxacin [From Cipro] Allergy Severe ITCHING Verified 10/20/21 17:50 Review of Systems Review of Systems Narrative: GENERAL: Denies chills, fatigue, malaise, fever, sweats, travel HEENT: Denies sinus pain, ear pain, sore throat, difficulty swallowing, neck pain RESPIRATORY: Denies dyspnea, cough, wheezing, hemoptysis, sputum. CARDIOVASCULAR: See HPI GASTROINTESTINAL: Denies nausea, vomiting, abdominal pain, diarrhea, constipation, melena. : Denies dysuria, frequency, incontinence, hematuria, urinary retention, flank pain. MUSCULOSKELETAL: Denies weakness, joint pain, or bony pain SKIN: No rash, no erythema, no pruritus NEUROLOGIC: Denies weakness, dizziness, headache, numbness, change in speech, confusion PSYCHIATRIC: No concerning psychosocial issues. 12 point review of systems is negative except for those stated above and HPI Patient History Medical History Acne ADHD (~1999) Alcohol use disorder, moderate, in sustained remission Allergies (~1978) Angina at rest Anxiety (~1999) Bipolar II disorder Body mass index (BMI) of 40.1-44.9 in adult Body posture problem Carpal tunnel syndrome (~2014) Cervical somatic dysfunction Chicken pox (~1975) Chronic thoracic back pain (~1999) Coronary artery disease (~2002) COVID-19 virus infection Cramping of feet Depression (~1999) Dyslipidemia Elevated blood sugar level Essential hypertension Exertional shortness of breath Family history of myocardial infarction at age less than 60 GERD (gastroesophageal reflux disease) (~1999) Headache (~2004) History of bipolar disorder (~2014) Hx of angiography Kidney stones (~2016) Left anterior knee pain Migraines (~2009) Neck pain On valproic acid therapy Psoriasis Restless leg syndrome (~2016) Screening for prostate cancer Screening for prostate cancer Segmental and somatic dysfunction of thoracic region Tinnitus (~2015) Upper extremity somatic dysfunction Wears glasses Surgical History Anesthesia H/O left heart catheterization by cutdown History of arthroscopy of both knees (~1988) Lump in the testicle (~2004) Stented coronary artery Family History Mother Myocardial infarct History of heart disease Hypertension Mental health problem Father CAD, multiple vessel Diabetes mellitus History of heart disease Hypertension Hyperlipidemia Grandmother Diabetes mellitus History of heart disease Hypertension Stroke Grandmother Alzheimer's disease Social History household members: none Smoking Status: Never smoker alcohol intake: current Smoking Status: Never smoker tobacco type: cigars alcohol intake frequency: holidays/special occasions only Alcohol type: beer and hard liquor Substance Use Type: does not use Exam Initial Vital Signs Initial Vital Signs: Vital Signs Temperature 98.3 F 01/07/22 02:10 Pulse Rate 73 01/07/22 02:10 Respiratory Rate 17 01/07/22 02:10 Blood Pressure 119/63 01/07/22 02:10 Pulse Oximetry 100 01/07/22 02:10 Oxygen Delivery Method 01/07/22 02:10 GENERAL: Alert well-appearing 51-year-old male no acute distress HEENT: Head atraumatic,EOMI, pupils reactive, face symmetric, moist mucous membranes CARDIOVASCULAR: Regular rate and rhythm without murmurs, rubs or gallops. RESPIRATORY: Breath sounds equal bilaterally, no wheezes rales or rhonchi. ABDOMEN: Soft, nontender. Normoactive bowel sounds all 4 quadrants. No guarding or rebound. EXTREMITIES: Normal range of motion, no clubbing or edema. Neurovascularly intact NEUROLOGICAL: Alert and oriented x4.Normal gait and speech. SKIN: Warm, dry, no laceration, no petechiae, no rashes or lesions. Course Orders Ordered: ED Orders 01/07/22 EKG-12 Lead Routine 01/07/22 02:07 EKG-12 Lead Stat 01/07/22 02:10 XR chest 1V Stat 01/07/22 02:25 Complete Blood Count AUTO DIFF Stat Comprehensive Metabolic Panel Stat Lipase Stat Troponin & CK Cardiac Panel Stat 01/07/22 04:24 Trop I [Troponin I] Stat Discontinued Medications Aspirin (Aspirin 81 Mg Chew Tab) 324 mg PO NOW ONE Stop: 01/07/22 02:23 Last Admin: 01/07/22 02:27 Dose: 324 mg Documented By: YAYA Ketorolac Tromethamine (Ketorolac 30 Mg/Ml Vial) 15 mg IV NOW ONE Stop: 01/07/22 05:41 Last Admin: 01/07/22 05:50 Dose: 15 mg Documented By: YAYA Nitroglycerin (Nitroglycerin 0.4 Mg Sl Tab) 0.4 mg SL NOW ONE Stop: 01/07/22 02:23 Last Admin: 01/07/22 02:28 Dose: 0.4 mg Documented By: KP Vital Signs Vital signs: Vital Signs - 8 hr 01/07/22 02:10 01/07/22 02:45 01/07/22 02:45 Temperature 98.3 F Pulse Rate 73 63 Respiratory Rate 17 Blood Pressure 119/63 89/53 L Pulse Oximetry 100 97 Oxygen Delivery Method Room Air 01/07/22 02:50 01/07/22 02:50 01/07/22 02:55 Temperature Pulse Rate 60 62 Respiratory Rate 13 Blood Pressure 87/53 L Pulse Oximetry 96 97 Oxygen Delivery Method 01/07/22 02:55 01/07/22 03:00 01/07/22 03:00 Temperature Pulse Rate 64 Respiratory Rate Blood Pressure 95/52 L 94/51 L Pulse Oximetry 99 Oxygen Delivery Method 01/07/22 03:05 01/07/22 03:05 01/07/22 03:10 Temperature Pulse Rate 63 62 Respiratory Rate Blood Pressure 89/54 L Pulse Oximetry 99 99 Oxygen Delivery Method 01/07/22 03:10 01/07/22 03:15 01/07/22 03:15 Temperature Pulse Rate 61 Respiratory Rate Blood Pressure 91/52 L 94/53 L Pulse Oximetry 99 Oxygen Delivery Method 01/07/22 03:20 01/07/22 03:20 01/07/22 03:25 Temperature Pulse Rate 61 59 L Respiratory Rate 14 9 L Blood Pressure 91/55 L Pulse Oximetry 98 99 Oxygen Delivery Method 01/07/22 03:25 01/07/22 03:30 01/07/22 03:30 Temperature Pulse Rate 63 Respiratory Rate 11 L Blood Pressure 85/55 L 89/50 L Pulse Oximetry 99 Oxygen Delivery Method 01/07/22 03:40 01/07/22 03:40 01/07/22 03:50 Temperature Pulse Rate 61 Respiratory Rate 19 Blood Pressure 88/55 L 89/53 L Pulse Oximetry 98 Oxygen Delivery Method 01/07/22 03:50 01/07/22 04:00 01/07/22 04:00 Temperature Pulse Rate 63 63 Respiratory Rate 20 18 Blood Pressure 92/53 L Pulse Oximetry 99 99 Oxygen Delivery Method 01/07/22 04:10 01/07/22 04:10 01/07/22 04:20 Temperature Pulse Rate 61 60 Respiratory Rate 22 Blood Pressure 92/52 L Pulse Oximetry 98 98 Oxygen Delivery Method 01/07/22 04:20 01/07/22 04:30 01/07/22 04:30 Temperature Pulse Rate 59 L Respiratory Rate 22 Blood Pressure 96/50 L 98/53 L Pulse Oximetry 98 Oxygen Delivery Method 01/07/22 04:40 01/07/22 04:40 01/07/22 04:50 Temperature Pulse Rate 59 L 60 Respiratory Rate 20 15 Blood Pressure 99/54 L Pulse Oximetry 98 99 Oxygen Delivery Method 01/07/22 04:50 01/07/22 05:00 01/07/22 05:00 Temperature Pulse Rate 57 L Respiratory Rate 17 Blood Pressure 99/59 L 91/52 L Pulse Oximetry 99 Oxygen Delivery Method 01/07/22 05:10 01/07/22 05:10 01/07/22 05:21 Temperature Pulse Rate 59 L 57 L Respiratory Rate 19 17 Blood Pressure 90/55 L Pulse Oximetry 99 98 Oxygen Delivery Method 01/07/22 05:21 01/07/22 05:30 01/07/22 05:30 Temperature Pulse Rate 54 L Respiratory Rate Blood Pressure 107/58 L 107/63 Pulse Oximetry 99 Oxygen Delivery Method 01/07/22 05:40 01/07/22 05:40 01/07/22 05:50 Temperature Pulse Rate 57 L 58 L Respiratory Rate 22 18 Blood Pressure 107/63 Pulse Oximetry 97 97 Oxygen Delivery Method 01/07/22 05:50 01/07/22 06:00 01/07/22 06:01 Temperature Pulse Rate 58 L Respiratory Rate 21 Blood Pressure 112/66 108/63 Pulse Oximetry 98 Oxygen Delivery Method 01/07/22 06:01 01/07/22 06:30 01/07/22 06:30 Temperature Pulse Rate 57 L 59 L Respiratory Rate 22 17 Blood Pressure 119/78 Pulse Oximetry 98 98 Oxygen Delivery Method MDM - Chest Pain Lab Data Result diagrams: 01/07/22 02:25 01/07/22 02:25 Labs: Lab Results 01/07/22 01/07/22 01/07/22 Range/Units 02:25 02:25 04:24 WBC 6.6 (4.5-11.0) X10^3/uL RBC 4.55 (4.5-5.9) X10^6/uL Hgb 13.7 (13.5-17.5) g/dL Hct 40.9 L (41-53) % MCV 89.8 (80-100) fL MCH 30.2 (26-34) PG MCHC 33.6 (30-36) % RDW 13.9 (11.6-14.8) % Plt Count 162 (150-400) X10^3/uL Neut % (Auto) 63.4 (50-75) % Lymph % (Auto) 26.3 (25-40) % [place] % (Auto) 7.4 (3-14) % Eos % (Auto) 2.2 (2-4) % Baso % (Auto) 0.7 (0-2) % Neut # (Auto) 4200 (9811-4014) /uL Lymph # (Auto) 1700 (8444-9077) /uL [place] # (Auto) 500 (0-900) /uL Eos # (Auto) 100 (0-450) /uL Baso # (Auto) 0 (0-100) /uL Sodium 140 (137-145) mmol/L Potassium 4.4 (3.4-5.1) mmol/L Chloride 106 (98-107) mmol/L Carbon Dioxide 26 (22-32) mmol/L BUN 10 (9-20) mg/dL Creatinine 1.05 (0.66-1.25) mg/dL Estimated GFR > 60 (>60) mL/min BUN/Creatinine Ratio 9.5 (6-22) Glucose 127 H (70-100) mg/dL Calcium 8.4 (8.4-10.2) mg/dL Total Bilirubin 0.5 (0.2-1.3) mg/dL AST 22 (17-59) IU/L ALT 33 (<50) IU/L Alkaline Phosphatase 63 (38-126) U/L Total Creatine Kinase 68 (55-170) U/L CK-MB (CK-2) TNP CK-MB (CK-2) Rel Index TNP Troponin I < 0.012 < 0.012 (0.01-0.034) ng/mL Total Protein 7.2 (6.3-8.2) g/dL Albumin 3.9 (3.5-5.0) g/dL Globulin 3.3 (1.7-4.1) g/dL Albumin/Globulin Ratio 1.2 (1.0-2.8) Lipase 52 (23-300) U/L Imaging Data Chest x-ray: Radiologist's Impression: No acute cardiopulmonary disease ECG Data Interpretation: EKG 1. Normal sinus rhythm rate 70 MT interval 208 QRS [address] changes no T-wave inversions similar to previous EKG 10/20/21 EKG 2. Sinus rhythm rate 57 MT interval 210, QRS 84, QTC [address] changes or T-wave inversions similar to previous MDM Narrative Medical decision making narrative: Patient initially was given aspirin and nitroglycerin. Nitroglycerin dropped his blood pressure significantly it did help his chest discomfort somewhat. He says the left side is better but still having intermittent pain on the right side. It lasts briefly. 2- troponins 2 normal EKGs. His patient has known coronary artery disease however chest pain now seems slightly atypical. [id number]. [facility] cardiology updated patient's symptoms and test results. Patient had is a low risk nuclear stress test 2 months ago and a negative echocardiogram 2 months ago. At this time he states patient can follow-up as an outpatient or be admitted for repeat echo. Discussion of plan and options with patient. Patient was given a dose of Toradol for some right-sided pain which she says really has not helped. He is overall feeling a bit better. He honestly would like to go home is a. I think this is reasonable. Discharge summary reports that he was given refills on Ranexa and instructed him to continue Plavix Patient states he was made underwear he was supposed to continue aspirin or Plavix. Will write him a prescription. Discharge Plan Departure Patient Disposition: Home Clinical Impression: Atypical chest pain Instructions: DI for Atypical Chest Pain Activity Restrictions/Additional Instructions: *You have been diagnosed with atypical chest *What to do: At this time he will need to follow up with her primary care provider and probable referral to Cardiology. It is very important you take your medication as prescribed. *Continue to take medications as directed Plavix 75 mg once a day--> SENT TO [facility] *Follow up with your primary care provider in 2-3 days or call [phone] *Return to ER if you should have decreased the chest pain did, dizziness, lightheadedness, palpitation [or] any new, worsening or concerning symptoms Prescriptions: New clopidogrel [Plavix] 75 mg tablet 75 mg PO DAILY Qty: 30 0RF No Action bupropion HCl 300 mg tablet extended release 24 hr 300 mg PO QAM Qty: 90 3RF amlodipine 5 mg tablet 5 mg PO DAILY Qty: 90 3RF Hold Instructions: not taking for the last month, BP okay clopidogrel 75 mg tablet 75 mg PO QPM Qty: 90 3RF divalproex 500 mg tablet extended release 24 hr 1,000 mg PO DAILY Qty: 180 3RF divalproex 250 mg tablet extended release 24 hr 250 mg PO DAILY MDD 1250 mg Qty: 90 3RF Rx Instructions: To be taken with 500 mg tabs for total daily dose of 1250 mg per day metoprolol succinate 100 mg tablet extended release 24 hr 100 mg PO QAM Qty: 90 3RF Rx Instructions: TAKE 1 TABLET BY MOUTH DAILY pantoprazole 20 mg tablet,delayed release (DR/EC) 20 mg PO QPM Qty: 90 3RF Rx Instructions: TAKE 1 TABLET BY MOUTH EVERY EVENING ranolazine [Ranexa] 500 mg tablet extended release 12 hr 500 mg PO BID Qty: 90 3RF aspirin 81 mg Tablet,Delayed Release (Dr/Ec) 81 mg PO DAILY Label Comments: didn't start after leaving Referrals: Clement Mccray DO [Primary Care Provider] - Visit Report Forms: Patient Portal/API
[2022-01-07 02:42] LABS: Alanine Aminotransferase 33 IU/L (<50); Albumin 3.9 g/dL (3.5-5.0); Albumin Globulin Ratio 1.2 (1.0-2.8); Alkaline Phosphatase 63 U/L (38-126); Aspartate Aminotransferase 22 IU/L (17-59); BUN Creatinine Ratio 9.5 (6-22); Bilirubin Total 0.5 mg/dL (0.2-1.3); Blood Urea Nitrogen 10 mg/dL (9-20); Calcium 8.4 mg/dL (8.4-10.2); Carbon Dioxide 26 mmol/L (22-32); Chloride 106 mmol/L (98-107); Creatine Kinase 68 U/L (55-170); Estimated Glomerular Filt Rate > 60 mL/min (>60); Globulin 3.3 g/dL (1.7-4.1); Glucose 127 mg/dL (70-100); HEMOLYSIS < 15 (0-50); Lipase 52 U/L (23-300); Potassium 4.4 mmol/L (3.4-5.1); Sodium 140 mmol/L (137-145); Total Protein 7.2 g/dL (6.3-8.2)
[2022-01-07 02:43] LABS: Add Manual Diff / Slide Review NO; Basophils Absolute Auto 0 /uL (0-100); Basophils Percent Auto 0.7 % (0-2); Eosinophils Absolute Auto 100 /uL (0-450); Eosinophils Percent Auto 2.2 % (2-4); Hematocrit 40.9 % (41-53); Hemoglobin 13.7 g/dL (13.5-17.5); Lymphocytes Absolute Auto 1700 /uL (1100-4500); Lymphocytes Percent Auto 26.3 % (25-40); Mean Corpuscular HGB Conc 33.6 % (30-36); Mean Corpuscular Hemoglobin 30.2 PG (26-34); Mean Corpuscular Volume 89.8 fL (80-100); Monocytes Absolute Auto 500 /uL (0-900); Monocytes Percent Auto 7.4 % (3-14); Neutrophils Absolute Auto 4200 /uL (1500-7000); Neutrophils Percent Auto 63.4 % (50-75); Platelet Count 162 X10^3/uL (150-400); Red Blood Cell Count 4.55 X10^6/uL (4.5-5.9); Red Cell Distribution Width 13.9 % (11.6-14.8); White Blood Cell Count 6.6 X10^3/uL (4.5-11.0)
[2022-01-07 02:54] LABS: Troponin I < 0.012 ng/mL (0.01-0.034)
[2022-01-07 04:51] LABS: Troponin I < 0.012 ng/mL (0.01-0.034)
[2022-01-07] MEDS: KETOROLAC 30 MG/ML VIAL 15 MG IV (05:50)
== END 2022-01-07 06:57 | disposition home or self-care (01) ==
PROVIDERS: Emergency Provider Emergency Medicine; PCP Family Medicine
DX: R07.89 Other chest pain (principal); Z79.01 Long term (current) use of anticoagulants
CPT/HCPCS: 36415; 71045; 80053; 82550; 83690; 84484; 85025; 93005; 96374; 99284; J1885

== ENCOUNTER 2022-02-10 04:39 | Emergency (ER) | payer MEDICARE, SELFPAY ==
[2021-10-20 21:53] VITALS: BMI 44.6
[2022-02-10] VITALS (39 sets, daily range): BP systolic 101–146; BP diastolic 55–89; PULSE 58–95; RESP 14–26; TEMP 36.2; O2SAT 94–100; BMI 43.4
--- NOTE | 2022-02-10 04:46 | ED.CHESTPAIN ---
HPI - Chest Pain <Jam Arias DO - Last Filed: 02/11/22 01:09> General Chief Complaint: Chest Pain Stated Complaint: CHEST PAIN Time Seen by Provider: 02/10/22 04:49 History of Present Illness HPI narrative: 51-year-old male nonsmoker with history of coronary artery disease and prior stents, hypertension and hyperlipidemia presents with a chief complaint of a relatively sudden onset left-sided chest pain that goes into his shoulder. He states it is sharp and stabbing and without any obvious provocation or palliation. He denies associated symptoms such as dizziness, weakness or lightheadedness. He denies any shortness of breath but has had a few episodes of a sharp and harsh cough. He denies runny nose, sore throat. He is had no nausea or vomiting and denies any diarrhea, constipation or urinary complaints. He has been taking his medications as directed, denies any recent travel. He most recently had an exercise myocardial perfusion study in October which was unremarkable Related Data Home Medications Medication Instructions Recorded Confirmed aspirin 81 mg tablet,delayed 81 mg PO DAILY 08/17/19 10/20/21 release Previous Rx's Medication Instructions Recorded bupropion HCl 300 mg 24 hr tablet, 300 mg PO QAM #90 tabs 08/07/21 extended release amlodipine 5 mg tablet 5 mg PO DAILY #90 tabs 11/28/21 clopidogrel 75 mg tablet 75 mg PO QPM #90 tabs 11/28/21 divalproex 250 mg tablet,extended 250 mg PO DAILY #90 tabs 11/28/21 release 24 hr divalproex 500 mg tablet,extended 1,000 mg PO DAILY #180 tabs 11/28/21 release 24 hr metoprolol succinate 100 mg 100 mg PO QAM #90 tabs 11/28/21 tablet,extended release 24 hr pantoprazole 20 mg tablet,delayed 20 mg PO QPM #90 tabs 11/28/21 release ranolazine 500 mg tablet,extended 500 mg PO BID #90 tabs 11/28/21 release,12 hr (Ranexa) clopidogrel 75 mg tablet (Plavix) 75 mg PO DAILY #30 tabs 01/07/22 Allergies Allergy/AdvReac Type Severity Reaction Status Date / Time ciprofloxacin [From Cipro] Allergy Severe ITCHING Verified 02/10/22 04:55 Review of Systems <Jam Arias DO - Last Filed: 02/11/22 01:09> Review of Systems Narrative: GENERAL: Denies chills, fatigue, malaise, fever, sweats. HEENT: Denies sinus pain, ear pain, sore throat, difficulty swallowing, dizziness. RESPIRATORY: Denies dyspnea, cough, wheezing, hemoptysis, sputum. CARDIOVASCULAR: See HPI GASTROINTESTINAL: Denies nausea, vomiting, abdominal pain, diarrhea, constipation, melena. : Denies dysuria, frequency, incontinence, hematuria, urinary retention. MUSCULOSKELETAL: denies weakness, joint pain, or bony pain SKIN: Denies rash, skin lesions, or other NEUROLOGIC: Denies weakness, headache, numbness, change in speech, confusion, seizures, incoordination. PSYCHIATRIC: No concerning psychosocial issues. 12 point review of systems is negative except for those stated above Patient History <Jam Arias DO - Last Filed: 02/11/22 01:09> Medical History Acne ADHD (~1999) Alcohol use disorder, moderate, in sustained remission Allergies (~1978) Angina at rest Anxiety (~1999) Bipolar II disorder Body mass index (BMI) of 40.1-44.9 in adult Body posture problem Carpal tunnel syndrome (~2014) Cervical somatic dysfunction Chicken pox (~1975) Chronic thoracic back pain (~1999) Coronary artery disease (~2002) COVID-19 virus infection Cramping of feet Depression (~1999) Dyslipidemia Elevated blood sugar level Essential hypertension Exertional shortness of breath Family history of myocardial infarction at age less than 60 GERD (gastroesophageal reflux disease) (~1999) Headache (~2004) History of bipolar disorder (~2014) Hx of angiography Kidney stones (~2016) Left anterior knee pain Migraines (~2009) Neck pain On valproic acid therapy Psoriasis Restless leg syndrome (~2016) Screening for prostate cancer Screening for prostate cancer Segmental and somatic dysfunction of thoracic region Tinnitus (~2015) Upper extremity somatic dysfunction Wears glasses Surgical History Anesthesia H/O left heart catheterization by cutdown History of arthroscopy of both knees (~1988) Lump in the testicle (~2004) Stented coronary artery Family History Mother Myocardial infarct History of heart disease Hypertension Mental health problem Father CAD, multiple vessel Diabetes mellitus History of heart disease Hypertension Hyperlipidemia Grandmother Diabetes mellitus History of heart disease Hypertension Stroke Grandmother Alzheimer's disease Social History household members: none Smoking Status: Never smoker alcohol intake: current Smoking Status: Never smoker tobacco type: cigars alcohol intake frequency: holidays/special occasions only Alcohol type: beer and hard liquor Substance Use Type: does not use Exam <Jam Arias DO - Last Filed: 02/11/22 01:09> Narrative Exam Narrative: GENERAL: [51] year old patient appears stated age. Well-developed patient, in mild distress. HEAD: Atraumatic. Normocephalic. EYES: Pupils equal round and reactive. Extraocular motions intact. No scleral icterus. No injection or drainage. ENT: Nose without bleeding, purulent drainage. Throat without erythema, tonsillar hypertrophy or exudate. Airway patent. NECK: Trachea midline. Non tender CARDIOVASCULAR: Regular rate and rhythm without murmurs, gallops, or rubs. RESPIRATORY: Clear to auscultation. Breath sounds equal bilaterally. No wheezes, rales, or rhonchi. GASTROINTESTINAL: Abdomen soft, non-tender, nondistended. EXTREMITIES: No edema or joint tenderness. BACK: Nontender without deformity or crepitance. No flank tenderness. NEURO: AOx3. SKIN: No rash or erythema of visible areas Initial Vital Signs Initial Vital Signs: Vital Signs Pulse Rate 78 02/10/22 04:48 Pulse Oximetry 99 02/10/22 04:48 <Liseth Chatman DO - Last Filed: 02/10/22 18:23> Initial Vital Signs Initial Vital Signs: Vital Signs Pulse Rate 78 02/10/22 04:48 Pulse Oximetry 99 02/10/22 04:48 Course <Jam Arias DO - Last Filed: 02/11/22 01:09> Orders Ordered: Discontinued Medications Aspirin (Aspirin 81 Mg Chew Tab) 324 mg PO NOW ONE Stop: 02/10/22 05:06 Last Admin: 02/10/22 05:10 Dose: 324 mg Documented By: EB Sodium Chloride (Normal Saline 0.9%) 1,000 mls @ 150 mls/hr IV CONT MRAY Last Infusion: 02/10/22 09:56 Dose: 0 mls/hr Documented By: JULIO CESAR Admin: 02/10/22 05:10 Dose: 150 mls/hr Documented By: TRACY Ketorolac Tromethamine (Ketorolac 30 Mg/Ml Vial) 15 mg IV NOW ONE Stop: 02/10/22 05:34 Last Admin: 02/10/22 05:45 Dose: 15 mg Documented By: MLM Nitroglycerin (Nitroglycerin 0.4 Mg Sl Tab) 0.4 mg SL [id number] PRN PRN Reason: Chest Pain Last Admin: 02/10/22 07:25 Dose: 0.4 mg Documented By: JULIO CESAR Admin: 02/10/22 05:09 Dose: 0.4 mg Documented By: TRACY Vital Signs Vital signs: Vital Signs - 8 hr 02/10/22 04:55 02/10/22 05:09 02/10/22 04:48 Temperature 97.2 F L Pulse Rate 77 80 78 Respiratory Rate 22 Blood Pressure 142/87 H 133/84 Pulse Oximetry 100 99 Oxygen Delivery Method Room Air 02/10/22 04:49 02/10/22 04:49 02/10/22 05:00 Temperature Pulse Rate 77 Respiratory Rate 21 Blood Pressure 142/87 H 133/84 Pulse Oximetry 100 Oxygen Delivery Method 02/10/22 05:00 02/10/22 05:13 02/10/22 05:13 Temperature Pulse Rate 76 95 H Respiratory Rate 26 H 22 Blood Pressure 131/81 Pulse Oximetry 98 96 Oxygen Delivery Method 02/10/22 07:25 02/10/22 05:20 02/10/22 05:20 Temperature Pulse Rate 60 81 Respiratory Rate 21 Blood Pressure 129/77 122/66 Pulse Oximetry 95 Oxygen Delivery Method 02/10/22 05:23 02/10/22 05:23 02/10/22 05:30 Temperature Pulse Rate 80 Respiratory Rate 20 Blood Pressure 113/68 110/69 Pulse Oximetry 95 Oxygen Delivery Method 02/10/22 05:30 02/10/22 05:40 02/10/22 05:40 Temperature Pulse Rate 76 77 Respiratory Rate 22 21 Blood Pressure 107/70 Pulse Oximetry 96 96 Oxygen Delivery Method 02/10/22 05:50 02/10/22 05:50 02/10/22 06:00 Temperature Pulse Rate 67 Respiratory Rate 18 Blood Pressure 126/80 119/76 Pulse Oximetry 98 Oxygen Delivery Method 02/10/22 06:00 02/10/22 06:10 02/10/22 06:10 Temperature Pulse Rate 67 65 Respiratory Rate 17 16 Blood Pressure 120/75 Pulse Oximetry 95 99 Oxygen Delivery Method 02/10/22 06:20 02/10/22 06:20 02/10/22 06:30 Temperature Pulse Rate 69 Respiratory Rate 19 Blood Pressure 120/76 122/72 Pulse Oximetry 99 Oxygen Delivery Method 02/10/22 06:30 02/10/22 06:40 02/10/22 06:40 Temperature Pulse Rate 66 72 Respiratory Rate 18 16 Blood Pressure 121/55 L Pulse Oximetry 100 99 Oxygen Delivery Method 02/10/22 06:51 02/10/22 06:51 02/10/22 07:00 Temperature Pulse Rate 63 Respiratory Rate 17 Blood Pressure 120/65 119/74 Pulse Oximetry 99 Oxygen Delivery Method 02/10/22 07:00 02/10/22 07:11 02/10/22 07:11 Temperature Pulse Rate 63 64 Respiratory Rate 19 18 Blood Pressure 134/61 Pulse Oximetry 98 99 Oxygen Delivery Method 02/10/22 07:21 02/10/22 07:21 02/10/22 07:22 Temperature Pulse Rate 67 Respiratory Rate 14 Blood Pressure 127/77 129/77 Pulse Oximetry 99 Oxygen Delivery Method 02/10/22 07:22 02/10/22 07:30 02/10/22 07:30 Temperature Pulse Rate 67 70 Respiratory Rate 16 22 Blood Pressure 106/69 Pulse Oximetry 100 98 Oxygen Delivery Method 02/10/22 07:31 02/10/22 07:31 02/10/22 07:40 Temperature Pulse Rate 73 Respiratory Rate 21 Blood Pressure 110/67 104/65 Pulse Oximetry 94 Oxygen Delivery Method 02/10/22 07:40 02/10/22 07:50 02/10/22 07:50 Temperature Pulse Rate 64 62 Respiratory Rate 23 20 Blood Pressure 107/65 Pulse Oximetry 95 98 Oxygen Delivery Method 02/10/22 08:00 02/10/22 08:00 02/10/22 08:10 Temperature Pulse Rate 59 L Respiratory Rate 23 Blood Pressure 111/68 112/70 Pulse Oximetry 99 Oxygen Delivery Method 02/10/22 08:10 02/10/22 08:20 02/10/22 08:20 Temperature Pulse Rate 62 61 Respiratory Rate 19 16 Blood Pressure 121/70 Pulse Oximetry 100 99 Oxygen Delivery Method 02/10/22 08:30 02/10/22 08:30 02/10/22 08:40 Temperature Pulse Rate 60 Respiratory Rate 22 Blood Pressure 112/69 115/72 Pulse Oximetry 100 Oxygen Delivery Method 02/10/22 08:40 02/10/22 08:50 02/10/22 09:00 Temperature Pulse Rate 58 L 61 63 Respiratory Rate 17 19 16 Blood Pressure 114/68 101/61 Pulse Oximetry 99 100 100 Oxygen Delivery Method Room Air <Liseth Chatman, - Last Filed: 02/10/22 18:23> Orders Ordered: Discontinued Medications Aspirin (Aspirin 81 Mg Chew Tab) 324 mg PO NOW ONE Stop: 02/10/22 05:06 Last Admin: 02/10/22 05:10 Dose: 324 mg Documented By: TRACY Sodium Chloride (Normal Saline 0.9%) 1,000 mls @ 150 mls/hr IV CONT MARY Last Infusion: 02/10/22 09:56 Dose: 0 mls/hr Documented By: JULIO CESAR Admin: 02/10/22 05:10 Dose: 150 mls/hr Documented By: TRACY Ketorolac Tromethamine (Ketorolac 30 Mg/Ml Vial) 15 mg IV NOW ONE Stop: 02/10/22 05:34 Last Admin: 02/10/22 05:45 Dose: 15 mg Documented By: MLMarielos Nitroglycerin (Nitroglycerin 0.4 Mg Sl Tab) 0.4 mg SL [id number] PRN PRN Reason: Chest Pain Last Admin: 02/10/22 07:25 Dose: 0.4 mg Documented By: JULIO CESAR Admin: 02/10/22 05:09 Dose: 0.4 mg Documented By: TRACY Vital Signs Vital signs: Vital Signs - 8 hr 02/10/22 04:55 02/10/22 05:09 02/10/22 04:48 Temperature 97.2 F L Pulse Rate 77 80 78 Respiratory Rate 22 Blood Pressure 142/87 H 133/84 Pulse Oximetry 100 99 Oxygen Delivery Method Room Air 02/10/22 04:49 02/10/22 04:49 02/10/22 05:00 Temperature Pulse Rate 77 Respiratory Rate 21 Blood Pressure 142/87 H 133/84 Pulse Oximetry 100 Oxygen Delivery Method 02/10/22 05:00 02/10/22 05:13 02/10/22 05:13 Temperature Pulse Rate 76 95 H Respiratory Rate 26 H 22 Blood Pressure 131/81 Pulse Oximetry 98 96 Oxygen Delivery Method 02/10/22 07:25 02/10/22 05:20 02/10/22 05:20 Temperature Pulse Rate 60 81 Respiratory Rate 21 Blood Pressure 129/77 122/66 Pulse Oximetry 95 Oxygen Delivery Method 02/10/22 05:23 02/10/22 05:23 02/10/22 05:30 Temperature Pulse Rate 80 Respiratory Rate 20 Blood Pressure 113/68 110/69 Pulse Oximetry 95 Oxygen Delivery Method 02/10/22 05:30 02/10/22 05:40 02/10/22 05:40 Temperature Pulse Rate 76 77 Respiratory Rate 22 21 Blood Pressure 107/70 Pulse Oximetry 96 96 Oxygen Delivery Method 02/10/22 05:50 02/10/22 05:50 02/10/22 06:00 Temperature Pulse Rate 67 Respiratory Rate 18 Blood Pressure 126/80 119/76 Pulse Oximetry 98 Oxygen Delivery Method 02/10/22 06:00 02/10/22 06:10 02/10/22 06:10 Temperature Pulse Rate 67 65 Respiratory Rate 17 16 Blood Pressure 120/75 Pulse Oximetry 95 99 Oxygen Delivery Method 02/10/22 06:20 02/10/22 06:20 02/10/22 06:30 Temperature Pulse Rate 69 Respiratory Rate 19 Blood Pressure 120/76 122/72 Pulse Oximetry 99 Oxygen Delivery Method 02/10/22 06:30 02/10/22 06:40 02/10/22 06:40 Temperature Pulse Rate 66 72 Respiratory Rate 18 16 Blood Pressure 121/55 L Pulse Oximetry 100 99 Oxygen Delivery Method 02/10/22 06:51 02/10/22 06:51 02/10/22 07:00 Temperature Pulse Rate 63 Respiratory Rate 17 Blood Pressure 120/65 119/74 Pulse Oximetry 99 Oxygen Delivery Method 02/10/22 07:00 02/10/22 07:11 02/10/22 07:11 Temperature Pulse Rate 63 64 Respiratory Rate 19 18 Blood Pressure 134/61 Pulse Oximetry 98 99 Oxygen Delivery Method 02/10/22 07:21 02/10/22 07:21 02/10/22 07:22 Temperature Pulse Rate 67 Respiratory Rate 14 Blood Pressure 127/77 129/77 Pulse Oximetry 99 Oxygen Delivery Method 02/10/22 07:22 02/10/22 07:30 02/10/22 07:30 Temperature Pulse Rate 67 70 Respiratory Rate 16 22 Blood Pressure 106/69 Pulse Oximetry 100 98 Oxygen Delivery Method 02/10/22 07:31 02/10/22 07:31 02/10/22 07:40 Temperature Pulse Rate 73 Respiratory Rate 21 Blood Pressure 110/67 104/65 Pulse Oximetry 94 Oxygen Delivery Method 02/10/22 07:40 02/10/22 07:50 02/10/22 07:50 Temperature Pulse Rate 64 62 Respiratory Rate 23 20 Blood Pressure 107/65 Pulse Oximetry 95 98 Oxygen Delivery Method 02/10/22 08:00 02/10/22 08:00 02/10/22 08:10 Temperature Pulse Rate 59 L Respiratory Rate 23 Blood Pressure 111/68 112/70 Pulse Oximetry 99 Oxygen Delivery Method 02/10/22 08:10 02/10/22 08:20 02/10/22 08:20 Temperature Pulse Rate 62 61 Respiratory Rate 19 16 Blood Pressure 121/70 Pulse Oximetry 100 99 Oxygen Delivery Method 02/10/22 08:30 02/10/22 08:30 02/10/22 08:40 Temperature Pulse Rate 60 Respiratory Rate 22 Blood Pressure 112/69 115/72 Pulse Oximetry 100 Oxygen Delivery Method 02/10/22 08:40 02/10/22 08:50 02/10/22 09:00 Temperature Pulse Rate 58 L 61 63 Respiratory Rate 17 19 16 Blood Pressure 114/68 101/61 Pulse Oximetry 99 100 100 Oxygen Delivery Method Room Air MDM - Chest Pain <Jam Arias, DO - Last Filed: 02/11/22 01:09> Lab Data Result diagrams: 02/10/22 04:50 02/10/22 04:50 Labs: Lab Results 02/10/22 02/10/22 02/10/22 Range/Units 04:50 04:50 04:50 WBC 5.8 (4.5-11.0) X10^3/uL RBC 4.64 (4.5-5.9) X10^6/uL Hgb 14.1 (13.5-17.5) g/dL Hct 41.1 (41-53) % MCV 88.6 (80-100) fL MCH 30.4 (26-34) PG MCHC 34.3 (30-36) % RDW 13.5 (11.6-14.8) % Plt Count 161 (150-400) X10^3/uL Neut % (Auto) 58.4 (50-75) % Lymph % (Auto) 30.5 (25-40) % [place] % (Auto) 7.8 (3-14) % Eos % (Auto) 2.4 (2-4) % Baso % (Auto) 0.9 (0-2) % Neut # (Auto) 3400 (3500-9343) /uL Lymph # (Auto) 1800 (2483-4159) /uL [place] # (Auto) 500 (0-900) /uL Eos # (Auto) 100 (0-450) /uL Baso # (Auto) 100 (0-100) /uL ESR 15 (0-15) MM/HR PT 10.8 (10.1-12.7) SECONDS INR 1.0 (0.9-1.3) D-Dimer < 200 (<230) ng/mL Sodium 137 (137-145) mmol/L Potassium 3.9 (3.4-5.1) mmol/L Chloride 103 (98-107) mmol/L Carbon Dioxide 28 (22-32) mmol/L BUN 11 (9-20) mg/dL Creatinine 0.99 (0.66-1.25) mg/dL Estimated GFR > 60 (>60) mL/min BUN/Creatinine Ratio 11.1 (6-22) Glucose 242 H (70-100) mg/dL Calcium 8.6 (8.4-10.2) mg/dL Total Bilirubin 0.5 (0.2-1.3) mg/dL AST 22 (17-59) IU/L ALT 27 (<50) IU/L Alkaline Phosphatase 67 (38-126) U/L Total Creatine Kinase 57 (55-170) U/L CK-MB (CK-2) TNP CK-MB (CK-2) Rel Index TNP Troponin I < 0.012 (0.01-0.034) ng/mL C-Reactive Protein 0.9 (<1.0) mg/dL NT-Pro-B Natriuret Pep 28 (<125) pg/mL Total Protein 7.2 (6.3-8.2) g/dL Albumin 4.0 (3.5-5.0) g/dL Globulin 3.2 (1.7-4.1) g/dL Albumin/Globulin Ratio 1.3 (1.0-2.8) Lipase 87 (23-300) U/L Procalcitonin 0.06 (<0.5) ng/mL SARS-CoV-2 (PCR) (Negative) 02/10/22 02/10/22 Range/Units 05:07 07:45 WBC (4.5-11.0) X10^3/uL RBC (4.5-5.9) X10^6/uL Hgb (13.5-17.5) g/dL Hct (41-53) % MCV (80-100) fL MCH (26-34) PG MCHC (30-36) % RDW (11.6-14.8) % Plt Count (150-400) X10^3/uL Neut % (Auto) (50-75) % Lymph % (Auto) (25-40) % [place] % (Auto) (3-14) % Eos % (Auto) (2-4) % Baso % (Auto) (0-2) % Neut # (Auto) (6529-2637) /uL Lymph # (Auto) (0784-7001) /uL [place] # (Auto) (0-900) /uL Eos # (Auto) (0-450) /uL Baso # (Auto) (0-100) /uL ESR (0-15) MM/HR PT (10.1-12.7) SECONDS INR (0.9-1.3) D-Dimer (<230) ng/mL Sodium (137-145) mmol/L Potassium (3.4-5.1) mmol/L Chloride (98-107) mmol/L Carbon Dioxide (22-32) mmol/L BUN (9-20) mg/dL Creatinine (0.66-1.25) mg/dL Estimated GFR (>60) mL/min BUN/Creatinine Ratio (6-22) Glucose (70-100) mg/dL Calcium (8.4-10.2) mg/dL Total Bilirubin (0.2-1.3) mg/dL AST (17-59) IU/L ALT (<50) IU/L Alkaline Phosphatase (38-126) U/L Total Creatine Kinase 52 L (55-170) U/L CK-MB (CK-2) TNP CK-MB (CK-2) Rel Index TNP Troponin I < 0.012 (0.01-0.034) ng/mL C-Reactive Protein (<1.0) mg/dL NT-Pro-B Natriuret Pep (<125) pg/mL Total Protein (6.3-8.2) g/dL Albumin (3.5-5.0) g/dL Globulin (1.7-4.1) g/dL Albumin/Globulin Ratio (1.0-2.8) Lipase (23-300) U/L Procalcitonin (<0.5) ng/mL SARS-CoV-2 (PCR) Negative (Negative) <Liseth Chatman, DO - Last Filed: 02/10/22 18:23> Lab Data Labs: Lab Results 02/10/22 02/10/22 02/10/22 Range/Units 04:50 04:50 04:50 WBC 5.8 (4.5-11.0) X10^3/uL RBC 4.64 (4.5-5.9) X10^6/uL Hgb 14.1 (13.5-17.5) g/dL Hct 41.1 (41-53) % MCV 88.6 (80-100) fL MCH 30.4 (26-34) PG MCHC 34.3 (30-36) % RDW 13.5 (11.6-14.8) % Plt Count 161 (150-400) X10^3/uL Neut % (Auto) 58.4 (50-75) % Lymph % (Auto) 30.5 (25-40) % [place] % (Auto) 7.8 (3-14) % Eos % (Auto) 2.4 (2-4) % Baso % (Auto) 0.9 (0-2) % Neut # (Auto) 3400 (7872-6731) /uL Lymph # (Auto) 1800 (6779-0159) /uL [place] # (Auto) 500 (0-900) /uL Eos # (Auto) 100 (0-450) /uL Baso # (Auto) 100 (0-100) /uL ESR 15 (0-15) MM/HR PT 10.8 (10.1-12.7) SECONDS INR 1.0 (0.9-1.3) D-Dimer < 200 (<230) ng/mL Sodium 137 (137-145) mmol/L Potassium 3.9 (3.4-5.1) mmol/L Chloride 103 (98-107) mmol/L Carbon Dioxide 28 (22-32) mmol/L BUN 11 (9-20) mg/dL Creatinine 0.99 (0.66-1.25) mg/dL Estimated GFR > 60 (>60) mL/min BUN/Creatinine Ratio 11.1 (6-22) Glucose 242 H (70-100) mg/dL Calcium 8.6 (8.4-10.2) mg/dL Total Bilirubin 0.5 (0.2-1.3) mg/dL AST 22 (17-59) IU/L ALT 27 (<50) IU/L Alkaline Phosphatase 67 (38-126) U/L Total Creatine Kinase 57 (55-170) U/L CK-MB (CK-2) TNP CK-MB (CK-2) Rel Index TNP Troponin I < 0.012 (0.01-0.034) ng/mL C-Reactive Protein 0.9 (<1.0) mg/dL NT-Pro-B Natriuret Pep 28 (<125) pg/mL Total Protein 7.2 (6.3-8.2) g/dL Albumin 4.0 (3.5-5.0) g/dL Globulin 3.2 (1.7-4.1) g/dL Albumin/Globulin Ratio 1.3 (1.0-2.8) Lipase 87 (23-300) U/L Procalcitonin 0.06 (<0.5) ng/mL SARS-CoV-2 (PCR) (Negative) 02/10/22 02/10/22 Range/Units 05:07 07:45 WBC (4.5-11.0) X10^3/uL RBC (4.5-5.9) X10^6/uL Hgb (13.5-17.5) g/dL Hct (41-53) % MCV (80-100) fL MCH (26-34) PG MCHC (30-36) % RDW (11.6-14.8) % Plt Count (150-400) X10^3/uL Neut % (Auto) (50-75) % Lymph % (Auto) (25-40) % [place] % (Auto) (3-14) % Eos % (Auto) (2-4) % Baso % (Auto) (0-2) % Neut # (Auto) (9529-6933) /uL Lymph # (Auto) (6449-3975) /uL [place] # (Auto) (0-900) /uL Eos # (Auto) (0-450) /uL Baso # (Auto) (0-100) /uL ESR (0-15) MM/HR PT (10.1-12.7) SECONDS INR (0.9-1.3) D-Dimer (<230) ng/mL Sodium (137-145) mmol/L Potassium (3.4-5.1) mmol/L Chloride (98-107) mmol/L Carbon Dioxide (22-32) mmol/L BUN (9-20) mg/dL Creatinine (0.66-1.25) mg/dL Estimated GFR (>60) mL/min BUN/Creatinine Ratio (6-22) Glucose (70-100) mg/dL Calcium (8.4-10.2) mg/dL Total Bilirubin (0.2-1.3) mg/dL AST (17-59) IU/L ALT (<50) IU/L Alkaline Phosphatase (38-126) U/L Total Creatine Kinase 52 L (55-170) U/L CK-MB (CK-2) TNP CK-MB (CK-2) Rel Index TNP Troponin I < 0.012 (0.01-0.034) ng/mL C-Reactive Protein (<1.0) mg/dL NT-Pro-B Natriuret Pep (<125) pg/mL Total Protein (6.3-8.2) g/dL Albumin (3.5-5.0) g/dL Globulin (1.7-4.1) g/dL Albumin/Globulin Ratio (1.0-2.8) Lipase (23-300) U/L Procalcitonin (<0.5) ng/mL SARS-CoV-2 (PCR) Negative (Negative) ECG Data Interpretation: EKG 1. Normal sinus rhythm a rate 76 TX interval 218 QRS 84 QTC 425 T-wave inversion noted in V2 only no ST changes very similar to previous EKG 01/07/2022 EKG 2. Sinus rhythm rate 61 no changes MDM Narrative Medical decision making narrative: Patient signed out to me by Dr. Arias. I have seen and evaluated patient myself. He has a history of coronary artery disease. He has been seen here few times with atypical chest pain. Last stress test was October. Last seen again in his December. At that time cardiology was contacted who stated he could have repeat echo however patient elected to go home. He returns again with chest discomfort which started at rest. He has had 2 episodes 1 at work while sitting down as he he had another 1 in the ED he received nitroglycerin both times it did seem to help. He describes it is sort of sharp sharp on the left side and has some jaw discomfort as well. He says he has also had some increasing shortness of breath with exertion at times. 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 He states that he has been compliant with his medications and accidentally even took 2 Plavix yesterday. Initial troponin negative normal 1st EKG. Repeat EKG and troponin are negative 914 Dr. Francisco cardiology, states patient needs to be sure he is taking his Ranexa twice a day as he is supposed to. May consider adding isosorbide 30 mg once daily. Strongly encourage is patient to follow-up for outpatient heart catheterization. He previously had an appointment in 2019 but never followed up. Heart catheterization nose from 2019 from [facility] are scanned into chart, diffuse small-vessel disease no severe stenosis, mid marginal vessel did have visually 75-80% angiographically significant stenosis but on a tortuous vessel not favorable for PCI Patient states he is not taking his Ranexa twice daily he is only taking it once a day as he frequently forgets. At this time hand I discussed active adding isosorbide or Jeanie out the Ranexa. Decided to max out the Ranexa he decided he would set an alarm to do so. I encouraged him to follow-up with for heart catheterization. He has 2- troponins and normal EKGs. Had a normal stress test in October this time no indication for repeat nuclear stress test or admission Discharge Plan Departure Patient Disposition: Home Clinical Impression: Chest pain Instructions: DI for Angina Activity Restrictions/Additional Instructions: *You have been diagnosed with chest pain *What to do: You must follow-up with cardiology to have a repeat heart catheterization. Call their office tomorrow to schedule an appointment. If you should need a referral please talk with her PCP tomorrow as well *Continue to take medications as directed Ranexa 500 mg twice a day as prescribed *Follow up with your primary care provider in 2-3 days or call [phone] Call Cardiology tomorrow Call PCP tomorrow *Return to ER if you should have increasing chest pain shortness of breath or any new, worsening or concerning symptoms Prescriptions: No Action bupropion HCl 300 mg tablet extended release 24 hr 300 mg PO QAM Qty: 90 3RF amlodipine 5 mg tablet 5 mg PO DAILY Qty: 90 3RF Hold Instructions: not taking for the last month, BP okay clopidogrel 75 mg tablet 75 mg PO QPM Qty: 90 3RF divalproex 500 mg tablet extended release 24 hr 1,000 mg PO DAILY Qty: 180 3RF divalproex 250 mg tablet extended release 24 hr 250 mg PO DAILY MDD 1250 mg Qty: 90 3RF Rx Instructions: To be taken with 500 mg tabs for total daily dose of 1250 mg per day metoprolol succinate 100 mg tablet extended release 24 hr 100 mg PO QAM Qty: 90 3RF Rx Instructions: TAKE 1 TABLET BY MOUTH DAILY pantoprazole 20 mg tablet,delayed release (DR/EC) 20 mg PO QPM Qty: 90 3RF Rx Instructions: TAKE 1 TABLET BY MOUTH EVERY EVENING ranolazine [Ranexa] 500 mg tablet extended release 12 hr 500 mg PO BID Qty: 90 3RF aspirin 81 mg Tablet,Delayed Release (Dr/Ec) 81 mg PO DAILY Label Comments: didn't start after leaving clopidogrel [Plavix] 75 mg tablet 75 mg PO DAILY Qty: 30 0RF Referrals: Jeannie Garcia DO [Physician] - Felipa Ng MD [Physician] - Selena García MD [Physician] - Clement Mccray DO [Primary Care Provider] - Visit Report Forms: Patient Portal/API
--- NOTE | 2022-02-10 04:47 | DI.RAD.S_ITS ---
PROCEDURE: XR CHEST 1V INDICATIONS: chest pain TECHNIQUE: One view of the chest was acquired. COMPARISON: [facility], CR, XR CHEST 1V, 01/07/2022, 2:35. [facility], CR, XR CHEST 1V, 10/20/2021, 17:57. [facility], CR, XR CHEST 1 VIEW, 11/19/2021, 2:15. FINDINGS: Surgical changes and devices: None. Lungs and pleura: Lungs are clear. No pleural effusions or pneumothorax. Mediastinum: Mediastinal contours appear normal. Heart size is normal. Bones and chest wall: No suspicious bony lesions. Overlying soft tissues appear unremarkable. IMPRESSION: Portable chest within normal limits. Note: No significant discrepancy from the preliminary report. Dictated by: David Mcgrath M.D. on 02/10/2022 at 8:10 Approved by: David Mcgrath M.D. on 02/10/2022 at 8:11
[2022-02-10 04:59] LABS: Add Manual Diff / Slide Review NO; Basophils Absolute Auto 100 /uL (0-100); Basophils Percent Auto 0.9 % (0-2); Eosinophils Absolute Auto 100 /uL (0-450); Eosinophils Percent Auto 2.4 % (2-4); Hematocrit 41.1 % (41-53); Hemoglobin 14.1 g/dL (13.5-17.5); Lymphocytes Absolute Auto 1800 /uL (1100-4500); Lymphocytes Percent Auto 30.5 % (25-40); Mean Corpuscular HGB Conc 34.3 % (30-36); Mean Corpuscular Hemoglobin 30.4 PG (26-34); Mean Corpuscular Volume 88.6 fL (80-100); Monocytes Absolute Auto 500 /uL (0-900); Monocytes Percent Auto 7.8 % (3-14); Neutrophils Absolute Auto 3400 /uL (1500-7000); Neutrophils Percent Auto 58.4 % (50-75); Platelet Count 161 X10^3/uL (150-400); Red Blood Cell Count 4.64 X10^6/uL (4.5-5.9); Red Cell Distribution Width 13.5 % (11.6-14.8); White Blood Cell Count 5.8 X10^3/uL (4.5-11.0)
[2022-02-10 05:04] LABS: Prothrombin Time 10.8 SECONDS (10.1-12.7)
[2022-02-10] MEDS: NITROGLYCERIN 0.4 MG SL TAB SL ×2 (05:09→07:25)
[2022-02-10] MEDS: SODIUM CHLORIDE 0.9% 1,000 ML 150 ML IV (05:10)
[2022-02-10] MEDS: ASPIRIN 81 MG CHEW TAB 324 MG PO (05:10)
[2022-02-10 05:11] LABS: Alanine Aminotransferase 27 IU/L (<50); Albumin Globulin Ratio 1.3 (1.0-2.8); Alkaline Phosphatase 67 U/L (38-126); Aspartate Aminotransferase 22 IU/L (17-59); BUN Creatinine Ratio 11.1 (6-22); Bilirubin Total 0.5 mg/dL (0.2-1.3); Blood Urea Nitrogen 11 mg/dL (9-20); C-Reactive Protein Quant 0.9 mg/dL (<1.0); Calcium 8.6 mg/dL (8.4-10.2); Carbon Dioxide 28 mmol/L (22-32); Chloride 103 mmol/L (98-107); Creatine Kinase 57 U/L (55-170); Estimated Glomerular Filt Rate > 60 mL/min (>60); Globulin 3.2 g/dL (1.7-4.1); Glucose 242 mg/dL (70-100); HEMOLYSIS < 15 (0-50); Lipase 87 U/L (23-300); Potassium 3.9 mmol/L (3.4-5.1); Sodium 137 mmol/L (137-145); Total Protein 7.2 g/dL (6.3-8.2)
[2022-02-10 05:16] LABS: D Dimer < 200 ng/mL (<230)
[2022-02-10 05:20] LABS: Erythrocyte Sedimentation Rate 15 MM/HR (0-15)
[2022-02-10 05:21] LABS: NT-proBNP (BNP-Adult 18+) 28 pg/mL (<125); Troponin I < 0.012 ng/mL (0.01-0.034)
[2022-02-10 05:25] LABS: Procalcitonin 0.06 ng/mL (<0.5)
[2022-02-10 05:28] LABS: COVID19 -Nasal RAPID Negative (Negative)
--- NOTE | 2022-02-10 05:29 | PC.NURSE ---
Pt reports pain decreased from a 5/10 to a 1/10 currently after one dose of nitro. Pt BP dropped from 138 systolic to 113 systolic after 10 minutes. Holding off on second dose of nitro at this time. Provider aware.
[2022-02-10] MEDS: KETOROLAC 30 MG/ML VIAL 15 MG IV (05:45)
--- NOTE | 2022-02-10 07:26 | PC.NURSE ---
2nd nitro, experiencing CP 4/10, jaw pain and nausea. Physician advised. 129/77 60HR 100% O2 AOx4
--- NOTE | 2022-02-10 07:36 | PC.NURSE ---
Pt reports pain decreased from a 4/10 to a 1/10 after second dose of nitro. Pt BP dropped from 129 systolic to 110 systolic after 10 minutes. Provider aware.
[2022-02-10 08:12] LABS: Creatine Kinase 52 U/L (55-170)
[2022-02-10 08:24] LABS: Troponin I < 0.012 ng/mL (0.01-0.034)
== END 2022-02-10 10:07 | disposition home or self-care (01) ==
PROVIDERS: Emergency Medicine; Emergency Provider Emergency Medicine; PCP Family Medicine
DX: R07.9 Chest pain, unspecified (principal); I25.10 Atherosclerotic heart disease of native coronary artery without angina pectoris; Z20.822 Contact with and (suspected) exposure to COVID-19
CPT/HCPCS: 36415; 71045; 80053; 82550; 83690; 83880; 84145; 84484; 85025; 85379; 85610; 85651; 86140; 87635; 93005; 96361; 96374; 99284; C9803; J1885

== ENCOUNTER → 2022-03-01 08:54 | Outpatient (CLI) | payer SELFPAY ==
[2021-10-20 21:53] VITALS: BMI 44.6
== END ==
PROVIDERS: PCP Family Medicine
DX: Z02.1 Encounter for pre-employment examination (principal)
CPT/HCPCS: 36415; 86480

== ENCOUNTER 2022-03-09 21:29 | Emergency (ER) | payer MEDICARE, SELFPAY ==
[2021-10-20 21:53] VITALS: BMI 44.6
[2022-03-09] VITALS (10 sets, daily range): BP systolic 111–140; BP diastolic 63–81; PULSE 60–68; RESP 13–23; TEMP 36.5; O2SAT 96–99; BMI 43.9
--- NOTE | 2022-03-09 21:39 | DI.RAD.S_ITS ---
PROCEDURE: XR CHEST 1V INDICATIONS: chest pain TECHNIQUE: One view of the chest was acquired. COMPARISON: [facility], CR, XR CHEST 1 VIEW, 11/19/2021, 2:15. [facility], CR, XR CHEST 1V, 01/07/2022, 2:35. [facility], CR, XR CHEST 1V, 02/10/2022, 4:59. FINDINGS: Surgical changes and devices: None. Lungs and pleura: Lungs are clear. No pleural effusions or pneumothorax. Mediastinum: Mediastinal contours appear normal. Heart size is normal. Bones and chest wall: No suspicious bony lesions. Age-appropriate bony degenerative changes are seen. Overlying soft tissues appear unremarkable. IMPRESSION: Unremarkable portable chest for age. Dictated by: David Mcgrath M.D. on 03/09/2022 at 21:06 Approved by: David Mcgrath M.D. on 03/09/2022 at 21:07
[2022-03-09 22:00] LABS: Add Manual Diff / Slide Review NO; Basophils Absolute Auto 0 /uL (0-100); Basophils Percent Auto 0.5 % (0-2); Eosinophils Absolute Auto 100 /uL (0-450); Eosinophils Percent Auto 1.8 % (2-4); Hematocrit 40.8 % (41-53); Hemoglobin 14.1 g/dL (13.5-17.5); Lymphocytes Absolute Auto 1600 /uL (1100-4500); Lymphocytes Percent Auto 21.6 % (25-40); Mean Corpuscular HGB Conc 34.5 % (30-36); Mean Corpuscular Hemoglobin 30.9 PG (26-34); Mean Corpuscular Volume 89.5 fL (80-100); Monocytes Absolute Auto 600 /uL (0-900); Monocytes Percent Auto 8.3 % (3-14); Neutrophils Absolute Auto 5000 /uL (1500-7000); Neutrophils Percent Auto 67.8 % (50-75); Platelet Count 174 X10^3/uL (150-400); Red Blood Cell Count 4.56 X10^6/uL (4.5-5.9); Red Cell Distribution Width 13.6 % (11.6-14.8); White Blood Cell Count 7.4 X10^3/uL (4.5-11.0)
[2022-03-09 22:10] LABS: Alanine Aminotransferase 23 IU/L (<50); Albumin 3.9 g/dL (3.5-5.0); Albumin Globulin Ratio 1.2 (1.0-2.8); Alkaline Phosphatase 62 U/L (38-126); Aspartate Aminotransferase 18 IU/L (17-59); BUN Creatinine Ratio 8.3 (6-22); Bilirubin Total 0.6 mg/dL (0.2-1.3); Blood Urea Nitrogen 8 mg/dL (9-20); Calcium 8.5 mg/dL (8.4-10.2); Carbon Dioxide 25 mmol/L (22-32); Chloride 105 mmol/L (98-107); Creatine Kinase 53 U/L (55-170); Estimated Glomerular Filt Rate > 60 mL/min (>60); Globulin 3.2 g/dL (1.7-4.1); Glucose 150 mg/dL (70-100); HEMOLYSIS 16 (0-50); Lipase 56 U/L (23-300); Magnesium 2.1 mg/dL (1.6-2.3); Potassium 4.3 mmol/L (3.4-5.1); Sodium 138 mmol/L (137-145); Total Protein 7.1 g/dL (6.3-8.2)
--- NOTE | 2022-03-09 22:19 | ED_ITS ---
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 He had a myocardial infarction and stent placement sometime ago. He does not have diabetes but does take clopidogrel and medication for blood pressure. He does not smoke cigarettes. He had a negative stress test by his report earlier this spring. For the past few weeks he has been having exertional angina and now for the past 2 days the chest pain has been constant. It is present to 1 degree another constantly these past 48 hours. He does notice exertional dyspnea associated with the symptoms. Tonight while at work here at the hospital, he was walking up the ambulance ramp and felt extremely short of breath and decided he had better check into the hosp ital. He has not been sick in any other way with cough or shortness of breath or fever or GI symptoms. Related Data Home Medications Medication Instructions Recorded Confirmed aspirin 81 mg tablet,delayed 81 mg PO DAILY 08/17/19 10/20/21 release Previous Rx's Medication Instructions Recorded bupropion HCl 300 mg 24 hr tablet, 300 mg PO QAM #90 tabs 08/07/21 extended release amlodipine 5 mg tablet 5 mg PO DAILY #90 tabs 11/28/21 clopidogrel 75 mg tablet 75 mg PO QPM #90 tabs 11/28/21 divalproex 250 mg tablet,extended 250 mg PO DAILY #90 tabs 11/28/21 release 24 hr divalproex 500 mg tablet,extended 1,000 mg PO DAILY #180 tabs 11/28/21 release 24 hr metoprolol succinate 100 mg 100 mg PO QAM #90 tabs 11/28/21 tablet,extended release 24 hr pantoprazole 20 mg tablet,delayed 20 mg PO QPM #90 tabs 11/28/21 release ranolazine 500 mg tablet,extended 500 mg PO BID #90 tabs 11/28/21 release,12 hr (Ranexa) clopidogrel 75 mg tablet (Plavix) 75 mg PO DAILY #30 tabs 01/07/22 Allergies Allergy/AdvReac Type Severity Reaction Status Date / Time ciprofloxacin [From Cipro] Allergy Severe ITCHING Verified 02/10/22 04:55 Review of Systems Review of Systems Narrative: Complete review of systems is negative other than as noted above. Patient History Medical History Acne ADHD (~1999) Alcohol use disorder, moderate, in sustained remission Allergies (~1978) Angina at rest Anxiety (~1999) Bipolar II disorder Body mass index (BMI) of 40.1-44.9 in adult Body posture problem Carpal tunnel syndrome (~2014) Cervical somatic dysfunction Chicken pox (~1975) Chronic thoracic back pain (~1999) Coronary artery disease (~2002) COVID-19 virus infection Cramping of feet Depression (~1999) Dyslipidemia Elevated blood sugar level Essential hypertension Exertional shortness of breath Family history of myocardial infarction at age less than 60 GERD (gastroesophageal reflux disease) (~1999) Headache (~2004) History of bipolar disorder (~2014) Hx of angiography Kidney stones (~2016) Left anterior knee pain Migraines (~2009) Neck pain On valproic acid therapy Psoriasis Restless leg syndrome (~2016) Screening for prostate cancer Screening for prostate cancer Segmental and somatic dysfunction of thoracic region Tinnitus (~2015) Upper extremity somatic dysfunction Wears glasses Surgical History Anesthesia H/O left heart catheterization by cutdown History of arthroscopy of both knees (~1988) Lump in the testicle (~2004) Stented coronary artery Family History Mother Myocardial infarct History of heart disease Hypertension Mental health problem Father CAD, multiple vessel Diabetes mellitus History of heart disease Hypertension Hyperlipidemia Grandmother Diabetes mellitus History of heart disease Hypertension Stroke Grandmother Alzheimer's disease Social History household members: none Smoking Status: Never smoker alcohol intake: current Smoking Status: Never smoker tobacco type: cigars alcohol intake frequency: holidays/special occasions only Alcohol type: beer and hard liquor Substance Use Type: does not use Exam Narrative Exam Narrative: GENERAL: Alert, cooperative and in no distress. HEAD: Atraumatic. Normocephalic. EYES: Sclera are clear without icterus. Extraocular movements are full. ENT: No rhinorrhea. Oropharynx is moist. Mouth exam is benign. NECK: Supple. Full range of motion. CARDIOVASCULAR: Normal rate and rhythm without murmur gallop or rub. RESPIRATORY: Clear to auscultation. Breath sounds equal bilaterally. No wheezes, rales, or rhonchi. GASTROINTESTINAL: Abdomen soft, non-tender, nondistended. EXTREMITIES: No edema, full range of motion. No obvious trauma. BACK: Normal inspection, no CVA tenderness. NEURO: Nonfocal examination, normal speech, normal gait. SKIN: No rash or erythema of visible areas PSYCH: Normally oriented. Normal range of affect. Appropriate behavior Initial Vital Signs Initial Vital Signs: Vital Signs Temperature 97.7 F 03/09/22 21:39 Pulse Rate 63 03/09/22 21:39 Respiratory Rate 18 03/09/22 21:39 Blood Pressure 116/76 03/09/22 21:39 Pulse Oximetry 97 03/09/22 21:39 Oxygen Delivery Method 03/09/22 21:39 Course Orders Ordered: ED Orders 03/09/22 21:39 XR chest 1V Stat EKG-12 Lead Stat 03/09/22 21:49 Complete Blood Count AUTO DIFF Stat Comprehensive Metabolic Panel Stat Lipase Stat Magnesium Stat PTT [Partial Thromboplastin Time] Stat Troponin & CK Cardiac Panel Stat 03/09/22 22:58 COVID19 -Nasal RAPID/Pre-Proc Stat 03/10/22 05:00 PTT [Partial Thromboplastin Time] Stat Heparin Sodium/Dextrose (Heparin Drip) 25,000 unit in 500 mls @ 20 mls/hr IV CONT MARY; Protocol Discontinued Medications Aspirin (Aspirin 81 Mg Chew Tab) 324 mg PO NOW ONE Stop: 03/09/22 22:34 Last Admin: 03/09/22 22:43 Dose: 324 mg Documented By: TORIN Heparin Sodium (Porcine) (Heparin 5,000 Unit/Ml Vial) 5,000 unit IV NOW ONE Stop: 03/09/22 23:02 Last Admin: 03/09/22 22:55 Dose: 5,000 unit Documented By: TORIN Heparin Sodium/Dextrose (Heparin Drip) 25,000 unit in 500 mls @ 34.292 mls/hr IV CONT MARY; Protocol Last Admin: 03/09/22 22:55 Dose: 7 units/kg/hr, 20 mls/hr Documented By: TORIN Morphine Sulfate (Morphine 2 Mg/Ml Inj) 2 mg IV NOW ONE Stop: 03/09/22 22:34 Last Admin: 03/09/22 22:44 Dose: 2 mg Documented By: TORIN Nitroglycerin (Nitroglycerin Oint 1 Inch/Gm Oint...G.) 0.5 inch TOP NOW ONE Stop: 03/09/22 22:34 Last Admin: 03/09/22 22:43 Dose: 0.5 inch Documented By: TORIN Consultations Consultation #1: Spoke to Dr. Chavez from [facility] who agrees to consult on the patient. Consultation #2: Spoke to Dr. Nelson who accepts the admit. [id number] Vital Signs Vital signs: Vital Signs - 8 hr 03/09/22 21:39 03/09/22 22:43 03/09/22 21:39 Temperature 97.7 F Pulse Rate 63 68 64 Respiratory Rate 18 13 Blood Pressure 116/76 140/81 Pulse Oximetry 97 99 Oxygen Delivery Method Room Air 03/09/22 22:00 03/09/22 22:00 03/09/22 22:30 Temperature Pulse Rate 65 Respiratory Rate 23 Blood Pressure 113/72 140/81 Pulse Oximetry 98 Oxygen Delivery Method 03/09/22 22:30 03/09/22 23:00 03/09/22 23:00 Temperature Pulse Rate 64 61 Respiratory Rate 17 18 Blood Pressure 124/67 Pulse Oximetry 98 98 Oxygen Delivery Method MDM - Chest Pain Lab Data Result diagrams: 03/09/22 21:49 03/09/22 21:49 Labs: Lab Results 03/09/22 03/09/22 03/09/22 Range/Units 21:49 21:49 21:49 WBC 7.4 (4.5-11.0) X10^3/uL RBC 4.56 (4.5-5.9) X10^6/uL Hgb 14.1 (13.5-17.5) g/dL Hct 40.8 L (41-53) % MCV 89.5 (80-100) fL MCH 30.9 (26-34) PG MCHC 34.5 (30-36) % RDW 13.6 (11.6-14.8) % Plt Count 174 (150-400) X10^3/uL Neut % (Auto) 67.8 (50-75) % Lymph % (Auto) 21.6 L (25-40) % [place] % (Auto) 8.3 (3-14) % Eos % (Auto) 1.8 L (2-4) % Baso % (Auto) 0.5 (0-2) % Neut # (Auto) 5000 (2681-4613) /uL Lymph # (Auto) 1600 (4049-0753) /uL [place] # (Auto) 600 (0-900) /uL Eos # (Auto) 100 (0-450) /uL Baso # (Auto) 0 (0-100) /uL APTT 31 (26-36) SECONDS Sodium 138 (137-145) mmol/L Potassium 4.3 (3.4-5.1) mmol/L Chloride 105 (98-107) mmol/L Carbon Dioxide 25 (22-32) mmol/L BUN 8 L (9-20) mg/dL Creatinine 0.96 (0.66-1.25) mg/dL Estimated GFR > 60 (>60) mL/min BUN/Creatinine Ratio 8.3 (6-22) Glucose 150 H (70-100) mg/dL Calcium 8.5 (8.4-10.2) mg/dL Magnesium 2.1 (1.6-2.3) mg/dL Total Bilirubin 0.6 (0.2-1.3) mg/dL AST 18 (17-59) IU/L ALT 23 (<50) IU/L Alkaline Phosphatase 62 (38-126) U/L Total Creatine Kinase 53 L (55-170) U/L CK-MB (CK-2) TNP CK-MB (CK-2) Rel Index TNP Troponin I < 0.012 (0.01-0.034) ng/mL Total Protein 7.1 (6.3-8.2) g/dL Albumin 3.9 (3.5-5.0) g/dL Globulin 3.2 (1.7-4.1) g/dL Albumin/Globulin Ratio 1.2 (1.0-2.8) Lipase 56 (23-300) U/L SARS-CoV-2 (PCR) (Negative) 03/09/22 Range/Units 22:58 WBC (4.5-11.0) X10^3/uL RBC (4.5-5.9) X10^6/uL Hgb (13.5-17.5) g/dL Hct (41-53) % MCV (80-100) fL MCH (26-34) PG MCHC (30-36) % RDW (11.6-14.8) % Plt Count (150-400) X10^3/uL Neut % (Auto) (50-75) % Lymph % (Auto) (25-40) % [place] % (Auto) (3-14) % Eos % (Auto) (2-4) % Baso % (Auto) (0-2) % Neut # (Auto) (3863-7833) /uL Lymph # (Auto) (8455-9394) /uL [place] # (Auto) (0-900) /uL Eos # (Auto) (0-450) /uL Baso # (Auto) (0-100) /uL APTT (26-36) SECONDS Sodium (137-145) mmol/L Potassium (3.4-5.1) mmol/L Chloride (98-107) mmol/L Carbon Dioxide (22-32) mmol/L BUN (9-20) mg/dL Creatinine (0.66-1.25) mg/dL Estimated GFR (>60) mL/min BUN/Creatinine Ratio (6-22) Glucose (70-100) mg/dL Calcium (8.4-10.2) mg/dL Magnesium (1.6-2.3) mg/dL Total Bilirubin (0.2-1.3) mg/dL AST (17-59) IU/L ALT (<50) IU/L Alkaline Phosphatase (38-126) U/L Total Creatine Kinase (55-170) U/L CK-MB (CK-2) CK-MB (CK-2) Rel Index Troponin I (0.01-0.034) ng/mL Total Protein (6.3-8.2) g/dL Albumin (3.5-5.0) g/dL Globulin (1.7-4.1) g/dL Albumin/Globulin Ratio (1.0-2.8) Lipase (23-300) U/L SARS-CoV-2 (PCR) Negative (Negative) Imaging Data Chest x-ray: Radiologist's Impression: IMPRESSION:? Unremarkable portable chest for age. ? ? Dictated by: David Mcgrath M.D. on 03/09/2022 at 21:06 ? ? Approved by: David Mcgrath M.D. on 03/09/2022 at 21:07 ? ECG Data Interpretation: ECG obtained at 9:39 p.m. on March 09 reveals a sinus rhythm at a rate of 66. QTC is 402. Q-waves inferiorly indicating an old inferior wall infarction no acute ST or T-wave changes. MDM Narrative Medical decision making narrative: Gentleman with known coronary disease and stent placed last year returns to the emergency department today with chest pain. He has been having increasing anginal symptoms controlled with nitroglycerin but today the symptoms were not relieved with nitroglycerin. He has had some degree of chest pressure for the past 48 hours and with exertion he notices marked increased dyspnea. He reports having had a negative stress test about 4 or 5 months ago. Here in the emergency department today EKG shows no acute ischemic change. Troponin is not elevated. I have started him on heparin, given him aspirin and not administered beta-wally as his heart rate is at 60 and he is normotensive. Will admit to [facility] who has capacity to accept him at this time Discharge Plan Departure Patient Disposition: [facility] Clinical Impression: Angina pectoris, unstable Prescriptions: No Action bupropion HCl 300 mg tablet extended release 24 hr 300 mg PO QAM Qty: 90 3RF amlodipine 5 mg tablet 5 mg PO DAILY Qty: 90 3RF Hold Instructions: not taking for the last month, BP okay clopidogrel 75 mg tablet 75 mg PO QPM Qty: 90 3RF divalproex 500 mg tablet extended release 24 hr 1,000 mg PO DAILY Qty: 180 3RF divalproex 250 mg tablet extended release 24 hr 250 mg PO DAILY MDD 1250 mg Qty: 90 3RF Rx Instructions: To be taken with 500 mg tabs for total daily dose of 1250 mg per day metoprolol succinate 100 mg tablet extended release 24 hr 100 mg PO QAM Qty: 90 3RF Rx Instructions: TAKE 1 TABLET BY MOUTH DAILY pantoprazole 20 mg tablet,delayed release (DR/EC) 20 mg PO QPM Qty: 90 3RF Rx Instructions: TAKE 1 TABLET BY MOUTH EVERY EVENING ranolazine [Ranexa] 500 mg tablet extended release 12 hr 500 mg PO BID Qty: 90 3RF aspirin 81 mg Tablet,Delayed Release (Dr/Ec) 81 mg PO DAILY Label Comments: didn't start after leaving clopidogrel [Plavix] 75 mg tablet 75 mg PO DAILY Qty: 30 0RF Referrals: Clement Mccray DO [Primary Care Provider] -
[2022-03-09 22:21] LABS: Troponin I < 0.012 ng/mL (0.01-0.034)
[2022-03-09] MEDS: ASPIRIN 81 MG CHEW TAB 324 MG PO (22:43)
[2022-03-09] MEDS: NITROGLYCERIN OINT 1 INCH/GM OINT...G. 0.5 INCH TOP (22:43)
[2022-03-09] MEDS: MORPHINE 2 MG/ML INJ IV (22:44)
[2022-03-09 22:51] LABS: PTT Partial Thromboplastin Tim 31 SECONDS (26-36)
[2022-03-09] MEDS: HEPARIN 5,000 UNIT/ML VIAL 5000 UNIT IV (22:55)
[2022-03-09] MEDS: HEPARIN DRIP 25,000 UNIT/500 ML IV.SOLN 20 UNIT IV (22:55)
[2022-03-09 23:21] LABS: COVID19 -Nasal RAPID Negative (Negative)
[2022-03-10] VITALS (14 sets, daily range): BP systolic 99–109; BP diastolic 54–65; PULSE 59–67; RESP 15–23; O2SAT 94–98
== END 2022-03-10 02:27 | disposition short-term general hospital (02) ==
PROVIDERS: Emergency Provider Family Medicine Addiction Medicine; PCP Family Medicine
DX: I20.0 Unstable angina (principal); I25.2 Old myocardial infarction; Z95.5 Presence of coronary angioplasty implant and graft; Z20.822 Contact with and (suspected) exposure to COVID-19
CPT/HCPCS: 36415; 71045; 80053; 82550; 83690; 83735; 84484; 85025; 85730; 87635; 93005; 93010; 96365; 96366; 96375; 99284; 99285; 99291; 99292; C9803; J1644; J2270

== ENCOUNTER 2022-03-12 16:31 | Emergency (ER) | payer MEDICARE, SELFPAY ==
[2021-10-20 21:53] VITALS: BMI 44.6
[2022-03-12] VITALS (9 sets, daily range): BP systolic 128–151; BP diastolic 67–81; PULSE 61–80; RESP 17–29; TEMP 37.1; O2SAT 96–100; BMI 42.8
--- NOTE | 2022-03-12 16:57 | DI.RAD.S_ITS ---
PROCEDURE: XR CHEST 2V INDICATIONS: shortness of breath TECHNIQUE: 2 views of the chest were acquired. COMPARISON: [facility], , XR CHEST 1V, 03/09/2022, 21:42. FINDINGS: Surgical changes and devices: None. Lungs and pleura: Lungs are clear. No pleural effusions or pneumothorax. Mediastinum: Mediastinal contours are normal. Heart size is normal. Bones and chest wall: No suspicious bony abnormalities. Soft tissues appear unremarkable. IMPRESSION: Unremarkable two view chest x-ray Approved by: Jarod Torrez M.D. on 03/12/2022 at 16:45
[2022-03-12 17:42] LABS: Creatine Kinase 47 U/L (55-170)
[2022-03-12 17:43] LABS: Alanine Aminotransferase 32 IU/L (<50); Albumin 3.9 g/dL (3.5-5.0); Albumin Globulin Ratio 1.2 (1.0-2.8); Alkaline Phosphatase 65 U/L (38-126); Aspartate Aminotransferase 32 IU/L (17-59); Bilirubin Total 0.4 mg/dL (0.2-1.3); Blood Urea Nitrogen 7 mg/dL (9-20); Calcium 8.7 mg/dL (8.4-10.2); Carbon Dioxide 27 mmol/L (22-32); Chloride 105 mmol/L (98-107); Estimated Glomerular Filt Rate > 60 mL/min (>60); Globulin 3.3 g/dL (1.7-4.1); Glucose 112 mg/dL (70-100); HEMOLYSIS < 15 (0-50); Potassium 3.6 mmol/L (3.4-5.1); Sodium 140 mmol/L (137-145); Total Protein 7.2 g/dL (6.3-8.2)
[2022-03-12 17:44] LABS: Lactate (Lactic Acid) 1.5 mmol/L (0.7-2.1)
[2022-03-12 17:53] LABS: Add Manual Diff / Slide Review NO; Basophils Absolute Auto 0 /uL (0-100); Basophils Percent Auto 0.4 % (0-2); Eosinophils Absolute Auto 100 /uL (0-450); Eosinophils Percent Auto 1.6 % (2-4); Hematocrit 38.6 % (41-53); Hemoglobin 13.3 g/dL (13.5-17.5); Lymphocytes Absolute Auto 1400 /uL (1100-4500); Lymphocytes Percent Auto 23.7 % (25-40); Mean Corpuscular HGB Conc 34.5 % (30-36); Mean Corpuscular Hemoglobin 30.8 PG (26-34); Mean Corpuscular Volume 89.3 fL (80-100); Monocytes Absolute Auto 400 /uL (0-900); Monocytes Percent Auto 7.5 % (3-14); Neutrophils Absolute Auto 3900 /uL (1500-7000); Neutrophils Percent Auto 66.8 % (50-75); Platelet Count 151 X10^3/uL (150-400); Red Blood Cell Count 4.32 X10^6/uL (4.5-5.9); Red Cell Distribution Width 13.8 % (11.6-14.8); White Blood Cell Count 5.8 X10^3/uL (4.5-11.0)
[2022-03-12 17:55] LABS: NT-proBNP (BNP-Adult 18+) 267 pg/mL (<125); Troponin I < 0.012 ng/mL (0.01-0.034)
--- NOTE | 2022-03-12 17:56 | PC.NURSE ---
Pt called the [employer] phone stating that the point specific pain in his R lat chest was getting worse. Requesting something for pain. Dr. Call has reviewed his EKG and trop is neg. VS WNL. Will informe Dr. Call of pt status
[2022-03-12] MEDS: KETOROLAC 30 MG/ML VIAL 15 MG IV (18:06)
[2022-03-12 18:58] LABS: COVID19 -Nasal RAPID Negative (Negative)
--- NOTE | 2022-03-12 22:37 | ED.GENADULT ---
HPI - General Adult General Chief complaint: Shortness of Breath/Dyspnea Stated complaint: CHEST PAIN Time Seen by Provider: 03/12/22 17:11 Source: patient Mode of arrival: Ambulatory History of Present Illness HPI narrative: 51-year-old gentleman with a history coronary artery disease multiple stents, anxiety, hypertension, depression, heart catheterization done yesterday at [facility] with partial occlusion appreciated but not felt to be appropriate to stent and reassurance was given. Presents to the emergency department today complaining of dyspnea and right-sided chest pain. The pain is point tender in extends from the sternum along the 12th rib on the right side. He is having anxiety, mild dyspnea, baseline chest pain, no headaches, nausea, vomiting, diarrhea. No syncopal episodes. Related Data Home Medications Medication Instructions Recorded Confirmed aspirin 81 mg tablet,delayed 81 mg PO DAILY 08/17/19 10/20/21 release Previous Rx's Medication Instructions Recorded bupropion HCl 300 mg 24 hr tablet, 300 mg PO QAM #90 tabs 08/07/21 extended release amlodipine 5 mg tablet 5 mg PO DAILY #90 tabs 11/28/21 clopidogrel 75 mg tablet 75 mg PO QPM #90 tabs 11/28/21 divalproex 250 mg tablet,extended 250 mg PO DAILY #90 tabs 11/28/21 release 24 hr divalproex 500 mg tablet,extended 1,000 mg PO DAILY #180 tabs 11/28/21 release 24 hr metoprolol succinate 100 mg 100 mg PO QAM #90 tabs 11/28/21 tablet,extended release 24 hr pantoprazole 20 mg tablet,delayed 20 mg PO QPM #90 tabs 11/28/21 release ranolazine 500 mg tablet,extended 500 mg PO BID #90 tabs 11/28/21 release,12 hr (Ranexa) clopidogrel 75 mg tablet (Plavix) 75 mg PO DAILY #30 tabs 01/07/22 Allergies Allergy/AdvReac Type Severity Reaction Status Date / Time ciprofloxacin [From Cipro] Allergy Severe ITCHING Verified 02/10/22 04:55 Review of Systems Review of Systems Narrative: Remainder of complete review of systems is otherwise unremarkable except for that included in the HPI. Patient History Medical History Acne ADHD (~1999) Alcohol use disorder, moderate, in sustained remission Allergies (~1978) Angina at rest Anxiety (~1999) Bipolar II disorder Body mass index (BMI) of 40.1-44.9 in adult Body posture problem Carpal tunnel syndrome (~2014) Cervical somatic dysfunction Chicken pox (~1975) Chronic thoracic back pain (~1999) Coronary artery disease (~2002) COVID-19 virus infection Cramping of feet Depression (~1999) Dyslipidemia Elevated blood sugar level Essential hypertension Exertional shortness of breath Family history of myocardial infarction at age less than 60 GERD (gastroesophageal reflux disease) (~1999) Headache (~2004) History of bipolar disorder (~2014) Hx of angiography Kidney stones (~2016) Left anterior knee pain Migraines (~2009) Neck pain On valproic acid therapy Psoriasis Restless leg syndrome (~2016) Screening for prostate cancer Screening for prostate cancer Segmental and somatic dysfunction of thoracic region Tinnitus (~2015) Upper extremity somatic dysfunction Wears glasses Surgical History Anesthesia H/O left heart catheterization by cutdown History of arthroscopy of both knees (~1988) Lump in the testicle (~2004) Stented coronary artery Family History Mother Myocardial infarct History of heart disease Hypertension Mental health problem Father CAD, multiple vessel Diabetes mellitus History of heart disease Hypertension Hyperlipidemia Grandmother Diabetes mellitus History of heart disease Hypertension Stroke Grandmother Alzheimer's disease Social History household members: none Smoking Status: Never smoker alcohol intake: current Smoking Status: Never smoker tobacco type: cigars alcohol intake frequency: holidays/special occasions only Alcohol type: beer and hard liquor Substance Use Type: does not use Exam Initial Vital Signs Initial Vital Signs: Vital Signs Temperature 98.7 F 03/12/22 16:40 Pulse Rate 80 03/12/22 16:40 Respiratory Rate 26 H 03/12/22 16:40 Blood Pressure 151/81 H 03/12/22 16:40 Pulse Oximetry 100 03/12/22 16:40 Oxygen Delivery Method 03/12/22 16:40 General: Healthy appearing, in no acute distress. Able to give a complete and coherent history. Well-nourished well-developed HEENT: Moist mucous membranes, normal sclera with reactive pupils, Neck: No JVD, supple Respiratory: Lungs are clear to auscultation, no wheezing no rales no rhonchi. Full and symmetrical air movement Chest: Point tender from xiphoid process along right rib reproducing his pain. Cardiac: Regular rate and rhythm no murmurs no bruits Abdomen: Soft, nontender, good bowel tones, no flank pain Skin: Warm and dry, no rashes Neurologic: Grossly neurologically intact with no obvious asymmetries or abnormalities Extremities: No trauma, well perfused Psych: Cooperative, appropriate insight and affect Course Orders Ordered: Discontinued Medications Ketorolac Tromethamine (Ketorolac 30 Mg/Ml Vial) 15 mg IV NOW ONE Stop: 03/12/22 18:04 Last Admin: 03/12/22 18:06 Dose: 15 mg Documented By: AMU Prednisone (Prednisone 20 Mg Tablet) 60 mg PO NOW ONE Stop: 03/12/22 22:39 Last Admin: 03/12/22 22:55 Dose: 60 mg Documented By: NR Vital Signs Vital signs: Vital Signs - 8 hr 03/12/22 16:40 03/12/22 17:57 03/12/22 20:44 Temperature 98.7 F Pulse Rate 80 71 68 Respiratory Rate 26 H 24 19 Blood Pressure 151/81 H 130/67 Pulse Oximetry 100 100 99 Oxygen Delivery Method Room Air Room Air 03/12/22 21:00 03/12/22 21:01 03/12/22 21:01 Temperature Pulse Rate 64 67 Respiratory Rate 21 19 Blood Pressure 133/71 Pulse Oximetry 98 98 Oxygen Delivery Method 03/12/22 21:30 03/12/22 21:30 Temperature Pulse Rate 61 Respiratory Rate 17 Blood Pressure 136/76 Pulse Oximetry 98 Oxygen Delivery Method Medical Decision Making Lab Data Result diagrams: 03/12/22 17:10 03/12/22 17:10 Labs: Lab Results 03/12/22 03/12/22 03/12/22 Range/Units 17:10 17:10 17:10 WBC 5.8 (4.5-11.0) X10^3/uL RBC 4.32 L (4.5-5.9) X10^6/uL Hgb 13.3 L (13.5-17.5) g/dL Hct 38.6 L (41-53) % MCV 89.3 (80-100) fL MCH 30.8 (26-34) PG MCHC 34.5 (30-36) % RDW 13.8 (11.6-14.8) % Plt Count 151 (150-400) X10^3/uL Neut % (Auto) 66.8 (50-75) % Lymph % (Auto) 23.7 L (25-40) % [facility] % (Auto) 7.5 (3-14) % Eos % (Auto) 1.6 L (2-4) % Baso % (Auto) 0.4 (0-2) % Neut # (Auto) 3900 (8372-2671) /uL Lymph # (Auto) 1400 (0285-0703) /uL [facility] [place] # (Auto) 400 (0-900) /uL Eos # (Auto) 100 (0-450) /uL Baso # (Auto) 0 (0-100) /uL Sodium 140 (137-145) mmol/L Potassium 3.6 (3.4-5.1) mmol/L Chloride 105 (98-107) mmol/L Carbon Dioxide 27 (22-32) mmol/L BUN 7 L (9-20) mg/dL Creatinine 1.00 (0.66-1.25) mg/dL Estimated GFR > 60 (>60) mL/min BUN/Creatinine Ratio 7.0 (6-22) Glucose 112 H (70-100) mg/dL Lactate 1.5 (0.7-2.1) mmol/L Calcium 8.7 (8.4-10.2) mg/dL Total Bilirubin 0.4 (0.2-1.3) mg/dL AST 32 (17-59) IU/L ALT 32 (<50) IU/L Alkaline Phosphatase 65 (38-126) U/L Total Creatine Kinase (55-170) U/L CK-MB (CK-2) CK-MB (CK-2) Rel Index Troponin I (0.01-0.034) ng/mL NT-Pro-B Natriuret Pep (<125) pg/mL Total Protein 7.2 (6.3-8.2) g/dL Albumin 3.9 (3.5-5.0) g/dL Globulin 3.3 (1.7-4.1) g/dL Albumin/Globulin Ratio 1.2 (1.0-2.8) SARS-CoV-2 (PCR) (Negative) 03/12/22 03/12/22 Range/Units 17:10 18:08 WBC (4.5-11.0) X10^3/uL RBC (4.5-5.9) X10^6/uL Hgb (13.5-17.5) g/dL Hct (41-53) % MCV (80-100) fL MCH (26-34) PG MCHC (30-36) % RDW (11.6-14.8) % Plt Count (150-400) X10^3/uL Neut % (Auto) (50-75) % Lymph % (Auto) (25-40) % [facility] [place] [facility] % (Auto) (3-14) % Eos % (Auto) (2-4) % Baso % (Auto) (0-2) % Neut # (Auto) (9743-6131) /uL Lymph # (Auto) (4378-9840) /uL [facility] [place] [facility] # (Auto) (0-900) /uL Eos # (Auto) (0-450) /uL Baso # (Auto) (0-100) /uL Sodium (137-145) mmol/L Potassium (3.4-5.1) mmol/L Chloride (98-107) mmol/L Carbon Dioxide (22-32) mmol/L BUN (9-20) mg/dL Creatinine (0.66-1.25) mg/dL Estimated GFR (>60) mL/min BUN/Creatinine Ratio (6-22) Glucose (70-100) mg/dL Lactate (0.7-2.1) mmol/L Calcium (8.4-10.2) mg/dL Total Bilirubin (0.2-1.3) mg/dL AST (17-59) IU/L ALT (<50) IU/L Alkaline Phosphatase (38-126) U/L Total Creatine Kinase 47 L (55-170) U/L CK-MB (CK-2) TNP CK-MB (CK-2) Rel Index TNP Troponin I < 0.012 (0.01-0.034) ng/mL NT-Pro-B Natriuret Pep 267 H (<125) pg/mL Total Protein (6.3-8.2) g/dL Albumin (3.5-5.0) g/dL Globulin (1.7-4.1) g/dL Albumin/Globulin Ratio (1.0-2.8) SARS-CoV-2 (PCR) Negative (Negative) ECG Data Interpretation: Sinus rhythm at a rate of 74 No acute ischemic changes MDM Narrative Medical decision making narrative: 51-year-old gentleman with no cardiac disease high anxiety over his cardiac disease cardiac catheterization yesterday with right-sided chest pain that I suspect is musculoskeletal and may be related to positioning from the catheterization yesterday. There is no evidence of acute coronary disease, pneumothorax, pulmonary embolism, pneumonia or shingles. He feels significantly improved after IV Toradol. Reassurance is given and he is safe for home discharge Discharge Plan Departure Patient Disposition: Home Clinical Impression: Acute costochondritis Activity Restrictions/Additional Instructions: Thanks for coming in today Your entire cardiac workup was very reassuring. No heart issues, no blood clots, pneumonia collapsed lungs. With the point tenderness along your 12th rib on the right side, this is most consistent with costochondritis. You did get a dose of Toradol and it seems like that has helped. I am wondering if it may be a positional issue from laying on the bed yesterday from your heart catheterization that caused the bit of irritation. Because you are anticoagulated, you cannot use ibuprofen which is the drug of choice for this problem. I have given you a dose of prednisone to help with inflammation over the next couple of days. You can certainly use Tylenol to help as well If you find that you are getting worse or develop any new symptoms, please feel free to return to the emergency department for further evaluation. Prescriptions: No Action bupropion HCl 300 mg tablet extended release 24 hr 300 mg PO QAM Qty: 90 3RF amlodipine 5 mg tablet 5 mg PO DAILY Qty: 90 3RF Hold Instructions: not taking for the last month, BP okay clopidogrel 75 mg tablet 75 mg PO QPM Qty: 90 3RF divalproex 500 mg tablet extended release 24 hr 1,000 mg PO DAILY Qty: 180 3RF divalproex 250 mg tablet extended release 24 hr 250 mg PO DAILY MDD 1250 mg Qty: 90 3RF Rx Instructions: To be taken with 500 mg tabs for total daily dose of 1250 mg per day metoprolol succinate 100 mg tablet extended release 24 hr 100 mg PO QAM Qty: 90 3RF Rx Instructions: TAKE 1 TABLET BY MOUTH DAILY pantoprazole 20 mg tablet,delayed release (DR/EC) 20 mg PO QPM Qty: 90 3RF Rx Instructions: TAKE 1 TABLET BY MOUTH EVERY EVENING ranolazine [Ranexa] 500 mg tablet extended release 12 hr 500 mg PO BID Qty: 90 3RF aspirin 81 mg Tablet,Delayed Release (Dr/Ec) 81 mg PO DAILY Label Comments: didn't start after leaving clopidogrel [Plavix] 75 mg tablet 75 mg PO DAILY Qty: 30 0RF Referrals: Clement Mccray DO [Primary Care Provider] - Visit Report Forms: Patient Portal/API
[2022-03-12] MEDS: predniSONE 20 MG TABLET 60 MG PO (22:55)
== END 2022-03-12 23:01 | disposition home or self-care (01) ==
PROVIDERS: Emergency Medicine; Emergency Provider Emergency Medicine; PCP Family Medicine
DX: M94.0 Chondrocostal junction syndrome [Tietze] (principal); R06.00 Dyspnea, unspecified; Z20.822 Contact with and (suspected) exposure to COVID-19
CPT/HCPCS: 36415; 71046; 80053; 82550; 83605; 83880; 84484; 85025; 87635; 93005; 96374; 99284; C9803; J1885

== ENCOUNTER → 2022-04-30 06:58 | Outpatient (CLI) | payer SELFPAY ==
[2021-10-20 21:53] VITALS: BMI 44.6
[2022-05-02 14:17] LABS: QuantiFERON Mitogen Value >10.00 IU/mL (.); QuantiFERON Nil Value 0.01 IU/mL (.); QuantiFERON TB Gold Plus Negative (Negative); QuantiFERON TB1 Ag Value 0.02 IU/mL (.); QuantiFERON TB2 Ag Value 0.01 IU/mL (.)
== END ==
PROVIDERS: PCP Family Medicine
DX: Z11.1 Encounter for screening for respiratory tuberculosis (principal)
CPT/HCPCS: 36415; 86480

== ENCOUNTER 2022-09-22 18:30 | Emergency (ER) | payer OTHER, SELFPAY ==
[2022-09-20 13:59] VITALS: BMI 44.6
[2022-09-22] VITALS (46 sets, daily range): BP systolic 100–133; BP diastolic 56–90; PULSE 69–87; RESP 14–24; TEMP 36.6; O2SAT 100; BMI 39.7
--- NOTE | 2022-09-22 18:56 | DI.RAD.S_ITS ---
PROCEDURE: XR CHEST 1V INDICATIONS: chest pain TECHNIQUE: One view of the chest was acquired. COMPARISON: [facility], CR, XR CHEST 2V, 03/12/2022, 17:09. FINDINGS: Surgical changes and devices: None. Lungs and pleura: Lungs are clear. No pleural effusions or pneumothorax. Mediastinum: Mediastinal contours appear normal. Heart size is normal. Bones and chest wall: No suspicious bony lesions. Overlying soft tissues appear unremarkable. IMPRESSION: No acute cardiopulmonary abnormality. Dictated by: Jeremias Buckley M.D. on 09/22/2022 at 18:16 Approved by: Jeremias Buckley M.D. on 09/22/2022 at 18:17
--- NOTE | 2022-09-22 19:15 | ED_ITS ---
HPI - Chest Pain General Chief Complaint: Chest Pain Stated Complaint: chest pain/pain down left arm Time Seen by Provider: 09/22/22 19:06 Source: patient Mode of arrival: Ambulatory Limitations: no limitations History of Present Illness HPI narrative: Patient is a 52-year-old male. A known history of coronary artery disease with a history of heart attacks. Also has had stents placed. He is here for evaluation of chest discomfort and pain that is radiating down his left arm. He states that it does not feel like his prior heart issues. He does have nitroglycerin at home but does not know where it is and did not take any. He did take an aspirin this morning. The symptoms have been going on for the past several hours. No shortness of breath. Not worse with palpation or movement. No nausea or vomiting. Related Data Home Medications Medication Instructions Recorded Confirmed aspirin 81 mg tablet,delayed 81 mg PO DAILY 08/17/19 03/14/22 release Previous Rx's Medication Instructions Recorded bupropion HCl 300 mg 24 hr tablet, 300 mg PO QAM #90 tabs 08/07/21 extended release amlodipine 5 mg tablet 5 mg PO DAILY #90 tabs 11/28/21 clopidogrel 75 mg tablet 75 mg PO QPM #90 tabs 11/28/21 divalproex 250 mg tablet,extended 250 mg PO DAILY #90 tabs 11/28/21 release 24 hr divalproex 500 mg tablet,extended 1,000 mg PO DAILY #180 tabs 11/28/21 release 24 hr metoprolol succinate 100 mg 100 mg PO QAM #90 tabs 11/28/21 tablet,extended release 24 hr pantoprazole 20 mg tablet,delayed 20 mg PO QPM #90 tabs 11/28/21 release ranolazine 500 mg tablet,extended 500 mg PO BID #90 tabs 11/28/21 release,12 hr (Ranexa) clopidogrel 75 mg tablet (Plavix) 75 mg PO DAILY #30 tabs 01/07/22 nitroglycerin 0.4 mg sublingual 0.4 mg sublingual Q5-15M PRN chest 09/22/22 tablet pain #20 tabs Allergies Allergy/AdvReac Type Severity Reaction Status Date / Time ciprofloxacin [From Cipro] Allergy Severe ITCHING Verified 09/22/22 18:56 Review of Systems Constitutional Constitutional: Reports system reviewed and no additional complaints, except as documented Cardiovascular Cardiovascular: Reports system reviewed and no additional complaints, except as documented Respiratory Respiratory: Reports system reviewed and no additional complaints, except as documented Gastrointestinal Gastrointestinal: Reports system reviewed and no additional complaints, except as documented Integumentary/Breasts Skin/Breast: Reports system reviewed and no additional complaints, except as documented Neurologic Neurologic: Reports system reviewed and no additional complaints, except as documented Hematologic/Lymphatic On Anticoagulants: No Patient History Medical History Acne ADHD (~1999) Alcohol use disorder, moderate, in sustained remission Allergies (~1978) Angina at rest Anxiety (~1999) Bipolar II disorder Body mass index (BMI) of 40.1-44.9 in adult Body posture problem Carpal tunnel syndrome (~2014) Cervical somatic dysfunction Chicken pox (~1975) Chronic thoracic back pain (~1999) Coronary artery disease (~2002) COVID-19 virus infection Cramping of feet Depression (~1999) Dyslipidemia Elevated blood sugar level Essential hypertension Exertional shortness of breath Family history of myocardial infarction at age less than 60 GERD (gastroesophageal reflux disease) (~1999) Headache (~2004) History of bipolar disorder (~2014) Hx of angiography Kidney stones (~2016) Left anterior knee pain Migraines (~2009) Neck pain On valproic acid therapy Psoriasis Restless leg syndrome (~2016) Screening for prostate cancer Screening for prostate cancer Segmental and somatic dysfunction of thoracic region Tinnitus (~2015) Upper extremity somatic dysfunction Wears glasses Surgical History Anesthesia H/O left heart catheterization by cutdown History of arthroscopy of both knees (~1988) Lump in the testicle (~2004) Stented coronary artery Family History Mother Myocardial infarct History of heart disease Hypertension Mental health problem Father CAD, multiple vessel Diabetes mellitus History of heart disease Hypertension Hyperlipidemia Grandmother Diabetes mellitus History of heart disease Hypertension Stroke Grandmother Alzheimer's disease Social History household members: none Smoking Status: Never smoker alcohol intake: current Smoking Status: Never smoker tobacco type: cigars alcohol intake frequency: holidays/special occasions only Alcohol type: beer and hard liquor Substance Use Type: does not use Exam Initial Vital Signs Initial Vital Signs: Vital Signs Temperature 97.8 F 09/22/22 18:52 Pulse Rate 87 09/22/22 18:52 Respiratory Rate 20 09/22/22 18:52 Blood Pressure 133/90 09/22/22 18:52 Pulse Oximetry 100 09/22/22 18:52 Oxygen Delivery Method Room Air 09/22/22 18:52 Const General: cooperative, comfortable and No ill appearing HENMT Head: normal to inspection and normocephalic Resp Effort & Inspection: normal respiratory effort Auscultation: clear to auscultation bilaterally Cardio Rate: regular rate Rhythm: regular rhythm GI Inspection: normal to inspection Palpation: soft Skin General: no rashes or lesions noted Neuro General: patient alert and moves all extremities Extrem General: normal to inspection and capillary refill normal Psych Appearance: grossly normal and well kempt Scores HEART Score Heart Score history: Slightly Suspicious Heart Score EKG: Normal Heart Score Age: 45-64 years old Heart Score risk factors: > 3 risk factors or hx of atherosclerotic disease Heart Score troponin: < or = to normal limit Heart Score Total: 3 Course Orders Ordered: ED Orders 09/22/22 18:56 XR chest 1V Stat EKG-12 Lead Stat 09/22/22 20:18 Complete Blood Count AUTO DIFF Stat Comprehensive Metabolic Panel Stat Lipase Stat Magnesium Stat PTT Partial Thromboplastin Adelfo Stat Prothrombin Time INR Stat Troponin & CK Cardiac Panel Stat 09/22/22 20:33 COVID19 -Nasal RAPID Stat 09/22/22 22:27 Troponin & CK Cardiac Panel Stat Discontinued Medications Aspirin (Aspirin 81 Mg Chew Tab) 324 mg PO NOW ONE Stop: 09/22/22 18:57 Last Admin: 09/22/22 20:10 Dose: Not Given Documented By: OFELIA Sodium Chloride (Normal Saline 0.9%) 1,000 mls @ 1,000 mls/hr IV BOLUS ONE Stop: 09/22/22 21:16 Last Infusion: 09/22/22 21:11 Dose: 0 mls/hr Documented By: Admin: 09/22/22 20:19 Dose: 1,000 mls/hr Documented By: HNG Nitroglycerin (Nitroglycerin 0.4 Mg Sl Tab) 0.4 mg SL [id number] PRN PRN Reason: Chest Pain Last Admin: 09/22/22 20:31 Dose: 0.4 mg Documented By: Admin: 09/22/22 20:24 Dose: 0.4 mg Documented By: Admin: 09/22/22 19:48 Dose: 0.4 mg Documented By: RAN Ondansetron HCl (Ondansetron 4 Mg/2 Ml Inj) 4 mg IV NOW ONE Stop: 09/22/22 22:19 Last Admin: 09/22/22 22:21 Dose: 4 mg Documented By: OFELIA Vital Signs Vital signs: Vital Signs - 8 hr 09/22/22 19:48 09/22/22 20:24 09/22/22 20:31 Pulse Rate 82 81 85 Respiratory Rate Blood Pressure 131/87 129/81 115/59 L Pulse Oximetry Oxygen Delivery Method 09/22/22 20:11 09/22/22 20:11 09/22/22 20:21 Pulse Rate 82 83 Respiratory Rate 21 17 Blood Pressure 112/78 Pulse Oximetry Oxygen Delivery Method 09/22/22 20:21 09/22/22 20:30 09/22/22 20:32 Pulse Rate 87 Respiratory Rate 14 Blood Pressure 129/81 115/59 L Pulse Oximetry Oxygen Delivery Method 09/22/22 20:32 09/22/22 20:35 09/22/22 20:35 Pulse Rate 86 80 Respiratory Rate 19 23 Blood Pressure 115/64 Pulse Oximetry Oxygen Delivery Method 09/22/22 20:40 09/22/22 20:40 09/22/22 20:45 Pulse Rate 80 79 Respiratory Rate 22 20 Blood Pressure 104/59 L Pulse Oximetry Oxygen Delivery Method 09/22/22 20:45 09/22/22 20:46 09/22/22 20:46 Pulse Rate 78 Respiratory Rate 16 Blood Pressure 101/59 L 101/63 Pulse Oximetry Oxygen Delivery Method 09/22/22 20:50 09/22/22 20:50 09/22/22 20:55 Pulse Rate 77 75 Respiratory Rate 18 21 Blood Pressure 113/68 Pulse Oximetry Oxygen Delivery Method 09/22/22 20:55 09/22/22 21:00 09/22/22 21:00 Pulse Rate 77 Respiratory Rate 21 Blood Pressure 117/66 113/65 Pulse Oximetry Oxygen Delivery Method 09/22/22 21:05 09/22/22 21:05 09/22/22 21:10 Pulse Rate 73 73 Respiratory Rate 21 23 Blood Pressure 109/65 Pulse Oximetry Oxygen Delivery Method 09/22/22 21:10 09/22/22 21:15 09/22/22 21:15 Pulse Rate 77 Respiratory Rate 22 Blood Pressure 112/64 109/65 Pulse Oximetry Oxygen Delivery Method 09/22/22 21:20 09/22/22 21:20 09/22/22 21:25 Pulse Rate 78 73 Respiratory Rate 17 23 Blood Pressure 110/69 Pulse Oximetry Oxygen Delivery Method 09/22/22 21:25 09/22/22 21:30 09/22/22 21:30 Pulse Rate 76 Respiratory Rate 23 Blood Pressure 108/64 100/56 L Pulse Oximetry Oxygen Delivery Method 09/22/22 21:35 09/22/22 21:35 09/22/22 21:40 Pulse Rate 76 74 Respiratory Rate 21 23 Blood Pressure 110/61 Pulse Oximetry Oxygen Delivery Method 09/22/22 21:40 09/22/22 21:45 09/22/22 21:45 Pulse Rate 72 Respiratory Rate 20 Blood Pressure 116/63 111/62 Pulse Oximetry Oxygen Delivery Method 09/22/22 21:50 09/22/22 21:50 09/22/22 21:55 Pulse Rate 74 Respiratory Rate 22 Blood Pressure 109/61 110/62 Pulse Oximetry Oxygen Delivery Method 09/22/22 21:55 09/22/22 22:00 09/22/22 22:00 Pulse Rate 73 73 Respiratory Rate 23 23 Blood Pressure 104/62 Pulse Oximetry Oxygen Delivery Method 09/22/22 22:05 09/22/22 22:05 09/22/22 22:10 Pulse Rate 73 73 Respiratory Rate 23 24 Blood Pressure 103/63 Pulse Oximetry Oxygen Delivery Method 09/22/22 22:10 09/22/22 22:15 09/22/22 22:15 Pulse Rate 75 Respiratory Rate 16 Blood Pressure 117/68 115/67 Pulse Oximetry Oxygen Delivery Method 09/22/22 22:20 09/22/22 22:20 09/22/22 22:26 Pulse Rate 73 Respiratory Rate 24 Blood Pressure 106/60 114/81 Pulse Oximetry Oxygen Delivery Method 09/22/22 22:26 09/22/22 22:30 09/22/22 22:31 Pulse Rate 75 72 69 Respiratory Rate 17 20 20 Blood Pressure Pulse Oximetry Oxygen Delivery Method 09/22/22 22:31 09/22/22 22:35 09/22/22 22:35 Pulse Rate 72 Respiratory Rate 22 Blood Pressure 113/57 L 121/62 Pulse Oximetry Oxygen Delivery Method 09/22/22 22:40 09/22/22 22:40 09/22/22 22:45 Pulse Rate 73 70 Respiratory Rate 23 Blood Pressure 107/59 L Pulse Oximetry Oxygen Delivery Method 09/22/22 22:45 09/22/22 23:31 09/22/22 22:50 Pulse Rate 72 69 Respiratory Rate 18 14 Blood Pressure 109/64 110/72 Pulse Oximetry 100 Oxygen Delivery Method Room Air 09/22/22 22:50 09/22/22 22:55 09/22/22 22:55 Pulse Rate 69 Respiratory Rate 20 Blood Pressure 110/71 118/76 Pulse Oximetry Oxygen Delivery Method 09/22/22 23:00 09/22/22 23:00 09/22/22 23:05 Pulse Rate 70 70 Respiratory Rate 23 22 Blood Pressure 116/73 Pulse Oximetry Oxygen Delivery Method 09/22/22 23:05 09/22/22 23:10 09/22/22 23:10 Pulse Rate 71 Respiratory Rate 15 Blood Pressure 120/81 124/84 Pulse Oximetry Oxygen Delivery Method 09/22/22 23:15 09/22/22 23:15 09/22/22 23:20 Pulse Rate 75 Respiratory Rate 20 Blood Pressure 117/79 107/63 Pulse Oximetry Oxygen Delivery Method 09/22/22 23:20 09/22/22 23:25 09/22/22 23:25 Pulse Rate 71 71 Respiratory Rate 22 22 Blood Pressure 110/72 Pulse Oximetry Oxygen Delivery Method MDM - Chest Pain Lab Data Attestation: I reviewed the patient's lab results. 09/22/22 20:18 09/22/22 20:18 Labs: Lab Results 09/22/22 09/22/22 09/22/22 Range/Units 20:18 20:18 20:18 WBC 6.7 (4.5-11.0) X10^3/uL RBC 4.70 (4.5-5.9) X10^6/uL Hgb 14.1 (13.5-17.5) g/dL Hct 42.0 (41-53) % MCV 89.4 (80-100) fL MCH 30.0 (26-34) PG MCHC 33.5 (30-36) % RDW 14.1 (11.6-14.8) % Plt Count 171 (150-400) X10^3/uL Neut % (Auto) 62.5 (50-75) % Lymph % (Auto) 26.8 (25-40) % [place] % (Auto) 8.0 (3-14) % Eos % (Auto) 1.9 L (2-4) % Baso % (Auto) 0.8 (0-2) % Neut # (Auto) 4200 (3821-5698) /uL Lymph # (Auto) 1800 (5149-4964) /uL [place] # (Auto) 500 (0-900) /uL Eos # (Auto) 100 (0-450) /uL Baso # (Auto) 100 (0-100) /uL PT 11.6 (10.1-12.7) SECONDS INR 1.0 (0.9-1.3) APTT 30 (26-36) SECONDS Sodium 136 L (137-145) mmol/L Potassium 4.0 (3.4-5.1) mmol/L Chloride 105 (98-107) mmol/L Carbon Dioxide 24 (22-32) mmol/L BUN 12 (9-20) mg/dL Creatinine 1.03 (0.66-1.25) mg/dL Estimated GFR > 60 (>60) mL/min BUN/Creatinine Ratio 11.7 (6-22) Glucose 106 H (70-100) mg/dL Calcium 8.4 (8.4-10.2) mg/dL Magnesium 1.9 (1.6-2.3) mg/dL Total Bilirubin 0.5 (0.2-1.3) mg/dL AST 20 (17-59) IU/L ALT 34 (<50) IU/L Alkaline Phosphatase 76 (38-126) U/L Total Creatine Kinase 41 L (55-170) U/L CK-MB (CK-2) TNP CK-MB (CK-2) Rel Index TNP Troponin I < 0.012 (0.01-0.034) ng/mL Total Protein 7.0 (6.3-8.2) g/dL Albumin 3.9 (3.5-5.0) g/dL Globulin 3.1 (1.7-4.1) g/dL Albumin/Globulin Ratio 1.3 (1.0-2.8) Lipase 83 (23-300) U/L SARS-CoV-2 (PCR) (Negative) 09/22/22 09/22/22 Range/Units 20:33 22:27 WBC (4.5-11.0) X10^3/uL RBC (4.5-5.9) X10^6/uL Hgb (13.5-17.5) g/dL Hct (41-53) % MCV (80-100) fL MCH (26-34) PG MCHC (30-36) % RDW (11.6-14.8) % Plt Count (150-400) X10^3/uL Neut % (Auto) (50-75) % Lymph % (Auto) (25-40) % [place] % (Auto) (3-14) % Eos % (Auto) (2-4) % Baso % (Auto) (0-2) % Neut # (Auto) (5611-6907) /uL Lymph # (Auto) (0189-9210) /uL [place] # (Auto) (0-900) /uL Eos # (Auto) (0-450) /uL Baso # (Auto) (0-100) /uL PT (10.1-12.7) SECONDS INR (0.9-1.3) APTT (26-36) SECONDS Sodium (137-145) mmol/L Potassium (3.4-5.1) mmol/L Chloride (98-107) mmol/L Carbon Dioxide (22-32) mmol/L BUN (9-20) mg/dL Creatinine (0.66-1.25) mg/dL Estimated GFR (>60) mL/min BUN/Creatinine Ratio (6-22) Glucose (70-100) mg/dL Calcium (8.4-10.2) mg/dL Magnesium (1.6-2.3) mg/dL Total Bilirubin (0.2-1.3) mg/dL AST (17-59) IU/L ALT (<50) IU/L Alkaline Phosphatase (38-126) U/L Total Creatine Kinase 37 L (55-170) U/L CK-MB (CK-2) TNP CK-MB (CK-2) Rel Index TNP Troponin I < 0.012 (0.01-0.034) ng/mL Total Protein (6.3-8.2) g/dL Albumin (3.5-5.0) g/dL Globulin (1.7-4.1) g/dL Albumin/Globulin Ratio (1.0-2.8) Lipase (23-300) U/L SARS-CoV-2 (PCR) Negative (Negative) Imaging Data Chest x-ray: Radiologist's Impression: PROCEDURE:? XR CHEST 1V ? INDICATIONS:? chest pain ? TECHNIQUE:? One view of the chest was acquired.? ? COMPARISON:? [facility], CR, XR CHEST 2V, 03/12/2022, 17:09. ? FINDINGS:? ? Surgical changes and devices:? None.? ? Lungs and pleura:? Lungs are clear.? No pleural effusions or pneumothorax.? ? Mediastinum:? Mediastinal contours appear normal.? Heart size is normal.? ? Bones and chest wall:? No suspicious bony lesions.? Overlying soft tissues appear unremarkable.? ? IMPRESSION:? No acute cardiopulmonary abnormality. ECG Data Attestation: I personally reviewed and interpreted this ECG as follows: Interpretation: Sinus rhythm Ventricular rate 82 Normal axis Normal QRS Normal QTC No ST T wave changes MDM Narrative Medical decision making narrative: Patient does have 2- troponins. Normal EKG. Normal chest x-ray. Low risk heart score. He states that the nitroglycerin may have helped his symptoms somewhat however his chest discomfort has improved. Patient does have a history of coronary artery disease. He has nitroglycerin at home but does not know where it is so I will refill this for him. Given his presentation will discharge patient home and have him contact his primary laborer electroplating for a follow-up. Patient expressed understanding and agreement with plan. Discharge Plan Departure Patient Disposition: Home Clinical Impression: Chest pain Instructions: DI for Chest Pain Activity Restrictions/Additional Instructions: Recommend that you continue to take all of your medications as directed. Contact your primary doctor and also your laborer electroplating for follow-up. Return to the emergency department for any new or worsening symptoms. Prescriptions: New nitroglycerin 0.4 mg tablet, sublingual 0.4 mg sublingual Q5-15M PRN (Reason: chest pain) Qty: 20 0RF Rx Instructions: do not exceed 3 doses per episode No Action bupropion HCl 300 mg tablet extended release 24 hr 300 mg PO QAM Qty: 90 3RF amlodipine 5 mg tablet 5 mg PO DAILY Qty: 90 3RF Hold Instructions: not taking for the last month, BP okay clopidogrel 75 mg tablet 75 mg PO QPM Qty: 90 3RF divalproex 500 mg tablet extended release 24 hr 1,000 mg PO DAILY Qty: 180 3RF divalproex 250 mg tablet extended release 24 hr 250 mg PO DAILY MDD 1250 mg Qty: 90 3RF Rx Instructions: To be taken with 500 mg tabs for total daily dose of 1250 mg per day metoprolol succinate 100 mg tablet extended release 24 hr 100 mg PO QAM Qty: 90 3RF Rx Instructions: TAKE 1 TABLET BY MOUTH DAILY pantoprazole 20 mg tablet,delayed release (DR/EC) 20 mg PO QPM Qty: 90 3RF Rx Instructions: TAKE 1 TABLET BY MOUTH EVERY EVENING ranolazine [Ranexa] 500 mg tablet extended release 12 hr 500 mg PO BID Qty: 90 3RF aspirin 81 mg Tablet,Delayed Release (Dr/Ec) 81 mg PO DAILY Patient Comments: didn't start after leaving clopidogrel [Plavix] 75 mg tablet 75 mg PO DAILY Qty: 30 0RF Referrals: Titi Mccray DO [Primary Care Provider] - Stand Alone Forms: Patient Portal/API
[2022-09-22] MEDS: NITROGLYCERIN 0.4 MG SL TAB SL ×3 (19:48→20:31)
[2022-09-22] MEDS: SODIUM CHLORIDE 0.9% 1,000 ML 1000 ML IV (20:19)
[2022-09-22 20:24] LABS: Add Manual Diff / Slide Review NO; Basophils Absolute Auto 100 /uL (0-100); Basophils Percent Auto 0.8 % (0-2); Eosinophils Absolute Auto 100 /uL (0-450); Eosinophils Percent Auto 1.9 % (2-4); Hemoglobin 14.1 g/dL (13.5-17.5); Lymphocytes Absolute Auto 1800 /uL (1100-4500); Lymphocytes Percent Auto 26.8 % (25-40); Mean Corpuscular HGB Conc 33.5 % (30-36); Mean Corpuscular Volume 89.4 fL (80-100); Monocytes Absolute Auto 500 /uL (0-900); Neutrophils Absolute Auto 4200 /uL (1500-7000); Neutrophils Percent Auto 62.5 % (50-75); Platelet Count 171 X10^3/uL (150-400); Red Cell Distribution Width 14.1 % (11.6-14.8); White Blood Cell Count 6.7 X10^3/uL (4.5-11.0)
[2022-09-22 20:31] LABS: Prothrombin Time 11.6 SECONDS (10.1-12.7)
[2022-09-22 20:33] LABS: PTT Partial Thromboplastin Tim 30 SECONDS (26-36)
[2022-09-22 20:36] LABS: Alanine Aminotransferase 34 IU/L (<50); Albumin 3.9 g/dL (3.5-5.0); Albumin Globulin Ratio 1.3 (1.0-2.8); Alkaline Phosphatase 76 U/L (38-126); Aspartate Aminotransferase 20 IU/L (17-59); BUN Creatinine Ratio 11.7 (6-22); Bilirubin Total 0.5 mg/dL (0.2-1.3); Blood Urea Nitrogen 12 mg/dL (9-20); Calcium 8.4 mg/dL (8.4-10.2); Carbon Dioxide 24 mmol/L (22-32); Chloride 105 mmol/L (98-107); Creatine Kinase 41 U/L (55-170); Estimated Glomerular Filt Rate > 60 mL/min (>60); Globulin 3.1 g/dL (1.7-4.1); Glucose 106 mg/dL (70-100); HEMOLYSIS < 15 (0-50); Lipase 83 U/L (23-300); Magnesium 1.9 mg/dL (1.6-2.3); Sodium 136 mmol/L (137-145)
[2022-09-22 20:47] LABS: Troponin I < 0.012 ng/mL (0.01-0.034)
[2022-09-22 21:01] LABS: COVID19 -Nasal RAPID Negative (Negative)
[2022-09-22] MEDS: ONDANSETRON 4 MG/2 ML INJ IV (22:21)
[2022-09-22 22:41] LABS: Creatine Kinase 37 U/L (55-170)
[2022-09-22 22:54] LABS: Troponin I < 0.012 ng/mL (0.01-0.034)
== END 2022-09-22 23:34 | disposition home or self-care (01) ==
PROVIDERS: Emergency Medicine; Emergency Provider Emergency Medicine; PCP Family Medicine
DX: R07.9 Chest pain, unspecified (principal); I25.2 Old myocardial infarction; I25.10 Atherosclerotic heart disease of native coronary artery without angina pectoris; Z20.822 Contact with and (suspected) exposure to COVID-19
CPT/HCPCS: 36415; 71045; 80053; 82550; 83690; 83735; 84484; 85025; 85610; 85730; 87635; 93005; 96361; 96374; 99284; C9803; J2405

== ENCOUNTER 2022-10-12 15:26 | Observation (INO) | payer MEDICARE, SELFPAY ==
[2022-09-20 13:59] VITALS: BMI 44.6
[2022-10-12] VITALS (77 sets, daily range): BP systolic 91–120; BP diastolic 52–81; PULSE 56–83; RESP 8–37; TEMP 36.3–36.6; O2SAT 95–100; BMI 39.7
--- NOTE | 2022-10-12 15:31 | DI.RAD.S_ITS ---
PROCEDURE: XR CHEST 1V INDICATIONS: chest pain TECHNIQUE: One view of the chest was acquired. COMPARISON: [facility], CR, XR CHEST 2V, 03/12/2022, 17:09. [facility], CR, XR CHEST 1V, 09/22/2022, 18:53. FINDINGS: Surgical changes and devices: None. Lungs and pleura: Lungs are clear. No pleural effusions or pneumothorax. Mediastinum: Mediastinal contours appear normal. Heart size is normal. Bones and chest wall: No suspicious bony lesions. Overlying soft tissues appear unremarkable. IMPRESSION: Portable chest within normal limits. Dictated by: David Mcgrath M.D. on 10/12/2022 at 15:24 Approved by: David Mcgrath M.D. on 10/12/2022 at 15:25
--- NOTE | 2022-10-12 15:41 | ED.CHESTPAIN ---
HPI - Chest Pain <Liseth Chatman DO - Last Filed: 10/13/22 07:20> General Chief Complaint: Chest Pain Stated Complaint: Chest pain Time Seen by Provider: 10/12/22 15:41 Source: family Mode of arrival: Family Vehicle History of Present Illness HPI narrative: Patient is a 52-year-old male with history of bipolar hypertension known coronary artery disease with recent stent in [place] in [place] presented as a STEMI on 08/10/2022. He reports today that he was not doing anything when he developed some chest discomfort nonradiating he took 2 nitros at home without any relief and came to the ED. he reports that he is noncompliant with his medications. He denies any shortness of breath nausea vomiting or diaphoresis. He does report that he also took 2 aspirin prior to arrival. He has not yet followed up with Cardiology. Related Data Home Medications Medication Instructions Recorded Confirmed aspirin 81 mg tablet,delayed 81 mg PO DAILY 08/17/19 10/12/22 release Previous Rx's Medication Instructions Recorded bupropion HCl 300 mg 24 hr tablet, 300 mg PO QAM #90 tabs 08/07/21 extended release amlodipine 5 mg tablet 5 mg PO DAILY #90 tabs 11/28/21 divalproex 250 mg tablet,extended 250 mg PO DAILY #90 tabs 11/28/21 release 24 hr divalproex 500 mg tablet,extended 1,000 mg PO DAILY #180 tabs 11/28/21 release 24 hr metoprolol succinate 100 mg 100 mg PO QAM #90 tabs 11/28/21 tablet,extended release 24 hr pantoprazole 20 mg tablet,delayed 20 mg PO QPM #90 tabs 11/28/21 release ranolazine 500 mg tablet,extended 500 mg PO BID #90 tabs 11/28/21 release,12 hr (Ranexa) clopidogrel 75 mg tablet (Plavix) 75 mg PO DAILY #30 tabs 01/07/22 nitroglycerin 0.4 mg sublingual 0.4 mg sublingual Q5-15M PRN chest 09/22/22 tablet pain #20 tabs Allergies Allergy/AdvReac Type Severity Reaction Status Date / Time ciprofloxacin [From Cipro] Allergy Severe ITCHING Verified 10/12/22 15:34 Review of Systems <DO Maryse Green Last Filed: 10/13/22 07:20> Review of Systems ROS Unobtainable: All systems reviewed & are unremarkable except as noted in HPI and below Patient History <Liseth Chatman DO - Last Filed: 10/13/22 07:20> Medical History Acne ADHD (~1999) Alcohol use disorder, moderate, in sustained remission Allergies (~1978) Angina at rest Anxiety (~1999) Bipolar II disorder Body mass index (BMI) of 40.1-44.9 in adult Body posture problem Carpal tunnel syndrome (~2014) Cervical somatic dysfunction Chicken pox (~1975) Chronic thoracic back pain (~1999) Coronary artery disease (~2002) COVID-19 virus infection Cramping of feet Depression (~1999) Dyslipidemia Elevated blood sugar level Essential hypertension Exertional shortness of breath Family history of myocardial infarction at age less than 60 GERD (gastroesophageal reflux disease) (~1999) Headache (~2004) History of bipolar disorder (~2014) Hx of angiography Kidney stones (~2016) Left anterior knee pain Migraines (~2009) Neck pain On valproic acid therapy Psoriasis Restless leg syndrome (~2016) Screening for prostate cancer Screening for prostate cancer Segmental and somatic dysfunction of thoracic region Tinnitus (~2015) Upper extremity somatic dysfunction Wears glasses Surgical History Anesthesia H/O left heart catheterization by cutdown History of arthroscopy of both knees (~1988) Lump in the testicle (~2004) Stented coronary artery Family History Mother Myocardial infarct History of heart disease Hypertension Mental health problem Father CAD, multiple vessel Diabetes mellitus History of heart disease Hypertension Hyperlipidemia Grandmother Diabetes mellitus History of heart disease Hypertension Stroke Grandmother Alzheimer's disease Social History household members: none Smoking Status: Never smoker alcohol intake: current Smoking Status: Never smoker tobacco type: cigars alcohol intake frequency: holidays/special occasions only Alcohol type: beer and hard liquor Substance Use Type: does not use Exam <Liseth Chatman DO - Last Filed: 10/13/22 07:20> Initial Vital Signs Initial Vital Signs: Vital Signs Temperature 97.8 F 10/12/22 15:32 Pulse Rate 80 10/12/22 15:32 Respiratory Rate 16 10/12/22 15:32 Pulse Oximetry 98 10/12/22 15:32 Oxygen Delivery Method Room Air 10/12/22 15:32 GENERAL: Alert 32-year-old male appears in no acute distress and in no acute distress. HEENT: Head atraumatic,EOMI, pupils reactive, face symmetric, moist mucous membranes CARDIOVASCULAR: Regular rate and rhythm without murmurs, rubs or gallops. RESPIRATORY: Breath sounds equal bilaterally, no wheezes rales or rhonchi. ABDOMEN: Soft, nontender. Normoactive bowel sounds all 4 quadrants. No guarding or rebound. EXTREMITIES: Normal range of motion, no clubbing or edema. Neurovascularly intact NEUROLOGICAL: Alert and oriented x4. SKIN: Warm, dry, no laceration, no petechiae, no rashes or lesions. <Jackie Magallon MD - Last Filed: 10/13/22 05:33> Initial Vital Signs Initial Vital Signs: Vital Signs Temperature 97.8 F 10/12/22 15:32 Pulse Rate 80 10/12/22 15:32 Respiratory Rate 16 10/12/22 15:32 Pulse Oximetry 98 10/12/22 15:32 Oxygen Delivery Method Room Air 10/12/22 15:32 Course <Liseth Chatman DO - Last Filed: 10/13/22 07:20> Orders Ordered: Acetaminophen (Acetaminophen 325 Mg Tablet) 650 mg PO Q6H PRN PRN Reason: Fever/Mild Pain (1-3) Amlodipine Besylate (Amlodipine 5 Mg Tablet) 5 mg PO DAILY [facility] Aspirin (Aspirin Ec 325 Mg Tablet) 325 mg PO DAILY [facility] Bupropion HCl (Bupropion Xl 150 Mg Tab) 300 mg PO DAILY [facility] Clopidogrel Bisulfate (Clopidogrel 75 Mg Tablet) 75 mg PO DAILY [facility] Divalproex Sodium (Divalproex Er 250 Mg Tab) 1,000 mg PO DAILY [facility] Divalproex Sodium (Divalproex Er 250 Mg Tab) 250 mg PO DAILY [facility] Enoxaparin Sodium (Enoxaparin 40 Mg/0.4 Ml Syringe) 40 mg SUBCUT DAILY [facility] Metoprolol Succinate (Metoprolol Er 50 Mg Tablet) 100 mg PO DAILY [facility] Morphine Sulfate (Morphine 2 Mg/Ml Inj) 2 mg IV Q5MIN PRN PRN Reason: Chest Pain Naloxone HCl (Naloxone 0.4 Mg/Ml Vial) 0.2 mg IV Q2MIN PRN PRN Reason: Opiate Reversal Nitroglycerin (Nitroglycerin 0.4 Mg Sl Tab) 0.4 mg SL [id number] PRN PRN Reason: Chest Pain Ondansetron HCl (Ondansetron 4 Mg/2 Ml Inj) 4 mg IV Q8HR PRN PRN Reason: Nausea And Vomiting Pantoprazole Sodium (Pantoprazole Dr 20 Mg Tablet) 20 mg PO QPM [facility] Ranolazine (Ranolazine 500 Mg Tab.Er.12h) 500 mg PO BID PRN PRN Reason: Angina Discontinued Medications Acetaminophen (Acetaminophen 325 Mg Tablet) 975 mg PO NOW ONE Stop: 10/12/22 15:42 Last Admin: 10/12/22 15:49 Dose: 975 mg Documented By: NR Aspirin (Aspirin 81 Mg Chew Tab) 324 mg PO NOW ONE Stop: 10/12/22 15:32 Last Admin: 10/12/22 15:47 Dose: 162 mg Documented By: NR Sodium Chloride (Normal Saline 0.9%) 1,000 mls @ 1,000 mls/hr IV BOLUS ONE Stop: 10/12/22 18:01 Last Infusion: 10/12/22 18:05 Dose: 0 mls/hr Documented By: Admin: 10/12/22 17:03 Dose: 1,000 mls/hr Documented By: NR Nitroglycerin (Nitroglycerin 0.4 Mg Sl Tab) 0.4 mg SL NOW ONE Stop: 10/12/22 15:42 Last Admin: 10/12/22 15:46 Dose: 0.4 mg Documented By: NR Vital Signs Vital signs: Vital Signs - 8 hr 10/12/22 15:32 10/12/22 15:37 10/12/22 15:46 Temperature 97.8 F Pulse Rate 80 81 Respiratory Rate 16 Blood Pressure 111/65 108/62 Pulse Oximetry 98 Oxygen Delivery Method Room Air 10/12/22 15:32 10/12/22 15:34 10/12/22 15:34 Temperature Pulse Rate 80 82 Respiratory Rate 21 16 Blood Pressure 111/65 Pulse Oximetry 99 Oxygen Delivery Method 10/12/22 15:45 10/12/22 15:45 10/12/22 15:52 Temperature Pulse Rate 79 Respiratory Rate 12 Blood Pressure 108/62 116/70 Pulse Oximetry 97 Oxygen Delivery Method 10/12/22 15:52 10/12/22 15:55 10/12/22 15:55 Temperature Pulse Rate 77 83 Respiratory Rate 13 12 Blood Pressure 113/62 Pulse Oximetry 98 96 Oxygen Delivery Method 10/12/22 16:00 10/12/22 16:00 10/12/22 16:05 Temperature Pulse Rate 81 Respiratory Rate 14 Blood Pressure 110/57 L 108/59 L Pulse Oximetry 97 Oxygen Delivery Method 10/12/22 16:05 10/12/22 16:10 10/12/22 16:10 Temperature Pulse Rate 75 74 Respiratory Rate 12 12 Blood Pressure 102/57 L Pulse Oximetry 96 96 Oxygen Delivery Method 10/12/22 16:15 10/12/22 16:15 10/12/22 16:20 Temperature Pulse Rate 74 Respiratory Rate 12 Blood Pressure 106/60 102/58 L Pulse Oximetry 96 Oxygen Delivery Method 10/12/22 16:20 10/12/22 16:25 10/12/22 16:25 Temperature Pulse Rate 71 72 Respiratory Rate 12 14 Blood Pressure 97/56 L Pulse Oximetry 97 97 Oxygen Delivery Method 10/12/22 16:30 10/12/22 16:30 10/12/22 16:35 Temperature Pulse Rate 77 Respiratory Rate 20 Blood Pressure 103/55 L 95/55 L Pulse Oximetry 97 Oxygen Delivery Method 10/12/22 16:35 10/12/22 16:40 10/12/22 16:40 Temperature Pulse Rate 76 70 Respiratory Rate 15 21 Blood Pressure 91/52 L Pulse Oximetry 98 98 Oxygen Delivery Method 10/12/22 16:45 10/12/22 16:45 10/12/22 16:50 Temperature Pulse Rate 70 Respiratory Rate 13 Blood Pressure 94/53 L 98/57 L Pulse Oximetry 98 Oxygen Delivery Method 10/12/22 16:50 10/12/22 16:55 10/12/22 16:55 Temperature Pulse Rate 69 68 Respiratory Rate 15 20 Blood Pressure 97/57 L Pulse Oximetry 97 97 Oxygen Delivery Method 10/12/22 17:00 10/12/22 17:00 10/12/22 17:05 Temperature Pulse Rate 70 Respiratory Rate 19 Blood Pressure 107/66 114/67 Pulse Oximetry 98 Oxygen Delivery Method 10/12/22 17:05 10/12/22 17:10 10/12/22 17:10 Temperature Pulse Rate 70 66 Respiratory Rate 13 21 Blood Pressure 104/61 Pulse Oximetry 99 98 Oxygen Delivery Method 10/12/22 17:15 10/12/22 17:15 10/12/22 17:20 Temperature Pulse Rate 63 Respiratory Rate 21 Blood Pressure 109/67 113/72 Pulse Oximetry 99 Oxygen Delivery Method 10/12/22 17:20 10/12/22 17:25 10/12/22 17:25 Temperature Pulse Rate 69 65 Respiratory Rate 26 H 21 Blood Pressure 109/67 Pulse Oximetry 98 99 Oxygen Delivery Method 10/12/22 17:30 10/12/22 17:30 10/12/22 17:35 Temperature Pulse Rate 64 Respiratory Rate 21 Blood Pressure 104/62 108/69 Pulse Oximetry 100 Oxygen Delivery Method 10/12/22 17:35 10/12/22 17:40 10/12/22 17:40 Temperature Pulse Rate 63 66 Respiratory Rate 20 21 Blood Pressure 108/69 Pulse Oximetry 99 100 Oxygen Delivery Method 10/12/22 17:45 10/12/22 17:45 10/12/22 17:50 Temperature Pulse Rate 69 Respiratory Rate 22 Blood Pressure 110/71 117/71 Pulse Oximetry 100 Oxygen Delivery Method 10/12/22 17:50 10/12/22 17:55 10/12/22 17:55 Temperature Pulse Rate 61 62 Respiratory Rate 22 16 Blood Pressure 113/74 Pulse Oximetry 100 100 Oxygen Delivery Method 10/12/22 18:00 10/12/22 18:00 10/12/22 18:05 Temperature Pulse Rate 69 Respiratory Rate 18 Blood Pressure 120/81 106/71 Pulse Oximetry 100 Oxygen Delivery Method 10/12/22 18:05 10/12/22 18:10 10/12/22 18:10 Temperature Pulse Rate 64 62 Respiratory Rate 16 24 Blood Pressure 112/72 Pulse Oximetry 100 100 Oxygen Delivery Method 10/12/22 18:15 10/12/22 18:15 10/12/22 18:20 Temperature Pulse Rate 65 Respiratory Rate 13 Blood Pressure 112/68 112/68 Pulse Oximetry 99 Oxygen Delivery Method 10/12/22 18:20 10/12/22 18:25 10/12/22 18:25 Temperature Pulse Rate 63 64 Respiratory Rate 10 L 11 L Blood Pressure 115/69 Pulse Oximetry 100 100 Oxygen Delivery Method 10/12/22 18:30 10/12/22 18:30 10/12/22 18:34 Temperature Pulse Rate 62 62 Respiratory Rate 25 H 21 Blood Pressure 111/68 Pulse Oximetry 100 100 Oxygen Delivery Method Room Air 10/12/22 18:35 10/12/22 18:35 10/12/22 18:40 Temperature Pulse Rate 62 Respiratory Rate 19 Blood Pressure 116/72 116/71 Pulse Oximetry 100 Oxygen Delivery Method 10/12/22 18:40 10/12/22 18:45 10/12/22 18:45 Temperature Pulse Rate 65 66 Respiratory Rate 20 19 Blood Pressure 108/66 Pulse Oximetry 100 99 Oxygen Delivery Method 10/12/22 18:50 10/12/22 18:50 10/12/22 18:55 Temperature Pulse Rate 64 Respiratory Rate 16 Blood Pressure 111/72 114/77 Pulse Oximetry 97 Oxygen Delivery Method 10/12/22 18:55 10/12/22 19:00 10/12/22 19:00 Temperature Pulse Rate 72 66 Respiratory Rate 17 16 Blood Pressure 105/69 Pulse Oximetry 99 98 Oxygen Delivery Method 10/12/22 19:05 10/12/22 19:05 10/12/22 19:10 Temperature Pulse Rate 71 Respiratory Rate 25 H Blood Pressure 104/64 102/62 Pulse Oximetry 99 Oxygen Delivery Method 10/12/22 19:10 10/12/22 19:15 10/12/22 19:15 Temperature Pulse Rate 65 64 Respiratory Rate 13 11 L Blood Pressure 104/65 Pulse Oximetry 99 99 Oxygen Delivery Method 10/12/22 19:20 10/12/22 19:20 10/12/22 19:25 Temperature Pulse Rate 64 Respiratory Rate 8 L Blood Pressure 104/67 103/66 Pulse Oximetry 99 Oxygen Delivery Method 10/12/22 19:25 10/12/22 19:30 10/12/22 19:30 Temperature Pulse Rate 65 63 Respiratory Rate 17 21 Blood Pressure 97/63 Pulse Oximetry 98 98 Oxygen Delivery Method 10/12/22 19:35 10/12/22 19:35 10/12/22 19:40 Temperature Pulse Rate 64 Respiratory Rate 13 Blood Pressure 100/62 92/57 L Pulse Oximetry 98 Oxygen Delivery Method 10/12/22 19:40 10/12/22 19:45 10/12/22 19:45 Temperature Pulse Rate 63 64 Respiratory Rate 9 L 21 Blood Pressure 92/55 L Pulse Oximetry 99 99 Oxygen Delivery Method 10/12/22 19:55 10/12/22 19:55 10/12/22 20:00 Temperature Pulse Rate 64 Respiratory Rate 20 Blood Pressure 99/54 L 97/54 L Pulse Oximetry 99 Oxygen Delivery Method 10/12/22 20:00 Temperature Pulse Rate 65 Respiratory Rate 17 Blood Pressure Pulse Oximetry 98 Oxygen Delivery Method Room Air <Jackie Magallon MD - Last Filed: 10/13/22 05:33> Orders Ordered: Acetaminophen (Acetaminophen 325 Mg Tablet) 650 mg PO Q6H PRN PRN Reason: Fever/Mild Pain (1-3) Amlodipine Besylate (Amlodipine 5 Mg Tablet) 5 mg PO DAILY [facility] Aspirin (Aspirin Ec 325 Mg Tablet) 325 mg PO DAILY [facility] Bupropion HCl (Bupropion Xl 150 Mg Tab) 300 mg PO DAILY [facility] Clopidogrel Bisulfate (Clopidogrel 75 Mg Tablet) 75 mg PO DAILY [facility] Divalproex Sodium (Divalproex Er 250 Mg Tab) 1,000 mg PO DAILY [facility] Divalproex Sodium (Divalproex Er 250 Mg Tab) 250 mg PO DAILY [facility] Enoxaparin Sodium (Enoxaparin 40 Mg/0.4 Ml Syringe) 40 mg SUBCUT DAILY [facility] Metoprolol Succinate (Metoprolol Er 50 Mg Tablet) 100 mg PO DAILY [facility] Morphine Sulfate (Morphine 2 Mg/Ml Inj) 2 mg IV Q5MIN PRN PRN Reason: Chest Pain Naloxone HCl (Naloxone 0.4 Mg/Ml Vial) 0.2 mg IV Q2MIN PRN PRN Reason: Opiate Reversal Nitroglycerin (Nitroglycerin 0.4 Mg Sl Tab) 0.4 mg SL [id number] PRN PRN Reason: Chest Pain Ondansetron HCl (Ondansetron 4 Mg/2 Ml Inj) 4 mg IV Q8HR PRN PRN Reason: Nausea And Vomiting Pantoprazole Sodium (Pantoprazole Dr 20 Mg Tablet) 20 mg PO QPM [facility] Ranolazine (Ranolazine 500 Mg Tab.Er.12h) 500 mg PO BID PRN PRN Reason: Angina Discontinued Medications Acetaminophen (Acetaminophen 325 Mg Tablet) 975 mg PO NOW ONE Stop: 10/12/22 15:42 Last Admin: 10/12/22 15:49 Dose: 975 mg Documented By: NR Aspirin (Aspirin 81 Mg Chew Tab) 324 mg PO NOW ONE Stop: 10/12/22 15:32 Last Admin: 10/12/22 15:47 Dose: 162 mg Documented By: NR Sodium Chloride (Normal Saline 0.9%) 1,000 mls @ 1,000 mls/hr IV BOLUS ONE Stop: 10/12/22 18:01 Last Infusion: 10/12/22 18:05 Dose: 0 mls/hr Documented By: Admin: 10/12/22 17:03 Dose: 1,000 mls/hr Documented By: NR Nitroglycerin (Nitroglycerin 0.4 Mg Sl Tab) 0.4 mg SL NOW ONE Stop: 10/12/22 15:42 Last Admin: 10/12/22 15:46 Dose: 0.4 mg Documented By: NR Vital Signs Vital signs: Vital Signs - 8 hr 10/12/22 15:32 10/12/22 15:37 10/12/22 15:46 Temperature 97.8 F Pulse Rate 80 81 Respiratory Rate 16 Blood Pressure 111/65 108/62 Pulse Oximetry 98 Oxygen Delivery Method Room Air 10/12/22 15:32 10/12/22 15:34 10/12/22 15:34 Temperature Pulse Rate 80 82 Respiratory Rate 21 16 Blood Pressure 111/65 Pulse Oximetry 99 Oxygen Delivery Method 10/12/22 15:45 10/12/22 15:45 10/12/22 15:52 Temperature Pulse Rate 79 Respiratory Rate 12 Blood Pressure 108/62 116/70 Pulse Oximetry 97 Oxygen Delivery Method 10/12/22 15:52 10/12/22 15:55 10/12/22 15:55 Temperature Pulse Rate 77 83 Respiratory Rate 13 12 Blood Pressure 113/62 Pulse Oximetry 98 96 Oxygen Delivery Method 10/12/22 16:00 10/12/22 16:00 10/12/22 16:05 Temperature Pulse Rate 81 Respiratory Rate 14 Blood Pressure 110/57 L 108/59 L Pulse Oximetry 97 Oxygen Delivery Method 10/12/22 16:05 10/12/22 16:10 10/12/22 16:10 Temperature Pulse Rate 75 74 Respiratory Rate 12 12 Blood Pressure 102/57 L Pulse Oximetry 96 96 Oxygen Delivery Method 10/12/22 16:15 10/12/22 16:15 10/12/22 16:20 Temperature Pulse Rate 74 Respiratory Rate 12 Blood Pressure 106/60 102/58 L Pulse Oximetry 96 Oxygen Delivery Method 10/12/22 16:20 10/12/22 16:25 10/12/22 16:25 Temperature Pulse Rate 71 72 Respiratory Rate 12 14 Blood Pressure 97/56 L Pulse Oximetry 97 97 Oxygen Delivery Method 10/12/22 16:30 10/12/22 16:30 10/12/22 16:35 Temperature Pulse Rate 77 Respiratory Rate 20 Blood Pressure 103/55 L 95/55 L Pulse Oximetry 97 Oxygen Delivery Method 10/12/22 16:35 10/12/22 16:40 10/12/22 16:40 Temperature Pulse Rate 76 70 Respiratory Rate 15 21 Blood Pressure 91/52 L Pulse Oximetry 98 98 Oxygen Delivery Method 10/12/22 16:45 10/12/22 16:45 10/12/22 16:50 Temperature Pulse Rate 70 Respiratory Rate 13 Blood Pressure 94/53 L 98/57 L Pulse Oximetry 98 Oxygen Delivery Method 10/12/22 16:50 10/12/22 16:55 10/12/22 16:55 Temperature Pulse Rate 69 68 Respiratory Rate 15 20 Blood Pressure 97/57 L Pulse Oximetry 97 97 Oxygen Delivery Method 10/12/22 17:00 10/12/22 17:00 10/12/22 17:05 Temperature Pulse Rate 70 Respiratory Rate 19 Blood Pressure 107/66 114/67 Pulse Oximetry 98 Oxygen Delivery Method 10/12/22 17:05 10/12/22 17:10 10/12/22 17:10 Temperature Pulse Rate 70 66 Respiratory Rate 13 21 Blood Pressure 104/61 Pulse Oximetry 99 98 Oxygen Delivery Method 10/12/22 17:15 10/12/22 17:15 10/12/22 17:20 Temperature Pulse Rate 63 Respiratory Rate 21 Blood Pressure 109/67 113/72 Pulse Oximetry 99 Oxygen Delivery Method 10/12/22 17:20 10/12/22 17:25 10/12/22 17:25 Temperature Pulse Rate 69 65 Respiratory Rate 26 H 21 Blood Pressure 109/67 Pulse Oximetry 98 99 Oxygen Delivery Method 10/12/22 17:30 10/12/22 17:30 10/12/22 17:35 Temperature Pulse Rate 64 Respiratory Rate 21 Blood Pressure 104/62 108/69 Pulse Oximetry 100 Oxygen Delivery Method 10/12/22 17:35 10/12/22 17:40 10/12/22 17:40 Temperature Pulse Rate 63 66 Respiratory Rate 20 21 Blood Pressure 108/69 Pulse Oximetry 99 100 Oxygen Delivery Method 10/12/22 17:45 10/12/22 17:45 10/12/22 17:50 Temperature Pulse Rate 69 Respiratory Rate 22 Blood Pressure 110/71 117/71 Pulse Oximetry 100 Oxygen Delivery Method 10/12/22 17:50 10/12/22 17:55 10/12/22 17:55 Temperature Pulse Rate 61 62 Respiratory Rate 22 16 Blood Pressure 113/74 Pulse Oximetry 100 100 Oxygen Delivery Method 10/12/22 18:00 10/12/22 18:00 10/12/22 18:05 Temperature Pulse Rate 69 Respiratory Rate 18 Blood Pressure 120/81 106/71 Pulse Oximetry 100 Oxygen Delivery Method 10/12/22 18:05 10/12/22 18:10 10/12/22 18:10 Temperature Pulse Rate 64 62 Respiratory Rate 16 24 Blood Pressure 112/72 Pulse Oximetry 100 100 Oxygen Delivery Method 10/12/22 18:15 10/12/22 18:15 10/12/22 18:20 Temperature Pulse Rate 65 Respiratory Rate 13 Blood Pressure 112/68 112/68 Pulse Oximetry 99 Oxygen Delivery Method 10/12/22 18:20 10/12/22 18:25 10/12/22 18:25 Temperature Pulse Rate 63 64 Respiratory Rate 10 L 11 L Blood Pressure 115/69 Pulse Oximetry 100 100 Oxygen Delivery Method 10/12/22 18:30 10/12/22 18:30 10/12/22 18:34 Temperature Pulse Rate 62 62 Respiratory Rate 25 H 21 Blood Pressure 111/68 Pulse Oximetry 100 100 Oxygen Delivery Method Room Air 10/12/22 18:35 10/12/22 18:35 10/12/22 18:40 Temperature Pulse Rate 62 Respiratory Rate 19 Blood Pressure 116/72 116/71 Pulse Oximetry 100 Oxygen Delivery Method 10/12/22 18:40 10/12/22 18:45 10/12/22 18:45 Temperature Pulse Rate 65 66 Respiratory Rate 20 19 Blood Pressure 108/66 Pulse Oximetry 100 99 Oxygen Delivery Method 10/12/22 18:50 10/12/22 18:50 10/12/22 18:55 Temperature Pulse Rate 64 Respiratory Rate 16 Blood Pressure 111/72 114/77 Pulse Oximetry 97 Oxygen Delivery Method 10/12/22 18:55 10/12/22 19:00 10/12/22 19:00 Temperature Pulse Rate 72 66 Respiratory Rate 17 16 Blood Pressure 105/69 Pulse Oximetry 99 98 Oxygen Delivery Method 10/12/22 19:05 10/12/22 19:05 10/12/22 19:10 Temperature Pulse Rate 71 Respiratory Rate 25 H Blood Pressure 104/64 102/62 Pulse Oximetry 99 Oxygen Delivery Method 10/12/22 19:10 10/12/22 19:15 10/12/22 19:15 Temperature Pulse Rate 65 64 Respiratory Rate 13 11 L Blood Pressure 104/65 Pulse Oximetry 99 99 Oxygen Delivery Method 10/12/22 19:20 10/12/22 19:20 10/12/22 19:25 Temperature Pulse Rate 64 Respiratory Rate 8 L Blood Pressure 104/67 103/66 Pulse Oximetry 99 Oxygen Delivery Method 10/12/22 19:25 10/12/22 19:30 10/12/22 19:30 Temperature Pulse Rate 65 63 Respiratory Rate 17 21 Blood Pressure 97/63 Pulse Oximetry 98 98 Oxygen Delivery Method 10/12/22 19:35 10/12/22 19:35 10/12/22 19:40 Temperature Pulse Rate 64 Respiratory Rate 13 Blood Pressure 100/62 92/57 L Pulse Oximetry 98 Oxygen Delivery Method 10/12/22 19:40 10/12/22 19:45 10/12/22 19:45 Temperature Pulse Rate 63 64 Respiratory Rate 9 L 21 Blood Pressure 92/55 L Pulse Oximetry 99 99 Oxygen Delivery Method 10/12/22 19:55 10/12/22 19:55 10/12/22 20:00 Temperature Pulse Rate 64 Respiratory Rate 20 Blood Pressure 99/54 L 97/54 L Pulse Oximetry 99 Oxygen Delivery Method 10/12/22 20:00 Temperature Pulse Rate 65 Respiratory Rate 17 Blood Pressure Pulse Oximetry 98 Oxygen Delivery Method Room Air MDM - Chest Pain <Liseth Chatman, - Last Filed: 10/13/22 07:20> Lab Data 10/12/22 15:35 10/12/22 15:35 Labs: Lab Results 10/12/22 10/12/22 10/12/22 Range/Units 15:35 15:35 15:35 WBC 6.7 (4.5-11.0) X10^3/uL RBC 4.70 (4.5-5.9) X10^6/uL Hgb 14.5 (13.5-17.5) g/dL Hct 41.8 (41-53) % MCV 88.9 (80-100) fL MCH 30.9 (26-34) PG MCHC 34.8 (30-36) % RDW 13.9 (11.6-14.8) % Plt Count 182 (150-400) X10^3/uL Neut % (Auto) 70.9 (50-75) % Lymph % (Auto) 20.2 L (25-40) % [place] % (Auto) 7.0 (3-14) % Eos % (Auto) 1.4 L (2-4) % Baso % (Auto) 0.5 (0-2) % Neut # (Auto) 4800 (2067-8297) /uL Lymph # (Auto) 1400 (6729-1771) /uL [place] # (Auto) 500 (0-900) /uL Eos # (Auto) 100 (0-450) /uL Baso # (Auto) 0 (0-100) /uL PT 12.4 (10.1-12.7) SECONDS INR 1.1 (0.9-1.3) APTT 32 (26-36) SECONDS Sodium 139 (137-145) mmol/L Potassium 3.7 (3.4-5.1) mmol/L Chloride 103 (98-107) mmol/L Carbon Dioxide 28 (22-32) mmol/L BUN 9 (9-20) mg/dL Creatinine 0.96 (0.66-1.25) mg/dL Estimated GFR > 60 (>60) mL/min BUN/Creatinine Ratio 9.4 (6-22) Glucose 98 (70-100) mg/dL Calcium 8.6 (8.4-10.2) mg/dL Magnesium 1.9 (1.6-2.3) mg/dL Total Bilirubin 1.1 (0.2-1.3) mg/dL AST 29 (17-59) IU/L ALT 41 (<50) IU/L Alkaline Phosphatase 69 (38-126) U/L Total Creatine Kinase 60 (55-170) U/L CK-MB (CK-2) TNP CK-MB (CK-2) Rel Index TNP Troponin I < 0.012 (0.01-0.034) ng/mL NT-Pro-B Natriuret Pep (<125) pg/mL Total Protein 7.4 (6.3-8.2) g/dL Albumin 4.0 (3.5-5.0) g/dL Globulin 3.4 (1.7-4.1) g/dL Albumin/Globulin Ratio 1.2 (1.0-2.8) Lipase 54 (23-300) U/L SARS-CoV-2 (PCR) (Negative) 10/12/22 10/12/22 10/12/22 Range/Units 15:35 17:18 18:08 WBC (4.5-11.0) X10^3/uL RBC (4.5-5.9) X10^6/uL Hgb (13.5-17.5) g/dL Hct (41-53) % MCV (80-100) fL MCH (26-34) PG MCHC (30-36) % RDW (11.6-14.8) % Plt Count (150-400) X10^3/uL Neut % (Auto) (50-75) % Lymph % (Auto) (25-40) % [place] % (Auto) (3-14) % Eos % (Auto) (2-4) % Baso % (Auto) (0-2) % Neut # (Auto) (9782-7402) /uL Lymph # (Auto) (7083-2346) /uL [place] # (Auto) (0-900) /uL Eos # (Auto) (0-450) /uL Baso # (Auto) (0-100) /uL PT (10.1-12.7) SECONDS INR (0.9-1.3) APTT (26-36) SECONDS Sodium (137-145) mmol/L Potassium (3.4-5.1) mmol/L Chloride (98-107) mmol/L Carbon Dioxide (22-32) mmol/L BUN (9-20) mg/dL Creatinine (0.66-1.25) mg/dL Estimated GFR (>60) mL/min BUN/Creatinine Ratio (6-22) Glucose (70-100) mg/dL Calcium (8.4-10.2) mg/dL Magnesium (1.6-2.3) mg/dL Total Bilirubin (0.2-1.3) mg/dL AST (17-59) IU/L ALT (<50) IU/L Alkaline Phosphatase (38-126) U/L Total Creatine Kinase (55-170) U/L CK-MB (CK-2) CK-MB (CK-2) Rel Index Troponin I < 0.012 (0.01-0.034) ng/mL NT-Pro-B Natriuret Pep 91 (<125) pg/mL Total Protein (6.3-8.2) g/dL Albumin (3.5-5.0) g/dL Globulin (1.7-4.1) g/dL Albumin/Globulin Ratio (1.0-2.8) Lipase (23-300) U/L SARS-CoV-2 (PCR) Negative (Negative) Imaging Data Chest x-ray: Radiologist's Impression: PROCEDURE:? XR CHEST 1V ? INDICATIONS:? chest pain ? TECHNIQUE:? One view of the chest was acquired.? ? COMPARISON:? [facility], CR, XR CHEST 2V, 03/12/2022, 17:09.? [facility], CR, XR CHEST 1V, 09/22/2022, 18:53. ? FINDINGS:? ? Surgical changes and devices:? None.? ? Lungs and pleura:? Lungs are clear.? No pleural effusions or pneumothorax.? ? Mediastinum:? Mediastinal contours appear normal.? Heart size is normal.? ? Bones and chest wall:? No suspicious bony lesions.? Overlying soft tissues appear unremarkable.? ? ? IMPRESSION:? ? Portable chest within normal limits. ? ? ? Dictated by: David Mcgrath M.D. on 10/12/2022 at 15:24 ? ? ECG Data Interpretation: EKG 1. Sinus rhythm rate 79 VA interval 190 QRS [address] changes Q-waves 3 without change from prior EKG on September 22 EKG 2. Sinus rhythm rate [address] changes similar to previous EKG if persistent Q-waves in inferior MDM Narrative Medical decision making narrative: Patient 52-year-old male with history of coronary artery disease recent STEMI with 2 stents in the LAD presenting today with chest discomfort. He received 2 nitros at home 1 nitro here. He reports that his pain went down to a 2 he has a mild headache blood pressure decreased into the 90s. 1st troponin is negative his EKG does not show any abnormality. He was seen and evaluated here in September 22 for something similar but it appears that today's presentation is slightly more intense Dr. Dhillon cardiology consulted updated on patient's recent stents NSTEMI in [place] in July. Agrees that patient should probably be transferred over wear cardiac catheterization can be done. Understands that 2nd troponin is still pending Signed out to Dr. Magallon <Jackie Magallon MD - Last Filed: 10/13/22 05:33> Lab Data Labs: Lab Results 10/12/22 10/12/22 10/12/22 Range/Units 15:35 15:35 15:35 WBC 6.7 (4.5-11.0) X10^3/uL RBC 4.70 (4.5-5.9) X10^6/uL Hgb 14.5 (13.5-17.5) g/dL Hct 41.8 (41-53) % MCV 88.9 (80-100) fL MCH 30.9 (26-34) PG MCHC 34.8 (30-36) % RDW 13.9 (11.6-14.8) % Plt Count 182 (150-400) X10^3/uL Neut % (Auto) 70.9 (50-75) % Lymph % (Auto) 20.2 L (25-40) % [place] % (Auto) 7.0 (3-14) % Eos % (Auto) 1.4 L (2-4) % Baso % (Auto) 0.5 (0-2) % Neut # (Auto) 4800 (4164-8316) /uL Lymph # (Auto) 1400 (3330-7914) /uL [place] # (Auto) 500 (0-900) /uL Eos # (Auto) 100 (0-450) /uL Baso # (Auto) 0 (0-100) /uL PT 12.4 (10.1-12.7) SECONDS INR 1.1 (0.9-1.3) APTT 32 (26-36) SECONDS Sodium 139 (137-145) mmol/L Potassium 3.7 (3.4-5.1) mmol/L Chloride 103 (98-107) mmol/L Carbon Dioxide 28 (22-32) mmol/L BUN 9 (9-20) mg/dL Creatinine 0.96 (0.66-1.25) mg/dL Estimated GFR > 60 (>60) mL/min BUN/Creatinine Ratio 9.4 (6-22) Glucose 98 (70-100) mg/dL Calcium 8.6 (8.4-10.2) mg/dL Magnesium 1.9 (1.6-2.3) mg/dL Total Bilirubin 1.1 (0.2-1.3) mg/dL AST 29 (17-59) IU/L ALT 41 (<50) IU/L Alkaline Phosphatase 69 (38-126) U/L Total Creatine Kinase 60 (55-170) U/L CK-MB (CK-2) TNP CK-MB (CK-2) Rel Index TNP Troponin I < 0.012 (0.01-0.034) ng/mL NT-Pro-B Natriuret Pep (<125) pg/mL Total Protein 7.4 (6.3-8.2) g/dL Albumin 4.0 (3.5-5.0) g/dL Globulin 3.4 (1.7-4.1) g/dL Albumin/Globulin Ratio 1.2 (1.0-2.8) Lipase 54 (23-300) U/L SARS-CoV-2 (PCR) (Negative) 10/12/22 10/12/22 10/12/22 Range/Units 15:35 17:18 18:08 WBC (4.5-11.0) X10^3/uL RBC (4.5-5.9) X10^6/uL Hgb (13.5-17.5) g/dL Hct (41-53) % MCV (80-100) fL MCH (26-34) PG MCHC (30-36) % RDW (11.6-14.8) % Plt Count (150-400) X10^3/uL Neut % (Auto) (50-75) % Lymph % (Auto) (25-40) % [place] % (Auto) (3-14) % Eos % (Auto) (2-4) % Baso % (Auto) (0-2) % Neut # (Auto) (5069-8480) /uL Lymph # (Auto) (8291-4505) /uL [place] # (Auto) (0-900) /uL Eos # (Auto) (0-450) /uL Baso # (Auto) (0-100) /uL PT (10.1-12.7) SECONDS INR (0.9-1.3) APTT (26-36) SECONDS Sodium (137-145) mmol/L Potassium (3.4-5.1) mmol/L Chloride (98-107) mmol/L Carbon Dioxide (22-32) mmol/L BUN (9-20) mg/dL Creatinine (0.66-1.25) mg/dL Estimated GFR (>60) mL/min BUN/Creatinine Ratio (6-22) Glucose (70-100) mg/dL Calcium (8.4-10.2) mg/dL Magnesium (1.6-2.3) mg/dL Total Bilirubin (0.2-1.3) mg/dL AST (17-59) IU/L ALT (<50) IU/L Alkaline Phosphatase (38-126) U/L Total Creatine Kinase (55-170) U/L CK-MB (CK-2) CK-MB (CK-2) Rel Index Troponin I < 0.012 (0.01-0.034) ng/mL NT-Pro-B Natriuret Pep 91 (<125) pg/mL Total Protein (6.3-8.2) g/dL Albumin (3.5-5.0) g/dL Globulin (1.7-4.1) g/dL Albumin/Globulin Ratio (1.0-2.8) Lipase (23-300) U/L SARS-CoV-2 (PCR) Negative (Negative) MDM Narrative Medical decision making narrative: Patient 52-year-old male with history of coronary artery disease recent STEMI with 2 stents in the LAD presenting today with chest discomfort. He received 2 nitros at home 1 nitro here. He reports that his pain went down to a 2 he has a mild headache blood pressure decreased into the 90s. 1st troponin is negative his EKG does not show any abnormality. He was seen and evaluated here in September 22 for something similar but it appears that today's presentation is slightly more intense Dr. Perez cardiology consulted updated on patient's recent stents NSTEMI in [place] in July. Agrees that patient should probably be transferred over wear cardiac catheterization can be done. Understands that 2nd troponin is still pending Signed out to Dr. Magallon Patient is examined, chart is reviewed. CC: acute chest pain. Acute, recurrent, uncertain prognosis Old records reviewed including recent hospitalization in [place] with stent placements, multiple prior hospital admissions complicating factors include very small cardiac arteries that have been deemed non amenable for bypass and recommendations previously for his recurrent chest pain has been maximizing medical treatment. Currently he is on amlodipine, metoprolol, ranolazine. In discussion with Cardiology recommendation was to add 30 mg of isosorbide every morning and a statin exam is unremarkable care is reviewed with Dr Millan, cardiology [place]. with serial troponins negative at this time,Chest pain resolved his recommendation was to go ahead and admit him to [facility], continue serial troponins, echocardiogram tomorrow if he worsens or has significant changes on his echocardiogram contact him tomorrow and arrangements will be made to transfer him for catheterization on Friday. Additional cardiology recommendations are to maximize his anginal treatment with 30 mg of isosorbide and a statin continued all medications including the ranolazine reviewed with the night hospitalist and cardiology recommendations are Discussed. Discussed plan with patient questions are answered he remains pain-free. Discharge Plan Departure Patient Disposition: Admitted as Observation Clinical Impression: Coronary artery disease, Chest pain Admit Date/Time: 10/12/22 21:29 Admit Provider: Amisha Mac
[2022-10-12 15:43] LABS: Add Manual Diff / Slide Review NO; Basophils Absolute Auto 0 /uL (0-100); Basophils Percent Auto 0.5 % (0-2); Eosinophils Absolute Auto 100 /uL (0-450); Eosinophils Percent Auto 1.4 % (2-4); Hematocrit 41.8 % (41-53); Hemoglobin 14.5 g/dL (13.5-17.5); Lymphocytes Absolute Auto 1400 /uL (1100-4500); Lymphocytes Percent Auto 20.2 % (25-40); Mean Corpuscular HGB Conc 34.8 % (30-36); Mean Corpuscular Hemoglobin 30.9 PG (26-34); Mean Corpuscular Volume 88.9 fL (80-100); Monocytes Absolute Auto 500 /uL (0-900); Neutrophils Absolute Auto 4800 /uL (1500-7000); Neutrophils Percent Auto 70.9 % (50-75); Platelet Count 182 X10^3/uL (150-400); Red Cell Distribution Width 13.9 % (11.6-14.8); White Blood Cell Count 6.7 X10^3/uL (4.5-11.0)
[2022-10-12] MEDS: NITROGLYCERIN 0.4 MG SL TAB SL (15:46)
[2022-10-12] MEDS: ASPIRIN 81 MG CHEW TAB 324 MG PO (15:47)
[2022-10-12] MEDS: ACETAMINOPHEN 325 MG TABLET 975 MG PO (15:49)
[2022-10-12 15:51] LABS: INR 1.1 (0.9-1.3); Prothrombin Time 12.4 SECONDS (10.1-12.7)
[2022-10-12 15:54] LABS: PTT Partial Thromboplastin Tim 32 SECONDS (26-36)
--- NOTE | 2022-10-12 15:55 | PC.NURSE ---
pt states he has no been compliant with his medicaitons, Plavix and ASA due to financial troubles. he also states he had a maker in Jul when he was in [place], he had two stents placed at this time. pt reports he started new job 2 days ago [place] in [place].
[2022-10-12 15:56] LABS: Alanine Aminotransferase 41 IU/L (<50); Albumin Globulin Ratio 1.2 (1.0-2.8); Alkaline Phosphatase 69 U/L (38-126); Aspartate Aminotransferase 29 IU/L (17-59); BUN Creatinine Ratio 9.4 (6-22); Bilirubin Total 1.1 mg/dL (0.2-1.3); Blood Urea Nitrogen 9 mg/dL (9-20); Calcium 8.6 mg/dL (8.4-10.2); Carbon Dioxide 28 mmol/L (22-32); Chloride 103 mmol/L (98-107); Creatine Kinase 60 U/L (55-170); Estimated Glomerular Filt Rate > 60 mL/min (>60); Globulin 3.4 g/dL (1.7-4.1); Glucose 98 mg/dL (70-100); HEMOLYSIS < 15 (0-50); Lipase 54 U/L (23-300); Magnesium 1.9 mg/dL (1.6-2.3); Potassium 3.7 mmol/L (3.4-5.1); Sodium 139 mmol/L (137-145); Total Protein 7.4 g/dL (6.3-8.2)
[2022-10-12 16:06] LABS: Troponin I < 0.012 ng/mL (0.01-0.034)
--- NOTE | 2022-10-12 16:51 | PC.NURSE ---
checked on patient. he rates his chest pain a 2/10 now. provider notified. provider notified of low BP.
[2022-10-12] MEDS: SODIUM CHLORIDE 0.9% 1,000 ML 1000 ML IV (17:03)
[2022-10-12 17:47] LABS: COVID19 -Nasal RAPID Negative (Negative)
[2022-10-12 18:42] LABS: Troponin I < 0.012 ng/mL (0.01-0.034)
--- NOTE | 2022-10-12 19:48 | PC.NURSE ---
RESIDENTIAL SALES CONSULTANT note: 1947 Spoke to Oxana RN over at [facility] regarding a transfer. Oxana said she will check upstairs on the second floor and see the bed situation and call us back.
--- NOTE | 2022-10-12 22:39 | DI.ECHO.S_ITS ---
[facility]---------+ [facility] +---------+ : : [address] : : : : [place] : : : : [id number] : : : : Phone: [phone]+ Echocardiogram Report + + :Name: NATALEE MCCULLOUGH Study Date: 10/13/2022 Height: 71 in : :[facility] ReadingLocation: [facility] Weight: 285 lb : : Gender: Male BSA: 2.5 m2 : :: 1970 Age: 52 yrs BP: 127/73 mmHg: :Reason For Study: Chest Pain : : Performed By: Socorro Barnard : :Referring: MARGARET ABRAMS : + + Interpretation Summary Attempted Definity but there was no Definity preset for the probe. Quality images with Definity were not ultimately obtained. The left ventricle is normal in size. Left ventricular systolic function is probably normal. There are no obvious focal wall motion abnormalities noted but poor endocardial definition reduces the sensitivity for the detection of such. Diastolic parameters suggest probable normal left ventricular diastolic function and normal filling pressures. The right ventricle is normal size. The right ventricular systolic function is normal. The left atrial size is normal. Right atrial size is normal. There is no significant valvular heart disease. The aortic root is normal size. Procedure: A two-dimensional transthoracic echocardiogram with color flow and Doppler was performed. The study quality was technically difficult. Comparison is made with the echocardiogram of 10/21/2021. A contrast injection of Definity was performed to improve assessment of LV function. The patient was in normal sinus rhythm during the exam. Left Ventricle: The left ventricle is normal in size. Left ventricular systolic function is probably normal. There are no obvious focal wall motion abnormalities noted but poor endocardial definition reduces the sensitivity for the detection of such. Diastolic parameters suggest probable normal left ventricular diastolic function and normal filling pressures. Right Ventricle: The right ventricle is normal size. The right ventricular systolic function is normal. Atria: The left atrial size is normal. Right atrial size is normal. There is no Doppler evidence for an interatrial shunt. Mitral Valve: The mitral valve is grossly normal. There is no mitral valve stenosis. There is trace mitral regurgitation. Aortic Valve: The aortic valve is grossly normal. There is no aortic valve stenosis. No aortic regurgitation is present. Tricuspid Valve: The tricuspid valve is not well visualized, but is grossly normal. There is no tricuspid stenosis. There is trace tricuspid regurgitation. Pulmonic Valve: The pulmonic valve is not well visualized. There is no pulmonic valvular stenosis. There is no pulmonic valvular regurgitation. There is no significant valvular heart disease. Great Vessels: The aortic root is normal size. The ascending aorta is at the upper limits of normal in size. The pulmonary artery is normal size. The inferior vena cava was not well visualized. MMode/2D Measurements & Calculations LVIDd: 4.3 cm LVOT diam: 2.4 cm LVIDs: 3.0 cm Ao root diam: 3.6 cm FS: 30.8 % asc Aorta Diam: 3.8 cm IVSd: 1.3 cm LVPWd: 1.4 cm LV dubois. diameter/BSA (cm/m^2): 1.8 LV sys. diameter/BSA (cm/m^2): 1.2 LA A2 area: 19.8 cm2 RA long axis: 5.8 cm LA A4 area: 17.3 cm2 RA area: 14.9 cm2 LA length (vol): 5.7 cm RA vol: 32.2 ml LA vol: 51.1 ml RA : 13.1 ml/m2 LA vol index: 20.8 ml/m2 TAPSE: 1.9 cm Doppler Measurements & Calculations Ao V2 max: 135.9 cm/sec LVOT Max Salazar: 100.9 cm/sec Ao V2 mean: 92.0 cm/sec LV V1 max P.1 mmHg Ao max P.4 mmHg LV V1 VTI: 23.9 cm Ao mean P.8 mmHg SHARI(I,D): 3.0 cm2 Ao V2 VTI: 35.0 cm SHARI(V,D): 3.3 cm2 sev ratio: 0.68 SHARI indexed to BSA (cm^2/m^2): 1.2 MV E max salazar: 71.0 cm/sec PA V2 max: 63.6 cm/sec MV A max salazar: 71.0 cm/sec PA V2 mean: 42.1 cm/sec MV E/A: 1.0 PA mean P.80 mmHg Med Peak E' Salazar: 7.8 cm/sec PA pr(Accel): 33.6 mmHg E/E' med: 9.1 Lat Peak E' Salazar: 10.1 cm/sec E/E' lat: 7.0 E/e' average: 8.1 MV dec time: 0.22 sec SV(LVOT): 105.8 ml Reading Physician:05:21 PM
--- NOTE | 2022-10-12 22:56 | PM.HP.1 ---
History of Present Illness History of Present Illness Date Patient Seen: 10/12/22 Time Patient Seen: 22:56 Chief complaint: Chest pain Narrative: Johnathan Tran s a 52-year-old male with history of bipolarII, obesity, hypertension known coronary artery disease with recent stent in LAD in [place] 2nd to STEMI 08/10/2022.? Since that time the patient reports that he has been out of work and is currently living of his vehicle and has had difficulty affording his medications and has missed dosage frequently attempting to spread his medications out to make them last, he has also been unable to establish with a technical service specialist for management. 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 Today while at rest he developed chest pain and ache to the left side at approximately the 3rd and 4th intercostal space, that radiated up to his jaw and down his left arm, nothing seemed to worsen or change the pain, the patient attempted to nitro & 2 aspirin at home without improvement, he experienced some mild shortness of breath and lightheadedness, no diaphoresis, it lasted approximately 1-2 hours was still present when he came into the emergency department and as he was being treated in the ED the chest pain eventually resolved. At the time of admit patient's symptoms have all completely resolved he is resting easily in bed in no distress or discomfort, and eating. On admit patient denies chest pain, shortness in breath, headache, changes in vision, difficulty swallowing, speech impairment, weakness, numbness, tingling, difficulty with ambulation, recent falls, head injury, LOC, fever, body aches, chills, cough, recent exposure to illness, abdominal pain, nausea, vomiting, urinary incontinence/retention, dysuria, frequency, urgency, hematuria, bowel changes, constipation, incontinence, melena, rashes, recent changes to medication, illness, injury, or trauma. Admitting vitals temp 97.8?, BP 97/60, HR 57, RR 17, O2 saturation 97% on room air. Patient's CBC, chemistry and liver panels are all negative troponin x2 are negative, COVID negative, chest x-ray negative for any acute processes. Patient's EKG I personally reviewed both initial sinus rhythm of [address] changes Q-waves in 3 without changes from previous EKG of September 22, 2022 repeat EKG unchanged from initial. Dr. Chatman consulted with Dr. Tran technical service specialist at [facility] in ED. Patient admitted for chest pain. Patient History Medical History Acne ADHD (~1999) Alcohol use disorder, moderate, in sustained remission Allergies (~1978) Angina at rest Anxiety (~1999) Bipolar II disorder Body mass index (BMI) of 40.1-44.9 in adult Body posture problem Carpal tunnel syndrome (~2014) Cervical somatic dysfunction Chicken pox (~1975) Chronic thoracic back pain (~1999) Coronary artery disease (~2002) COVID-19 virus infection Cramping of feet Depression (~1999) Dyslipidemia Elevated blood sugar level Essential hypertension Exertional shortness of breath Family history of myocardial infarction at age less than 60 GERD (gastroesophageal reflux disease) (~1999) Headache (~2004) History of bipolar disorder (~2014) Hx of angiography Kidney stones (~2016) Left anterior knee pain Migraines (~2009) Neck pain On valproic acid therapy Psoriasis Restless leg syndrome (~2016) Screening for prostate cancer Screening for prostate cancer Segmental and somatic dysfunction of thoracic region Tinnitus (~2015) Upper extremity somatic dysfunction Wears glasses Surgical History Anesthesia H/O left heart catheterization by cutdown History of arthroscopy of both knees (~1988) Lump in the testicle (~2004) Stented coronary artery Family & Social History Family History Mother Myocardial infarct History of heart disease Hypertension Mental health problem Father CAD, multiple vessel Diabetes mellitus History of heart disease Hypertension Hyperlipidemia Grandmother Diabetes mellitus History of heart disease Hypertension Stroke Grandmother Alzheimer's disease Social History: household members none Prior Living Arrangements Other Safety & Behavioral: Feels Safe in Current Yes Environment Been Physically Hurt or No Threatened By a Person Tobacco & Substance use: Smoking Status Never smoker alcohol intake current alcohol intake frequency holiday/special occasion Substance Use Type marijuana Meds Home Medications and Allergies Home Medications Medication Instructions Recorded Confirmed Type aspirin 81 mg tablet,delayed 81 mg PO DAILY 08/17/19 10/12/22 History release bupropion HCl 300 mg 24 hr tablet, 300 mg PO QAM #90 tabs 08/07/21 10/12/22 Rx extended release amlodipine 5 mg tablet 5 mg PO DAILY #90 tabs 11/28/21 10/12/22 Rx divalproex 250 mg tablet,extended 250 mg PO DAILY #90 tabs 11/28/21 10/12/22 Rx release 24 hr divalproex 500 mg tablet,extended 1,000 mg PO DAILY #180 tabs 11/28/21 10/12/22 Rx release 24 hr metoprolol succinate 100 mg 100 mg PO QAM #90 tabs 11/28/21 10/12/22 Rx tablet,extended release 24 hr pantoprazole 20 mg tablet,delayed 20 mg PO QPM #90 tabs 11/28/21 10/12/22 Rx release ranolazine 500 mg tablet,extended 500 mg PO BID #90 tabs 11/28/21 10/12/22 Rx release,12 hr (Ranexa) clopidogrel 75 mg tablet (Plavix) 75 mg PO DAILY #30 tabs 01/07/22 10/12/22 Rx nitroglycerin 0.4 mg sublingual 0.4 mg sublingual Q5-15M PRN chest 09/22/22 10/12/22 Rx tablet pain #20 tabs Allergies Allergy/AdvReac Type Severity Reaction Status Date / Time ciprofloxacin [From Cipro] Allergy Severe ITCHING Verified 10/12/22 15:34 Review of Systems Review of Systems Narrative: All 12 point systems reviewed with the patient and are negative except otherwise documented. Exam Vital Signs (past 8 hours): - 10/12/22 15:32 10/12/22 15:37 10/12/22 15:46 Temperature 97.8 F Pulse Rate 80 81 Respiratory Rate 16 Blood Pressure 111/65 108/62 Pulse Oximetry 98 Oxygen Delivery Method Room Air 10/12/22 15:32 10/12/22 15:34 10/12/22 15:34 Temperature Pulse Rate 80 82 Respiratory Rate 21 16 Blood Pressure 111/65 Pulse Oximetry 99 Oxygen Delivery Method 10/12/22 15:45 10/12/22 15:45 10/12/22 15:52 Temperature Pulse Rate 79 Respiratory Rate 12 Blood Pressure 108/62 116/70 Pulse Oximetry 97 Oxygen Delivery Method 10/12/22 15:52 10/12/22 15:55 10/12/22 15:55 Temperature Pulse Rate 77 83 Respiratory Rate 13 12 Blood Pressure 113/62 Pulse Oximetry 98 96 Oxygen Delivery Method 10/12/22 16:00 10/12/22 16:00 10/12/22 16:05 Temperature Pulse Rate 81 Respiratory Rate 14 Blood Pressure 110/57 L 108/59 L Pulse Oximetry 97 Oxygen Delivery Method 10/12/22 16:05 10/12/22 16:10 10/12/22 16:10 Temperature Pulse Rate 75 74 Respiratory Rate 12 12 Blood Pressure 102/57 L Pulse Oximetry 96 96 Oxygen Delivery Method 10/12/22 16:15 10/12/22 16:15 10/12/22 16:20 Temperature Pulse Rate 74 Respiratory Rate 12 Blood Pressure 106/60 102/58 L Pulse Oximetry 96 Oxygen Delivery Method 10/12/22 16:20 10/12/22 16:25 10/12/22 16:25 Temperature Pulse Rate 71 72 Respiratory Rate 12 14 Blood Pressure 97/56 L Pulse Oximetry 97 97 Oxygen Delivery Method 10/12/22 16:30 10/12/22 16:30 10/12/22 16:35 Temperature Pulse Rate 77 Respiratory Rate 20 Blood Pressure 103/55 L 95/55 L Pulse Oximetry 97 Oxygen Delivery Method 10/12/22 16:35 10/12/22 16:40 10/12/22 16:40 Temperature Pulse Rate 76 70 Respiratory Rate 15 21 Blood Pressure 91/52 L Pulse Oximetry 98 98 Oxygen Delivery Method 10/12/22 16:45 10/12/22 16:45 10/12/22 16:50 Temperature Pulse Rate 70 Respiratory Rate 13 Blood Pressure 94/53 L 98/57 L Pulse Oximetry 98 Oxygen Delivery Method 10/12/22 16:50 10/12/22 16:55 10/12/22 16:55 Temperature Pulse Rate 69 68 Respiratory Rate 15 20 Blood Pressure 97/57 L Pulse Oximetry 97 97 Oxygen Delivery Method 10/12/22 17:00 10/12/22 17:00 10/12/22 17:05 Temperature Pulse Rate 70 Respiratory Rate 19 Blood Pressure 107/66 114/67 Pulse Oximetry 98 Oxygen Delivery Method 10/12/22 17:05 10/12/22 17:10 10/12/22 17:10 Temperature Pulse Rate 70 66 Respiratory Rate 13 21 Blood Pressure 104/61 Pulse Oximetry 99 98 Oxygen Delivery Method 10/12/22 17:15 10/12/22 17:15 10/12/22 17:20 Temperature Pulse Rate 63 Respiratory Rate 21 Blood Pressure 109/67 113/72 Pulse Oximetry 99 Oxygen Delivery Method 10/12/22 17:20 10/12/22 17:25 10/12/22 17:25 Temperature Pulse Rate 69 65 Respiratory Rate 26 H 21 Blood Pressure 109/67 Pulse Oximetry 98 99 Oxygen Delivery Method 10/12/22 17:30 10/12/22 17:30 10/12/22 17:35 Temperature Pulse Rate 64 Respiratory Rate 21 Blood Pressure 104/62 108/69 Pulse Oximetry 100 Oxygen Delivery Method 10/12/22 17:35 10/12/22 17:40 10/12/22 17:40 Temperature Pulse Rate 63 66 Respiratory Rate 20 21 Blood Pressure 108/69 Pulse Oximetry 99 100 Oxygen Delivery Method 10/12/22 17:45 10/12/22 17:45 10/12/22 17:50 Temperature Pulse Rate 69 Respiratory Rate 22 Blood Pressure 110/71 117/71 Pulse Oximetry 100 Oxygen Delivery Method 10/12/22 17:50 10/12/22 17:55 10/12/22 17:55 Temperature Pulse Rate 61 62 Respiratory Rate 22 16 Blood Pressure 113/74 Pulse Oximetry 100 100 Oxygen Delivery Method 10/12/22 18:00 10/12/22 18:00 10/12/22 18:05 Temperature Pulse Rate 69 Respiratory Rate 18 Blood Pressure 120/81 106/71 Pulse Oximetry 100 Oxygen Delivery Method 10/12/22 18:05 10/12/22 18:10 10/12/22 18:10 Temperature Pulse Rate 64 62 Respiratory Rate 16 24 Blood Pressure 112/72 Pulse Oximetry 100 100 Oxygen Delivery Method 10/12/22 18:15 10/12/22 18:15 10/12/22 18:20 Temperature Pulse Rate 65 Respiratory Rate 13 Blood Pressure 112/68 112/68 Pulse Oximetry 99 Oxygen Delivery Method 10/12/22 18:20 10/12/22 18:25 10/12/22 18:25 Temperature Pulse Rate 63 64 Respiratory Rate 10 L 11 L Blood Pressure 115/69 Pulse Oximetry 100 100 Oxygen Delivery Method 10/12/22 18:30 10/12/22 18:30 10/12/22 18:34 Temperature Pulse Rate 62 62 Respiratory Rate 25 H 21 Blood Pressure 111/68 Pulse Oximetry 100 100 Oxygen Delivery Method Room Air 10/12/22 18:35 10/12/22 18:35 10/12/22 18:40 Temperature Pulse Rate 62 Respiratory Rate 19 Blood Pressure 116/72 116/71 Pulse Oximetry 100 Oxygen Delivery Method 10/12/22 18:40 10/12/22 18:45 10/12/22 18:45 Temperature Pulse Rate 65 66 Respiratory Rate 20 19 Blood Pressure 108/66 Pulse Oximetry 100 99 Oxygen Delivery Method 10/12/22 18:50 10/12/22 18:50 10/12/22 18:55 Temperature Pulse Rate 64 Respiratory Rate 16 Blood Pressure 111/72 114/77 Pulse Oximetry 97 Oxygen Delivery Method 10/12/22 18:55 10/12/22 19:00 10/12/22 19:00 Temperature Pulse Rate 72 66 Respiratory Rate 17 16 Blood Pressure 105/69 Pulse Oximetry 99 98 Oxygen Delivery Method 10/12/22 19:05 10/12/22 19:05 10/12/22 19:10 Temperature Pulse Rate 71 Respiratory Rate 25 H Blood Pressure 104/64 102/62 Pulse Oximetry 99 Oxygen Delivery Method 10/12/22 19:10 10/12/22 19:15 10/12/22 19:15 Temperature Pulse Rate 65 64 Respiratory Rate 13 11 L Blood Pressure 104/65 Pulse Oximetry 99 99 Oxygen Delivery Method 10/12/22 19:20 10/12/22 19:20 10/12/22 19:25 Temperature Pulse Rate 64 Respiratory Rate 8 L Blood Pressure 104/67 103/66 Pulse Oximetry 99 Oxygen Delivery Method 10/12/22 19:25 10/12/22 19:30 10/12/22 19:30 Temperature Pulse Rate 65 63 Respiratory Rate 17 21 Blood Pressure 97/63 Pulse Oximetry 98 98 Oxygen Delivery Method 10/12/22 19:35 10/12/22 19:35 10/12/22 19:40 Temperature Pulse Rate 64 Respiratory Rate 13 Blood Pressure 100/62 92/57 L Pulse Oximetry 98 Oxygen Delivery Method 10/12/22 19:40 10/12/22 19:45 10/12/22 19:45 Temperature Pulse Rate 63 64 Respiratory Rate 9 L 21 Blood Pressure 92/55 L Pulse Oximetry 99 99 Oxygen Delivery Method 10/12/22 19:55 10/12/22 19:55 10/12/22 20:00 Temperature Pulse Rate 64 Respiratory Rate 20 Blood Pressure 99/54 L 97/54 L Pulse Oximetry 99 Oxygen Delivery Method 10/12/22 20:00 10/12/22 20:05 10/12/22 20:05 Temperature Pulse Rate 65 65 Respiratory Rate 17 16 Blood Pressure 99/57 L Pulse Oximetry 98 95 Oxygen Delivery Method Room Air 10/12/22 20:10 10/12/22 20:10 10/12/22 20:15 Temperature Pulse Rate 62 Respiratory Rate 20 Blood Pressure 101/59 L 98/58 L Pulse Oximetry 98 Oxygen Delivery Method 10/12/22 20:15 10/12/22 20:20 10/12/22 20:20 Temperature Pulse Rate 64 63 Respiratory Rate 21 16 Blood Pressure 100/61 Pulse Oximetry 97 99 Oxygen Delivery Method 10/12/22 20:25 10/12/22 20:25 10/12/22 20:30 Temperature Pulse Rate 67 Respiratory Rate 12 Blood Pressure 101/62 101/63 Pulse Oximetry 97 Oxygen Delivery Method 10/12/22 20:30 10/12/22 20:35 10/12/22 20:35 Temperature Pulse Rate 71 67 Respiratory Rate 37 H 22 Blood Pressure 94/56 L Pulse Oximetry 97 98 Oxygen Delivery Method 10/12/22 20:40 10/12/22 20:40 10/12/22 20:45 Temperature Pulse Rate 62 Respiratory Rate 21 Blood Pressure 102/64 98/60 Pulse Oximetry 97 Oxygen Delivery Method 10/12/22 20:45 10/12/22 20:50 10/12/22 20:50 Temperature Pulse Rate 62 62 Respiratory Rate 16 19 Blood Pressure 99/61 Pulse Oximetry 98 98 Oxygen Delivery Method 10/12/22 20:55 10/12/22 20:55 10/12/22 21:00 Temperature Pulse Rate 61 Respiratory Rate 20 Blood Pressure 102/61 95/59 L Pulse Oximetry 98 Oxygen Delivery Method 10/12/22 21:00 10/12/22 21:05 10/12/22 21:05 Temperature Pulse Rate 63 59 L Respiratory Rate 19 22 Blood Pressure 96/58 L Pulse Oximetry 98 98 Oxygen Delivery Method 10/12/22 21:10 10/12/22 21:10 10/12/22 21:15 Temperature Pulse Rate 60 Respiratory Rate 16 Blood Pressure 95/60 92/60 Pulse Oximetry 98 Oxygen Delivery Method 10/12/22 21:15 10/12/22 21:20 10/12/22 21:20 Temperature Pulse Rate 60 60 Respiratory Rate 17 16 Blood Pressure 95/59 L Pulse Oximetry 97 98 Oxygen Delivery Method 10/12/22 21:25 10/12/22 21:25 10/12/22 21:30 Temperature Pulse Rate 61 Respiratory Rate 20 Blood Pressure 94/62 99/64 Pulse Oximetry 97 Oxygen Delivery Method 10/12/22 21:30 10/12/22 21:35 10/12/22 21:35 Temperature Pulse Rate 59 L 57 L Respiratory Rate 12 12 Blood Pressure 96/62 Pulse Oximetry 97 97 Oxygen Delivery Method 10/12/22 21:40 10/12/22 21:40 Temperature Pulse Rate 57 L Respiratory Rate 17 Blood Pressure 97/60 Pulse Oximetry 97 Oxygen Delivery Method Oxygen Delivery Method Room Air Narrative Exam Narrative: General: Patient is a well-developed, well-nourished in no distress at this time. HEENT: Normocephalic, atraumatic, extraocular muscles intact, oral pharynx is clear and mucous membranes are moist. Neck is supple and symmetric, trachea is midline, no adenopathy, no thyroid enlargement, nontender, no masses palpated. Negative for JVD Chest: Normal AP diameter and contour without kyphoscoliosis, no nasal flaring, retractions, or tachypneic labored Lungs: Auscultation of all lung kaplan are clear without adventitious sounds, wheezes, rhonchi, or rales. Cardio: S1 & S2 with regular rate and rhythm without murmur, rubs, or gallops, no carotid bruit, no cardiac pulsations present. Abdomen: Soft nontender, negative for organomegaly, or masses. Bowel sounds are present in all 4 quadrants without guarding or rebound, no CVA tenderness. Musculoskeletal: Muscle strength and tone are equal within normal limits, no deformity, crepitus, effusions, cyanosis, clubbing or edema present. Full range of motion intact radial and pedal pulses are normal. Skin: Warm dry and intact without rashes, ulcerations or petechiae. Neuro: Alert and orientated x3, strength is +5/5 in all extremities, sensation to touch intact, no gross deficits noted of cranial nerves. Psych: Patient has a well-kept appearance, appropriate affect, mental status attitude thought context and judgment are appropriate for age. Objective Labs 10/12/22 15:35 10/12/22 15:35 Labs: Laboratory Results - last 24 hr 10/12/22 10/12/22 10/12/22 15:35 15:35 15:35 WBC 6.7 RBC 4.70 Hgb 14.5 Hct 41.8 MCV 88.9 MCH 30.9 MCHC 34.8 RDW 13.9 Plt Count 182 Neut % (Auto) 70.9 Lymph % (Auto) 20.2 L [place] % (Auto) 7.0 Eos % (Auto) 1.4 L Baso % (Auto) 0.5 Neut # (Auto) 4800 Lymph # (Auto) 1400 [place] # (Auto) 500 Eos # (Auto) 100 Baso # (Auto) 0 PT 12.4 INR 1.1 APTT 32 Sodium 139 Potassium 3.7 Chloride 103 Carbon Dioxide 28 BUN 9 Creatinine 0.96 Estimated GFR > 60 BUN/Creatinine Ratio 9.4 Glucose 98 Calcium 8.6 Magnesium 1.9 Total Bilirubin 1.1 AST 29 ALT 41 Alkaline Phosphatase 69 Total Creatine Kinase 60 CK-MB (CK-2) TNP CK-MB (CK-2) Rel Index TNP Troponin I < 0.012 Total Protein 7.4 Albumin 4.0 Globulin 3.4 Albumin/Globulin Ratio 1.2 Lipase 54 SARS-CoV-2 (PCR) 10/12/22 10/12/22 17:18 18:08 WBC RBC Hgb Hct MCV MCH MCHC RDW Plt Count Neut % (Auto) Lymph % (Auto) [place] % (Auto) Eos % (Auto) Baso % (Auto) Neut # (Auto) Lymph # (Auto) [place] # (Auto) Eos # (Auto) Baso # (Auto) PT INR APTT Sodium Potassium Chloride Carbon Dioxide BUN Creatinine Estimated GFR BUN/Creatinine Ratio Glucose Calcium Magnesium Total Bilirubin AST ALT Alkaline Phosphatase Total Creatine Kinase CK-MB (CK-2) CK-MB (CK-2) Rel Index Troponin I < 0.012 Total Protein Albumin Globulin Albumin/Globulin Ratio Lipase SARS-CoV-2 (PCR) Negative Assessment & Plan Assessment & Plan narrative: Johnathan Tran s a 52-year-old male with history of bipolarII, obesity, hypertension known coronary artery disease with recent stent in LAD in [place] 2nd to STEMI 08/10/2022.? Since that time the patient reports that he has been out of work and is currently living of his vehicle and has had difficulty affording his medications and has missed dosage frequently, in attempts to make his medications last, he has also been unable to establish with a technical service specialist for management. Patient admitted for chest pain for overnight observation, with a recent history of STEMI 08/10/2022 with LAD stent placement, trend troponins, echo and stress test in the morning. 1. Chest pain, acute, with history of angina pectoris, chronic, present on admission -heart score 3, troponin x2 negative, EKG stable unchanged from previous-patient is stable and asymptomatic at this time. -last on file echo 02/18/2022 EF of 60%, cardiology visit [facility] March of 2022. -patient admitted under chest pain protocol -continue Plavix, ASA, Renexa -nitro, morphine as needed, monitor on telemedicine -ordered TSH, A1c, BNP, lipid panel -if patient's troponin elevates, or develops symptomatic STEMI will contact Dr. Gimenez [facility] for transport for cardiac catheterization per his recommendations. -INTERNAL MEDICINE SPECIALIST/social work consult to help provide services and resources so that patient may be able to obtain medication, housing, and follow up with Cardiology. 2. Coronary artery disease with history of a STEMI, with recent LAD stent placement, chronic, present on admit -in [facility] 07/2022 3. Hypertension, essential, present on admission -continue amlodipine, metoprolol 4. Obesity severe, acute on chronic, present on admission -as evidence by BMI of 40 -dietary consult ordered regarding nutritional education and information for dietary, lifestyle, exercise, and weight changes. -the patient is at much higher risk for medical and surgical complications due to obesity as it relates to chronic illnesses:, and acute illness. The patient's obesity increases the difficulty and complexity of medical and/or surgical interventions, management and increases the chances of poor outcome such as morbidity and mortality as well as impaired wound healing. 5. Bipolar 2, chronic, present on admission -continue Depakote, bupropion 6. GERD, chronic, present on admission -continue PPI Code status: Full Surrogate decision maker: Sister Brooke MATHEW PCR: Negative DVT/VTE prophylaxis: Lovenox and SCDs Disposition: Patient admitted for observation for overnight chest pain evaluation, for echo and stress test in the morning, and INTERNAL MEDICINE SPECIALIST/social work consult regarding financial and social barriers to care. Expected length of stay less than 2 midnights. I have utilized all available immediate resources to obtain, update, or review the patient's current medications. I confirmed that the patient's advanced care plan is present, Code status is documented and/or surrogate decision maker is listed in the patient's medical record. I have personally reviewed patient's chart notes from PCP, specialists, diagnostic imaging, and laboratory results. Quality VTE Deep Vein Thrombosis/Pulmonary Embolism Present on Admission: No
[2022-10-12 23:12] LABS: NT-proBNP (BNP-Adult 18+) 91 pg/mL (<125)
[2022-10-13] VITALS (9 sets, daily range): BP systolic 93–127; BP diastolic 51–73; PULSE 53–66; RESP 15–18; TEMP 36.2–36.8; O2SAT 96–100
[2022-10-13 06:00] LABS: Cholesterol 186 mg/dL (140-199); HDL Cholesterol 27 mg/dL (40-60); LDL Cholesterol Calculated 136 mg/dL (<100); Triglycerides 114 mg/dL (35-150)
[2022-10-13 06:11] LABS: Troponin I < 0.012 ng/mL (0.01-0.034)
[2022-10-13] MEDS: CLOPIDOGREL 75 MG TABLET PO (09:30)
[2022-10-13] MEDS: DIVALPROEX ER 250 MG TAB PO (09:30)
[2022-10-13] MEDS: ASPIRIN EC 325 MG TABLET PO (09:30)
[2022-10-13] MEDS: DIVALPROEX ER 250 MG TAB 1000 MG PO (09:30)
[2022-10-13] MEDS: buPROPion XL 150 MG TAB 300 MG PO (09:30)
[2022-10-13] MEDS: METOPROLOL ER 50 MG TABLET 100 MG PO (09:30)
[2022-10-13] MEDS: AMLODIPINE 5 MG TABLET PO (09:30)
[2022-10-13] MEDS: ENOXAPARIN 40 MG/0.4 ML SYRINGE SUBCUT (09:31)
--- NOTE | 2022-10-13 10:57 | CM.DANOTE ---
DCP: Case received, EMR reviewed and met with patient. Introduced self and role. Was able to obtain information regarding patient's baseline activity status and current living situation. DCP assessment completed with information currently available. Patient is a 52 year old male who admitted yesterday evening to the care of the hospitalist team. PCP: Dr. Mccray. Payer: confirmed: [facility]. Patient came to the hospital via private vehicle secondary to having chest discomfort. Notes indicate that patient had taken two nitros at home with no relief. Notes also indicate patent is noncompliant with meds. He did take two aspirins prior to arrival. Notes indicate that patient had had recent stent in [place], for a STEMI on 08/10. He did not follow up with church musician as of yet. Patient has history of bipolar 2, obesity, HTN, and CAD. Patient is here for chest pain, acute, heart score 3. Patient is here for a stress test. Met with patient in his room. Confirmed that he resides in his car, it's currently parked outside. 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 Confirmed that he does see Dr. Mccray, as primary care provider. Gave him some resources for skilled nursing and housing. Asked him about meals, since he is currently not on Medicaid or have access to food stamps. Stated that [facility],and that he does have a friend that helps him out. He is currently unemployed, but has a job interview in [place] coming up. He has no local family, has a sister that lives in [place]. Asked patient about his medications, since he does have insurance. Stated, the problem is his co-payments, since they are about $4.00 each, and adds up. Asked him about Medicaid, and would like to have a Medicaid application to fill out. Gave him the application, and let him know that this DC Lead Custodian can fax it for him if he completes it here. P: DCP to continue to follow. Patient is to be having a stress test, but have given him some resources. Patient will discharge back to his car when stable, pending stress test. Mary Kate Parkinson RN/Dielectric Testing Machine Operator Discharge Planning/Care Management CM Discharge Assessment Start: 10/13/22 10:53 Freq: Status: Active Protocol: Document 10/13/22 10:54 (Rec: 10/13/22 10:56 [id number]) Discharge Planning Assessment Assigned Cleaning Machine Operator Mary Kate Parkinson RN/Dielectric Testing Machine Operator Advance Directives? No History Provided By Patient,Medical Record Prior Living Arrangements Other Comment Lives in his car. Household Members none Type of transporation used prior to Drives own vehicle admit Independent with ADL's Yes Is patient alert and oriented? Yes Caregiver for Another No Barriers to Discharge Yes Comment Lives in vehicle, problems paying for co-pays with meds. Discharge Plan Home Referrals Initiated Medicaid Application,Other Additional Comment Gave some housing resources to patient Whiteboard Updated in Patient Room with Yes name and ext. # of Cleaning Machine Operator Review Status In Process Next Review Type Continued Stay Review
--- NOTE | 2022-10-13 14:59 | PT.IIE ---
Surgical History (Last Reviewed 10/13/22 @ 00:10 by Amisha Mac [facility]) Anesthesia H/O left heart catheterization by cutdown History of arthroscopy of both knees (~1988) Lump in the testicle (~2004) Stented coronary artery Medical History (Last Reviewed 10/13/22 @ 00:10 by Amisha Mac [facility]) Acne ADHD (~1999) Alcohol use disorder, moderate, in sustained remission Allergies (~1978) Angina at rest Anxiety (~1999) Bipolar II disorder Body mass index (BMI) of 40.1-44.9 in adult Body posture problem Carpal tunnel syndrome (~2014) Cervical somatic dysfunction Chicken pox (~1975) Chronic thoracic back pain (~1999) Coronary artery disease (~2002) COVID-19 virus infection Cramping of feet Depression (~1999) Dyslipidemia Elevated blood sugar level Essential hypertension Exertional shortness of breath Family history of myocardial infarction at age less than 60 GERD (gastroesophageal reflux disease) (~1999) Headache (~2004) History of bipolar disorder (~2014) Hx of angiography Kidney stones (~2016) Left anterior knee pain Migraines (~2009) Neck pain On valproic acid therapy Psoriasis Restless leg syndrome (~2016) Screening for prostate cancer Screening for prostate cancer Segmental and somatic dysfunction of thoracic region Tinnitus (~2015) Upper extremity somatic dysfunction Wears glasses Physical Therapy Inpatient Evaluation/Re-Eval M1 PT/OT-IP Prior Functional Status Start: 10/13/22 14:45 Freq: Status: Active Protocol: Document 10/13/22 14:45 BC (Rec: 10/13/22 14:57 [id number]) Medical Review Prior Functional Status Medical History Reviewed Yes Diet/Fluid Consistency Regular Communication Ind Mobility and Gait Ind Activities of Daily Living and IADL's Ind Prior Functional Level (Other details) Independent. 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 Sometimes required to work in buildings down around formerly [facility]. Job requires fair amount of walking. He is homeless; living in his car. Social History Household Members none Living Arrangements Other Additional Social History Comment Pt lives in his vehicle. M2 PT-IP Current Condition Start: 10/13/22 14:45 Freq: Status: Active Protocol: Document 10/13/22 14:45 BC (Rec: 10/13/22 14:57 [id number]) Physical Therapy Current Condition Current Condition Evaluation Date 10/13/22 Treatment Diagnosis chest pain Onset Date 10/12/22 M3 PT-IP Subjective Start: 10/13/22 14:45 Freq: Status: Active Protocol: Document 10/13/22 14:45 BC (Rec: 10/13/22 14:57 [id number]) Subjective Physical Therapy Visit Type Type Initial Evaluation Visit Start Time 14:00 Visit Stop Time 14:25 Total Visit Minutes 25 Physical Therapy Visit Comments Patient Goals To find out why he had chest pain. Therapy Pain Assessment Pain When Pain Assessed At Rest Pain Present Pain Present Denied Pain M4 PT-IP Mobility and Gait Start: 10/13/22 14:45 Freq: Status: Active Protocol: Document 10/13/22 14:45 BC (Rec: 10/13/22 14:57 [id number]) PT-Bed Mobility Assessment Rolling Level of Assist Independent Supine to Sit Supine to Sit Independent Sit to Supine Sit to Supine Independent Scooting Scooting to Edge of Bed Independent Scooting Up and Down in Bed Independent PT-Transfer Assessment Sit to and From Stand Sit to and from Stand Independent Equipment Transfer Assistive Device None Transfers Transfer Destination Bed Transfer Technique Stand Pivot Transfer Ability Level of Assist Independent Gait Assessment Gait Gait Assistance Required: Independent Distance (Feet) 500 Assistive Devices Assistive Device None Comments Gait Comments Ambulated without assistance. He reports SOB with ambulation starting around ~400. Rated walking as a 4/10 (somewhat hard) on the MODIFIED DARRIUS exertion scale. HR in 60s. Increases to 120s but believed to be artifact per telemetry/RN as when Pt stopped walking, HR immediately was 64 bpm again. BP 102/63 after gait. O2 99%. Stair Climbing Assessment Comments Stair Climbing Comments NA for discharge PT-Balance Assessment Sitting Balance and Reactions Static Sitting Balance Ability Normal Dynamic Sitting Balance Ability Normal Standing Balance and Reactions Static Standing Balance Ability Normal Dynamic Standing Balance Ability Normal M5 PT-IP Objective Assessments Start: 10/13/22 14:45 Freq: Status: Active Protocol: Document 10/13/22 14:45 BC (Rec: 10/13/22 14:57 [id number]) Orientation Orientation/Cognition Level of Alertness Alert Orientation Name,Age,Birthday,Month,Date, Year,Day of Week,Place, Situation Language Function Ability No Deficits Noted Safety Awareness Understands Safety Issues Memory Description No Deficits Noted Strength Upper Extremity Strength Assessment Within Functional Limits Lower Extremity Strength Assessment Within Functional Limits Sensation Assessment Sensation Gross Sensation Left UE Impaired Comments Sensation Comments Reports tingling in LUE hand after gait. M6 PT-IP Treatment Start: 10/13/22 14:45 Freq: Status: Active Protocol: Document 10/13/22 14:45 BC (Rec: 10/13/22 14:57 BC [id number]) Physical Therapy Treatment Education Education Provided Safety Other Treatments Other Treatment Performed We talked about activity tolerance. Modified DARRIUS scale review and good correlation to cardiac/respiratory tolerance to activity. Especially when HR may be affected by medication. Pt was scoring in a moderate range of exertion with a casual walk . We talked about monitoring tolerance to activity with DARRIUS scale and rest when applicable. M7 PT-IP Assessment and Plan Start: 10/13/22 14:45 Freq: Status: Active Protocol: Document 10/13/22 14:45 BC (Rec: 10/13/22 14:57 BC [id number]) PT Summary Assessment and Plan Potential Rehabilitation Potential Excellent Status of Condition at Evaluation Stable Summary Progress Towards Goals Safe For Discharge,Goals Met Assessment Summary Pt admitted with chest pain and L arm pain/tingling. He reports improvement in symptoms since last night. His PLOF is fully independent and working as a security team lead. 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 Pt is demonstrating independent mobility and no skilled PT needs present. We did discuss modified DARRIUS as a way to monitor activity level and exertion. Recommend d/c home when medically stable. Frequency of Treatment Frequency Of Treatment Discharge Recommendations To Nursing Amount of Assist Needed Independent Discharge Recommendations PT Discharge Recommendations Home Transportation Needs at Discharge Private Vehicle
--- NOTE | 2022-10-13 15:36 | PM.PN.1 ---
Subjective Subjective Interval history: Johnathan Tran s a 52-year-old male with history of bipolarII, obesity, hypertension known coronary artery disease with recent stent in LAD in [place] 2nd to STEMI 08/10/2022.? Since that time the patient reports that he has been out of work and is currently living of his vehicle and has had difficulty affording his medications (for per manager social apparently his medications are paid for by insurance-this needs to be clarified) and has missed dosage frequently attempting to spread his medications out to make them last, he has also been unable to establish with a substitute teacher for management.? 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 Today while at rest he developed chest pain and ache to the left side at approximately the 3rd and 4th intercostal space, that radiated up to his jaw and down his left arm, nothing seemed to worsen or change the pain, the patient attempted to nitro & 2 aspirin at home without improvement, he experienced some mild shortness of breath and lightheadedness, no diaphoresis, it lasted approximately 1-2 hours was still present when he came into the emergency department and as he was being treated in the ED the chest pain eventually resolved. At the time of the patient's admission, symptoms had all completely resolved. Plan has been to workup the patient with echo and stress test. The still remain pending. Troponins have been normal. BNP is normal. Chemistry panel is normal. Lipid panel has slight elevation of LDL and slight decrease of HDL. Patient did have some pressure sensation left chest for about a minute this morning with associated left hand pain. This all completely resolved within 1 minute. Exam Vital Signs (past 8 hours): - 10/13/22 08:00 10/13/22 09:30 10/13/22 13:56 Temperature 97.4 F L 97.7 F Pulse Rate 53 L 61 65 Respiratory Rate 16 16 Blood Pressure 115/67 127/73 116/70 Pulse Oximetry 98 97 Oxygen Delivery Method Room Air Oxygen Flow Rate 0 Narrative Exam Narrative: General:? Patient is a well-developed, well-nourished in no distress at this time. HEENT:? Normocephalic, atraumatic, extraocular muscles intact, oral pharynx is clear and mucous membranes are moist.? Neck is supple and symmetric, trachea is midline, no adenopathy, no thyroid enlargement, nontender, no masses palpated.? Negative for JVD Chest:? Normal AP diameter and contour without kyphoscoliosis, no nasal flaring, retractions, or tachypneic labored Lungs:? Auscultation of all lung kaplan are clear without adventitious sounds, wheezes, rhonchi, or rales. Cardio:? S1 & S2 with regular rate and rhythm without murmur, rubs, or gallops, no carotid bruit, no cardiac pulsations present. Abdomen:? Soft nontender, negative for organomegaly, or masses.? Bowel sounds are present in all 4 quadrants without guarding or rebound, no CVA tenderness. Musculoskeletal:? Muscle strength and tone are equal within normal limits, no deformity, crepitus, effusions, cyanosis, clubbing or edema present.? Full range of motion intact radial and pedal pulses are normal. Skin:? Warm dry and intact without rashes, ulcerations or petechiae.? Neuro:? Alert and orientated x3, strength is +5/5 in all extremities, sensation to touch intact, no gross deficits noted of cranial nerves. Psych:? Patient has a well-kept appearance, appropriate affect, mental status attitude thought context and judgment are appropriate for age. Objective Labs 10/12/22 15:35 10/12/22 15:35 Labs: Laboratory Results - last 24 hr 10/12/22 10/12/22 10/12/22 15:35 15:35 15:35 WBC 6.7 RBC 4.70 Hgb 14.5 Hct 41.8 MCV 88.9 MCH 30.9 MCHC 34.8 RDW 13.9 Plt Count 182 Neut % (Auto) 70.9 Lymph % (Auto) 20.2 L Parker % (Auto) 7.0 Eos % (Auto) 1.4 L Baso % (Auto) 0.5 Neut # (Auto) 4800 Lymph # (Auto) 1400 Parker # (Auto) 500 Eos # (Auto) 100 Baso # (Auto) 0 PT 12.4 INR 1.1 APTT 32 Sodium 139 Potassium 3.7 Chloride 103 Carbon Dioxide 28 BUN 9 Creatinine 0.96 Estimated GFR > 60 BUN/Creatinine Ratio 9.4 Glucose 98 Calcium 8.6 Magnesium 1.9 Total Bilirubin 1.1 AST 29 ALT 41 Alkaline Phosphatase 69 Total Creatine Kinase 60 CK-MB (CK-2) TNP CK-MB (CK-2) Rel Index TNP Troponin I < 0.012 NT-Pro-B Natriuret Pep Total Protein 7.4 Albumin 4.0 Globulin 3.4 Albumin/Globulin Ratio 1.2 Triglycerides Cholesterol LDL Cholesterol, Calc HDL Cholesterol Lipase 54 SARS-CoV-2 (PCR) 10/12/22 10/12/22 10/12/22 15:35 17:18 18:08 WBC RBC Hgb Hct MCV MCH MCHC RDW Plt Count Neut % (Auto) Lymph % (Auto) Parker % (Auto) Eos % (Auto) Baso % (Auto) Neut # (Auto) Lymph # (Auto) Parker # (Auto) Eos # (Auto) Baso # (Auto) PT INR APTT Sodium Potassium Chloride Carbon Dioxide BUN Creatinine Estimated GFR BUN/Creatinine Ratio Glucose Calcium Magnesium Total Bilirubin AST ALT Alkaline Phosphatase Total Creatine Kinase CK-MB (CK-2) CK-MB (CK-2) Rel Index Troponin I < 0.012 NT-Pro-B Natriuret Pep 91 Total Protein Albumin Globulin Albumin/Globulin Ratio Triglycerides Cholesterol LDL Cholesterol, Calc HDL Cholesterol Lipase SARS-CoV-2 (PCR) Negative 10/13/22 05:30 WBC RBC Hgb Hct MCV MCH MCHC RDW Plt Count Neut % (Auto) Lymph % (Auto) Parker % (Auto) Eos % (Auto) Baso % (Auto) Neut # (Auto) Lymph # (Auto) Parker # (Auto) Eos # (Auto) Baso # (Auto) PT INR APTT Sodium Potassium Chloride Carbon Dioxide BUN Creatinine Estimated GFR BUN/Creatinine Ratio Glucose Calcium Magnesium Total Bilirubin AST ALT Alkaline Phosphatase Total Creatine Kinase CK-MB (CK-2) CK-MB (CK-2) Rel Index Troponin I < 0.012 NT-Pro-B Natriuret Pep Total Protein Albumin Globulin Albumin/Globulin Ratio Triglycerides 114 Cholesterol 186 LDL Cholesterol, Calc 136 H HDL Cholesterol 27 L Lipase SARS-CoV-2 (PCR) [facility] Medical History Acne ADHD (~1999) Alcohol use disorder, moderate, in sustained remission Allergies (~1978) Angina at rest Anxiety (~1999) Bipolar II disorder Body mass index (BMI) of 40.1-44.9 in adult Body posture problem Carpal tunnel syndrome (~2014) Cervical somatic dysfunction Chicken pox (~1975) Chronic thoracic back pain (~1999) Coronary artery disease (~2002) COVID-19 virus infection Cramping of feet Depression (~1999) Dyslipidemia Elevated blood sugar level Essential hypertension Exertional shortness of breath Family history of myocardial infarction at age less than 60 GERD (gastroesophageal reflux disease) (~1999) Headache (~2004) History of bipolar disorder (~2014) Hx of angiography Kidney stones (~2016) Left anterior knee pain Migraines (~2009) Neck pain On valproic acid therapy Psoriasis Restless leg syndrome (~2016) Screening for prostate cancer Screening for prostate cancer Segmental and somatic dysfunction of thoracic region Tinnitus (~2015) Upper extremity somatic dysfunction Wears glasses Surgical History Anesthesia H/O left heart catheterization by cutdown History of arthroscopy of both knees (~1988) Lump in the testicle (~2004) Stented coronary artery Family History Mother Myocardial infarct History of heart disease Hypertension Mental health problem Father CAD, multiple vessel Diabetes mellitus History of heart disease Hypertension Hyperlipidemia Grandmother Diabetes mellitus History of heart disease Hypertension Stroke Grandmother Alzheimer's disease Social History household members: none Smoking Status: Never smoker alcohol intake: current Assessment & Plan Assessment & Plan narrative: 1. Chest pain, acute, with history of angina pectoris, chronic, present on admission, initially completely resolved and then minor episode of pressure pain this morning with no specific treatment for this. -heart score 3, troponin x2 negative, EKG stable unchanged from previous-patient is stable and asymptomatic at this time. -last on file echo 02/18/2022 EF of 60%, cardiology visit [facility] March of 2022. -patient admitted under chest pain protocol -continue Plavix, ASA, Renexa -nitro, morphine as needed, monitor on telemedicine -ordered TSH, A1c, BNP, lipid panel -if patient's troponin elevates, or develops symptomatic STEMI will contact Dr. Gimenez [facility] for transport for cardiac catheterization per his recommendations. -BLANKET MAKER/social work consult to help provide services and resources so that patient may be able to obtain medication, housing, and follow up with Cardiology. 2. Coronary artery disease with history of a STEMI, with recent LAD stent placement, chronic, present on admit -in [facility] 07/2022 3. Hypertension, essential, present on admission -blood pressure has stabilized -continue amlodipine, metoprolol 4. Obesity severe, acute on chronic, present on admission -as evidence by BMI of 40 -dietary consult ordered regarding nutritional education and information for dietary, lifestyle, exercise, and weight changes. -the patient is at much higher risk for medical and surgical complications due to obesity as it relates to chronic illnesses:, and acute illness.? The patient's obesity increases the difficulty and complexity of medical and/or surgical interventions, management and increases the chances of poor outcome such as morbidity and mortality as well as impaired wound healing. 5. Bipolar 2, chronic, present on admission -continue Depakote, bupropion 6. GERD, chronic, present on admission -continue PPI Code status:? Full Surrogate decision maker:? Sister Brooke Mendiola QUINCY PCR:? Negative DVT/VTE prophylaxis:? Lovenox and SCDs Quality VTE Deep Vein Thrombosis/Pulmonary Embolism Present on Admission: No
[2022-10-13] MEDS: PANTOPRAZOLE DR 20 MG TABLET PO (17:54)
[2022-10-13] MEDS: SODIUM CHLORIDE 0.9% FLUSH 10 ML IV (21:24)
[2022-10-14 06:00] VITALS: BP 108/63; PULSE 64; RESP 16; TEMP 36.6; O2SAT 96
[2022-10-14 07:45] VITALS: BP 111/62; PULSE 63; RESP 18; TEMP 36.8; O2SAT 98
[2022-10-14] MEDS: CLOPIDOGREL 75 MG TABLET PO (09:05)
[2022-10-14] MEDS: ASPIRIN EC 325 MG TABLET PO (09:05)
[2022-10-14] MEDS: buPROPion XL 150 MG TAB 300 MG PO (09:05)
[2022-10-14] MEDS: DIVALPROEX ER 250 MG TAB PO (09:06)
[2022-10-14] MEDS: DIVALPROEX ER 250 MG TAB 1000 MG PO (09:06)
[2022-10-14] MEDS: ENOXAPARIN 40 MG/0.4 ML SYRINGE SUBCUT (09:06)
[2022-10-14] MEDS: AMLODIPINE 5 MG TABLET PO (09:06)
[2022-10-14] MEDS: SODIUM CHLORIDE 0.9% FLUSH 10 ML IV ×2 (09:07→20:07)
--- NOTE | 2022-10-14 09:14 | OT.IPNOTE ---
Per pt has no OT needs and independent with his needs. Able to let CM and nursing know, discharge OT eval orders.
--- NOTE | 2022-10-14 09:59 | PC.NURSE ---
Most meds given before part 1 stress test scheduled at 1100. Metop held per Dr. Xie.
[2022-10-14 12:20] VITALS: BP 123/71; PULSE 67; RESP 20; TEMP 36.4; O2SAT 100
--- NOTE | 2022-10-14 12:58 | PM.PN.1 ---
Subjective Subjective Interval history: No new complaints today, no chest pain. Had 1st part of stress test completed will finalize tomorrow. Exam Vital Signs (past 8 hours): - 10/14/22 06:00 10/14/22 07:45 10/14/22 12:20 Temperature 97.9 F 98.2 F 97.6 F Pulse Rate 64 63 67 Respiratory Rate 16 18 20 Blood Pressure 108/63 111/62 123/71 Pulse Oximetry 96 98 100 Oxygen Flow Rate 0 0 0 Oxygen Delivery Method Room Air Oxygen Flow Rate 0 Narrative Exam Narrative: General:? Patient is a well-developed, well-nourished in no distress at this time. HEENT:? Normocephalic, atraumatic, extraocular muscles intact.? Neck is supple and symmetric, trachea is midline. Chest:? Normal AP diameter and contour without kyphoscoliosis, no nasal flaring, retractions, or tachypneic labored Lungs:? Auscultation of all lung kaplan are clear without adventitious sounds, wheezes, rhonchi, or rales. Cardio:? S1 & S2 with regular rate and rhythm without murmur, rubs, or gallops, no carotid bruit, no cardiac pulsations present. Abdomen:? Soft nontender, negative for organomegaly, or masses.? Bowel sounds are present in all 4 quadrants without guarding or rebound, no CVA tenderness. Musculoskeletal:? Muscle strength and tone are equal within normal limits, no deformity, crepitus, effusions, cyanosis, clubbing or edema present.? Full range of motion intact radial and pedal pulses are normal. Skin:? Warm dry and intact without rashes, ulcerations or petechiae.? Neuro:? Alert and orientated x3, strength is +5/5 in all extremities, sensation to touch intact, no gross deficits noted of cranial nerves. Psych:? Patient has a well-kept appearance, appropriate affect, mental status attitude thought context and judgment are appropriate for age. Objective Labs 10/12/22 15:35 10/12/22 15:35 [facility] Medical History Acne ADHD (~1999) Alcohol use disorder, moderate, in sustained remission Allergies (~1978) Angina at rest Anxiety (~1999) Bipolar II disorder Body mass index (BMI) of 40.1-44.9 in adult Body posture problem Carpal tunnel syndrome (~2014) Cervical somatic dysfunction Chicken pox (~1975) Chronic thoracic back pain (~1999) Coronary artery disease (~2002) COVID-19 virus infection Cramping of feet Depression (~1999) Dyslipidemia Elevated blood sugar level Essential hypertension Exertional shortness of breath Family history of myocardial infarction at age less than 60 GERD (gastroesophageal reflux disease) (~1999) Headache (~2004) History of bipolar disorder (~2014) Hx of angiography Kidney stones (~2016) Left anterior knee pain Migraines (~2009) Neck pain On valproic acid therapy Psoriasis Restless leg syndrome (~2016) Screening for prostate cancer Screening for prostate cancer Segmental and somatic dysfunction of thoracic region Tinnitus (~2015) Upper extremity somatic dysfunction Wears glasses Surgical History Anesthesia H/O left heart catheterization by cutdown History of arthroscopy of both knees (~1988) Lump in the testicle (~2004) Stented coronary artery Family History Mother Myocardial infarct History of heart disease Hypertension Mental health problem Father CAD, multiple vessel Diabetes mellitus History of heart disease Hypertension Hyperlipidemia Grandmother Diabetes mellitus History of heart disease Hypertension Stroke Grandmother Alzheimer's disease Social History household members: none Smoking Status: Never smoker alcohol intake: current Assessment & Plan Assessment & Plan narrative: 1. Chest pain, acute, with history of angina pectoris, chronic, present on admission. No symptoms today. -heart score 3, troponin x2 negative, EKG stable unchanged from previous-patient is stable and asymptomatic at this time. -last on file echo 02/18/2022 EF of 60%, cardiology visit [facility] March of 2022. -patient admitted under chest pain protocol -continue Plavix, ASA, Renexa -nitro, morphine as needed, monitor on telemedicine -ordered TSH, A1c, BNP, lipid panel -if patient's troponin elevates, or develops symptomatic STEMI will contact Dr. Gimenez [facility] for transport for cardiac catheterization per his recommendations. -PREVENTATIVE MAINTENANCE TECHNICIAN/social work consult to help provide services and resources so that patient may be able to obtain medication, housing, and follow up with Cardiology. -initial part of stress test completed today. 2. Coronary artery disease with history of a STEMI, with recent LAD stent placement, chronic, present on admit -in [facility] 07/2022 3. Hypertension, essential, present on admission -blood pressure has stabilized -continue amlodipine, metoprolol 4. Obesity severe, acute on chronic, present on admission -as evidence by BMI of 40 -dietary consult ordered regarding nutritional education and information for dietary, lifestyle, exercise, and weight changes. -the patient is at much higher risk for medical and surgical complications due to obesity as it relates to chronic illnesses:, and acute illness.? The patient's obesity increases the difficulty and complexity of medical and/or surgical interventions, management and increases the chances of poor outcome such as morbidity and mortality as well as impaired wound healing. 5. Bipolar 2, chronic, present on admission -continue Depakote, bupropion 6. GERD, chronic, present on admission -continue PPI Code status:? Full Surrogate decision maker:? Sister Brooke Mendiola QUINCY PCR:? Negative DVT/VTE prophylaxis:? Lovenox and SCDs Quality VTE Deep Vein Thrombosis/Pulmonary Embolism Present on Admission: No
[2022-10-14] MEDS: METOPROLOL ER 50 MG TABLET 100 MG PO (13:56)
--- NOTE | 2022-10-14 14:41 | CM.DPC ---
DCP Cont: Faxed over patient's application to Medicaid, for patient. On the cover sheet, mentioned that patient needs assistance with food, he is having difficulties affording his copays on his medications. Patient had his stress test today, and scheduled for second one tomorrow. P: DCP to continue to follow. Plan is to discharge back to his car, possibly tomorrow. Have already given patient resources for shelters, food galvin. Mary Kate Parkinson RN/Bridal Gown Fitter
[2022-10-14] MEDS: ACETAMINOPHEN 325 MG TABLET 650 MG PO (15:20)
[2022-10-14] MEDS: PANTOPRAZOLE DR 20 MG TABLET PO (18:14)
[2022-10-14 20:05] VITALS: BP 107/50; PULSE 65; RESP 18; TEMP 36.4; O2SAT 98
[2022-10-14] MEDS: KETOROLAC 10 MG TABLET PO (20:26)
[2022-10-15] VITALS: BP 111/70; PULSE 61; RESP 18; TEMP 36.1; O2SAT 97
[2022-10-15 04:00] VITALS: BP 127/79; PULSE 61; RESP 18; TEMP 37; O2SAT 96
--- NOTE | 2022-10-15 05:02 | PC.NURSE ---
Patient is alert and oriented. Breath sounds CTA with RA sat of 98%. HRR w/telemetry reading of SR at 2000 check and SB w/rate of 52 at 0400 check. Denied nausea. BT hypoactive but is passing flatus; states his last BM was a couple days ago. Voiding per urinal and denies dysuria, frequency or urgency. Is independent with mobility and steady on feet. Refuses SCD's as is up independently. Complained of back pain/pressure between scapula at start of shift and REMEDIAL TEACHERBubba, was informed. Order received for Toradol and provided relief for patient. Fall risk score is moderate but alarm not in use. NPO for 2nd portion of stress test today.
[2022-10-15 08:00] VITALS: BP 121/71; PULSE 57; RESP 16; TEMP 36.4; O2SAT 97
[2022-10-15] MEDS: buPROPion XL 150 MG TAB 300 MG PO (08:18)
[2022-10-15] MEDS: ENOXAPARIN 40 MG/0.4 ML SYRINGE SUBCUT (08:18)
[2022-10-15] MEDS: CLOPIDOGREL 75 MG TABLET PO (08:19)
[2022-10-15] MEDS: ASPIRIN EC 325 MG TABLET 81 MG PO (08:19)
[2022-10-15 08:20] VITALS: BP 127/71; PULSE 61
[2022-10-15] MEDS: AMLODIPINE 5 MG TABLET PO (08:20)
[2022-10-15] MEDS: METOPROLOL ER 50 MG TABLET 100 MG PO (08:20)
[2022-10-15] MEDS: DIVALPROEX ER 250 MG TAB 1000 MG PO (08:22)
[2022-10-15] MEDS: DIVALPROEX ER 250 MG TAB PO (08:22)
[2022-10-15 12:00] VITALS: BP 118/80; PULSE 63; RESP 16; TEMP 36.3; O2SAT 98
[2022-10-15 13:47] VITALS: BP 115/75
[2022-10-15] MEDS: NITROGLYCERIN 0.4 MG SL TAB SL (13:47)
[2022-10-15] MEDS: KETOROLAC 10 MG TABLET PO (13:58)
[2022-10-15 14:25] LABS: Troponin I < 0.012 ng/mL (0.01-0.034)
--- NOTE | 2022-10-15 14:47 | P.DS_ITS ---
History of Present Illness History of Present Illness Date Patient Seen: 10/15/22 Time Patient Seen: 14:48 Chief complaint: Chest pain Narrative: Johnathan Tran s a 52-year-old male with history of bipolarII, obesity, hypertension known coronary artery disease with recent stent in LAD in [place] 2nd to STEMI 08/10/2022.? Since that time the patient reports that he has been out of work and is currently living of his vehicle and has had difficulty affording his medications and has missed dosage frequently attempting to spread his medications out to make them last, he has also been unable to establish with a traffic control signaler for management. 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 Today while at rest he developed chest p ain and ache to the left side at approximately the 3rd and 4th intercostal space, that radiated up to his jaw and down his left arm, nothing seemed to worsen or change the pain, the patient attempted to nitro & 2 aspirin at home without improvement, he experienced some mild shortness of breath and l ightheadedness, no diaphoresis, it lasted approximately 1-2 hours was still present when he came into the emergency department and as he was being treated in the ED the chest pain eventually resolved. At the time of admit patient's symptoms have all completely resolved he is resting easily in bed in no distress or discomfort, and eating. On admit patient denies chest pain, shortness in breath, headache, changes in vision, difficulty swallowing, speech impairment, weakness, numbness, tingling, difficulty with ambulation, recent falls, head injury, LOC, fever, body aches, chills, cough, recent exposure to illness, abdominal pain, nausea, vomiting, urinary incontinence/retention, dysuria, frequency, urgency, hematuria, bowel changes, constipation, incontinence, melena, rashes, recent changes to medication, illness, injury, or trauma. Admitting vitals temp 97.8?, BP 97/60, HR 57, RR 17, O2 saturation 97% on room air. Patient's CBC, chemistry and liver panels are all negative troponin x2 are negative, COVID negative, chest x-ray negative for any acute processes. Patient's EKG I personally reviewed both initial sinus rhythm of [address] changes Q-waves in 3 without changes from previous EKG of September 22, 2022 repeat EKG unchanged from initial. Dr. Chatman consulted with Dr. Tran traffic control signaler at [facility] in ED. Patient admitted for chest pain. Discharge Providers Provider Date of admission: 10/12/22 21:29 Discharge Date: 10/15/22 Primary care physician: Zafar Caruso Consults: 10/12/22 22:40 Consult to Cardiology Routine Comment: Consulting Provider: Darshan Millan Reason for consultation: CP Has provider been notified: Yes 10/12/22 22:47 Consult to Dietitian, Adult Routine Comment: Reason For Exam: BMI 39.7 10/12/22 22:48 Consult to Discharge Planning Routine Comment: Consult to STUDENT OUTREACH COORDINATOR - [employer] Routine Comment: barriers to meds & care STUDENT OUTREACH COORDINATOR Consult needed for:: Social Determinants issue Consult to Occupational Therapy Evaluate & Treat Comment: Physician Instructions: Evaluate and treat Consult to Physical Therapy Evaluate & Treat Comment: Physician Instructions: Evaluate and Treat Discharge provider: Farzad Lopez DO Summary Hospital Course Discharge Diagnosis: 1. Chest pain, acute, with history of angina pectoris, chronic, present on admission.? No symptoms today. -heart score 3, troponin x3 negative, EKG stable unchanged from previous-patient is stable and asymptomatic at this time. -last on file echo 02/18/2022 EF of 60%, cardiology visit [facility] March of 2022. -patient admitted under chest pain protocol -continue Plavix, ASA, Renexa -nitro, morphine as needed, monitor on telemedicine -TSH normal, A1c 6.6%, LDL 136 -if patient's troponin elevates, or develops symptomatic STEMI will contact Dr. Gimenez [facility] for transport for cardiac catheterization per his recommendations. -STUDENT OUTREACH COORDINATOR/social work consult to help provide services and resources so that patient may be able to obtain medication, housing, and follow up with Cardiology. -stress test returned as low-mod risk, cardiology suggested discharge home to f/u in clinic and obtain heart cath if chest pain continues 2. Coronary artery disease with history of a STEMI, with recent LAD stent placement, chronic, present on admit -in [facility] 07/2022 3. Hypertension, essential, present on admission -blood pressure has stabilized -continue amlodipine, metoprolol 4. Obesity severe, acute on chronic, present on admission -as evidence by BMI of 40 -dietary consult ordered regarding nutritional education and information for dietary, lifestyle, exercise, and weight changes. -the patient is at much higher risk for medical and surgical complications due to obesity as it relates to chronic illnesses:, and acute illness.? The patient's obesity increases the difficulty and complexity of medical and/or surgical interventions, management and increases the chances of poor outcome such as morbidity and mortality as well as impaired wound healing. 5. Bipolar 2, chronic, present on admission -continue Depakote, bupropion 6. GERD, chronic, present on admission -continue PPI Hospital Course: See problem list above. Time Spent with Patient Time spent: Greater than 30 minutes Exam Vital Signs (past 8 hours): - 10/15/22 08:20 10/15/22 08:00 10/15/22 12:00 Temperature 97.5 F L 97.3 F L Pulse Rate 61 57 L 63 Respiratory Rate 16 16 Blood Pressure 127/71 121/71 118/80 Pulse Oximetry 97 98 Oxygen Flow Rate 0 0 10/15/22 13:47 Temperature Pulse Rate Respiratory Rate Blood Pressure 115/75 Pulse Oximetry Oxygen Flow Rate Oxygen Delivery Method Room Air Oxygen Flow Rate 0 Narrative Exam Narrative: General:? Patient is a well-developed, well-nourished in no distress at this time. HEENT:? Normocephalic, atraumatic, extraocular muscles intact.? Neck is supple and symmetric, trachea is midline. Chest:? Normal AP diameter and contour without kyphoscoliosis, no nasal flaring, retractions, or tachypneic labored Lungs:? Auscultation of all lung kaplan are clear without adventitious sounds, wheezes, rhonchi, or rales. Cardio:? S1 & S2 with regular rate and rhythm without murmur, rubs, or gallops, no carotid bruit, no cardiac pulsations present. Abdomen:? Soft nontender, negative for organomegaly, or masses.? Bowel sounds are present in all 4 quadrants without guarding or rebound, no CVA tenderness. Musculoskeletal:? Muscle strength and tone are equal within normal limits, no deformity, crepitus, effusions, cyanosis, clubbing or edema present.? Full range of motion intact radial and pedal pulses are normal. Skin:? Warm dry and intact without rashes, ulcerations or petechiae.? Neuro:? Alert and orientated x3, strength is +5/5 in all extremities, sensation to touch intact, no gross deficits noted of cranial nerves. Psych:? Patient has a well-kept appearance, appropriate affect, mental status attitude thought context and judgment are appropriate for age. Objective Labs 10/12/22 15:35 10/12/22 15:35 Labs: Laboratory Results - last 24 hr 10/15/22 13:50 Troponin I < 0.012 PFSH Medical History Acne ADHD (~1999) Alcohol use disorder, moderate, in sustained remission Allergies (~1978) Angina at rest Anxiety (~1999) Bipolar II disorder Body mass index (BMI) of 40.1-44.9 in adult Body posture problem Carpal tunnel syndrome (~2014) Cervical somatic dysfunction Chicken pox (~1975) Chronic thoracic back pain (~1999) Coronary artery disease (~2002) COVID-19 virus infection Cramping of feet Depression (~1999) Dyslipidemia Elevated blood sugar level Essential hypertension Exertional shortness of breath Family history of myocardial infarction at age less than 60 GERD (gastroesophageal reflux disease) (~1999) Headache (~2004) History of bipolar disorder (~2014) Hx of angiography Kidney stones (~2016) Left anterior knee pain Migraines (~2009) Neck pain On valproic acid therapy Psoriasis Restless leg syndrome (~2016) Screening for prostate cancer Screening for prostate cancer Segmental and somatic dysfunction of thoracic region Tinnitus (~2015) Upper extremity somatic dysfunction Wears glasses Surgical History Anesthesia H/O left heart catheterization by cutdown History of arthroscopy of both knees (~1988) Lump in the testicle (~2004) Stented coronary artery Family History Mother Myocardial infarct History of heart disease Hypertension Mental health problem Father CAD, multiple vessel Diabetes mellitus History of heart disease Hypertension Hyperlipidemia Grandmother Diabetes mellitus History of heart disease Hypertension Stroke Grandmother Alzheimer's disease Social History household members: none Smoking Status: Never smoker alcohol intake: current Discharge Plan Discharge Plan Patient Disposition: Home Provider Discharge Comment: You were admitted for chest pain. Your stress test and echo were reassuring and troponin levels were normal so you were cleared by the traffic control signaler to discharge. If you continue to have chest pain, you need to see your traffic control signaler as you may need a cath. You should continue all your home meds as you currently take them. Discharge orders & Medications Prescriptions: Continued bupropion HCl 300 mg tablet extended release 24 hr 300 mg PO QAM Qty: 90 3RF amlodipine 5 mg tablet 5 mg PO DAILY Qty: 90 3RF Hold Instructions: not taking for the last month, BP okay divalproex 500 mg tablet extended release 24 hr 1,000 mg PO DAILY Qty: 180 3RF divalproex 250 mg tablet extended release 24 hr 250 mg PO DAILY MDD 1250 mg Qty: 90 3RF Rx Instructions: To be taken with 500 mg tabs for total daily dose of 1250 mg per day metoprolol succinate 100 mg tablet extended release 24 hr 100 mg PO QAM Qty: 90 3RF Rx Instructions: TAKE 1 TABLET BY MOUTH DAILY pantoprazole 20 mg tablet,delayed release (DR/EC) 20 mg PO QPM Qty: 90 3RF Rx Instructions: TAKE 1 TABLET BY MOUTH EVERY EVENING ranolazine [Ranexa] 500 mg tablet extended release 12 hr 500 mg PO BID Qty: 90 3RF Patient Comments: pt only takes once a day instead of BID aspirin 81 mg Tablet,Delayed Release (Dr/Ec) 81 mg PO DAILY Patient Comments: didn't start after leaving VM nitroglycerin 0.4 mg tablet, sublingual 0.4 mg sublingual Q5-15M PRN (Reason: chest pain) Qty: 20 0RF Rx Instructions: do not exceed 3 doses per episode clopidogrel [Plavix] 75 mg tablet 75 mg PO DAILY Qty: 30 0RF Follow up/Referrals: Zafar Caruso [Other] Titi Mccray DO [Physician] - 2 Weeks Visit Report/Discharge Packet Instructions: DI for Chest Pain Stand Alone Forms: Patient Portal/API, Stroke Signs & Symptoms Discharge Data Primary Care Provider: Zafar Caruso Attending Provider: Amisha Mac Admit Date/Time: 10/12/22 21:29 Discharges patient from system. Discharge Date/Time: 10/15/22 15:55 Quality VTE Deep Vein Thrombosis/Pulmonary Embolism Present on Admission: No
--- NOTE | 2022-10-15 14:49 | DI.NM.S_ITS ---
DATE OF SERVICE: 10/14/2022 PROCEDURE PERFORMED: Pharmacologic vasodilator stress and rest myocardial perfusion imaging with gating to assess ejection fraction and regional wall motion. ORDERING PROVIDER: RERE CHI. INDICATIONS: The patient is a 52-year-old obese male with a recent stent to the LAD in July,, who presents with atypical chest discomfort with normal troponins. PHARMACOLOGIC STRESS: Per protocol, 0.4 mg of regadenoson was infused with a normal hemodynamic response. With this, he developed some mild dyspnea and chest pressure. His resting ECG is normal, and there are no significant ST- segment shifts or arrhythmias with stress. Per protocol, 27.5 millicuries of technetium-99m Myoview was injected and he was imaged 10 minutes later using a gated SPECT acquisition protocol. The following day, he was injected with 27.5 millicuries of technetium-99m Myoview at rest and was imaged 25 minutes later, again using a gated SPECT acquisition protocol. FINDINGS: 1. Raw data: There is fair myocardial tracer uptake with some motion on the resting images which could introduce artifact. TID ratio is normal at 0.90 with a normal lung heart ratio 0.29. 2. Quantitated gated SPECT: Post-stress ejection fraction is estimated at 71% without any focal wall motion abnormality, although there may be slight hypokinesis in the distal inferior apex. Resting ejection fraction is 74% and grossly appears similar although there is fairly poor image quality. Resting end- diastolic volume is borderline increased at 120 mL. 3. Myocardial perfusion imaging: Post-stress supine images show a fairly normal myocardial perfusion pattern with the exception of a small to moderate defect in the mid to distal inferior wall. While this defect resolves proximally, a small defect remains present distally on the prone images. The resting images show similar perfusion pattern with perhaps slight improvement in the defect distally. IMPRESSION: 1. Probable abnormal myocardial perfusion study. 2. Predominantly fixed but slightly reversible perfusion defect in the mid to distal inferior wall inferoapex likely reflecting previous nontransmural infarction with perhaps slight bernabe-infarct ischemia. This occupies a relatively small volume of myocardium. 3. Normal left ventricular systolic function with mild hypokinesis in the distal inferoapex. 4. Minimal dyspnea and chest discomfort with pharmacologic vasodilator stress but no ECG changes of ischemia or arrhythmias. 5. Compared to the previous myocardial perfusion study of 10/22/2021, an inferoapical defect was again noted, but appeared to resolve on the prone images although the quality of that scan was quite poor and resting images were not obtained. The inferoapical defect appears slightly more prominent on today's study, but otherwise there has been no significant change. Johnathan Mendiola - CATRINA/shady/jimbo doc#: [id number]/job#: [id number] dd: 10/15/2022 13:15:00 dt: 10/15/2022 14:21:00 DICTATING /COPIES TO: Isreal Townsend MD COPIES MNE: JOANN;
== END 2022-10-15 15:55 | disposition home or self-care (01) ==
LOC: ED 20:20 → AC 21:30
PROVIDERS: Emergency Medicine; Student in an Organized Health Care Education/Training Program; Admitting Provider Nurse Practitioner Family; Emergency Provider Emergency Medicine; Visit Provider Nurse Practitioner Family
DX: R07.9 Chest pain, unspecified (principal); I10 Essential (primary) hypertension; I25.10 Atherosclerotic heart disease of native coronary artery without angina pectoris; I25.2 Old myocardial infarction; Z95.818 Presence of other cardiac implants and grafts; E66.9 Obesity, unspecified; Z68.41 Body mass index [BMI] 40.0-44.9, adult; F31.81 Bipolar II disorder; K21.9 Gastro-esophageal reflux disease without esophagitis; Z20.822 Contact with and (suspected) exposure to COVID-19
CPT/HCPCS: 36415; 36592; 71045; 78452; 80053; 80061; 82550; 83690; 83735; 83880; 84484; 85025; 85610; 85730; 87635; 93005; 93010; 93017; 93306; 96360; 96372; 97161; 97530; 99284; C9803; G0378; A9502; J1650; J2785; Q9957

== ENCOUNTER → 2022-10-19 11:58 | Outpatient (CLI) | payer MEDICARE, SELFPAY ==
[2022-10-12 21:37] VITALS: BMI 39.7
[2022-10-19 13:03] LABS: Add Manual Diff / Slide Review NO; Alanine Aminotransferase 41 IU/L (<50); Albumin 4.1 g/dL (3.5-5.0); Albumin Globulin Ratio 1.3 (1.0-2.8); Alkaline Phosphatase 76 U/L (38-126); Aspartate Aminotransferase 24 IU/L (17-59); BUN Creatinine Ratio 12.1 (6-22); Basophils Absolute Auto 0 /uL (0-100); Basophils Percent Auto 0.4 % (0-2); Bilirubin Total 0.4 mg/dL (0.2-1.3); Blood Urea Nitrogen 12 mg/dL (9-20); Calcium 9.4 mg/dL (8.4-10.2); Carbon Dioxide 26 mmol/L (22-32); Chloride 105 mmol/L (98-107); Cholesterol 243 mg/dL (140-199); Eosinophils Absolute Auto 100 /uL (0-450); Eosinophils Percent Auto 1.5 % (2-4); Estimated Glomerular Filt Rate > 60 mL/min (>60); Globulin 3.2 g/dL (1.7-4.1); Glucose 94 mg/dL (70-100); HDL Cholesterol 41 mg/dL (40-60); HEMOLYSIS < 15 (0-50); Hematocrit 44.5 % (41-53); Hemoglobin 15.2 g/dL (13.5-17.5); LDL Cholesterol Calculated 175 mg/dL (<100); Lymphocytes Absolute Auto 1400 /uL (1100-4500); Mean Corpuscular HGB Conc 34.2 % (30-36); Mean Corpuscular Hemoglobin 30.6 PG (26-34); Mean Corpuscular Volume 89.7 fL (80-100); Monocytes Absolute Auto 600 /uL (0-900); Monocytes Percent Auto 8.2 % (3-14); Neutrophils Absolute Auto 4700 /uL (1500-7000); Neutrophils Percent Auto 68.9 % (50-75); Platelet Count 176 X10^3/uL (150-400); Potassium 4.4 mmol/L (3.4-5.1); Red Blood Cell Count 4.96 X10^6/uL (4.5-5.9); Sodium 140 mmol/L (137-145); Total Protein 7.3 g/dL (6.3-8.2); Triglycerides 135 mg/dL (35-150); White Blood Cell Count 6.8 X10^3/uL (4.5-11.0)
[2022-10-19 13:32] LABS: Prostate Specific Antigen Scrn 0.276 ng/mL (0.1-4.0)
[2022-10-21 10:15] LABS: Valproic Acid (Depakene) Total 4
== END ==
PROVIDERS: Referring Provider Family Medicine; Visit Provider Family Medicine
DX: E78.5 Hyperlipidemia, unspecified (principal); Z12.5 Encounter for screening for malignant neoplasm of prostate; F31.81 Bipolar II disorder; I25.118 Atherosclerotic heart disease of native coronary artery with other forms of angina pectoris; R07.9 Chest pain, unspecified; Z79.899 Other long term (current) drug therapy; Z95.5 Presence of coronary angioplasty implant and graft
CPT/HCPCS: 36415; 80053; 80061; 80164; 85025; G0103

== ENCOUNTER 2022-12-14 18:06 | Emergency (ER) | payer MEDICARE, SELFPAY ==
[2022-10-12 21:37] VITALS: BMI 39.7
[2022-12-14] VITALS (14 sets, daily range): BP systolic 120–142; BP diastolic 74–85; PULSE 67–85; RESP 6–24; TEMP 36.4; O2SAT 95–100; BMI 39.4
--- NOTE | 2022-12-14 18:12 | DI.RAD.S_ITS ---
PROCEDURE: XR CHEST 1V INDICATIONS: SOB TECHNIQUE: One view of the chest was acquired. COMPARISON: [facility], CR, XR CHEST 1V, 10/12/2022, 15:53. FINDINGS: Surgical changes and devices: None. Lungs and pleura: Lungs are clear. No pleural effusions or pneumothorax. Mediastinum: Mediastinal contours appear normal. Heart size is normal. Bones and chest wall: No suspicious bony lesions. Overlying soft tissues appear unremarkable. IMPRESSION: No acute cardiopulmonary disease. Dictated by: Anna Lujan M.D. on 12/14/2022 at 17:55 Approved by: Anna Lujan M.D. on 12/14/2022 at 17:55
--- NOTE | 2022-12-14 18:38 | ED_ITS ---
HPI - Chest Pain General Chief Complaint: Chest Pain Stated Complaint: sob chest pressure x1 day Time Seen by Provider: 12/14/22 18:12 Source: patient Mode of arrival: Ambulatory Limitations: no limitations History of Present Illness HPI narrative: Patient is a 52-year-old male. A known history of coronary artery disease. For the past 2 weeks he did have a cardiac catheterization and was told that there was no interventions performed. He states the stents he is had in the face are clear and open. He states he is having some chest congestion and a cough. Despite the stated complaint he states he is not really having any chest discomfort. He also is having left kidney discomfort. Also having pain in both of his calf muscles. No fevers. No sore throat. No sinus congestion. No abdominal pain nausea vomiting. He has been taking all his medications as directed. Related Data Home Medications Medication Instructions Recorded Confirmed aspirin 81 mg tablet,delayed 81 mg PO DAILY 08/17/19 10/24/22 release Previous Rx's Medication Instructions Recorded bupropion HCl 300 mg 24 hr tablet, 300 mg PO QAM #90 tabs 08/07/21 extended release divalproex 250 mg tablet,extended 250 mg PO DAILY #90 tabs 11/28/21 release 24 hr divalproex 500 mg tablet,extended 1,000 mg PO DAILY #180 tabs 11/28/21 release 24 hr pantoprazole 20 mg tablet,delayed 20 mg PO QPM #90 tabs 11/28/21 release ranolazine 500 mg tablet,extended 500 mg PO BID #90 tabs 11/28/21 release,12 hr (Ranexa) nitroglycerin 0.4 mg sublingual 0.4 mg sublingual Q5-15M PRN chest 09/22/22 tablet pain #20 tabs amlodipine 5 mg tablet 5 mg PO DAILY #90 tabs 10/24/22 clopidogrel 75 mg tablet (Plavix) 75 mg PO DAILY #90 tabs 10/24/22 metoprolol succinate 100 mg 100 mg PO QAM #90 tabs 10/24/22 tablet,extended release 24 hr Allergies Allergy/AdvReac Type Severity Reaction Status Date / Time ciprofloxacin [From Cipro] Allergy Severe ITCHING Verified 10/24/22 13:26 Review of Systems Review of Systems ROS Unobtainable: All systems reviewed & are unremarkable except as noted in HPI and below Patient History Medical History Acne ADHD (~1999) Alcohol use disorder, moderate, in sustained remission Allergies (~1978) Angina at rest Anxiety (~1999) Bipolar II disorder Body mass index (BMI) of 40.1-44.9 in adult Body posture problem Carpal tunnel syndrome (~2014) Cervical somatic dysfunction Chicken pox (~1975) Chronic thoracic back pain (~1999) Coronary artery disease (~2002) COVID-19 virus infection Cramping of feet Depression (~1999) Dyslipidemia Elevated blood sugar level Essential hypertension Exertional shortness of breath Family history of myocardial infarction at age less than 60 GERD (gastroesophageal reflux disease) (~1999) Headache (~2004) History of bipolar disorder (~2014) Hx of angiography Kidney stones (~2016) Left anterior knee pain Migraines (~2009) Neck pain On valproic acid therapy Presence of stent in LAD coronary artery Psoriasis Restless leg syndrome (~2016) Screening for prostate cancer Screening for prostate cancer Segmental and somatic dysfunction of thoracic region Tinnitus (~2015) Upper extremity somatic dysfunction Wears glasses Surgical History Anesthesia H/O left heart catheterization by cutdown History of arthroscopy of both knees (~1988) Lump in the testicle (~2004) Stented coronary artery Family History Mother Myocardial infarct History of heart disease Hypertension Mental health problem Father CAD, multiple vessel Diabetes mellitus History of heart disease Hypertension Hyperlipidemia Grandmother Diabetes mellitus History of heart disease Hypertension Stroke Grandmother Alzheimer's disease Social History household members: none Smoking Status: Never smoker alcohol intake: current Smoking Status: Never smoker tobacco type: cigars alcohol intake frequency: holidays/special occasions only Alcohol type: beer and hard liquor Substance Use Type: marijuana Exam Initial Vital Signs Initial Vital Signs: Vital Signs Temperature 97.6 F 12/14/22 18:12 Pulse Rate 83 12/14/22 18:12 Respiratory Rate 16 12/14/22 18:12 Blood Pressure 142/85 H 12/14/22 18:12 Pulse Oximetry 100 12/14/22 18:12 Oxygen Delivery Method Room Air 05/27/23 18:12 Const General: cooperative, comfortable and No ill appearing HENMT Head: normal to inspection and normocephalic Resp Effort & Inspection: normal respiratory effort Auscultation: clear to auscultation bilaterally Cardio Rate: regular rate Rhythm: regular rhythm GI Inspection: normal to inspection and non-distended Back/Spine/Pelvis Back: No CVA tenderness Skin General: no rashes or lesions noted Neuro General: patient alert, patient awake and moves all extremities Extrem General: normal to inspection and capillary refill normal Scores HEART Score Heart Score history: Slightly Suspicious Heart Score EKG: Normal Heart Score Age: 45-64 years old Heart Score risk factors: > 3 risk factors or hx of atherosclerotic disease Heart Score troponin: < or = to normal limit Heart Score Total: 3 Course Orders Ordered: ED Orders 12/14/22 20:45 BNP [NT-proBNP (BNP-Adult 18+)] Stat Troponin & CK Cardiac Panel Stat 12/14/22 22:25 US periph venous low extrem bi Stat Vital Signs Vital signs: Vital Signs - 8 hr 12/14/22 21:23 12/14/22 20:30 12/14/22 21:00 Pulse Rate 74 72 Respiratory Rate 18 16 6 L Blood Pressure 120/74 Pulse Oximetry 96 95 12/14/22 21:30 12/14/22 22:00 12/14/22 22:30 Pulse Rate 71 70 71 Respiratory Rate 23 24 16 Blood Pressure Pulse Oximetry 97 96 12/14/22 23:00 12/14/22 23:42 Pulse Rate 67 67 Respiratory Rate 18 20 Blood Pressure Pulse Oximetry 96 96 MDM - Chest Pain Lab Data Attestation: I reviewed the patient's lab results. 12/14/22 18:40 12/14/22 18:40 Labs: Lab Results 12/14/22 12/14/22 12/14/22 Range/Units 18:40 18:40 18:40 WBC 7.8 (4.5-11.0) X10^3/uL RBC 4.74 (4.5-5.9) X10^6/uL Hgb 14.4 (13.5-17.5) g/dL Hct 41.9 (41-53) % MCV 88.4 (80-100) fL MCH 30.3 (26-34) PG MCHC 34.3 (30-36) % RDW 12.9 (11.6-14.8) % Plt Count 180 (150-400) X10^3/uL Neut % (Auto) 75.2 H (50-75) % Lymph % (Auto) 16.2 L (25-40) % [place] % (Auto) 4.9 (3-14) % Eos % (Auto) 1.7 L (2-4) % Baso % (Auto) 2.0 (0-2) % Neut # (Auto) 5800 (2618-9473) /uL Lymph # (Auto) 1300 (2955-7725) /uL [place] # (Auto) 400 (0-900) /uL Eos # (Auto) 100 (0-450) /uL Baso # (Auto) 200 H (0-100) /uL D-Dimer (<500) ng/ml Sodium 139 (137-145) mmol/L Potassium 4.0 (3.4-5.1) mmol/L Chloride 104 (98-107) mmol/L Carbon Dioxide 27 (22-32) mmol/L BUN 9 (9-20) mg/dL Creatinine 1.19 (0.66-1.25) mg/dL Estimated GFR > 60 (>60) mL/min BUN/Creatinine Ratio 7.6 (6-22) Glucose 131 H (70-100) mg/dL Calcium 8.9 (8.4-10.2) mg/dL Magnesium 1.9 (1.6-2.3) mg/dL Total Bilirubin 0.4 (0.2-1.3) mg/dL AST 31 (17-59) IU/L ALT 38 (<50) IU/L Alkaline Phosphatase 70 (38-126) U/L Total Creatine Kinase 47 L (55-170) U/L CK-MB (CK-2) TNP CK-MB (CK-2) Rel Index TNP Troponin I < 0.012 (0.01-0.034) ng/mL NT-Pro-B Natriuret Pep (<125) pg/mL Total Protein 7.5 (6.3-8.2) g/dL Albumin 4.1 (3.5-5.0) g/dL Globulin 3.4 (1.7-4.1) g/dL Albumin/Globulin Ratio 1.2 (1.0-2.8) Lipase 53 (23-300) U/L Ur Bilirubin Confirm (Negative) Chlamy pneumoniae PCR Not detected (Not Detect) Adenovirus (PCR) Not detected (Not Detect) B. pertussis DNA (PCR) Not detected (Not Detecte) B.parapertussis DNA PCR Not detected (Not Detecte) Coronavirus OC43 (PCR) Not detected (Not Detect) Coronavirus HKU1 (PCR) Not detected (Not Detect) Coronavirus 229E (PCR) Not detected (Not Detect) SARS-CoV-2 (PCR) Not detected (Not Detecte) Coronavirus NL63 (PCR) Not detected (Not Detect) Human Metapneumovir PCR Not detected (Not Detect) Influenza Type A (PCR) Not detected (Not Detect) Influenza Type B (PCR) Not detected (Not Detect) M. pneumoniae (PCR) Not detected (Not Detect) Parainfluenza 1 (PCR) Not detected (Not Detect) Parainfluenza 2 (PCR) Not detected (Not Detect) Parainfluenza 3 (PCR) Not detected (Not Detect) Parainfluenza 4 (PCR) Not detected (Not Detect) RSV (PCR) Not detected (Not Detect) Entero/Rhino (PCR) Not detected (Not Detect) 12/14/22 12/14/22 12/14/22 Range/Units 18:40 18:40 20:45 WBC (4.5-11.0) X10^3/uL RBC (4.5-5.9) X10^6/uL Hgb (13.5-17.5) g/dL Hct (41-53) % MCV (80-100) fL MCH (26-34) PG MCHC (30-36) % RDW (11.6-14.8) % Plt Count (150-400) X10^3/uL Neut % (Auto) (50-75) % Lymph % (Auto) (25-40) % [place] % (Auto) (3-14) % Eos % (Auto) (2-4) % Baso % (Auto) (0-2) % Neut # (Auto) (5883-2318) /uL Lymph # (Auto) (8367-8033) /uL [place] # (Auto) (0-900) /uL Eos # (Auto) (0-450) /uL Baso # (Auto) (0-100) /uL D-Dimer 534 H (<500) ng/ml Sodium (137-145) mmol/L Potassium (3.4-5.1) mmol/L Chloride (98-107) mmol/L Carbon Dioxide (22-32) mmol/L BUN (9-20) mg/dL Creatinine (0.66-1.25) mg/dL Estimated GFR (>60) mL/min BUN/Creatinine Ratio (6-22) Glucose (70-100) mg/dL Calcium (8.4-10.2) mg/dL Magnesium (1.6-2.3) mg/dL Total Bilirubin (0.2-1.3) mg/dL AST (17-59) IU/L ALT (<50) IU/L Alkaline Phosphatase (38-126) U/L Total Creatine Kinase 41 L (55-170) U/L CK-MB (CK-2) TNP CK-MB (CK-2) Rel Index TNP Troponin I < 0.012 (0.01-0.034) ng/mL NT-Pro-B Natriuret Pep (<125) pg/mL Total Protein (6.3-8.2) g/dL Albumin (3.5-5.0) g/dL Globulin (1.7-4.1) g/dL Albumin/Globulin Ratio (1.0-2.8) Lipase (23-300) U/L Ur Bilirubin Confirm Negative (Negative) Chlamy pneumoniae PCR (Not Detect) Adenovirus (PCR) (Not Detect) B. pertussis DNA (PCR) (Not Detecte) B.parapertussis DNA PCR (Not Detecte) Coronavirus OC43 (PCR) (Not Detect) Coronavirus HKU1 (PCR) (Not Detect) Coronavirus 229E (PCR) (Not Detect) SARS-CoV-2 (PCR) (Not Detecte) Coronavirus NL63 (PCR) (Not Detect) Human Metapneumovir PCR (Not Detect) Influenza Type A (PCR) (Not Detect) Influenza Type B (PCR) (Not Detect) M. pneumoniae (PCR) (Not Detect) Parainfluenza 1 (PCR) (Not Detect) Parainfluenza 2 (PCR) (Not Detect) Parainfluenza 3 (PCR) (Not Detect) Parainfluenza 4 (PCR) (Not Detect) RSV (PCR) (Not Detect) Entero/Rhino (PCR) (Not Detect) 12/14/22 Range/Units 20:45 WBC (4.5-11.0) X10^3/uL RBC (4.5-5.9) X10^6/uL Hgb (13.5-17.5) g/dL Hct (41-53) % MCV (80-100) fL MCH (26-34) PG MCHC (30-36) % RDW (11.6-14.8) % Plt Count (150-400) X10^3/uL Neut % (Auto) (50-75) % Lymph % (Auto) (25-40) % [place] % (Auto) (3-14) % Eos % (Auto) (2-4) % Baso % (Auto) (0-2) % Neut # (Auto) (1643-6667) /uL Lymph # (Auto) (6574-4729) /uL [place] # (Auto) (0-900) /uL Eos # (Auto) (0-450) /uL Baso # (Auto) (0-100) /uL D-Dimer (<500) ng/ml Sodium (137-145) mmol/L Potassium (3.4-5.1) mmol/L Chloride (98-107) mmol/L Carbon Dioxide (22-32) mmol/L BUN (9-20) mg/dL Creatinine (0.66-1.25) mg/dL Estimated GFR (>60) mL/min BUN/Creatinine Ratio (6-22) Glucose (70-100) mg/dL Calcium (8.4-10.2) mg/dL Magnesium (1.6-2.3) mg/dL Total Bilirubin (0.2-1.3) mg/dL AST (17-59) IU/L ALT (<50) IU/L Alkaline Phosphatase (38-126) U/L Total Creatine Kinase (55-170) U/L CK-MB (CK-2) CK-MB (CK-2) Rel Index Troponin I (0.01-0.034) ng/mL NT-Pro-B Natriuret Pep 43 (<125) pg/mL Total Protein (6.3-8.2) g/dL Albumin (3.5-5.0) g/dL Globulin (1.7-4.1) g/dL Albumin/Globulin Ratio (1.0-2.8) Lipase (23-300) U/L Ur Bilirubin Confirm (Negative) Chlamy pneumoniae PCR (Not Detect) Adenovirus (PCR) (Not Detect) B. pertussis DNA (PCR) (Not Detecte) B.parapertussis DNA PCR (Not Detecte) Coronavirus OC43 (PCR) (Not Detect) Coronavirus HKU1 (PCR) (Not Detect) Coronavirus 229E (PCR) (Not Detect) SARS-CoV-2 (PCR) (Not Detecte) Coronavirus NL63 (PCR) (Not Detect) Human Metapneumovir PCR (Not Detect) Influenza Type A (PCR) (Not Detect) Influenza Type B (PCR) (Not Detect) M. pneumoniae (PCR) (Not Detect) Parainfluenza 1 (PCR) (Not Detect) Parainfluenza 2 (PCR) (Not Detect) Parainfluenza 3 (PCR) (Not Detect) Parainfluenza 4 (PCR) (Not Detect) RSV (PCR) (Not Detect) Entero/Rhino (PCR) (Not Detect) Urine Dip Bedside Urine Glucose Negative Bedside Urine Bilirubin + 1 Bedside Urine Ketone +/- 5 Urine Specific [place] 1.030 Bedside Urine Occult Blood - Negative Bedside Urine pH 6 Bedside Urine Protein - Negative Bedside Urine Urobilinogen - Negative Bedside Urine Nitrite - Negative Bedside Urine Leukocytes - Negative Esterase Imaging Data Chest x-ray: Radiologist's Impression: PROCEDURE:? XR CHEST 1V ? INDICATIONS:? SOB ? TECHNIQUE:? One view of the chest was acquired.? ? COMPARISON:? [facility], CR, XR CHEST 1V, 10/12/2022, 15:53. ? FINDINGS:? ? Surgical changes and devices:? None.? ? Lungs and pleura:? Lungs are clear.? No pleural effusions or pneumothorax.? ? Mediastinum:? Mediastinal contours appear normal.? Heart size is normal.? ? Bones and chest wall:? No suspicious bony lesions.? Overlying soft tissues appear unremarkable.? ? IMPRESSION:? No acute cardiopulmonary disease US - DVT: Radiologist's Impression: PROCEDURE:? US PERIPH VENOUS LOW EXTREM BI ? INDICATIONS:? SOB ? TECHNIQUE:? Real-time imaging, as well as color and pulse Doppler interrogation, were performed of the deep veins of both legs from the inguinal ligament to the popliteal fossa.? ? COMPARISON:? None. ? FINDINGS:? ? Right: The common femoral, femoral and popliteal veins are normally compressible, and free of intraluminal thrombus.? Color and pulse Doppler demonstrate normal phasic intravascular flow.? There is normal augmentation response to distal compression maneuver.? ? Left: The common femoral, femoral and popliteal veins are normally compressible, and free of intraluminal thrombus.? Color and pulse Doppler demonstrate normal phasic intravascular flow.? There is normal augmentation response to distal compression maneuver.? ? ? IMPRESSION:? No lower extremity DVT in either leg. ECG Data Attestation: I personally reviewed and interpreted this ECG as follows: Interpretation: Sinus rhythm Ventricular rate 82 First-degree AV block with a MD interval 216 milliseconds Normal axis Normal QRS No ST T wave changes Repeat EKG Sinus rhythm Ventricular rate is 70 First-degree AV block with MD interval 210 milliseconds Normal QRS Normal QTC No ST T wave changes MDM Narrative Medical decision making narrative: Workup here in the emergency department is negative for DVT, pneumonia, the respiratory virus detected on the respiratory panel, UTI, pyelo, and I have low suspicion for ACS given his presentation in the workup done up to this point. Had a long discussion with the patient regarding his symptoms. Will discharge patient home with instructions to continue to take his medications as directed. He was given return precautions. He expressed understanding and agreement. Discharge Plan Departure Patient Disposition: Home Clinical Impression: Atypical chest pain Instructions: DI for Atypical Chest Pain Activity Restrictions/Additional Instructions: I do recommend that you take all of your medications as directed and contact your primary doctor for a follow-up. Return to the emergency department for new symptoms. Prescriptions: No Action bupropion HCl 300 mg tablet extended release 24 hr 300 mg PO QAM Qty: 90 3RF amlodipine 5 mg tablet 5 mg PO DAILY Qty: 90 3RF Hold Instructions: not taking for the last month, BP okay metoprolol succinate 100 mg tablet extended release 24 hr 100 mg PO QAM Qty: 90 3RF Rx Instructions: TAKE 1 TABLET BY MOUTH DAILY clopidogrel [Plavix] 75 mg tablet 75 mg PO DAILY Qty: 90 3RF divalproex 500 mg tablet extended release 24 hr 1,000 mg PO DAILY Qty: 180 3RF divalproex 250 mg tablet extended release 24 hr 250 mg PO DAILY MDD 1250 mg Qty: 90 3RF Rx Instructions: To be taken with 500 mg tabs for total daily dose of 1250 mg per day pantoprazole 20 mg tablet,delayed release (DR/EC) 20 mg PO QPM Qty: 90 3RF Rx Instructions: TAKE 1 TABLET BY MOUTH EVERY EVENING ranolazine [Ranexa] 500 mg tablet extended release 12 hr 500 mg PO BID Qty: 90 3RF Patient Comments: pt only takes once a day instead of BID aspirin 81 mg Tablet,Delayed Release (Dr/Ec) 81 mg PO DAILY Patient Comments: didn't start after leaving VM nitroglycerin 0.4 mg tablet, sublingual 0.4 mg sublingual Q5-15M PRN (Reason: chest pain) Qty: 20 0RF Rx Instructions: do not exceed 3 doses per episode Referrals: Titi Mccray DO [Primary Care Provider] - Stand Alone Forms: Patient Portal/API
[2022-12-14 18:53] LABS: Add Manual Diff / Slide Review NO; Basophils Absolute Auto 200 /uL (0-100); Eosinophils Absolute Auto 100 /uL (0-450); Eosinophils Percent Auto 1.7 % (2-4); Hematocrit 41.9 % (41-53); Hemoglobin 14.4 g/dL (13.5-17.5); Lymphocytes Absolute Auto 1300 /uL (1100-4500); Lymphocytes Percent Auto 16.2 % (25-40); Mean Corpuscular HGB Conc 34.3 % (30-36); Mean Corpuscular Hemoglobin 30.3 PG (26-34); Mean Corpuscular Volume 88.4 fL (80-100); Monocytes Absolute Auto 400 /uL (0-900); Monocytes Percent Auto 4.9 % (3-14); Neutrophils Absolute Auto 5800 /uL (1500-7000); Neutrophils Percent Auto 75.2 % (50-75); Platelet Count 180 X10^3/uL (150-400); Red Blood Cell Count 4.74 X10^6/uL (4.5-5.9); Red Cell Distribution Width 12.9 % (11.6-14.8); White Blood Cell Count 7.8 X10^3/uL (4.5-11.0)
[2022-12-14 18:59] LABS: Ictotest Urine Negative (Negative)
[2022-12-14 19:07] LABS: Alanine Aminotransferase 38 IU/L (<50); Albumin 4.1 g/dL (3.5-5.0); Albumin Globulin Ratio 1.2 (1.0-2.8); Alkaline Phosphatase 70 U/L (38-126); Aspartate Aminotransferase 31 IU/L (17-59); BUN Creatinine Ratio 7.6 (6-22); Bilirubin Total 0.4 mg/dL (0.2-1.3); Blood Urea Nitrogen 9 mg/dL (9-20); Calcium 8.9 mg/dL (8.4-10.2); Carbon Dioxide 27 mmol/L (22-32); Chloride 104 mmol/L (98-107); Creatine Kinase 47 U/L (55-170); Estimated Glomerular Filt Rate > 60 mL/min (>60); Globulin 3.4 g/dL (1.7-4.1); Glucose 131 mg/dL (70-100); HEMOLYSIS < 15 (0-50); Lipase 53 U/L (23-300); Magnesium 1.9 mg/dL (1.6-2.3); Sodium 139 mmol/L (137-145); Total Protein 7.5 g/dL (6.3-8.2)
[2022-12-14 19:19] LABS: Troponin I < 0.012 ng/mL (0.01-0.034)
[2022-12-14 19:51] LABS: Adenovirus Not Detected (Not Detect); B. parapertussis Not Detected (Not Detecte); Bordetella pertussis Not Detected (Not Detecte); Chlamydophila pneumoniae Not Detected (Not Detect); Coronavirus 229E Not Detected (Not Detect); Coronavirus HKU1 Not Detected (Not Detect); Coronavirus NL 63 Not Detected (Not Detect); Coronavirus OC43 Not Detected (Not Detect); Human Metapneumovirus Not Detected (Not Detect); Human Rhinovirus/Enterovirus Not Detected (Not Detect); Influenza A Not Detected (Not Detect); Influenza B Not Detected (Not Detect); Mycoplasma pneumoniae Not Detected (Not Detect); Parainfluenza Virus 1 Not Detected (Not Detect); Parainfluenza Virus 2 Not Detected (Not Detect); Parainfluenza Virus 3 Not Detected (Not Detect); Parainfluenza Virus 4 Not Detected (Not Detect); Respiratory Syncytial Virus Not Detected (Not Detect); SARS- CoV-2 Not Detected (Not Detecte)
[2022-12-14 21:04] LABS: Creatine Kinase 41 U/L (55-170)
[2022-12-14 21:15] LABS: NT-proBNP (BNP-Adult 18+) 43 pg/mL (<125)
[2022-12-14 21:17] LABS: Troponin I < 0.012 ng/mL (0.01-0.034)
--- NOTE | 2022-12-14 22:11 | PC.NURSE ---
Pt c/o calf and leg muscle pain, provider notified, orders rec'd.
[2022-12-14 22:16] LABS: D Dimer 534 ng/ml (<500)
--- NOTE | 2022-12-14 22:25 | DI.US.S_ITS ---
PROCEDURE: US PERIPH VENOUS LOW EXTREM BI INDICATIONS: SOB TECHNIQUE: Real-time imaging, as well as color and pulse Doppler interrogation, were performed of the deep veins of both legs from the inguinal ligament to the popliteal fossa. COMPARISON: None. FINDINGS: Right: The common femoral, femoral and popliteal veins are normally compressible, and free of intraluminal thrombus. Color and pulse Doppler demonstrate normal phasic intravascular flow. There is normal augmentation response to distal compression maneuver. Left: The common femoral, femoral and popliteal veins are normally compressible, and free of intraluminal thrombus. Color and pulse Doppler demonstrate normal phasic intravascular flow. There is normal augmentation response to distal compression maneuver. IMPRESSION: No lower extremity DVT in either leg. Dictated by: Herb Jerez M.D. on 12/14/2022 at 23:26 Approved by: Herb Jerez M.D. on 12/14/2022 at 23:26
== END 2022-12-15 00:01 | disposition home or self-care (01) ==
PROVIDERS: Emergency Provider Emergency Medicine; PCP Family Medicine
DX: R07.89 Other chest pain (principal)
CPT/HCPCS: 36415; 71045; 80053; 81003; 82550; 83690; 83735; 83880; 84484; 85025; 85379; 87633; 93005; 93010; 93970; 99283

== ENCOUNTER 2022-12-28 12:06 | Emergency (ER) | payer MEDICARE, MEDICAID, SELFPAY ==
[2022-10-12 21:37] VITALS: BMI 39.7
[2022-12-28] VITALS (8 sets, daily range): BP systolic 131–173; BP diastolic 82–88; PULSE 71–79; RESP 16–22; TEMP 36.3; O2SAT 96–100; BMI 40.8
--- NOTE | 2022-12-28 12:18 | ED_ITS ---
HPI - Extremity Problem General Chief complaint: Extremity Problem,Nontraumatic Stated complaint: upper R/leg pain Time Seen by Provider: 12/28/22 12:14 History of Present Illness HPI Narrative: 52-year-old male nonsmoker with history of coronary artery disease, hypertension, hyperlipidemia presents for evaluation of ongoing right groin and thigh pain that has been persistent ever since a recent heart catheterization. He states that he was fine unwell prior to the heart catheterization and in the aftermath has had these symptoms more often than not. He states the pain is worse when he moves his leg and improves with rest. Denies any back pain, trouble with urination, fever or chills. Denies loss of control of bowel or bladder. He recently had an ultrasound to help evaluate for the pain and there were no significant findings. He states the heart catheterization was done in his right groin. He denies chest pain or shortness of breath. He is not dizzy nor weak or lightheaded. Additionally complains of some numbness and tingling along his right lateral thigh Related Data Home Medications Medication Instructions Recorded Confirmed aspirin 81 mg tablet,delayed 81 mg PO DAILY 08/17/19 10/24/22 release Previous Rx's Medication Instructions Recorded divalproex 250 mg tablet,extended 250 mg PO DAILY #90 tabs 11/28/21 release 24 hr divalproex 500 mg tablet,extended 1,000 mg PO DAILY #180 tabs 11/28/21 release 24 hr nitroglycerin 0.4 mg sublingual 0.4 mg sublingual Q5-15M PRN chest 09/22/22 tablet pain #20 tabs amlodipine 5 mg tablet 5 mg PO DAILY #90 tabs 10/24/22 clopidogrel 75 mg tablet (Plavix) 75 mg PO DAILY #90 tabs 10/24/22 metoprolol succinate 100 mg 100 mg PO QAM #90 tabs 10/24/22 tablet,extended release 24 hr bupropion HCl 300 mg 24 hr tablet, 300 mg PO QAM #90 tabs 12/25/22 extended release pantoprazole 20 mg tablet,delayed 20 mg PO QPM #90 tabs 12/25/22 release ranolazine 500 mg tablet,extended 500 mg PO BID #90 tabs 12/25/22 release,12 hr cyclobenzaprine 10 mg tablet 10 mg PO TID PRN muscle spasm #14 12/28/22 tabs gabapentin 300 mg capsule 300 mg PO BEDTIME #14 caps 12/28/22 methylprednisolone 4 mg tablets in See Rx Instructions PO .COMPLEX 12/28/22 a dose pack (Medrol (Channing)) #21 ea Allergies Allergy/AdvReac Type Severity Reaction Status Date / Time ciprofloxacin [From Cipro] Allergy Severe ITCHING Verified 12/25/22 13:31 Review of Systems Review of Systems Narrative: GENERAL: Denies chills, fatigue, malaise, fever, sweats. HEENT: Denies sinus pain, ear pain, sore throat, difficulty swallowing, dizziness. RESPIRATORY: Denies dyspnea, cough, wheezing, hemoptysis, sputum. CARDIOVASCULAR: Denies chest pain, palpitations, orthopnea, edema, GASTROINTESTINAL: Denies nausea, vomiting, abdominal pain, diarrhea, constipation, melena. : Denies dysuria, frequency, incontinence, hematuria, urinary retention. MUSCULOSKELETAL: See HPI SKIN: Denies rash, skin lesions, or other NEUROLOGIC: See HPI PSYCHIATRIC: No concerning psychosocial issues. 12 point review of systems is negative except for those stated above Patient History Medical History Acne ADHD (~1999) Alcohol use disorder, moderate, in sustained remission Allergies (~1978) Angina at rest Anxiety (~1999) Bipolar II disorder Body mass index (BMI) of 40.1-44.9 in adult Body posture problem Carpal tunnel syndrome (~2014) Cervical somatic dysfunction Chicken pox (~1975) Chronic pain in right shoulder Chronic right-sided low back pain without sciatica Chronic thoracic back pain (~1999) Coronary artery disease (~2002) COVID-19 virus infection Cramping of feet Depression (~1999) Dyslipidemia Elevated blood sugar level Essential hypertension Exertional angina Exertional shortness of breath Family history of myocardial infarction at age less than 60 GERD (gastroesophageal reflux disease) (~1999) Headache (~2004) History of bipolar disorder (~2014) Hx of angiography Kidney stones (~2016) Left anterior knee pain Migraines (~2009) Neck pain On valproic acid therapy Presence of stent in LAD coronary artery Psoriasis Restless leg syndrome (~2016) Screening for prostate cancer Screening for prostate cancer Segmental and somatic dysfunction of thoracic region Tinnitus (~2015) Upper extremity somatic dysfunction Wears glasses Surgical History Anesthesia H/O left heart catheterization by cutdown History of arthroscopy of both knees (~1988) Lump in the testicle (~2004) Stented coronary artery Family History Mother Myocardial infarct History of heart disease Hypertension Mental health problem Father CAD, multiple vessel Diabetes mellitus History of heart disease Hypertension Hyperlipidemia Grandmother Diabetes mellitus History of heart disease Hypertension Stroke Grandmother Alzheimer's disease Social History household members: none Smoking Status: Never smoker alcohol intake: current Smoking Status: Never smoker tobacco type: cigars alcohol intake frequency: holidays/special occasions only Alcohol type: beer and hard liquor Substance Use Type: marijuana Exam Narrative Exam Narrative: GENERAL: [52] year old patient appears stated age. Well-developed patient, in mild distress. HEAD: Atraumatic. Normocephalic. EYES: Pupils equal round and reactive. Extraocular motions intact. No scleral icterus. No injection or drainage. ENT: Nose without bleeding, purulent drainage. Throat without erythema, tonsillar hypertrophy or exudate. Airway patent. NECK: Trachea midline. Non tender CARDIOVASCULAR: Regular rate and rhythm without murmurs, gallops, or rubs. RESPIRATORY: Clear to auscultation. Breath sounds equal bilaterally. No wheezes, rales, or rhonchi. GASTROINTESTINAL: Abdomen soft, non-tender, nondistended. EXTREMITIES: No pulsatile mass and right groin, no obvious external manifestation of disease or injury, no redness, warmth or swelling. Sensation is intact but decreased over the lateral thigh. No edema or joint tenderness. BACK: Nontender without deformity or crepitance. No flank tenderness. NEURO: AOx3. SKIN: No rash or erythema of visible areas Initial Vital Signs Initial Vital Signs: Vital Signs Temperature 97.3 F L 12/28/22 12:09 Pulse Rate 78 12/28/22 12:09 Respiratory Rate 16 12/28/22 12:09 Blood Pressure 173/88 H 12/28/22 12:09 Pulse Oximetry 99 12/28/22 12:09 Oxygen Delivery Method Room Air 12/28/22 12:09 Course Orders Ordered: ED Orders 12/28/22 12:27 CT angio LE RT Stat EKG-12 Lead Routine 12/28/22 13:00 Complete Blood Count AUTO DIFF Stat Comprehensive Metabolic Panel Stat PTT Partial Thromboplastin Adelfo Stat Prothrombin Time INR Stat Vital Signs Vital signs: Vital Signs - 8 hr 12/28/22 12:09 12/28/22 12:19 12/28/22 12:20 Temperature 97.3 F L Pulse Rate 78 79 75 Respiratory Rate 16 Blood Pressure 173/88 H Pulse Oximetry 99 100 100 Oxygen Delivery Method Room Air 12/28/22 12:20 12/28/22 12:30 12/28/22 12:30 Temperature Pulse Rate 73 Respiratory Rate 22 Blood Pressure 141/87 H 146/84 H Pulse Oximetry 100 Oxygen Delivery Method 12/28/22 13:04 12/28/22 13:05 12/28/22 13:05 Temperature Pulse Rate 75 72 Respiratory Rate 22 20 Blood Pressure 135/82 Pulse Oximetry 100 99 Oxygen Delivery Method 12/28/22 13:30 12/28/22 13:30 12/28/22 14:00 Temperature Pulse Rate 72 Respiratory Rate 18 Blood Pressure 131/83 134/86 Pulse Oximetry 97 Oxygen Delivery Method 12/28/22 14:00 Temperature Pulse Rate 71 Respiratory Rate 18 Blood Pressure Pulse Oximetry 96 Oxygen Delivery Method MDM - Extremity (Nontraumatic) Lab Data 12/28/22 13:00 12/28/22 13:00 Labs: Lab Results 12/28/22 12/28/22 12/28/22 Range/Units 13:00 13:00 13:00 WBC 5.9 (4.5-11.0) X10^3/uL RBC 4.25 L (4.5-5.9) X10^6/uL Hgb 12.8 L (13.5-17.5) g/dL Hct 37.2 L (41-53) % MCV 87.5 (80-100) fL MCH 30.1 (26-34) PG MCHC 34.4 (30-36) % RDW 13.5 (11.6-14.8) % Plt Count 153 (150-400) X10^3/uL Neut % (Auto) 69.5 (50-75) % Lymph % (Auto) 19.6 L (25-40) % [place] % (Auto) 8.0 (3-14) % Eos % (Auto) 2.3 (2-4) % Baso % (Auto) 0.6 (0-2) % Neut # (Auto) 4100 (8134-0191) /uL Lymph # (Auto) 1200 (9342-8340) /uL [place] # (Auto) 500 (0-900) /uL Eos # (Auto) 100 (0-450) /uL Baso # (Auto) 0 (0-100) /uL PT 12.1 (10.1-12.7) SECONDS INR 1.1 (0.9-1.3) APTT 30 (26-36) SECONDS Sodium 135 L (137-145) mmol/L Potassium 4.1 (3.4-5.1) mmol/L Chloride 103 (98-107) mmol/L Carbon Dioxide 27 (22-32) mmol/L BUN 8 L (9-20) mg/dL Creatinine 0.94 (0.66-1.25) mg/dL Estimated GFR > 60 (>60) mL/min BUN/Creatinine Ratio 8.5 (6-22) Glucose 118 H (70-100) mg/dL Calcium 8.3 L (8.4-10.2) mg/dL Total Bilirubin 0.3 (0.2-1.3) mg/dL AST 20 (17-59) IU/L ALT 27 (<50) IU/L Alkaline Phosphatase 57 (38-126) U/L Total Protein 6.4 (6.3-8.2) g/dL Albumin 3.4 L (3.5-5.0) g/dL Globulin 3.0 (1.7-4.1) g/dL Albumin/Globulin Ratio 1.1 (1.0-2.8) Urine Dip Bedside Urine Glucose Negative Bedside Urine Bilirubin - Negative Bedside Urine Ketone - Negative Urine Specific [place] 1.015 Bedside Urine Occult Blood - Negative Bedside Urine pH 8.0 Bedside Urine Protein - Negative Bedside Urine Urobilinogen - Negative Bedside Urine Nitrite - Negative Bedside Urine Leukocytes - Negative Esterase MDM Narrative Medical decision making narrative: [52] year old patient presents with right groin and anterior thigh pain with lateral numbness and tingling Multiple etiologies for patient's symptoms considered including, but not limited to: [Consequence from heart catheterization including dissection, aneurysm, pseudoaneurysm, infection versus other, also considering lumbar radiculopathy] Prior Charts reviewed in our EMR Primary Historian: patient Labs reviewed and interpreted by myself: No significant lab abnormalities that would require specific or immediate intervention Imaging reviewed: CT angiogram of right lower extremity without acute findings Multiple diagnoses considered as noted above. Imaging and labs are very reassuring and there is no evidence of dissection, aneurysm, pseudoaneurysm or other abnormality. Numbness of lateral thigh at this point most likely a consequence of lumbar radiculopathy patient had been having some back pain which was largely improved by a recent course of acupuncture which had improved but lateral leg numbness persists. We talked about return precautions, prescription sent to his pharmacy of choice. Findings and discharge diagnosis discussed with patient/family followed by verbalization of understanding Return precautions discussed with patient/family whom verbalize understanding of diagnosis and plan Discharge Plan Departure Patient Disposition: Home Clinical Impression: Lumbar radiculopathy, acute Instructions: DI for Lumbar Radiculopathy Activity Restrictions/Additional Instructions: *You have been diagnosed with [lumbar radiculopathy/as we discussed your history and physical exam are reassuring as are the labs and CT scan. There is no evidence of any vascular injury as a consequence of your recent heart catheterization.] *What to do: *Please continue to take your regular medications as directed. [x ] New medication prescriptions sent to your pharmacy: [ [facility]] [ ] New medication written as a paper prescription [ ] No new medications given *Please follow up with your primary care provider in 2-3 days, call for an appointment. Let them know you were seen in the Emergency Department and that we ask that you be seen in follow up. We will electronically transmit a record of today's note if your PCP is in our system *If you do not have a primary care provider please contact the [facility] Resource line at [phone]. They will ask some questions about your medical history and help get you set up with a doctor in the community. *Return to Emergency Department if you should have any new, worsening or concerning symptoms, such as [fever greater than 101 F, shaking chills, worsening pain, persistent vomiting or other bothersome symptoms] Prescriptions: New cyclobenzaprine 10 mg tablet 10 mg PO TID PRN (Reason: muscle spasm) Qty: 14 0RF gabapentin 300 mg capsule 300 mg PO BEDTIME Qty: 14 0RF methylprednisolone [Medrol ([place]anning)] 4 mg tablets,dose pack See Rx Instructions .ROUTE .COMPLEX Qty: 21 0RF Rx Instructions: orally per package directions No Action amlodipine 5 mg tablet 5 mg PO DAILY Qty: 90 3RF Hold Instructions: not taking for the last month, BP okay metoprolol succinate 100 mg tablet extended release 24 hr 100 mg PO QAM Qty: 90 3RF Rx Instructions: TAKE 1 TABLET BY MOUTH DAILY clopidogrel [Plavix] 75 mg tablet 75 mg PO DAILY Qty: 90 3RF divalproex 500 mg tablet extended release 24 hr 1,000 mg PO DAILY Qty: 180 3RF divalproex 250 mg tablet extended release 24 hr 250 mg PO DAILY MDD 1250 mg Qty: 90 3RF Rx Instructions: To be taken with 500 mg tabs for total daily dose of 1250 mg per day bupropion HCl 300 mg tablet extended release 24 hr 300 mg PO QAM Qty: 90 3RF pantoprazole 20 mg tablet,delayed release (DR/EC) 20 mg PO QPM Qty: 90 3RF Rx Instructions: TAKE 1 TABLET BY MOUTH EVERY EVENING ranolazine 500 mg tablet extended release 12 hr 500 mg PO BID Qty: 90 3RF Patient Comments: pt only takes once a day instead of BID aspirin 81 mg Tablet,Delayed Release (Dr/Ec) 81 mg PO DAILY Patient Comments: didn't start after leaving VM nitroglycerin 0.4 mg tablet, sublingual 0.4 mg sublingual Q5-15M PRN (Reason: chest pain) Qty: 20 0RF Rx Instructions: do not exceed 3 doses per episode Referrals: Titi Mccray DO [Primary Care Provider] - Stand Alone Forms: Patient Portal/API
--- NOTE | 2022-12-28 12:27 | DI.CT.S_ITS ---
PROCEDURE: CT ANGIO LE RT INDICATIONS: pain, numbness R leg, since recent heart cath, normal US TECHNIQUE: After the administration of intravenous contrast, 2.5 mm sections acquired from T12 to the feet, with optional delayed image acquisition from the knees to the feet. 3-dimensional maximum intensity projection (MIP) coronal and sagittal reformats, and/or 3-dimensional volume rendering reformatting was then performed. For radiation dose reduction, the following was used: automated exposure control. COMPARISON: None. FINDINGS: Image quality: Excellent. Extravascular tissues: Partially visualized pelvis unremarkable. Urinary bladder unremarkable without free fluid. Degenerative changes noted lower lumbar spine. In the leg, normal musculature and fascial planes are maintained. Subcutaneous tissue unremarkable.. Iliac vasculature in the pelvis unremarkable. The common femoral, femoral profundus, superficial femoral, and popliteal arteries are all unremarkable. Three-vessel runoff noted in the calf. IMPRESSION: Normal CT angiogram of the right lower extremity Approved by: Jarod Torrez M.D. on 12/28/2022 at 12:57
[2022-12-28 13:10] LABS: Add Manual Diff / Slide Review NO; Basophils Absolute Auto 0 /uL (0-100); Basophils Percent Auto 0.6 % (0-2); Eosinophils Absolute Auto 100 /uL (0-450); Eosinophils Percent Auto 2.3 % (2-4); Hematocrit 37.2 % (41-53); Hemoglobin 12.8 g/dL (13.5-17.5); Lymphocytes Absolute Auto 1200 /uL (1100-4500); Lymphocytes Percent Auto 19.6 % (25-40); Mean Corpuscular HGB Conc 34.4 % (30-36); Mean Corpuscular Hemoglobin 30.1 PG (26-34); Mean Corpuscular Volume 87.5 fL (80-100); Monocytes Absolute Auto 500 /uL (0-900); Neutrophils Absolute Auto 4100 /uL (1500-7000); Neutrophils Percent Auto 69.5 % (50-75); Platelet Count 153 X10^3/uL (150-400); Red Blood Cell Count 4.25 X10^6/uL (4.5-5.9); Red Cell Distribution Width 13.5 % (11.6-14.8); White Blood Cell Count 5.9 X10^3/uL (4.5-11.0)
[2022-12-28 13:33] LABS: INR 1.1 (0.9-1.3); Prothrombin Time 12.1 SECONDS (10.1-12.7)
[2022-12-28 13:35] LABS: PTT Partial Thromboplastin Tim 30 SECONDS (26-36)
[2022-12-28 13:36] LABS: Alanine Aminotransferase 27 IU/L (<50); Albumin 3.4 g/dL (3.5-5.0); Albumin Globulin Ratio 1.1 (1.0-2.8); Alkaline Phosphatase 57 U/L (38-126); Aspartate Aminotransferase 20 IU/L (17-59); BUN Creatinine Ratio 8.5 (6-22); Bilirubin Total 0.3 mg/dL (0.2-1.3); Blood Urea Nitrogen 8 mg/dL (9-20); Calcium 8.3 mg/dL (8.4-10.2); Carbon Dioxide 27 mmol/L (22-32); Chloride 103 mmol/L (98-107); Estimated Glomerular Filt Rate > 60 mL/min (>60); Glucose 118 mg/dL (70-100); HEMOLYSIS < 15 (0-50); Potassium 4.1 mmol/L (3.4-5.1); Sodium 135 mmol/L (137-145); Total Protein 6.4 g/dL (6.3-8.2)
== END 2022-12-28 14:25 | disposition home or self-care (01) ==
PROVIDERS: Emergency Provider Emergency Medicine; PCP Family Medicine
DX: M54.16 Radiculopathy, lumbar region (principal)
CPT/HCPCS: 36415; 73706; 80053; 81003; 85025; 85610; 85730; 93005; 93010; 99283; 99284

== ENCOUNTER → 2023-02-12 14:51 | Outpatient (CLI) | payer MEDICARE, SELFPAY ==
[2022-10-12 21:37] VITALS: BMI 39.7
[2023-02-12 15:35] LABS: Influenza A - CEPHEID Flu A NEGATIVE (NEGATIVE); Influenza B - CEPHEID Flu B NEGATIVE (NEGATIVE); Respiratory Syncytial Virus Negative (Negative)
[2023-02-12 15:43] LABS: COVID-19 CEPHEID 4-PLEX PCR POSITIVE (Negative)
== END ==
PROVIDERS: PCP Family Medicine; Visit Provider Nurse Practitioner Family
DX: R05.1 Acute cough (principal)
CPT/HCPCS: 0241U

== ENCOUNTER 2023-09-19 14:41 | Emergency (ER) | payer MEDICARE, SELFPAY ==
[2022-10-12 21:37] VITALS: BMI 39.7
[2023-09-19 14:46] VITALS: BP 141/84; PULSE 74; RESP 18; TEMP 36.8; O2SAT 100; BMI 42.5
--- NOTE | 2023-09-19 15:36 | ED_ITS ---
<Statement entered by Anjum Alan MD - 09/19/23 18:22> I was available for consultation for this patient while they were in the ER but not consulted. My review of this note is my first interaction with this patient's chart. I called the patient to discuss him following up with primary care for Gastroenterology referral. He states he feels well and understands. HPI - Skin/Abscess/Foreign Bdy General Chief complaint: Skin/Abscess/Foreign Body Stated complaint: Chest discomfort, headache Time Seen by Provider: 09/19/23 15:05 Source: patient Mode of arrival: Ambulatory Limitations: no limitations History of Present Illness HPI narrative: This is a 53-year-old male presenting to the emergency department due to a feeling of the possible foreign body in his esophagus. He states he was eating a hamburger when he felt like it got stuck. He states he vomited up a little bit of food still feels like there is ?something? in his chest?. Denies any pain radiating to the neck or left arm. Denies any nausea. States that he was able to drink some fluids although he still feels like there is ?something in there?. Related Data Home Medications Medication Instructions Recorded Confirmed aspirin 81 mg tablet,delayed 81 mg PO DAILY 08/17/19 02/12/23 release Previous Rx's Medication Instructions Recorded divalproex 250 mg tablet,extended 250 mg PO DAILY #90 tabs 11/28/21 release 24 hr divalproex 500 mg tablet,extended 1,000 mg (2 x 500 mg) PO DAILY 11/28/21 release 24 hr #180 tabs nitroglycerin 0.4 mg sublingual 0.4 mg sublingual Q5-15M PRN chest 09/22/22 tablet pain #20 tabs amlodipine 5 mg tablet 5 mg PO DAILY #90 tabs 10/24/22 clopidogrel 75 mg tablet (Plavix) 75 mg PO DAILY #90 tabs 10/24/22 metoprolol succinate 100 mg 100 mg PO QAM #90 tabs 10/24/22 tablet,extended release 24 hr bupropion HCl 300 mg 24 hr tablet, 300 mg PO QAM #90 tabs 12/25/22 extended release pantoprazole 20 mg tablet,delayed 20 mg PO QPM #90 tabs 12/25/22 release ranolazine 500 mg tablet,extended 500 mg PO BID #90 tabs 12/25/22 release,12 hr cyclobenzaprine 10 mg tablet 10 mg PO TID PRN muscle spasm #14 12/28/22 tabs gabapentin 300 mg capsule 300 mg PO BEDTIME #14 caps 12/28/22 Allergies Allergy/AdvReac Type Severity Reaction Status Date / Time ciprofloxacin [From Cipro] Allergy Severe ITCHING Verified 02/12/23 14:48 Review of Systems Review of Systems Narrative: GENERAL: Denies chills, fatigue, malaise, fever, sweats. HEENT: Denies sinus pain, ear pain, sore throat, difficulty swallowing, dizziness. RESPIRATORY: Denies dyspnea, cough, wheezing, hemoptysis, sputum. CARDIOVASCULAR: Reports chest discomfort, denies palpitations, orthopnea, edema, GASTROINTESTINAL: Denies nausea, vomiting, abdominal pain, diarrhea, constipation, melena. : Denies dysuria, frequency, incontinence, hematuria, urinary retention. MUSCULOSKELETAL: denies weakness, joint pain, or bony pain SKIN: Denies rash, skin lesions, or other NEUROLOGIC: Denies weakness, headache, numbness, change in speech, confusion, seizures, incoordination. PSYCHIATRIC: No concerning psychosocial issues. 12 point review of systems is negative except for those stated above Patient History Medical History (Updated 09/19/23 @ 17:01 by Suresh Cross PA-C) Chronic right hip pain Chronic right-sided low back pain without sciatica Chronic pain in right shoulder Exertional angina Presence of stent in LAD coronary artery COVID-19 virus infection On valproic acid therapy Body mass index (BMI) of 40.1-44.9 in adult Screening for prostate cancer Left anterior knee pain Screening for prostate cancer Neck pain Cramping of feet Angina at rest Alcohol use disorder, moderate, in sustained remission Bipolar II disorder Cervical somatic dysfunction Wears glasses Psoriasis Acne Allergies (~1978) Depression (~1999) History of bipolar disorder (~2014) Anxiety (~1999) Restless leg syndrome (~2016) Migraines (~2009) Headache (~2004) Carpal tunnel syndrome (~2014) Chicken pox (~1975) Tinnitus (~2015) Kidney stones (~2016) GERD (gastroesophageal reflux disease) (~1999) ADHD (~1999) Exertional shortness of breath Elevated blood sugar level Upper extremity somatic dysfunction Segmental and somatic dysfunction of thoracic region Body posture problem Chronic thoracic back pain (~1999) Family history of myocardial infarction at age less than 60 Essential hypertension Hx of angiography Dyslipidemia Coronary artery disease (~2002) Surgical History Stented coronary artery Anesthesia Lump in the testicle (~2004) History of arthroscopy of both knees (~1988) H/O left heart catheterization by cutdown Family History Mother Myocardial infarct History of heart disease Hypertension Mental health problem Father CAD, multiple vessel Diabetes mellitus History of heart disease Hypertension Hyperlipidemia Grandmother Diabetes mellitus History of heart disease Hypertension Stroke Grandmother Alzheimer's disease Social History household members: none Smoking Status: Never smoker alcohol intake: current Smoking Status: Never smoker tobacco type: cigars alcohol intake frequency: holidays/special occasions only Alcohol type: beer and hard liquor Substance Use Type: marijuana Exam Narrative Exam Narrative: GENERAL: Well-developed patient, in mild distress. HEAD: Atraumatic. Normocephalic. EYES: Pupils equal round and reactive. Extraocular motions intact. No scleral icterus. No injection or drainage. ENT: Nose without bleeding, purulent drainage. Throat without erythema, tonsillar hypertrophy or exudate. Airway patent. No evidence of foreign body when investigating oropharynx. NECK: Trachea midline. Non tender EXTREMITIES: No edema or joint tenderness. NEURO: AOx3. SKIN: No rash or erythema of visible areas Initial Vital Signs Initial Vital Signs: Vital Signs Temperature 98.3 F 09/19/23 14:46 Pulse Rate 74 09/19/23 14:46 Respiratory Rate 18 09/19/23 14:46 Blood Pressure 141/84 H 09/19/23 14:46 Pulse Oximetry 100 09/19/23 14:46 Oxygen Delivery Method Room Air 09/19/23 14:46 Course Orders Ordered: Discontinued Medications Glucagon (Glucagon,Human Recombinant 1 Mg/Ml Vial) 1 mg IV NOW ONE Stop: 09/19/23 15:52 Last Admin: 09/19/23 16:23 Dose: 1 mg Documented By: RB Ondansetron HCl (Ondansetron 4 Mg/2 Ml Inj) 4 mg IV NOW ONE Stop: 09/19/23 15:52 Last Admin: 09/19/23 16:05 Dose: 4 mg Documented By: CISCO Vital Signs Vital signs: Vital Signs - 8 hr 09/19/23 14:46 09/19/23 16:24 Temperature 98.3 F 98.5 F Pulse Rate 74 68 Respiratory Rate 18 18 Blood Pressure 141/84 H 112/74 Pulse Oximetry 100 97 Oxygen Delivery Method Room Air Room Air MDM - Skin/Abscess/Foreign Bdy MDM Narrative Medical decision making narrative: ED course: This is a 53-year-old male presents emergency department due to some chest discomfort after eating hamburger and ?feeling like something is still there?. He was still able to tolerate fluids throughout the course in the counter. One mg of IV glucagon as well as 4 mg of Zofran given which patient states made him ?feel better?. Recommended he continue to drink carbonated beverages at home to further aid in the passing of the possible food bolus. Still able to take p.o. fluids and no respiratory discomfort. Patient not report any left arm pain, no radiating up to his jaw, no diaphoresis or shortness of breath, and low concern for anything cardiac at this time. CC: Foreign body sensation Complicating co-morbidities: As below Data collected from: Previous notes Medical records reviewed: Patient was last seen approximately 9 months ago due to upper right leg pain. History of coronary artery disease, hypertension, hyperlipidemia. History of heart catheterization. History of bipolar disorder. Extensive medical history. CT angiogram of right lower extremity was unremarkable. Suspect to be lumbar radiculopathy. Differential considered, but not limited to: Retained food bolus, ACS, perforation Exam documented above, pertinent findings include: No obvious findings on exam Lab Test results independently reviewed as above. Pertinent findings: None obtained Imaging studies independently reviewed: None Scores Used: None MIPS Elements: None Consultations: None Treatments: 1 mg IM glucagon as well as 4 mg Zofran Re-evaluations: Patient felt better after treatment Discussion: Discussed plan with the patient was comfortable with the plan Diagnosis: Food bolus Disposition: see below, along with detailed discharge instructions that have be en reviewed with patient as well as indications for ED re-evaluation and additional outpatient follow up Discharge Plan Departure Patient Disposition: Home Clinical Impression: Throat discomfort Activity Restrictions/Additional Instructions: Thank you for coming to the [facility] Emergency Department today. I am glad that you are feeling somewhat better. Please continue to drink carbonated beverages to help a with the passing of the food bolus. Please return to the emergency department if you develop any difficulty breathing or swallowing or any other concerning signs or symptoms. I hope you feel better soon. Please follow up with your primary care provider within a week if your symptoms continue. If you do not have a primary care provider please contact the [facility] Resource line at [phone]. They will ask some questions about your medical history and help you get set up with a provider in the community. Prescriptions: No Action amlodipine 5 mg tablet 5 mg PO DAILY Qty: 90 3RF Hold Instructions: not taking for the last month, BP okay metoprolol succinate 100 mg tablet extended release 24 hr 100 mg PO QAM Qty: 90 3RF Rx Instructions: TAKE 1 TABLET BY MOUTH DAILY clopidogrel [Plavix] 75 mg tablet 75 mg PO DAILY Qty: 90 3RF divalproex 500 mg tablet extended release 24 hr 1,000 mg PO DAILY Qty: 180 3RF divalproex 250 mg tablet extended release 24 hr 250 mg PO DAILY MDD 1250 mg Qty: 90 3RF Rx Instructions: To be taken with 500 mg tabs for total daily dose of 1250 mg per day bupropion HCl 300 mg tablet extended release 24 hr 300 mg PO QAM Qty: 90 3RF pantoprazole 20 mg tablet,delayed release (DR/EC) 20 mg PO QPM Qty: 90 3RF Rx Instructions: TAKE 1 TABLET BY MOUTH EVERY EVENING ranolazine 500 mg tablet extended release 12 hr 500 mg PO BID Qty: 90 3RF Patient Comments: pt only takes once a day instead of BID aspirin 81 mg Tablet,Delayed Release (Dr/Ec) 81 mg PO DAILY Patient Comments: didn't start after leaving nitroglycerin 0.4 mg tablet, sublingual 0.4 mg sublingual Q5-15M PRN (Reason: chest pain) Qty: 20 0RF Rx Instructions: do not exceed 3 doses per episode cyclobenzaprine 10 mg tablet 10 mg PO TID PRN (Reason: muscle spasm) Qty: 14 0RF gabapentin 300 mg capsule 300 mg PO BEDTIME Qty: 14 0RF Referrals: Titi Mccray DO [Primary Care Provider] - Stand Alone Forms: Patient Portal/API
[2023-09-19] MEDS: ONDANSETRON 4 MG/2 ML INJ IV (16:05)
[2023-09-19] MEDS: GLUCAGON,HUMAN RECOMBINANT 1 MG/ML VIAL IV (16:23)
[2023-09-19 16:24] VITALS: BP 112/74; PULSE 68; RESP 18; TEMP 36.9; O2SAT 97
== END 2023-09-19 17:11 | disposition home or self-care (01) ==
PROVIDERS: Emergency Provider Physician Assistant Medical; PCP Family Medicine
DX: R09.A2 Foreign body sensation, throat (principal); R07.0 Pain in throat
CPT/HCPCS: 96374; 96375; 99283; J1610; J2405

== ENCOUNTER → 2023-10-06 10:25 | Outpatient (CLI) | payer MEDICARE, SELFPAY ==
[2022-10-12 21:37] VITALS: BMI 39.7
[2023-10-06 11:20] LABS: Hemoglobin A1C% w Est Avg Glu 6.3 % (4.0-6.0)
[2023-10-06 11:37] LABS: Alanine Aminotransferase 53 IU/L (<50); Albumin 4.1 g/dL (3.5-5.0); Albumin Globulin Ratio 1.2 (1.0-2.8); Alkaline Phosphatase 78 U/L (38-126); Aspartate Aminotransferase 30 IU/L (17-59); Blood Urea Nitrogen 9 mg/dL (9-20); Carbon Dioxide 29 mmol/L (22-32); Chloride 107 mmol/L (98-107); Cholesterol 228 mg/dL (140-199); Estimated Glomerular Filt Rate > 60 mL/min (>60); Globulin 3.5 g/dL (1.7-4.1); Glucose 126 mg/dL (70-100); HDL Cholesterol 30 mg/dL (40-60); HEMOLYSIS < 15 (0-50); LDL Cholesterol Calculated 180 mg/dL (<100); Potassium 4.9 mmol/L (3.4-5.1); Sodium 140 mmol/L (137-145); Total Protein 7.6 g/dL (6.3-8.2); Triglycerides 92 mg/dL (35-150)
[2023-10-06 12:07] LABS: Prostate Specific Antigen 0.349 ng/mL (0.10-4.00)
== END ==
LOC: LAB 10:26
PROVIDERS: PCP Family Medicine; Referring Provider Family Medicine; Visit Provider Family Medicine
DX: R73.03 Prediabetes (principal); I10 Essential (primary) hypertension; R97.20 Elevated prostate specific antigen [PSA]; E78.5 Hyperlipidemia, unspecified; K21.9 Gastro-esophageal reflux disease without esophagitis; I25.10 Atherosclerotic heart disease of native coronary artery without angina pectoris
CPT/HCPCS: 36415; 80053; 80061; 83036; 84153